=== PATIENT | female | born 1945 | race Caucasian/White ===

== ENCOUNTER 2020-12-22 04:17 | Inpatient (IN) | payer MEDICARE ==
[~2020-12-22] VITALS: Ht 157.5 cm; Wt 76.6 kg
[2020-12-22] MEDS ORDERED: TRAZ-252 PO (05:11)
[2020-12-22] MEDS ORDERED: SPIR50TA4 PO (05:15)
[2020-12-22] MEDS ORDERED: TOPR100T PO ×2 (05:15→10:22)
[2020-12-22] MEDS ORDERED: TORS20TA2 PO (05:15)
[2020-12-22] MEDS ORDERED: POTA1TAB23 PO (05:15)
[2020-12-22] MEDS ORDERED: ELIQ5TAB (05:15)
[2020-12-22] MEDS ORDERED: MYRB50TA PO (05:15)
[2020-12-22] MEDS ORDERED: FAMO1TAB11 PO (05:15)
[2020-12-22] MEDS ORDERED: TREL1AER (05:15)
[2020-12-22] MEDS ORDERED: NOXI1TAB PO (05:16)
[2020-12-22] MEDS ORDERED: CHRO200C2 PO (05:18)
[2020-12-22] MEDS ORDERED: CELE20TA PO (05:18)
[2020-12-22] MEDS ORDERED: TREL1AER PO (05:19)
[2020-12-22] MEDS ORDERED: fentaNYL 100 MCG/2 ML INJECTION (J3010) IV ONE (05:35)
[2020-12-22 06:09] LABS: BASO # 0.1 10^3/uL (0.0-0.2); BASO % 0.6 % (0.0-1.0); EOS % 0.4 % (0.0-3.0); HEMATOCRIT 39.8 % (36.0-47.0); HEMOGLOBIN 12.6 g/dl (12.0-15.5); LYMPH # 0.4 10^3/uL (1.5-5.0); LYMPH % 4.7 % (24.0-44.0); MEAN CORPUSCULAR HEMOGLOBIN 31.7 pg (27.0-33.0); MEAN CORPUSCULAR HGB CONC 31.7 g/dl (32.0-36.5); MEAN CORPUSCULAR VOLUME 100.3 fl (80.0-96.0); MONO % 10.2 % (2.0-8.0); NEUTROPHILS # 7.7 10^3/uL (1.5-8.5); NEUTROPHILS % 83.6 % (36.0-66.0); PLATELET COUNT, AUTOMATED 154 10^3/uL (150-450); RED BLOOD COUNT 3.97 10^6/uL (4.00-5.40); WHITE BLOOD COUNT 9.3 10^3/uL (4.0-10.0)
[2020-12-22 06:17] LABS: INR 1.28; PROTHROMBIN TIME 16.3 SECONDS (12.5-14.3)
[2020-12-22 06:18] LABS: PARTIAL THROMBOPLASTIN TIME 28.6 SECONDS (24.2-38.5)
[2020-12-22 06:30] LABS: CALCIUM LEVEL 8.7 MG/DL (8.8-10.2); CREATININE FOR GFR 1.53 MG/DL (0.55-1.30); POTASSIUM SERUM 3.8 MEQ/L (3.5-5.1)
[2020-12-22 06:34] LABS: RSV AMPLIFICATION NEGATIVE (NEGATIVE)
--- NOTE | 2020-12-22 07:04 | REPVR ---
PROCEDURE INFORMATION: Exam: XR Right Hip Exam date and time: 12/22/2020 6:28 AM Age: 75 years old Clinical indication: Hip pain; Right hip; Additional info: Fall, right hip deformity TECHNIQUE: Imaging protocol: XR Right hip. Views: 2 or 3 views hip with pelvis when performed. COMPARISON: No relevant prior studies available. FINDINGS: Bones/joints: There is a comminuted intertrochanteric fracture of the proximal right femur with a small amount of medial and superior displacement of the lesser trochanter fracture fragment, and mild posterior angulation of the femoral diaphysis relative to the femoral neck. The right hip joint space appears normal. Soft tissues: Grossly unremarkable. Vasculature: Arterial calcifications are noted. IMPRESSION: Acute, intertrochanteric fracture of the right femur. Electronically signed by: Bella Rios On 12/22/2020 07:04:23 AM
--- NOTE | 2020-12-22 07:07 | REPVR ---
PROCEDURE INFORMATION: Exam: XR Right Wrist Exam date and time: 12/22/2020 6:28 AM Age: 75 years old Clinical indication: Pain; Wrist; Right; Additional info: Trauma TECHNIQUE: Imaging protocol: XR Right wrist. Views: 3 or more views. COMPARISON: No relevant prior studies available. FINDINGS: Bones/joints: There is an acute, comminuted intra-articular fracture of the distal radius with impaction. There is mild dorsal angulation of the distal radius relative to the proximal radius and decreased radial inclination. There is a fracture of the ulnar styloid process. There is no evidence of dislocation. The bones appear qualitatively osteopenic. Soft tissues: There is diffuse soft tissue swelling. IMPRESSION: Comminuted, impacted, and mildly displaced, intra-articular fracture of the distal radius and an ulnar styloid process fracture. Electronically signed by: Bella Rios On 12/22/2020 07:07:27 AM
--- NOTE | 2020-12-22 07:09 | REPVR ---
PROCEDURE INFORMATION: Exam: XR Chest Exam date and time: 12/22/2020 6:28 AM Age: 75 years old Clinical indication: Pre-operative exam; Respiratory screening exam; Additional info: Fall, right forearm deformity TECHNIQUE: Imaging protocol: XR of the chest. Views: 1 view. COMPARISON: No relevant prior studies available. FINDINGS: Limitations: The patient is rotated. Tubes, catheters and devices: There is a left sided pacemaker. Lungs: The left lung is clear. The right lung is grossly clear but more limited in assessment. Pleural spaces: There is pleural fluid or pleural thickening on the right side. Heart/Mediastinum: The heart appears enlarged. Assessment of the mediastinum is limited by patient positioning. Bones/joints: The bones are osteopenic. Intraperitoneal space: Surgical clips are seen in the right upper quadrant. IMPRESSION: 1. Exam limited by rotation. 2. Cardiomegaly. 3. Mild right pleural thickening versus pleural fluid. Electronically signed by: Bella Rios On 12/22/2020 07:09:28 AM
--- NOTE | 2020-12-22 07:11 | REPVR ---
PROCEDURE INFORMATION: Exam: XR Right Forearm Exam date and time: 12/22/2020 6:28 AM Age: 75 years old Clinical indication: Wrist; Right; Patient HX: Distal forearm pain; Additional info: Fall, right forearm deformity TECHNIQUE: Imaging protocol: XR Right forearm. Views: 2 views. COMPARISON: No relevant prior studies available. FINDINGS: Tubes, catheters and devices: There are nathalie outside of the patient. Bones/joints: The bones are osteopenic. A comminuted, intra-articular fracture of the distal radius and ulnar styloid process fracture are noted. Please see the report for the x-ray of the wrist. The proximal radius and ulna appear intact. There is no dislocation. Soft tissues: Soft tissue swelling is noted in the distal forearm and wrist. Vasculature: Arterial calcifications are noted. IMPRESSION: 1. Fractures of the wrist, as reported on the x-ray of the wrist. 2. The proximal radius and ulna appear intact. Electronically signed by: Bella Rios On 12/22/2020 07:10:58 AM
[2020-12-22] MEDS ORDERED: ACETAMINOPHEN TAB 650MG DOSE (2X325MG) PO PRN ×2 (08:30→16:20)
[2020-12-22] MEDS ORDERED: MAALOX 30 ML SUSP *UDC PO PRN (08:30)
[2020-12-22] MEDS ORDERED: DEXTROSE 50% 50 ML SYRINGE IV PRN (08:30)
[2020-12-22] MEDS ORDERED: MOM 30ML SUSPENSION UDC PO PRN (08:30)
[2020-12-22] MEDS ORDERED: GLUCOSE 4GM CHEW TABLET PO PRN (08:30)
[2020-12-22] MEDS ORDERED: GLUCAGON INJ 1MG VIAL SC PRN (08:30)
[2020-12-22] MEDS ORDERED: MORPHINE 2 MG/ML 1ML VIAL (J2270) IV PRN ×2 (08:50→16:20)
[2020-12-22] MEDS: POTASSIUM CHLORIDE 10 MEQ SR TABLET PO SCH (09:00)
[2020-12-22] MEDS: MULTIVITAMINS/MINERALS THERAP 1 TAB PO SCH (09:00)
[2020-12-22] MEDS: VITAMIN D 1,000 INTERNATIONAL UNITS TABLET PO SCH (09:00)
[2020-12-22] MEDS: FAMOTIDINE 20 MG TAB PO SCH (09:00)
--- NOTE | 2020-12-22 09:05 | HPEPDOC ---
General Date of Admission 12/22/2020 Date of Service: Dec 22, 2020 Attending Physician: BRYAN TATE MD Chief Complaint The patient is a 75-year-old female admitted with a reason for visit of FALL. Presenting compliant: History of present illness: 75-year-old female patient past medical history of NIDDM, asthma, COPD, diverticulitis, hypertension, diastolic CHF with HFpEF, atrial fibrillation on Eliquis at home, history of heart block S/P pacemaker in 2004, anxiety/depression presented to [facility] ED after she sustained a fall at 3 AM when she got up to use the restroom, she accidentally slipped and fell to her right side and injured her right hip and right wrist .She denies having any shaking in her legs or hands, denies having any loss of control of bladder or bowel. No head injury, no loss of consciousness. Denies having any headache, chest pain, abdominal pain, nausea, vomiting, diarrhea. Patient was nothing by mouth since yesterday 7 PM as she is getting an pacemaker battery changed today at [place]. Past medical history: NIDDM Asthma COPD HTN Diastolic CHF HFpEF A. fib on Eliquis at home heart block s/p pacemaker Anxiety /depression Past surgical history: 3 bowel surgeries after obstruction, done in [place] Pacemaker 2005 Cholecystectomy 2016 Social history: Quit smoking in 1992, : Smoke 2 packs per day for 32 years Occasional wine drinking generally 1-2 glasses per week No illicit drug use Family History: Father had a history of heart disease, hypertension and diabetes- Mother has a history of heart disease- Grandmother has history of breast cancer- Sister has a history of breast cancer- Alive. REVIEW OF SYSTEMS: Constitutional: Denies having fever, chills, night sweats, weight loss, headaches. Eyes: Denies any blurry vision or double vision. ENT: Denies any dysphagia, odynophagia, ear discharge. Cardiovascular: Denies any chest pain or palpitations. Respiratory: Reports having shortness of breath on exertion [1/4 mile walk] Gastrointestinal (GI): Denies any nausea or vomiting. Genitourinary: Denies dysuria, hematuria. Musculoskeletal: Denies any muscle aches and pains. Skin: Denies any rashes or ulcers. Hematology/Oncology: Denies any easy bleeding or bruising. All other review of systems is negative. PHYSICAL EXAMINATION: Vital Signs: Temperature: 97.5 Pulse: 80/min RR: 16/min BP: 136/78 mmHg Oxygen saturation %: 98% on room air General: Patient is awake, alert, oriented times three, laying in bed , mild apparent distress due to pain from her recent fractures. Eyes: Conjunctiva clear, pupils equal round and reactive to light and accommodation. Fundus: not visualized. ENT: Hearing Bilateral normal. No nasal deviation, oropharynx clear with no lesions/erythema. Oral mucosa looks dry and she is nothing by mouth since yesterday 7pm. Cardiovascular: S1, S2, normal rhythm, no murmur appreciated. Respiratory: Patient was in pain and couldn't sit up due to her hip fracture. Could hear clear breath sounds on her left bases laterally but decreased breath sounds on the right lung bases laterally. Abdomen: Soft, bowel sounds positive, no bruits. Nontender on palpation. Extremities: She has a fracture in her right wrist and in Mando bandage. Given her right hip fracture her right leg is externally rotated. No clubbing or cyanosis. No edema, patient has superficial veins disease in bilateral legs and prominent veins in her right foot. Central nervous system (VIDEO MACHINES MECHANIC): Awake, alert and fully oriented. No focal deficits. Skin: Has a rash in bilateral legs and scratch lee. Imaging: Echocardiogram from 06/28/2020 reported as normal left ventricle systolic function, estimated ejection fraction of 60-65% estimated PA pressure is 62 mmHg plus moderate to severe pulmonary hypertension Chest x-ray done on 12/22/2020 reported as exam in limited by rotation, cardiomegaly, mild right pleural thickening versus pleural fluid. Hip AP and lateral including right pelvis done on 12/22/2020 reported as: Acute intertrochanteric fracture of the right femur. Radius/ulna x-ray done on 12/22/2020, reported as: Fracture of the wrist, as reported on the x-ray of the wrist. The proximal radius and ulna appear Intact. Wrist x-ray done on 12/22/2020, reported as: Comminuted, impacted, and mild displaced, intra-articular fracture of the distal radius and ulna styloid process fracture. Assessment: 75-year-old female with PMH of NIDDM, asthma, COPD, HTN, diastolic CHF with preserved EF, A. fib on anticoagulation at home, heart failure with pacemaker since 2004 presented to the ED after sustaining a fall early in the morning. In the ED imaging of her hip and pelvis and breast showed intertrochanteric fracture of femur and intra-or to kill her distal radius and ulna spinal process fracture. Dr. Amaya was contacted from the ED and was decided patient would be taken to or today to get her hip fixed, and her wrists she'll get the cast. As she was already off of for anticoagulation for her surgery today for pacemaker replacement she would be going to surgery today. Plan: Intertrochanteric hip fracture: -Patient will be taken to surgery today by Dr. Amaya -Patient to be kept nothing by mouth until the surgery. - Will start her on 60 MLS per hour of normal saline.[Be cautious in giving her fluids as she is has a history of congestive heart failure] - Post surgery as per the orthopedic surgeon recommendations will start Eliquis Wrist fracture: -Patient is will get a cast for her right wrist fracture. - Pain control as per orthopedic Atrial fibrillation with rate controlled: - Hold off on her Eliquis as she is going to surgery today. - Rate controlled with metoprolol 100 MG by mouth daily will continue that. - Her heart rate is 60 to 70s. Hypertension: -She takes metoprolol for her blood pressure control. - She generally takes 100 mg metoprolol by mouth daily if her blood pressure is elevated she takes an extra 50 mg. - Right now she is only getting 100 mg metoprolol, if patient has elevated blood pressure at nighttime it can give her an extra 50 mg of metoprolol. NIDDM 2: - Hypoglycemic protocol in place - Insulin sliding scale at before meals at bedtime. - Will hold her oral diabetic medications. COPD: - Will continue her home inhalers. Anxiety/depression: - Will continue her citalopram 20 mg GERD: - Will continue famotidine 10 mg[renally dosed by pharmacy she was getting 20 mg at home] DVT prophylaxis: - Teds and sequentials for now. - Her Eliquis will be resumed post surgery as per the recommendations of orthopedics. Disposition: Pending clinical improvement. Home Medications Scheduled Apixaban (Eliquis) 2.5 Mg Tablet, 2.5 MG PO BID, (Reported) Calcium Carb/Mag/Vitamin D3 (Coral Calcium 1,500 mg Cap) 1 Each Capsule, 1,500 MG PO DAILY, (Reported) Cholecalciferol (Vitamin D3) (Vitamin D3) 1,000 Unit Tablet, 5,000 UNITS PO DAILY, (Reported) Chromium Picolinate (Chromium Picolinate) 200 Mcg Tablet, 1,000 MCG PO DAILY, (Reported) Citalopram Hydrobromide (Celexa) 20 Mg Tablet, 20 MG PO DAILY, (Reported) Famotidine (Famotidine) 20 Mg Tablet, 20 MG PO DAILY, (Reported) Metoprolol Succinate (Toprol Xl) 100 Mg Tab.er.24h, 100 MG PO DAILY, (Reported) Mirabegron (Myrbetriq) 50 Mg Tab.er.24h, 50 MG PO DAILY, (Reported) Multivit,Calc,Mins/Iron/Folic (Thera-M Tablet) 1 Each Tablet, 1 TAB PO DAILY, (Reported) Potassium Chloride (Potassium Chloride) 10 Meq Tablet.er, 20 MEQ PO DAILY, (Reported) Spironolactone (Spironolactone) 50 Mg Tablet, 50 MG PO DAILY, (Reported) Torsemide (Torsemide) 20 Mg Tablet, 40 MG PO DAILY, (Reported) Trazodone HCl (Trazodone HCl) 50 Mg Tablet, 100 MG PO QHS, (Reported) Scheduled PRN Albuterol Sulf (Albuterol Sulfate) 2.5 Mg/3 Ml Vial.neb, 2.5 MG INH Q2H PRN for SHORTNESS OF BREATH, (Reported) Albuterol Sulfate (Ventolin Hfa) 18 Gm Hfa.aer.ad, 2 PUFFS INH QID PRN for SHORTNESS OF BREATH, (Reported) Diphenhydramine HCl (Banophen) 25 Mg Tablet, 25 MG PO DAILY PRN for ITCHING, (Reported) Fluticasone/Umeclidin/Vilanter (Trelegy Ellipta 100-62.5-25) 1 Each Blst.w.dev, 1 PUFF PO DAILY PRN for SHORTNESS OF BREATH, (Reported) Metoprolol Succinate (Toprol Xl) 100 Mg Tab.er.24h, 50 MG PO DAILY PRN for elevated heart rate, (Reported) Allergies Coded Allergies: lisinopril (Verified Adverse Reaction, Intermediate, AFFECTS RENAL FUNCTION, 12/22/20) metformin (Verified Adverse Reaction, Intermediate, AFFECTS RENAL FUNCTION, 12/22/20) simvastatin (Verified Adverse Reaction, Mild, ITCHING, 12/22/20) A-FIB/CHADSVASC A-FIB History Current/History of A-Fib/PAF?: Yes Current PO Anticoag Therapy: Yes Vital Signs Vital Signs Date Time Temp Pulse Resp B/P (MAP) Pulse Ox O2 Delivery O2 Flow Rate FiO2 12/22/20 06:21 80 16 136/78 (97) 98 Room Air 12/22/20 06:01 3.0 12/22/20 04:26 97.5 Laboratory Data Labs 24H Laboratory Tests 2 12/22/20 05:44: Immature Granulocyte % (Auto) 0.5, Neutrophils (%) (Auto) 83.6H, Lymphocytes (%) (Auto) 4.7L, Monocytes (%) (Auto) 10.2H, Eosinophils (%) (Auto) 0.4, Basophils (%) (Auto) 0.6, Neutrophils # (Auto) 7.7, Lymphocytes # (Auto) 0.4L, Monocytes # (Auto) 1.0H, Eosinophils # (Auto) 0.0, Basophils # (Auto) 0.1, Nucleated Red Blood Cells % (auto) 0.0, Prothrombin Time 16.3H, Prothromb Time International Ratio 1.28, Activated Partial Thromboplast Time 28.6, Anion Gap 9, Glomerular Filtration Rate 35.0L, Calcium Level 8.7L, Coronavirus (COVID-19)(PCR) NEGATIVE, Influenza Type A (RT-PCR) NEGATIVE, Influenza Type B (RT-PCR) NEGATIVE, Respiratory Syncytial Virus (PCR) NEGATIVE CBC/BMP Laboratory Tests 12/22/20 05:44 Plan / VTE VTE Prophylaxis Ordered?: Yes GME ATTESTATION GME ATTESTATION My faculty preceptor for this patient encounter was physically present during the encounter and was fully available. All aspects of the patient interview, examination, medical decision making process, and medical care plan development were reviewed and approved by the faculty preceptor. The faculty preceptor is aware and concurs with the plan as stated in the body of this note and will attest to such by his/her cosignature. ATTENDING NOTE I, Bryan Tate, have independently examined this patient and performed my own physical exam, as well as reviewed the documentation and edited where necessary. I have discussed in detail with the resident / student the findings and plan of treatment as documented by the resident / student and edited their note. I agree with their findings and treatment plan and have edited their documentation. I will continue to follow the patient during this hospital stay. Patient is a 75-year-old female with a past medical history of atrial fibrillation (s/p ablation and pacemaker, on Eliquis), Diastolic CHF, HTN, DLP, COPD, Depression, Insomnia who was recently scheduled to receive a pacemaker battery replacement today [facility]. However, she had fallen off of her toilet and landed on her right side, sustaining a right hip and right wrist fracture. Patient has reported that she has stopped the use of use of Eliquis on Sunday (last dose Sunday evening) in anticipation of the battery replacement today. Patient reports that her pain is currently not well controlled and is requesting further morphine. Patient is currently medically optimized at moderate risk for a low risk procedure. Will resume anticoagulation with Eliquis post operatively and have outpatient follow-up with her video machines mechanic for replacement of her pacemaker battery in the near future. Patient has verbalized understanding of risks and benefits of surgery. Ishaan Diaz MD Dec 22, 2020 09:05 BRYAN TATE MD Dec 22, 2020 18:08
[2020-12-22] MEDS: NS 1,000 ML IV SCH ×2 (09:12→22:15)
[2020-12-22] MEDS: DOCUSATE SODIUM 100MG CAPSULE PO SCH ×2 (09:12→22:05)
[2020-12-22] MEDS ORDERED: ALBU83IN INH (10:22)
[2020-12-22] MEDS ORDERED: VENTAER INH (10:30)
[2020-12-22] MEDS ORDERED: THERTAB21 PO (10:30)
[2020-12-22] MEDS ORDERED: CORACAP PO (10:30)
[2020-12-22] MEDS ORDERED: BANO25TA PO (10:30)
[2020-12-22] MEDS ORDERED: ELIQ2.5T PO (10:30)
[2020-12-22] MEDS ORDERED: D31000TA2 PO (10:30)
[2020-12-22] MEDS ORDERED: ALBUTEROL SULFATE 2.5 MG/0.5 ML INH NEB SOLN INH PRN (10:40)
[2020-12-22] MEDS ORDERED: ALBUTEROL 90 MCG/ACT 8GM HFA INHALER INH PRN (10:40)
[2020-12-22] MEDS ORDERED: METOPROLOL SUCC (TopROL XL) 100MG *XL* TAB PO PRN (10:40)
[2020-12-22] MEDS ORDERED: diphenhydrAMINE 25MG CAP PO PRN (10:40)
[2020-12-22] MEDS ORDERED: MORPHINE 4 MG/ML 1ML VIAL/SYRINGE (J2270) IV ONE (11:00)
[2020-12-22] MEDS: HumaLOG INSULIN (NovoLOG) PER UNIT SC SCH ×2 (12:00→17:30)
[2020-12-22] MEDS ORDERED: MORPHINE 4 MG/ML 1ML VIAL/SYRINGE (J2270) IV PRN (12:50)
[2020-12-22] MEDS ORDERED: ACETAMINOPHEN 1000MG 100ML IV BTL (OFIRMEV) (J0131 PER 10MG) As Ordered ONE (13:23)
[2020-12-22] MEDS ORDERED: dexameTHASONE 4 MG/ML 1ML VIAL (J1100 PER 1MG) As Ordered ONE (13:23)
[2020-12-22] MEDS ORDERED: propofoL 200 MG/20 ML VIAL As Ordered ONE (13:23)
[2020-12-22] MEDS ORDERED: LIDOCAINE 2% 100MG/5ML SDV (FOR ANES.) As Ordered ONE (13:23)
[2020-12-22] MEDS ORDERED: ONDANSETRON 4MG/2ML VIAL As Ordered ONE (13:23)
[2020-12-22] MEDS ORDERED: fentaNYL 100 MCG/2 ML INJECTION (J3010) As Ordered ONE (13:23)
[2020-12-22] MEDS ORDERED: MIDAZOLAM INJ 2MG/2ML VIAL (J2250 PER 1MG) As Ordered ONE (13:23)
--- NOTE | 2020-12-22 13:25 | CR ---
CONSULTATION DATE: 12/22/2020 CHIEF COMPLAINT: Right hip fracture and right distal radius fracture. HISTORY OF PRESENT ILLNESS: This 75-year-old female sustained a ground-level fall this morning. She is seen in the emergency department. She was found to have a distal radius fracture of the right side as well as a right hip fracture. She was brought in by the emergency medical services (EMS). She was unable to ambulate. She reports no head injury or loss of consciousness. She has been off her Eliquis due to needing battery change for her pacemaker. She is nothing by mouth. MEDICAL HISTORY: 1. Diabetes. 2. Renal dysfunction. 3. Chronic obstructive pulmonary disease (COPD). 4. Diverticulosis. 5. Asthma. 6. Pacemaker. She is unsure of medications she is on; however, in the chart, trazodone, insulin, albuterol, potassium chloride, multivitamin, metoprolol, famotidine, Celexa, and I believe she is on Eliquis as well. MEDICATION ALLERGIES: LISINOPRIL, METFORMIN, SIMVASTATIN. SURGICAL HISTORY: Many, however, she states she has had three times bowel surgeries. SOCIAL HISTORY: Lives with her significant other, Vargas. His phone number . Nonsmoker. Does not use any ambulatory aids. PHYSICAL EXAMINATION: Well-appearing 75-year-old female in no acute distress. She has a splint on her right upper extremity. Finger are warm and well perfused. She is wiggling her fingers. Capillary refill under 3 seconds. Normal sensation to median, radial, ulnar nerve distribution. No other obvious injuries. In terms of her right lower extremity, foot is warm and well perfused. Strong dorsalis pedis pulse. She is able to wiggle her toes, dorsiflex, plantarflex her foot. Normal sensation on the dorsum and plantar aspect of her foot. No obvious abrasions. Closed injury, right hip. Radiographs were reviewed. Right hip demonstrates a 4-part unstable intertrochanteric hip fracture on the right side. There is also right wrist and forearm radiographs that demonstrate a right distal radius fracture. There is flattening of the radial inclination, minimal shortening, and on the lateral radiograph the dorsal angulation appears neutral. ASSESSMENT AND PLAN: This 75-year-old female is optimized for the hospitalist service for right hip fracture fixation. In terms of her right wrist fracture, I recommend nonsurgical management given the relative good alignment in a splint. I recommend cast treatment for this for 6 weeks. I recommend closed reduction and cast treatment. I explained the pros and cons, risks, benefits of going ahead with a right hip open reduction, internal fixation in the form of long intramedullary nail as well as closed reduction and casting of right distal radius fracture. She wished to go ahead. I explained the pros and cons, risks, and benefits of both nonoperative management as well as operative forms of treatment. Specific surgical risks include, but are not limited to, infection, pain, stiffness, weakness, damage to surrounding structures, lymph, neurovascular injury, fracture, delayed mal or nonunion, neurovascular injury, anesthetic complications, blood clots, , need for revision, or other surgeries. This applies to both the right wrist as well as the right hip. I consented her for right hip open reduction, internal fixation and right distal radius closed reduction casting. She wished to go ahead. I marked the right lower extremity. I also consented her for possible need for blood products and explained the pros, cons, risks, and benefits of that to her as well. She will remain nothing by mouth for the procedure. Hold her blood thinner. She has been cleared by the hospitalist, whom I thank for their involvement. I have let the operating room (OR) know that she is an add-on case. The patient understands and had no further questions.
--- NOTE | 2020-12-22 14:05 | IPNPDOC ---
Text Note Date of Service The patient was seen on 12/22/20. NOTE Full H&P to follow: Patient is a 75-year-old female with a past medical history of atrial fibrillation (s/p ablation and pacemaker, on Eliquis), Diastolic CHF, HTN, DLP, COPD, Depression, Insomnia who was recently scheduled to receive a pacemaker battery replacement today [facility]. However, she had fallen off of her toilet and landed on her right side, sustaining a right hip and right wrist fracture. Patient has reported that she has stopped the use of use of Eliquis on Sunday (last dose Sunday evening) in anticipation of the battery replacement today. Patient reports that her pain is currently not well controlled and is requesting further morphine. Patient is currently medically optimized at moderate risk for a low risk proced ure. Will resume anticoagulation with Eliquis post operatively and have outpatient follow-up with her sales marketing manager for replacement of her pacemaker battery in the near future. Patient has verbalized understanding of risks and benefits of surgery. VS,Fishbone, I+O VS, Fishbone, I+O Laboratory Tests 12/22/20 05:44 Vital Signs Date Time Temp Pulse Resp B/P (MAP) Pulse Ox O2 Delivery O2 Flow Rate FiO2 12/22/20 12:32 64 96 12/22/20 12:30 18 118/61 (80) Nasal Cannula 2.0 12/22/20 08:30 98.0 CRISS ALVARADO MD Dec 22, 2020 14:05
[2020-12-22] MEDS ORDERED: ceFAZolin 2 GM/D5W 50 ML IV BAG (J0690 PER 500MG) As Ordered ONE (14:33)
--- NOTE | 2020-12-22 16:04 | REP ---
INDICATION: INTRA-OP COMPARISON: 12/22/2020 TECHNIQUE: Intraoperative fluoroscopic images using portable C-arm technique. FINDINGS: Patient is status post satisfactory closed reduction for comminuted distal radial fracture. Total fluoroscopic time 5.3 seconds. IMPRESSION: Status post closed reduction period. <Electronically signed by Tex Almendarez > 12/22/20 1600
--- NOTE | 2020-12-22 16:13 | ROOPDOC ---
[facility] Report Of Operation Report of Operation DATE OF PROCEDURE: 12/22/20 PREPROCEDURE DIAGNOSES: Right hip fracture and right distal radius fracture. POSTPROCEDURE DIAGNOSES: Same. PROCEDURE: Open reduction internal fixation right hip and closed reduction casting right distal radius fracture. SURGEON: Dr. Heriberto Jama MD RECORD KEEPER: Jeniffer, ANESTHESIA: Spinal anesthetic dr sykes. ESTIMATED BLOOD LOSS: Approximately 100 mL. COMPLICATIONS: None. REMARKS: None. PROCEDURE NOTE: This 75-year-old female had a ground-level fall. She does sustained a displaced unstable right intertrochanteric hip fracture and right a stress fracture. I discussed the pros and cons risks and benefits of nonsurgical treatment, versus open reduction internal fixation right hip and closed reduction casting right distal radius fracture vs other options. She understands and wished to proceed. No further questions. Right hip and right wrist was marked appropriately. DESCRIPTION OF PROCEDURE: Patient was brought to the operating theater. Spinal anesthetic was administered. 2 g of IV Ancef was administered. They were placed supine in the traction fracture table. Right lower extremity in traction and external rotation followed by internal rotation. Left leg attached to the middle post and scissoring position. AP and lateral radiographs taken of the right hip to confirm proper reduction. Limb was prepped and draped in the usual sterile fashion with chlorhexidine-based prep solution. Over 3 minutes drying time was used. Preoperative timeout was performed to confirm site patient and surgery. I began by addressing the 3.2 mm partially threaded guidewire at the tip of the greater trochanter on both AP and lateral radiographs aiming towards the lesser trochanter as well as down the center of the femoral canal. Made a small incision over the guidewire. A soft tissue protector. A canal reamer was used to open the proximal femur. I then passed the ball-tip guidewire down to the center of the knee center center on both AP and lateral x-rays. This measured 370 mm long and the neck shaft angle is slightly valgus so a 11 mm 360 mm long 130 neck shaft angle was used Synthes TFN- A nail. The nail was placed and the guidewire removed. Drop-down guide was used again small incision percutaneous technique was used to insert the partially-threaded guidewire to the center of the femoral head and neck erring slightly inferior and posterior. Guidewire was advanced to subchondral bone. This measured 106 mm so I reamed to 100 mm and inserted a 100 mm helical blade. This was locked proximally. Drop-down guide was removed. Guidewire was removed. I then put her my attention distally. Using perfect [place] technique and percutaneous incisions and inserted a fully threaded cortical locking screws one 44 mm long and one 40 mm long through the proximal hole as well as the oblong hole. Final radiographs were taken. I used the near far technique to ensure no subchondral bone penetration of the helical blade. I took final radiographs AP laterally proximally and distally confirmed proper reduction and nail implant positioning. Wounds thoroughly irrigated. Subcutaneous tissue closed with 2-0 Vicryl sutures and skin with nathalie. Surgicel was inserted into the proximal incision for hemostasis as she was slightly oozy throughout the case. Skin was cleaned with wet and dry dressing followed by application of nonstick dressings for gauze and clear plastic tape dressing. Patient's lower extremity was then taken out of the traction setup. Another preoperative timeout was performed to confirm the site patient and procedure right distal radius closed reduction casting. I placed a below elbow circumferential plaster of Maria Antonia cast on the patient's right upper extremity. I performed gentle 3 point molding with 2 points dorsally 1 volarly. I placed the wrist into ulnar deviation with longitudinal traction. The cast was allowed to fully set. Radiographs are taken to confirm proper reduction. These were saved to the system. Case terminated. Patient transferred off the operating room table taken to postanesthetic care unit in stable condition. All sponge needle and instrument counts correct. No complications. Estimated blood loss 100 mL. Post op Plan: Plan for the patient weightbearing as tolerated. Readmitted under the hospitalist service. I will leave the venous thrombolic embolism prophylaxis to the hospitalist although she will most likely return to her home dose of eliquis postoperative day 1 or 2. I am a bit concerned she may develop a post op hematoma with her being oozy during the surgery, however the risks of this must be balanced with risk of VTE. Weightbearing as tolerated right lower extremity and she may use the right upper extremity with the cast in place to help her ambulate. Using a walker with an ulnar gutter on the right side may be of benefit for her. Follow-up in the office in 2 weeks' time to check the wound and discontinue the nathalie. I communicated directly with the patient's significant other today after surgery. They had no further questions. Postoperative wound instructions were given. It was recommended to keep the wound clean and dry. Dressing changes as needed. It was reinforced with the patient that they should call us or be seen immediately for redness, drainage, or fever. HERIBERTO JAMA MD Dec 22, 2020 16:13
[2020-12-22] MEDS ORDERED: oxyCODONE 5MG TAB PO PRN (16:15)
[2020-12-22] MEDS ORDERED: ONDANSETRON 4MG/2ML VIAL IV PRN ×2 (16:15→16:20)
[2020-12-22] MEDS ORDERED: LR 1,000 ML IV SCH ×2 (16:15→16:20)
--- NOTE | 2020-12-22 16:22 | REP ---
INDICATION: RIGHT HIP FRACTURE. COMPARISON: Comparison radiographs December 22, 2020.. TECHNIQUE: Five views. 162.6 seconds of fluoroscopy time is reported. FINDINGS: A sequence of 6 last image hold fluoroscopically obtained spot radiographs of the femur document open reduction internal fixation proximal femur fracture. IMPRESSION: Procedural imaging. <Electronically signed by Carlitos Morales > 12/22/20 0540
[2020-12-22] MEDS: fentaNYL 100 MCG/2 ML INJECTION (J3010) IV PRN ×2 (16:52→17:08)
[2020-12-22 17:45] VITALS: BP 125/58
[2020-12-22 18:15] VITALS: BP 121/57
[2020-12-22 18:45] VITALS: BP 139/65
[2020-12-22 20:00] VITALS: BP 129/60
[2020-12-22] MEDS ORDERED: traZODone 100 MG TAB PO SCH (21:00)
[2020-12-22] MEDS ORDERED: HumaLOG INSULIN (NovoLOG) PER UNIT SC SCH (21:00)
[2020-12-22] MEDS: METOPROLOL SUCC (TopROL XL) 100MG *XL* TAB PO SCH (21:10)
[2020-12-22] MEDS: CitaloPRAM (CeleXA) 20 MG TAB PO SCH (22:05)
[2020-12-23] VITALS: BP 129/59
[2020-12-23 04:00] VITALS: BP 132/63
[2020-12-23] MEDS: PERCOCET 5MG/325MG TAB PO PRN ×2 (05:37→12:09)
[2020-12-23 07:05] LABS: BASO % 0.1 % (0.0-1.0); HEMATOCRIT 39.6 % (36.0-47.0); HEMOGLOBIN 11.7 g/dl (12.0-15.5); LYMPH # 0.4 10^3/uL (1.5-5.0); LYMPH % 4.7 % (24.0-44.0); MEAN CORPUSCULAR HEMOGLOBIN 31.5 pg (27.0-33.0); MEAN CORPUSCULAR HGB CONC 29.5 g/dl (32.0-36.5); MEAN CORPUSCULAR VOLUME 106.7 fl (80.0-96.0); MONO # 1.2 10^3/uL (0.0-0.8); MONO % 13.5 % (2.0-8.0); NEUTROPHILS # 7.3 10^3/uL (1.5-8.5); PLATELET COUNT, AUTOMATED 142 10^3/uL (150-450); RED BLOOD COUNT 3.71 10^6/uL (4.00-5.40)
[2020-12-23 07:24] LABS: CALCIUM LEVEL 8.9 MG/DL (8.8-10.2); CREATININE FOR GFR 1.62 MG/DL (0.55-1.30); GLOMERULAR FILTRATION RATE 32.8 (>39); POTASSIUM SERUM 4.2 MEQ/L (3.5-5.1)
[2020-12-23 07:59] VITALS: BP 120/57
[2020-12-23] MEDS: HumaLOG INSULIN (NovoLOG) PER UNIT SC SCH ×2 (08:30→13:03)
[2020-12-23] MEDS: MULTIVITAMINS/MINERALS THERAP 1 TAB PO SCH (08:55)
[2020-12-23] MEDS: CitaloPRAM (CeleXA) 20 MG TAB PO SCH (08:55)
[2020-12-23] MEDS: VITAMIN D 1,000 INTERNATIONAL UNITS TABLET PO SCH (08:55)
[2020-12-23] MEDS: DOCUSATE SODIUM 100MG CAPSULE PO SCH (08:55)
[2020-12-23] MEDS: POTASSIUM CHLORIDE 10 MEQ SR TABLET PO SCH (08:55)
[2020-12-23] MEDS: FAMOTIDINE 20 MG TAB PO SCH (08:56)
[2020-12-23 08:59] VITALS: BP 101/53
[2020-12-23] MEDS: METOPROLOL SUCC (TopROL XL) 100MG *XL* TAB PO SCH (08:59)
[2020-12-23] MEDS ORDERED: APIXABAN 2.5 MG TAB (ELIQUIS) PO SCH (09:00)
[2020-12-23] MEDS ORDERED: NS 1,000 ML IV SCH (09:10)
--- NOTE | 2020-12-23 11:08 | IPN ---
PROGRESS NOTE DATE: 12/23/2020 CHIEF COMPLAINT: Postop day #1 right hip open reduction internal fixation and right distal radius fracture closed reduction casting. HISTORY OF PRESENT ILLNESS: This 75-year-old female was seen today on the [facility] postoperative day #1 from right hip intramedullary nailing for intertrochanteric hip fracture as well as closed reduction casting right distal radius fracture. She is doing well. No concerns from her or the nursing staff. PHYSICAL EXAMINATION: A well appearing 75-year-old female. She communicates appropriately. She is alert and oriented x3. She is quite pleasant in her affect. In terms of the right upper extremity, the cast is in situ. No cast or skin breakdown. Normal sensation throughout the digits. Digits are warm and well perfused. Capillary refill under 3 seconds. Right lower extremity; the dressings are dry and in situ. No obvious drainage or strikethrough. Normal sensation to the foot. Foot is warm and well perfused. Strong dorsalis pedis pulse. She is able to wiggle her toes, dorsiflex and plantarflex her foot. ASSESSMENT AND PLAN: This 75-year-old female is weightbearing as tolerated right lower extremity. In terms of the right upper extremity, as I stated in my operative note, it may help to obtain an ulnar gutter with her walker to help for mobilization. In terms of anticoagulation, I will leave this up to the hospitalist, however, she will likely go back on her home dose of Eliquis today or tomorrow. She understands and had no further questions. I will follow her while she is in the hospital. Please do not hesitate to call with any concerns.
[2020-12-23 11:11] VITALS: BP 98/58
[2020-12-23] MEDS ORDERED: PERCOCET PO (11:21)
[2020-12-23] MEDS ORDERED: MM S100C PO (11:21)
--- NOTE | 2020-12-23 12:40 | ECGEPIP ---
[facility] - ED Test Date: 2020-12-22 Pat Name: ALEX MARIA Department: Room: - Gender: Female [employer] Researcher: liam : 1945 Requested By: VITO Man Order Number: [id number] Reading MD: Dilia Bowen Measurements Intervals Steward Rate: 65 P: VT: QRS: -86 QRSD: 160 T: 77 QT: 488 QTc: 507 Interpretive Statements Ventricular-paced rhythm no prior Electronically Signed on 12-23-2020 12:40:25 EDT by Dilia Bowen
--- NOTE | 2020-12-23 16:53 | DS.PDOC ---
Discharge Summary General Date of Admission Dec 22, 2020 at 08:49 Date of Discharge 12/23/2020 Attending Physician: BRYAN TATE MD Discharge Summary PROCEDURES PERFORMED DURING STAY: Open reduction internal fixation right hip and closed reduction casting right distal radius fracture. on 12/[address] Ena Amaya ADMITTING DIAGNOSES: Right intertrochanteric hip fracture and right wrist fracture NIDDM Asthma COPD HTN Diastolic CHF HFpEF A. fib on Eliquis at home heart block s/p pacemaker Anxiety /depression DISCHARGE DIAGNOSES: Status post right hip fracture fixation Cast treatment for right wrist fracture. NIDDM Asthma COPD HTN Diastolic CHF HFpEF A. fib on Eliquis at home heart block s/p pacemaker Anxiety /depression COMPLICATIONS/CHIEF COMPLAINT: Closed Right Hip Fx/Right Forearm Fx. HISTORY OF PRESENT ILLNESS: 75-year-old female with PMH of NIDDM, Asthma, COPD, HTN, diastolic CHF with preserved EF, A. fib on anticoagulation at home, heart failure with pacemaker since 2004 presented to the ED after sustaining a fall early in the morning. In the ED imaging of her hip and pelvis and breast showed intertrochanteric fracture of femur and intertrochanteric distal radius and ulna spinal process fracture. Dr. Amaya was contacted from the ED and was decided patient would be taken to or today to get her hip fixed, and her wrists she'll get the cast. As she was already off of for anticoagulation for her surgery today for pacemaker replacement she would be going to surgery. HOSPITAL COURSE: Patient had right hip fixation and a cast placement for the right wrist yesterday. No complications post surgery. Pain was controlled by medications. Eliquis was resumed today based on home dose post-operatively. Reports having itching all over her body most likely because of dryness and had reported this during prior hospitalizations as well. DISCHARGE MEDICATIONS: Please see below. ALLERGIES: Please see below. PHYSICAL EXAMINATION ON DISCHARGE: VITAL SIGNS: Please see below. General: Patient is awake, alert, oriented times three, sitting in chair, mild apparent distress and she is going from her recent hip fracture surgery. Eyes: Conjunctiva clear, pupils equal round and reactive to light and accommodation. Fundus: not visualized. ENT: Hearing Bilateral normal. No nasal deviation, oropharynx clear with no lesions/erythema. Cardiovascular: S1, S2, normal rhythm, no murmur appreciated. Respiratory: Bilaterally clear breath sounds appreciated, no wheezes or rhonchi. Abdomen: Soft, bowel sounds positive, no bruits. Nontender on palpation. Extremities: She has a fracture in her right wrist and in cast. She did have his surgery yesterday and noted bandage in her hip region with no surrounding erythema or discharge. No leg swellings noted Central nervous system ([facility]): Awake, alert and fully oriented. No focal deficits. Skin: Has a rash in bilateral legs and scratch lee. LABORATORY DATA: Please see below. IMAGING: Imaging: Echocardiogram from 06/28/2020 reported as normal left ventricle systolic function, estimated ejection fraction of 60-65% estimated PA pressure is 62 mmHg plus moderate to severe pulmonary hypertension Chest x-ray done on 12/22/2020 reported as exam in limited by rotation, cardiomegaly, mild right pleural thickening versus pleural fluid. Hip AP and lateral including right pelvis done on 12/22/2020 reported as: Acute intertrochanteric fracture of the right femur. Radius/ulna x-ray done on 12/22/2020, reported as: Fracture of the wrist, as reported on the x-ray of the wrist. The proximal radius and ulna appear Intact. Wrist x-ray done on 12/22/2020, reported as: Comminuted, impacted, and mild displaced, intra-articular fracture of the distal radius and ulna styloid process fracture. PROGNOSIS: Good ACTIVITY: [As tolerated]. DIET: Consistent carbohydrate diet DISCHARGE PLAN: Acute rehabilitation unit DISPOSITION: Acute Rehab DISCHARGE INSTRUCTIONS: 1. Follow with PCP in one week after the discharge from the hospital. 2. Follow-up with orthopedics after the discharge from hospital. ITEMS TO FOLLOWUP ON ON OUTPATIENT: 1. Follow-up with PCP in one week after the discharge from hospital DISCHARGE CONDITION: [Stable]. TIME SPENT ON DISCHARGE: 35 minutes. Vital Signs/I&Os Vital Signs Date Time Temp Pulse Resp B/P (MAP) Pulse Ox O2 Delivery O2 Flow Rate FiO2 12/23/20 12:39 16 12/23/20 11:30 93 Nasal Cannula 1.0 12/23/20 11:11 97.0 64 98/58 (71) I&O- Last 24 Hours up to 6 AM 12/23/20 06:00 Intake Total 860 ml Output Total 375 ml Balance 485 ml Laboratory Data Labs 24H Laboratory Tests 2 12/22/20 17:44: Bedside Glucose (Misc Panel) 153H 12/22/20 22:09: Bedside Glucose (Misc Panel) 156H 12/23/20 06:02: Immature Granulocyte % (Auto) 0.7, Neutrophils (%) (Auto) 81.0H, Lymphocytes (%) (Auto) 4.7L, Monocytes (%) (Auto) 13.5H, Eosinophils (%) (Auto) 0.0, Basophils (%) (Auto) 0.1, Neutrophils # (Auto) 7.3, Lymphocytes # (Auto) 0.4L, Monocytes # (Auto) 1.2H, Eosinophils # (Auto) 0.0, Basophils # (Auto) 0.0, Nucleated Red Blood Cells % (auto) 0.0, Anion Gap 6L, Glomerular Filtration Rate 32.8L, Calcium Level 8.9 12/23/20 06:45: Bedside Glucose (Misc Panel) 175H 12/23/20 11:26: Bedside Glucose (Misc Panel) 178H CBC/BMP Laboratory Tests 12/23/20 06:02 FSBS Laboratory Tests Test 12/22/20 17:44 12/22/20 22:09 12/23/20 06:45 12/23/20 11:26 Range/Units Bedside Glucose (Misc Panel) 153 156 175 178 83-110 MG/DL Discharge Medications Scheduled Apixaban (Eliquis) 2.5 Mg Tablet, 2.5 MG PO BID, (Reported) Calcium Carb/Mag/Vitamin D3 (Coral Calcium 1,500 mg Cap) 1 Each Capsule, 1,500 MG PO DAILY, (Reported) Cholecalciferol (Vitamin D3) (Vitamin D3) 1,000 Unit Tablet, 5,000 UNITS PO DAILY, (Reported) Chromium Picolinate (Chromium Picolinate) 200 Mcg Tablet, 1,000 MCG PO DAILY, (Reported) Citalopram Hydrobromide (Celexa) 20 Mg Tablet, 20 MG PO DAILY, (Reported) Docusate Sodium (Stool Softener) 100 Mg Capsule, 1 CAP PO BID Famotidine (Famotidine) 20 Mg Tablet, 20 MG PO DAILY, (Reported) Metoprolol Succinate (Toprol Xl) 100 Mg Tab.er.24h, 100 MG PO DAILY, (Reported) Mirabegron (Myrbetriq) 50 Mg Tab.er.24h, 50 MG PO DAILY, (Reported) Multivit,Calc,Mins/Iron/Folic (Thera-M Tablet) 1 Each Tablet, 1 TAB PO DAILY, (Reported) Trazodone HCl (Trazodone HCl) 50 Mg Tablet, 100 MG PO QHS, (Reported) Scheduled PRN Albuterol Sulf (Albuterol Sulfate) 2.5 Mg/3 Ml Vial.neb, 2.5 MG INH Q2H PRN for SHORTNESS OF BREATH, (Reported) Albuterol Sulfate (Ventolin Hfa) 18 Gm Hfa.aer.ad, 2 PUFFS INH QID PRN for SHORTNESS OF BREATH, (Reported) Diphenhydramine HCl (Banophen) 25 Mg Tablet, 25 MG PO DAILY PRN for ITCHING, (Reported) Fluticasone/Umeclidin/Vilanter (Trelegy Ellipta 100-62.5-25) 1 Each Blst.w.dev, 1 PUFF PO DAILY PRN for SHORTNESS OF BREATH, (Reported) Oxycodone/Acetaminophen (Oxycodone-Acetaminophen 5-325) 1 Each Tablet, 1 TAB PO Q6HP PRN for SEVERE PAIN (PS 8-10) Allergies Coded Allergies: lisinopril (Verified Adverse Reaction, Intermediate, AFFECTS RENAL FUNCTION, 12/22/20) metformin (Verified Adverse Reaction, Intermediate, AFFECTS RENAL FUNCTION, 12/22/20) simvastatin (Verified Adverse Reaction, Mild, ITCHING, 12/22/20) GME ATTESTATION GME ATTESTATION My faculty preceptor for this patient encounter was physically present during the encounter and was fully available. All aspects of the patient interview, examination, medical decision making process, and medical care plan development were reviewed and approved by the faculty preceptor. The faculty preceptor is aware and concurs with the plan as stated in the body of this note and will attest to such by his/her cosignature. ATTENDING NOTE I, Bryan Tate, have independently examined this patient and performed my own physical exam, as well as reviewed the documentation and edited where necessary. I have discussed in detail with the resident / student the findings and plan of treatment as documented by the resident / student and edited their note. I agree with their findings and treatment plan and have edited their documentation. I will continue to follow the patient during this hospital stay. Time spent on discharge 35 minutes Ishaan Diaz MD Dec 23, 2020 16:53 BRYAN TATE MD Dec 23, 2020 17:14
--- NOTE | 2020-12-24 19:12 | IPNPDOC ---
Text Note Date of Service The patient was seen on 12/24/20. VS,Fishbone, I+O VS, Fishbone, I+O Vital Signs Date Time Temp Pulse Resp B/P (MAP) Pulse Ox O2 Delivery O2 Flow Rate FiO2 12/23/20 12:39 16 12/23/20 11:30 93 Nasal Cannula 1.0 12/23/20 11:11 97.0 64 98/58 (71) I&O- Last 24 Hours up to 6 AM 12/24/20 06:00 Intake Total 1260 ml Output Total 200 ml Balance 1060 ml Ishaan Diaz MD Dec 24, 2020 19:12
== END 2020-12-23 14:58 | DRG 481 ==
LOC: M ED 04:17 → M ED INP 08:49 → ENRESERV 12:34 → M PCU 17:31
PROVIDERS: ADMIT Internal Medicine; ATTEND Internal Medicine
PROC: 0PSHXZZ Reposition Right Radius, External Approach (ICD-10-PCS; 2020-12-22)
PROC: 0QS604Z Reposition Right Upper Femur with Internal Fixation Device, Open Approach (ICD-10-PCS; principal; 2020-12-22 12:30)
DX: S72.141A Displaced intertrochanteric fracture of right femur, initial encounter for closed fracture (principal); S52.611A Displaced fracture of right ulna styloid process, initial encounter for closed fracture; I50.32 Chronic diastolic (congestive) heart failure; E11.9 Type 2 diabetes mellitus without complications; J45.909 Unspecified asthma, uncomplicated; J44.9 Chronic obstructive pulmonary disease, unspecified; I11.0 Hypertensive heart disease with heart failure; F41.9 Anxiety disorder, unspecified; F32.9 Major depressive disorder, single episode, unspecified; I48.91 Unspecified atrial fibrillation; K21.9 Gastro-esophageal reflux disease without esophagitis; Z95.0 Presence of cardiac pacemaker; W18.30XA Fall on same level, unspecified, initial encounter; Y92.008 Other place in unspecified non-institutional (private) residence as the place of occurrence of the external cause; Y93.89 Activity, other specified; Y99.8 Other external cause status; Z90.49 Acquired absence of other specified parts of digestive tract; Z87.891 Personal history of nicotine dependence; Z79.01 Long term (current) use of anticoagulants; Z79.899 Other long term (current) drug therapy; Z88.8 Allergy status to other drugs, medicaments and biological substances; R21 Rash and other nonspecific skin eruption

== ENCOUNTER 2020-12-23 12:41 | Inpatient (IN) | payer MEDICARE ==
[~2020-12-23] VITALS: Ht 157.5 cm; Wt 71.3 kg
[~2020-12-23 12:41] MED LIST: ALBU83IN INH; BANO25TA PO; CELE20TA PO; CHRO200C2 PO; CORACAP PO; D31000TA2 PO; ELIQ2.5T PO; ELIQ5TAB; FAMO1TAB11 PO; MM S100C PO; MYRB50TA PO; NOXI1TAB PO; PERCOCET PO; POTA1TAB23 PO; SPIR50TA4 PO; THERTAB21 PO; TOPR100T PO; TORS20TA2 PO; TRAZ-252 PO; TREL1AER; TREL1AER PO; VENTAER INH
[2020-12-23] MEDS ORDERED: DEXTROSE 50% 50 ML SYRINGE IV PRN (12:50)
[2020-12-23] MEDS ORDERED: GLUCOSE 4GM CHEW TABLET PO PRN (12:50)
[2020-12-23] MEDS ORDERED: GLUCAGON INJ 1MG VIAL SC PRN (12:50)
[2020-12-23] MEDS ORDERED: BISACODYL 10 MG SUPP PR PRN (12:50)
[2020-12-23] MEDS ORDERED: ONDANSETRON 4 MG ORAL DISINTEGRATING TAB PO PRN (12:50)
--- NOTE | 2020-12-23 13:09 | HPEPDOC ---
Prepress Proofer Note DATE OF ADMISSION: 12-23-20 DATE OF SERVICE: 12-23-20 TIME OF ADMISSION: Please refer to physician's admission order. SOURCE OF ADMISSION INFORMATION: [facility] record and patient CHIEF COMPLAINT: right hip and wrist fracture HISTORY OF PRESENT ILLNESS: 75F pmh DM, asthma, COPD, HTN, diverticulitis, CKD, chronic diastolic CHF, Afib on eliquis with s/p ablation heart block and pacemaker, had a mechanical fall at home and presented to [facility] ED on 12-22-20 complaining of right arm and leg pain. Right wrist XRay revealed, comminuted, intra-articular fracture of the distal radius and ulnar styloid process fracture are noted Additionally right hip XR showed, Acute, intertrochanteric fracture of the right femur. She was seen by orthopedics who performed an open reduction internal fixation of the right hip and closed reduction casting of the right distal radius fracture on 12-22-20. She was made WBAT to RLE and cleared to use the right arm for ambulation. She had post-op anemia, low blood pressures, and difficulty with pain management. In addition she had new mobility and ADL impairments and was deemed medically appropriate for discharge to ARU on 12-23-20 REVIEW OF SYSTEMS: The following is a completed review of systems and has been reviewed. Review of systems otherwise unremarkable. PAIN: Patient self reports right hip pain EYES: No recent vision changes EARS, NOSE, & THROAT: No throat pain, or dysphagia, or rhinorrhea CARDIOVASCULAR: Denies chest pain or palpitations PULMONARY: Denies shortness of breath GASTROINTESTINAL: Denies constipation/diarrhea GENITOURINARY: denies dysuria MUSCULOSKELETAL: right hip and wrist fracture NEUROLOGICAL:denies tremor or paresthesias HEMATOLOGICAL: denies easy bruising SKIN: right hip incision PSYCHIATRIC:Unremarkable All other review of systems found to be negative. PAST MEDICAL HISTORY: as per HPI PAST SURGICAL HISTORY: Pacemaker, cholecystectomy, SBO s/p 3 surgeries ALLERGIES: Please see below. MEDICATIONS: Please see below. SOCIAL HISTORY: Former smoker, occasional ETOH, no illicit drugs DIET: low sodium PHYSICAL EXAMINATION: VITAL SIGNS: Please see below. GENERAL: Pleasant and cooperative. No acute distress. HEENT: PERRL. Extraocular movements intact. Clear conjunctiva CARDIOVASCULAR: Regular rate and rhythm. No murmurs, rubs, or gallops LUNGS: Clear to auscultation bilaterally. No wheezes. No rhonchi ABDOMEN: Soft, nontender, nondistended. Positive bowel sounds. Normal active bowel sounds NEUROLOGICAL: Alert and oriented times three. Cranial nerves II through XII grossly intact. Sensation grossly intact] EXTREMITIES: 5\5 strength left upper extremity, 5/5 right elbow flexion.extension (limited due to cast). 5/5 strength right ankle DF/EHL and PF (limited due to hip surgery). /5 strength in left lower extremity. Skin- right hip incision c/d/i LABORATORY DATA: Please see below. IMAGING: Imaging documentation personally reviewed by record FUNCTIONAL STATUS: Premorbid: Independent with all activities of daily life as well as mobility On Admission: .Min assist ambulation, dressing, bed mobility, functional transfers, bed mobility GOALS: Mod-I ambulation, dressing, bed mobility, functional transfers, bed mobi lity, bathing ASSESSMENT:75-year-old F with past medical history of COPD who presents status post fall with right wrist and hip fracture PLAN: 1. Rehab- PT/OT advance mobility and ADLs, strengthen/stretch/maintain ROM, dynamic balance training, fall recovery 2. Ortho- s/p right hip fracture and ORID 12-22-20 WBAT, right wrist fracture s/p closed reduction and cast- f/u Dr. Amaya outpatient 3. Cardiac- hx of Afib with PM on eliquis and metoprolol (lowered dose due to soft BPs) -chronic diastolic CHF- fluid restrict, daily weights, will add back home torsemide, but lower dosing- will consult renal to help monitor kidneys while on diuretic -HTN- on betablocker and diuretic- adjust prn 4. Resp- hx of COPD c/u d[place]irk, 02, incentive spirometry- monitor for infection 5. GI ppx- pepcid 6. DVT ppx- on eliquis 7. Pain- tylenol and oxycodone 8. Psych- trazodone for insomnia, c/u Celexa for anxiety 9. Dispo- TBD POST ADMISSION PHYSICIAN EVALUATION: Medical and functional status: Description of medical status, medical assessment: As above. Rehabilitation diagnosis and current and prior cold morbid medical conditions as above. Risk of complications and plans to mitigate them as above. Description of functional status current status is as above. Prior status as above. Status compared to preadmission: There are no clinically significant differences between the patient's current status and the information described on the preadmission screening document. Treatment plan anticipated: Treatment plan is as described above. Required disciplines including physical therapy, occupational therapy, others as noted above Intensity of services: 3 hours a day, 6 days a week. Special considerations: There are no specific special or safety considerations that would likely preclude immediate implementation of an intensive rehabilitation program or subsequently influence the plan of care. ATTESTATION: Considering all the information above, it is my best judgment that this patient requires intensive rehabilitation therapy as described above and an inpatient hospital environment due to the complexity of nursing, medical, and rehabilitation needs required by the patient. Furthermore, this patient can reasonably be expected to participate in an benefit from an inpatient rehabilitation stay with an interdisciplinary team approach to the delivery of rehabilitation care under the direction and supervision of rehabilitation physician. PROGNOSIS: good ESTIMATED LENGTH OF STAY:14-16 days. PROJECTED DISCHARGE DESTINATION: Home with family support and any durable medical equipment required to increase functional safety and mobility. TIME SPENT COUNSELING AND COORDINATING INITIAL CARE: Greater than 70 minutes. Vital Signs Vital Signs Date Time Temp Pulse Resp B/P (MAP) Pulse Ox O2 Delivery O2 Flow Rate FiO2 12/23/20 18:19 18 93 Nasal Cannula 2.0 12/23/20 19:49 81 12/23/20 19:49 28 12/23/20 20:15 97.1 116/58 (77) Home Medications Scheduled Apixaban (Eliquis) 2.5 Mg Tablet, 2.5 MG PO BID, (Reported) Calcium Carb/Mag/Vitamin D3 (Coral Calcium 1,500 mg Cap) 1 Each Capsule, 1,500 MG PO DAILY, (Reported) Cholecalciferol (Vitamin D3) (Vitamin D3) 1,000 Unit Tablet, 5,000 UNITS PO DAILY, (Reported) Chromium Picolinate (Chromium Picolinate) 200 Mcg Tablet, 1,000 MCG PO DAILY, (Reported) Citalopram Hydrobromide (Celexa) 20 Mg Tablet, 20 MG PO DAILY, (Reported) Docusate Sodium (Stool Softener) 100 Mg Capsule, 1 CAP PO BID Famotidine (Famotidine) 20 Mg Tablet, 20 MG PO DAILY, (Reported) Metoprolol Succinate (Toprol Xl) 100 Mg Tab.er.24h, 100 MG PO DAILY, (Reported) Mirabegron (Myrbetriq) 50 Mg Tab.er.24h, 50 MG PO DAILY, (Reported) Multivit,Calc,Mins/Iron/Folic (Thera-M Tablet) 1 Each Tablet, 1 TAB PO DAILY, (Reported) Trazodone HCl (Trazodone HCl) 50 Mg Tablet, 100 MG PO QHS, (Reported) Scheduled PRN Albuterol Sulf (Albuterol Sulfate) 2.5 Mg/3 Ml Vial.neb, 2.5 MG INH Q2H PRN for SHORTNESS OF BREATH, (Reported) Albuterol Sulfate (Ventolin Hfa) 18 Gm Hfa.aer.ad, 2 PUFFS INH QID PRN for SHORTNESS OF BREATH, (Reported) Diphenhydramine HCl (Banophen) 25 Mg Tablet, 25 MG PO DAILY PRN for ITCHING, (Reported) Fluticasone/Umeclidin/Vilanter (Trelegy Ellipta 100-62.5-25) 1 Each Blst.w.dev, 1 PUFF PO DAILY PRN for SHORTNESS OF BREATH, (Reported) Oxycodone/Acetaminophen (Oxycodone-Acetaminophen 5-325) 1 Each Tablet, 1 TAB PO Q6HP PRN for SEVERE PAIN (PS 8-10) Allergies Coded Allergies: lisinopril (Verified Adverse Reaction, Intermediate, AFFECTS RENAL FUNCTION, 12/22/20) metformin (Verified Adverse Reaction, Intermediate, AFFECTS RENAL FUNCTION, 12/22/20) simvastatin (Verified Adverse Reaction, Mild, ITCHING, 12/22/20) A-FIB/CHADSVASC A-FIB History Current/History of A-Fib/PAF?: Yes Current PO Anticoag Therapy: Yes AL BRIDGES MD Dec 23, 2020 13:09
[2020-12-23] MEDS: REMEDY PHYTOPLEX Z-GUARD PASTE 113GM TUBE (FROM STOREROOM PRODUCT) TOP SCH ×2 (16:00→21:06)
[2020-12-23] MEDS: HumaLOG INSULIN (NovoLOG) PER UNIT SC SCH ×2 (17:30→21:00)
[2020-12-23] MEDS: oxyCODONE 5MG TAB PO PRN ×2 (18:19→22:35)
[2020-12-23] MEDS: ACETAMINOPHEN 500 MG TAB PO SCH ×2 (18:20→21:02)
[2020-12-23] MEDS: IPRATROPIUM 0.5MG/ALBUTEROL 2.5MG INH SOL UD 3ML (DUONEB) NEB SCH (19:48)
[2020-12-23 19:49] VITALS: O2SAT 95
[2020-12-23 20:15] VITALS: BP 116/58
[2020-12-23] MEDS: DOCUSATE SODIUM 100MG CAPSULE PO SCH (21:03)
[2020-12-23] MEDS: APIXABAN 2.5 MG TAB (ELIQUIS) PO SCH (21:03)
[2020-12-23] MEDS: SENNA 8.6 MG TAB (SENOKOT) PO SCH (21:03)
[2020-12-23] MEDS: traZODone 50 MG TAB PO SCH (21:03)
[2020-12-24] MEDS: oxyCODONE 5MG TAB PO PRN ×3 (05:26→17:30)
[2020-12-24 06:37] VITALS: BP 103/57
[2020-12-24] MEDS: IPRATROPIUM 0.5MG/ALBUTEROL 2.5MG INH SOL UD 3ML (DUONEB) NEB SCH ×3 (07:00→20:00)
[2020-12-24] MEDS: HumaLOG INSULIN (NovoLOG) PER UNIT SC SCH ×4 (07:30→21:00)
[2020-12-24 08:12] LABS: BASO # 0.1 10^3/uL (0.0-0.2); BASO % 0.7 % (0.0-1.0); EOS # 0.1 10^3/uL (0.0-0.5); HEMATOCRIT 33.5 % (36.0-47.0); LYMPH # 0.8 10^3/uL (1.5-5.0); LYMPH % 8.5 % (24.0-44.0); MEAN CORPUSCULAR HEMOGLOBIN 31.8 pg (27.0-33.0); MEAN CORPUSCULAR HGB CONC 29.9 g/dl (32.0-36.5); MEAN CORPUSCULAR VOLUME 106.7 fl (80.0-96.0); MONO # 1.4 10^3/uL (0.0-0.8); MONO % 14.8 % (2.0-8.0); NEUTROPHILS # 6.8 10^3/uL (1.5-8.5); NEUTROPHILS % 74.6 % (36.0-66.0); PLATELET COUNT, AUTOMATED 119 10^3/uL (150-450); RED BLOOD COUNT 3.14 10^6/uL (4.00-5.40); WHITE BLOOD COUNT 9.1 10^3/uL (4.0-10.0)
[2020-12-24 08:45] LABS: ALBUMIN 3.2 GM/DL (3.2-5.2); BILIRUBIN,TOTAL 0.9 MG/DL (0.2-1.0); CALCIUM LEVEL 8.7 MG/DL (8.8-10.2); CREATININE FOR GFR 2.41 MG/DL (0.55-1.30); GLOMERULAR FILTRATION RATE 20.7 (>39); MAGNESIUM LEVEL 2.4 MG/DL (1.8-2.4); TOTAL PROTEIN 6.6 GM/DL (6.4-8.2)
[2020-12-24] MEDS ORDERED: TORSEMIDE 10 MG TABLET PO SCH (09:00)
[2020-12-24] MEDS: METOPROLOL SUCC (TopROL XL) 50MG **XL** TAB PO SCH (09:00)
[2020-12-24] MEDS ORDERED: hydrOXYzine 25 MG TAB PO ONE (09:00)
[2020-12-24 09:42] VITALS: BP 103/60
[2020-12-24] MEDS: ACETAMINOPHEN 500 MG TAB PO SCH ×3 (09:42→21:18)
[2020-12-24] MEDS: APIXABAN 2.5 MG TAB (ELIQUIS) PO SCH ×2 (09:42→21:19)
[2020-12-24] MEDS: FAMOTIDINE 20 MG TAB PO SCH (09:42)
[2020-12-24] MEDS: CitaloPRAM (CeleXA) 20 MG TAB PO SCH (09:42)
[2020-12-24] MEDS: DOCUSATE SODIUM 100MG CAPSULE PO SCH ×2 (09:42→21:19)
[2020-12-24] MEDS: POTASSIUM CHLORIDE 10 MEQ SR TABLET PO SCH (09:42)
[2020-12-24] MEDS: VITAMIN D 1,000 INTERNATIONAL UNITS TABLET PO SCH (09:43)
[2020-12-24] MEDS: MULTIVITAMINS/MINERALS THERAP 1 TAB PO SCH (09:43)
[2020-12-24] MEDS: REMEDY PHYTOPLEX Z-GUARD PASTE 113GM TUBE (FROM STOREROOM PRODUCT) TOP SCH ×3 (10:06→21:19)
--- NOTE | 2020-12-24 12:43 | CR ---
CONSULTATION DATE: 12/24/2020 REFERRING PHYSICIAN: AL BRIDGES MD REASON FOR CONSULTATION: To assist in the management of congestive heart failure and acute kidney injury. HISTORY OF PRESENT ILLNESS: Mrs. Barraza is a 75-year-old female with multiple chronic medical problems including history of diastolic congestive heart failure, atrial fibrillation, hypertension, and chronic kidney disease. She was admitted to [facility] due to a mechanical fall at home on December 22 and was found to have a right wrist fracture and right hip fracture. She had an open reduction internal fixation of her right hip and closed reduction of her right wrist fracture. She is now admitted to the acute rehab unit due to need for rehab. Her kidney function is noticed to be worse than the baseline. She is also short of breath requiring oxygen while she does not usually use oxygen at home. A Nephrology consultation was requested and the patient is seen this morning. PAST MEDICAL AND SURGICAL HISTORY: 1. Longstanding hypertension. 2. Asthma and COPD. 3. Diabetes Type 2. 4. History of diastolic congestive heart failure. 5. History of atrial fibrillation, status post ablation and pacemaker placement. 6. History of chronic kidney disease. 7. History of diverticulosis. 8. History of anxiety and depression. PAST SURGICAL HISTORY: 1. Three bowel surgeries due to small bowel obstruction. 2. Pacemaker placement. 3. Cholecystectomy. PERSONAL AND SOCIAL HISTORY: The patient is a former smoker who smoked for a number of years but quit in 1992. She has occasional intake of wine and no illicit drug use. FAMILY HISTORY: Father with a history of diabetes, hypertension, and heart problems. Mother with heart problems. One sister has a history of breast cancer. REVIEW OF SYSTEMS: The patient denies any fever or chills. Ears, nose and throat are unremarkable. Cardiovascular system is significant for congestive heart failure and atrial fibrillation. She is still short of breath and requires oxygen. Her dyspnea is worsened on any exertion. She denies any cough or hemoptysis on review of respiratory system. GI system is negative for vomiting or diarrhea. She does have a prior history of diverticulitis. : Negative for dysuria or hematuria. She has no known history of kidney stones. Skin is negative for rash or ulcers. Neurologic: Negative for seizures or stroke. Hematologic: Significant for chronic anticoagulation due to atrial fibrillation. Musculoskeletal: Significant for right hip fracture and right wrist fracture, status post surgery and now in rehab. HOME MEDICATIONS: 1. Albuterol inhaler and nebulizer. 2. Eliquis 2.5 mg b.i.d. 3. Calcium with vitamin D one tablet daily. 4. Celexa 20 mg daily. 5. Famotidine 20 mg daily. 6. Trelegy Ellipta one inhalation daily. 7. Metoprolol XL 100 mg daily. 8. Multivitamin one tablet daily. 9. Trazodone 50 mg daily. 10.She also reports taking torsemide at home, however her home medication list did not include it. She reports taking 40 mg of torsemide and 50 mg of spironolactone at home. ALLERGIES: She has an allergy to Lisinopril, simvastatin and Metformin. PHYSICAL EXAMINATION: GENERAL: Patient is awake and alert at the time of my visit today. VITAL SIGNS: Temperature is 98 degrees Fahrenheit, heart rate is 65 per minute and respiratory rate is 16 per minute. Blood pressure 103/57 mmHg and oxygen saturation 97% on 2 liters of oxygen. HEAD AND NECK: Head is atraumatic. Neck is supple. JVD is about 6 to 7 cm above sternal angle. HEART: Heart sounds seem regular at this time. LUNGS: Bibasilar fine crackles. ABDOMEN: Soft and nontender. Bowel sounds are normal. EXTREMITIES: Without any cyanosis or clubbing. She has a cast on her right forearm and wrist. The surgical incision on right hip and right thigh are covered with dressing. NEUROLOGIC: She is grossly intact and without a focal deficit. LABORATORY DATA: Today's labs shows a WBC of 9.1, hemoglobin 10.0 and hematocrit 33.5, platelets are 119,000. Sodium is 134, potassium is 6.0, CO2 30, BUN is 38 and creatinine 2.41. Glucose is 93 and calcium is 8.7. Total protein is 6.6 and albumin is 3.2. PROBLEMS: 1. Acute kidney injury superimposed on chronic kidney disease. Patient seems to have worsening kidney function. Most likely related to recent surgery and possible volume status change although she still does not look dehydrated. Her diuretic dose has already been cut down significantly as at home she takes spironolactone 50 mg daily and torsemide 40 mg daily. Here in the hospital now she is getting only 20 mg of torsemide daily. Will get a renal ultrasound and urinalysis today for further evaluation of her kidney status. 2. Acute on chronic diastolic congestive heart failure. Volume status seems to be slightly decompensated with bilateral pulmonary rales. She does not have any peripheral edema. I agree with decreased dose of furosemide and will get a chest x-ray today for further evaluation. 3. Anemia. She just recently had hip surgery and anemia is probably related to chronic kidney disease and acute blood loss. At present, her anemia is stable and does not need any urgent intervention. 4. Hypertension, blood pressure is soft today and I agree with decreased dose of metoprolol and decreased dose of diuretics. Will need to monitor her closely. Thank you for involving me in the care of Mrs. Barraza. Our Nephrology Service will follow her along with you.
--- NOTE | 2020-12-24 12:43 | REP ---
INDICATION: ARF COMPARISON: None TECHNIQUE: Real time lilly scale ultrasound examination using curved array transducer. FINDINGS: The kidneys are normal in reniform shape and demonstrate increased central sinus fat consistent with age-related medical renal disease. No hydronephrosis, cystic or renal mass lesion identified. Right kidney measures 8.9 x 4.5 x 4.8 cm and includes possible 7 mm lower pole calculus. Left kidney measures 9.9 x 5.2 x 5.2 cm IMPRESSION: 1. Chronic medical renal disease suggested. No hydronephrosis. 2. Possible 7 mm nonobstructing left renal calculus. <Electronically signed by Tex Almendarez > 12/24/20 [id number]
--- NOTE | 2020-12-24 12:46 | REP ---
INDICATION: CHF COMPARISON: 12/22/2020 TECHNIQUE: PA and lateral. FINDINGS: Cardiomegaly is again appreciated and stable along with single lead pacemaker. Trace left basilar atelectasis cannot be excluded. Pleuroparenchymal changes involving the right mid to lower lung zone may represent acute on chronic changes including atelectasis. Lateral view demonstrates small pleural effusion. IMPRESSION: Cardiomegaly and chronic appearing changes Superimposed atelectasis (right greater than left) and small right pleural effusion. <Electronically signed by Tex Almendarez > 12/24/20 [id number]
[2020-12-24 14:00] VITALS: BP 117/59
--- NOTE | 2020-12-24 16:05 | IPNPDOC ---
Text Note Date of Service The patient was seen on 12/24/20. NOTE Subjective: Patient is 75 year old female with a PMHx of A. fib (on Eliquis), Heart block s/p PM (2004), Diastolic CHF, NIDDM2, COPD / Asthma, Anxiety / Depression, who presented to the emergency room after sustaining a fall while at home. Patient was scheduled to receive a pacemaker battery replacement on 12/22, subsequently had sustained a right wrist and right hip fracture after she had fallen. Patient had stopped the use of Eliquis on Sunday in anticipation of said procedure. Patient ultimately went to the OR on 12/22 and was transitioned to acute rehabilitation unit on 12/23 continued physical therapy and occupational therapy. Patient was seen and examined at the bedside. Patient reports that her breathing is doing relatively fine, although she is on 1 L nasal cannula oxygen. She denies any chest pain, palpitations, nausea, vomiting, abdominal pain, diarrhea, or urinary discomfort. Objective: Vitals (See below) General: Lying in bed, no acute distress, comfortable, AAOx3 HEENT: NC, AT CVS: +S1S2 Lungs: Fair air entry b/l, there appears to be faint crackles at bases. No wheezing or rhonchi Abdomen: Soft, ND, NT Extremities: LE do not reveal any significant evidence of edema, - Calf tenderness Assessment and plan: Right hip / Right wrist fracture - 2/2 mechanical fall - Patient presented to [facility] after she had fallen while about to sit on her toilet - She was taken to the OR on 12/22 for open reduction internal fixation right hip and closed reduction casting right distal radius fracture with Dr. Amaya - Will continue with pain control - Continue PT and OT as per ARU TERE on CKD - Creatinine has trended up from baseline - Will avoid nephrotoxic medications - Renal US 12/24: 1. Chronic medical renal disease suggested. No hydronephrosis. 2. Possible 7 mm nonobstructing left renal calculus. - Nephrology on consultation [facility] - Currently not on any rate control medications - c/w full anticoagulation with Eliquis Heart block s/p PM (2004) - Patient was scheduled for pacemaker battery replacement on 12/22 [facility] - This will have to be rescheduled at a later date Chronic Diastolic CHF - Possible evidence of slight decompensation - Physical does reveal faint crackles at bases - CXR 12/24: Cardiomegaly and chronic appearing changes. Superimposed atelectasis (right greater than left) and small right pleural effusion. - Torsemide dose was started reduced at a dosed dose while in ARU - Spironolactone on hold - Nephrology on consultation NIDDM2 - c/w ISS COPD / Asthma - No evidence of exacerbation - Continue with inhaled therapy as ordered Anxiety / Depression - c/w Citalopram, Hydroxyzine, Trazodone GERD - c/w Famotidine DVT prophylaxis - c/w full anticoagulation with Eliquis Disposition: - As per ARU VS,Lesly, I+O VS, Lesly, I+O Laboratory Tests 12/24/20 07:29 Vital Signs Date Time Temp Pulse Resp B/P (MAP) Pulse Ox O2 Delivery O2 Flow Rate FiO2 12/24/20 14:00 97.7 66 18 117/59 (78) 96 Room Air 12/24/20 10:46 1.0 12/23/20 19:49 28 I&O- Last 24 Hours up to 6 AM 12/24/20 06:00 Intake Total 340 ml Balance 340 ml CRISS ALVARADO MD Dec 24, 2020 16:05
--- NOTE | 2020-12-24 19:14 | IPNPDOC ---
Text Note Date of Service The patient was seen on 12/24/20. NOTE Subjective: Patient seen and examined at bedside today. she denies having any new complaints. she reports having about 5-8 pain in wrist and 2-3 pain in her leg. She denies having headaches, chest pain, abdominal pain, nausea, vomiting, she denies having a bowel movement since the hospitalization. Objective: Physical exam: Gen. examination: Patient is alert oriented 3, no acute distress. Cardiac: Regular rate and rhythm, S1-S2 normal, no murmurs appreciated. Respiration: She has decreased breath sounds on the right lower lobe due to chronic effusion, rest of the lungs are clear. Abdomen: Soft, positive bowel sounds, no tenderness on palpation. Neurological: No focal deficits. Extremities: No pedal edema Assessment: 75-year-old female with PMH of an NIDDM, asthma, COPD, HTN, diastolic CHF with preserved ejection fraction, A. fib on anticoagulation at home, failure with pacemaker since 2004, and to the ED after a fall in the morning and had surgery for intertrochanteric fracture of the femur and casting of her right wrist. Was off of her anticoagulation for getting a replacement of pacemaker, did not happen as she sustained this fall and had a surgery for the intertrochanteric fracture. She was stable overnight after the surgery and was discharged to acute rehabilitation unit. Plan: #Elevated creatinine: Patient has elevated creatinine 2.41, BUN 38, GFR 20.7 and today, and nephrology was consulted for the same as. Will hold furosemide as his creatinine is high. Follow nephrology recommendations for further changes in furosemide. -Will get chest x-ray and renal ultrasound as recommended by nephrology. #CHF: Patient takes furosemide at home it was felt when she was going for surgery, I think her elevated creatinine and might be due to dehydration. #Constipation: Continue senna and docusate.. #Right intertrochanteric fracture: Status post surgery. Follow with Dr. Szymanski outpatient. #Wrist fracture: Right wrist in cast, follow with Dr. Amaya outpatient. #Atrial fibrillation rate controlled with metoprolol and on anticoagulation with Eliquis #Hypertension: Continue metoprolol 100 mg by mouth #NIDDM 2: Consistent carbohydrate diet, insulin sliding scale at meals and bedtime #COPD: Continue home inhalers, continue incentive spirometry. #Anxiety/depression: Continue citalopram 20 mg and trazodone 50 mg #GERD: Continue famotidine 10 mg #DVT prophylaxis: On Eliquis #Rehabilitation: PT/OT as per ARU. VS,Fishbone, I+O VS, Fishbone, I+O Laboratory Tests 12/24/20 07:29 Vital Signs Date Time Temp Pulse Resp B/P (MAP) Pulse Ox O2 Delivery O2 Flow Rate FiO2 12/24/20 18:02 16 Room Air 12/24/20 14:00 97.7 66 117/59 (78) 96 12/24/20 10:46 1.0 12/23/20 19:49 28 I&O- Last 24 Hours up to 6 AM 12/24/20 06:00 Intake Total 340 ml Balance 340 ml GME ATTESTATION GME ATTESTATION My faculty preceptor for this patient encounter was physically present during the encounter and was fully available. All aspects of the patient interview, examination, medical decision making process, and medical care plan development were reviewed and approved by the faculty preceptor. The faculty preceptor is aware and concurs with the plan as stated in the body of this note and will attest to such by his/her cosignature. ATTENDING NOTE I, Bryan Tate, have independently examined this patient and performed my own physical exam, as well as reviewed the documentation and edited where necessary. I have discussed in detail with the resident / student the findings and plan of treatment as documented by the resident / student and edited their note. I agree with their findings and treatment plan and have edited their documentation. I will continue to follow the patient during this hospital stay. Ishaan Diaz MD Dec 24, 2020 19:14 BRYAN TATE MD Dec 25, 2020 13:57
[2020-12-24 20:37] VITALS: BP 116/58
[2020-12-24] MEDS: traZODone 50 MG TAB PO SCH (21:19)
[2020-12-24] MEDS: SENNA 8.6 MG TAB (SENOKOT) PO SCH (21:19)
--- NOTE | 2020-12-24 22:27 | IPNPDOC ---
PM&R Progress Note DATE OF SERVICE: Dec 24, 2020 [employer] Progress Note Subjective: PAtient reporting her back is itchy and feels hot, stating this happens at home on occasion and that she takes benadryl. REVIEW OF SYSTEMS: The following is a completed review of systems and has been reviewed. Review of systems otherwise unremarkable. PAIN: Patient self reports right hip pain EYES: No recent vision changes EARS, NOSE, & THROAT: No throat pain, or dysphagia, or rhinorrhea CARDIOVASCULAR: Denies chest pain or palpitations PULMONARY: Denies shortness of breath GASTROINTESTINAL: Denies constipation/diarrhea GENITOURINARY: denies dysuria MUSCULOSKELETAL: right hip and wrist fracture NEUROLOGICAL:denies tremor or paresthesias HEMATOLOGICAL: denies easy bruising SKIN: right hip incision PSYCHIATRIC:Unremarkable All other review of systems found to be negative. PHYSICAL EXAMINATION: VITAL SIGNS: Please see below. GENERAL: Pleasant and cooperative. No acute distress. HEENT: PERRL. Extraocular movements intact. Clear conjunctiva CARDIOVASCULAR: Regular rate and rhythm. No murmurs, rubs, or gallops LUNGS: Clear to auscultation bilaterally. No wheezes. No rhonchi ABDOMEN: Soft, nontender, nondistended. Positive bowel sounds. Normal active bowel sounds NEUROLOGICAL: Alert and oriented times three. Cranial nerves II through XII grossly intact. Sensation grossly intact] EXTREMITIES: 5\5 strength left upper extremity, 5/5 right elbow flexion.extension (limited due to cast). 5/5 strength right ankle DF/EHL and PF (limited due to hip surgery). /5 strength in left lower extremity. Skin- right hip incision c/d/i ASSESSMENT:75-year-old F with past medical history of COPD who presents status post fall with right wrist and hip fracture PLAN: 1. Rehab- PT/OT advance mobility and ADLs, strengthen/stretch/maintain ROM, dynamic balance training, fall recovery 2. Ortho- s/p right hip fracture and ORID 12-22-20 WBAT, right wrist fracture s/p closed reduction and cast- f/u Dr. Amaya outpatient 3. Cardiac- hx of Afib with PM on eliquis and metoprolol (lowered dose due to soft BPs) -chronic diastolic CHF- fluid restrict, daily weights, added back home torsemide, but lower dosing- will consult renal to help monitor kidneys while on diuretic -HTN- on betablocker and diuretic- adjust prn 4. Resp- hx of COPD c/u duonebs, 02, incentive spirometry- monitor for infection 5. GI ppx- pepcid 6. DVT ppx- on eliquis 7. Pain- tylenol and oxycodone 8. Psych- trazodone for insomnia, c/u Celexa for anxiety 9. Derm- patient reporting itchy back, no rash noted, she reports this is a chronic issue- atarax ordered 9. Dispo- TBD Allergies Coded Allergies: lisinopril (Verified Adverse Reaction, Intermediate, AFFECTS RENAL FUNCTION, 12/22/20) metformin (Verified Adverse Reaction, Intermediate, AFFECTS RENAL FUNCTION, 12/22/20) simvastatin (Verified Adverse Reaction, Mild, ITCHING, 12/22/20) Vital Signs Vital Signs Date Time Temp Pulse Resp B/P (MAP) Pulse Ox O2 Delivery O2 Flow Rate FiO2 12/24/20 20:37 96.6 65 20 116/58 (77) 95 Room Air 12/24/20 20:00 2.0 12/23/20 19:49 28 Laboratory Data CBC/BMP Laboratory Tests 12/24/20 07:29 Labs 24H Laboratory Tests 2 12/24/20 07:29: Immature Granulocyte % (Auto) 0.4, Neutrophils (%) (Auto) 74.6H, Lymphocytes (%) (Auto) 8.5L, Monocytes (%) (Auto) 14.8H, Eosinophils (%) (Auto) 1.0, Basophils (%) (Auto) 0.7, Neutrophils # (Auto) 6.8, Lymphocytes # (Auto) 0.8L, Monocytes # (Auto) 1.4H, Eosinophils # (Auto) 0.1, Basophils # (Auto) 0.1, Nucleated Red Blood Cells % (auto) 0.0, Anion Gap 5L, Glomerular Filtration Rate 20.7L, Calcium Level 8.7L, Magnesium Level 2.4, Total Bilirubin 0.9, Aspartate Amino Transf (AST/SGOT) 15, Alanine Aminotransferase (ALT/SGPT) 14, Alkaline Phosphatase 93, Total Protein 6.6, Albumin 3.2, Albumin/Globulin Ratio 0.9L 12/24/20 11:23: Bedside Glucose (Misc Panel) 163H 12/24/20 16:27: Bedside Glucose (Misc Panel) 127H 12/24/20 20:43: Bedside Glucose (Misc Panel) 99 Current Medications Current Medications Current Medications Medications (Trade) Dose Ordered Sig/Az Route PRN Reason Start Time Stop Time Status Last Admin Dose Admin Acetaminophen (Tylenol Tab) 1,000 mg TID PO 12/23/20 16:00 12/24/20 21:18 Albuterol/ Ipratropium (Duoneb (Ipr 0.5mg/Alb 2.5mg)) 3 ml RTID NEB 12/23/20 20:00 12/24/20 20:00 Apixaban (Eliquis) 2.5 mg BID PO 12/23/20 21:00 12/24/20 21:19 Bisacodyl (Dulcolax Suppository) 10 mg DAILYPRN PRN [place] CONSTIPATION 12/23/20 12:50 Citalopram Hydrobromide (CeleXA) 20 mg DAILY PO 12/24/20 09:00 12/24/20 09:42 Dextrose (Dextrose 50%) 25 ml ASDIRECTED PRN IV SEE LABEL COMMENTS 12/23/20 12:50 Docusate Sodium (Colace) 100 mg BID PO 12/23/20 21:00 12/24/20 21:19 Famotidine (Pepcid) 10 mg DAILY PO 12/24/20 09:00 12/24/20 09:42 Glucagon (Glucagon) 1 mg ASDIRECTED PRN SC SEE LABEL COMMENTS 12/23/20 12:50 Glucose (Glucose) 16 GM ASDIRECTED PRN PO SEE LABEL COMMENTS 12/23/20 12:50 Hydroxyzine HCl (Atarax) 25 mg QHSP PRN PO rash/itch 12/24/20 09:00 Insulin Human Lispro (HumaLOG INSULIN) SEE PROTOCOL TABLE AC SC 12/23/20 17:30 12/24/20 17:29 Insulin Human Lispro (HumaLOG INSULIN) SEE PROTOCOL TABLE QHS SC 12/23/20 21:00 Metoprolol Succinate (TopROL XL) 50 mg DAILY PO 12/24/20 09:00 Multivitamins (Theragram-M) 1 tab DAILY PO 12/24/20 09:00 12/24/20 09:43 Ondansetron HCl (Zofran Odt) 4 mg Q6HP PRN PO NAUSEA OR VOMITING 12/23/20 12:50 Oxycodone HCl (Roxicodone, Oxyir) 5 mg Q4HP PRN PO PAIN 12/23/20 13:10 12/24/20 17:30 Potassium Chloride (Micro-K Extencaps) 20 meq DAILY PO 12/24/20 09:00 12/24/20 09:42 Senna (Senokot) 1 tab QHS PO 12/23/20 21:00 12/24/20 21:19 Torsemide (Demadex) 20 mg DAILY PO 12/24/20 09:00 Trazodone HCl (Desyrel) 50 mg QPM PO 12/23/20 21:00 12/24/20 21:19 Vitamin D (Vitamin D) 5,000 units DAILY PO 12/24/20 09:00 12/24/20 09:43 AL BRIDGES MD Dec 24, 2020 22:27
[2020-12-25 05:54] VITALS: BP 149/65
[2020-12-25] MEDS: IPRATROPIUM 0.5MG/ALBUTEROL 2.5MG INH SOL UD 3ML (DUONEB) NEB SCH ×3 (07:35→20:14)
[2020-12-25 07:47] LABS: BASO # 0.1 10^3/uL (0.0-0.2); BASO % 0.7 % (0.0-1.0); EOS # 0.1 10^3/uL (0.0-0.5); EOS % 1.3 % (0.0-3.0); HEMATOCRIT 33.3 % (36.0-47.0); HEMOGLOBIN 10.2 g/dl (12.0-15.5); LYMPH # 0.8 10^3/uL (1.5-5.0); LYMPH % 9.4 % (24.0-44.0); MEAN CORPUSCULAR HGB CONC 30.6 g/dl (32.0-36.5); MEAN CORPUSCULAR VOLUME 104.4 fl (80.0-96.0); MONO # 1.2 10^3/uL (0.0-0.8); MONO % 13.4 % (2.0-8.0); NEUTROPHILS # 6.6 10^3/uL (1.5-8.5); NEUTROPHILS % 74.8 % (36.0-66.0); PLATELET COUNT, AUTOMATED 143 10^3/uL (150-450); RED BLOOD COUNT 3.19 10^6/uL (4.00-5.40); WHITE BLOOD COUNT 8.9 10^3/uL (4.0-10.0)
[2020-12-25 08:07] LABS: CALCIUM LEVEL 8.8 MG/DL (8.8-10.2); CREATININE FOR GFR 2.57 MG/DL (0.55-1.30); GLOMERULAR FILTRATION RATE 19.3 (>39); MAGNESIUM LEVEL 2.6 MG/DL (1.8-2.4)
[2020-12-25] MEDS: guaiFENesin 200 MG TAB PO SCH ×3 (10:14→20:56)
[2020-12-25] MEDS: HumaLOG INSULIN (NovoLOG) PER UNIT SC SCH ×4 (10:14→20:53)
[2020-12-25] MEDS: POTASSIUM CHLORIDE 10 MEQ SR TABLET PO SCH (10:15)
[2020-12-25] MEDS: FAMOTIDINE 20 MG TAB PO SCH (10:15)
[2020-12-25] MEDS: MULTIVITAMINS/MINERALS THERAP 1 TAB PO SCH (10:15)
[2020-12-25] MEDS: ACETAMINOPHEN 500 MG TAB PO SCH ×3 (10:17→20:57)
[2020-12-25] MEDS: CitaloPRAM (CeleXA) 20 MG TAB PO SCH (10:18)
[2020-12-25] MEDS: APIXABAN 2.5 MG TAB (ELIQUIS) PO SCH ×2 (10:18→20:57)
[2020-12-25] MEDS: DOCUSATE SODIUM 100MG CAPSULE PO SCH ×2 (10:18→20:57)
[2020-12-25] MEDS: VITAMIN D 1,000 INTERNATIONAL UNITS TABLET PO SCH (10:20)
[2020-12-25] MEDS: REMEDY PHYTOPLEX Z-GUARD PASTE 113GM TUBE (FROM STOREROOM PRODUCT) TOP SCH ×3 (10:21→20:57)
[2020-12-25] MEDS: METOPROLOL SUCC (TopROL XL) 50MG **XL** TAB PO SCH (10:24)
[2020-12-25] MEDS ORDERED: FUROSEMIDE 40MG/4ML VIAL (J1940) IV ONE (12:25)
[2020-12-25] MEDS: oxyCODONE 5MG TAB PO PRN (12:37)
[2020-12-25 14:00] VITALS: BP 116/58
[2020-12-25 20:00] VITALS: BP 132/60
[2020-12-25] MEDS: hydrOXYzine 25 MG TAB PO PRN (20:56)
[2020-12-25] MEDS: SENNA 8.6 MG TAB (SENOKOT) PO SCH (20:57)
[2020-12-25] MEDS: traZODone 50 MG TAB PO SCH (20:57)
--- NOTE | 2020-12-25 21:45 | IPN ---
PROGRESS NOTE DATE: 12/25/2020 SUBJECTIVE: The patient was seen and examined at the bedside today morning in the rehab unit; she was actually sitting on the sofa. She complains of a moderate amount of pain in the right hip, otherwise she denies any active complaint. She is on oral diuretics at this time. Renal function is slightly worse with a creatinine that has bumped up from 2.4 to 2.5. OBJECTIVE: Temperature is 97.8 degrees Fahrenheit, blood pressure is 149/65, pulse is 65, respiratory rate of 20, saturating 96% on room air at 2 liters. Intake and output: Urine output is not recorded. She has had 3 voids by the time I saw her in the morning. Weight in the bed scale is 70.7 kg, which is stable as of yesterday PHYSICAL EXAMINATION: General: The patient is awake, alert, oriented x3, sitting up in the bed in no apparent distress. Head and neck examination: Extraocular muscles are intact. Pupils equally round and reactive to light. Mucous membranes are moist. Neck is supple. There is no jugular venous distention (JVD). Cardiovascular: S1, S2. regular rate and 2+ edema of the bilateral lower extremities. Respiratory: Mildly decreased breath sounds at the bases. Mildly decreased focal resonance on the right base. Abdomen is soft. Positive bowel sounds. Nontender. No organomegaly. Musculoskeletal: She has a plaster of [place] in the right arm and she has right hip dressing. SECTION REPAIRER: No focal deficit. The patient is able to communicate and move extremities. LABORATORY REVIEW: Complete blood count (CBC) showed a WBC 8.9, hemoglobin 10.2, platelets of 143. Basic metabolic panel (BMP) showed sodium 133, potassium 5, chloride 98, bicarbonate 28, BUN 48, creatinine is 2.5, it was 2.4 yesterday. IMAGING: Chest x-ray was done yesterday, which showed cardiomegaly with superimposed atelectasis, right greater than left and small right pleural effusion. Renal ultrasound was also done yesterday, which showed chronic medical renal disease; there was no hydronephrosis and there was 7 mm non-obstructing left renal calculus. CURRENT INPATIENT MEDICATIONS: The patient's medications were all reviewed by myself. She is currently on torsemide 20 mg by mouth daily. I gave her an extra dose of Lasix 40 mg IV times one dose in the afternoon. No Other change in the medications. ASSESSMENT AND PLAN: 1. Acute kidney injury superimposed on chronic kidney disease. The patient's diuretics were decreased because of her worsening creatinine. Her spironolactone was stopped and torsemide was decreased to 20 mg daily. However, I see evidence of left edema on clinical examination and right-sided effusion on x-ray; and because of that, I gave her an extra dose of Lasix 40 mg IV times one dose. If renal function stays stable or get better, I will increase her diuretic dose tomorrow. 2. Acute on chronic diastolic congestive heart failure. As mentioned above, there is a sign of volume overload and edema. IV Lasix has been given today. Depending upon her response more diuretic will be adjusted in the morning. 3. Hypertension. Blood pressure is controlled with current regimen of diuretic and metoprolol XL 50 mg by mouth daily. No use of LEORA or ARB at this time because of elevated creatinine. 4. Anemia and chronic kidney disease and recent surgery. Hemoglobin level is stable. However, I will check the iron levels and give her IV iron if levels are low.
[2020-12-26 05:42] VITALS: BP 145/66
[2020-12-26] MEDS: IPRATROPIUM 0.5MG/ALBUTEROL 2.5MG INH SOL UD 3ML (DUONEB) NEB SCH ×3 (07:14→19:37)
[2020-12-26 08:22] LABS: ALBUMIN 3.2 GM/DL (3.2-5.2); CALCIUM LEVEL 8.7 MG/DL (8.8-10.2); CREATININE FOR GFR 2.2 MG/DL (0.55-1.30); PERCENT SATURATION 7.2 % (13.2-45.0); PHOSPHORUS LEVEL 3.6 MG/DL (2.5-4.9); POTASSIUM SERUM 5.5 MEQ/L (3.5-5.1)
[2020-12-26 09:30] VITALS: BP 126/60
[2020-12-26] MEDS: HumaLOG INSULIN (NovoLOG) PER UNIT SC SCH ×4 (09:40→20:59)
[2020-12-26] MEDS: FAMOTIDINE 20 MG TAB PO SCH (09:41)
[2020-12-26] MEDS: DOCUSATE SODIUM 100MG CAPSULE PO SCH ×2 (09:41→21:00)
[2020-12-26] MEDS: guaiFENesin 200 MG TAB PO SCH ×3 (09:41→21:00)
[2020-12-26] MEDS: MULTIVITAMINS/MINERALS THERAP 1 TAB PO SCH (09:41)
[2020-12-26] MEDS: VITAMIN D 1,000 INTERNATIONAL UNITS TABLET PO SCH (09:42)
[2020-12-26] MEDS: CitaloPRAM (CeleXA) 20 MG TAB PO SCH (09:42)
[2020-12-26] MEDS: APIXABAN 2.5 MG TAB (ELIQUIS) PO SCH ×2 (09:42→21:00)
[2020-12-26] MEDS: REMEDY PHYTOPLEX Z-GUARD PASTE 113GM TUBE (FROM STOREROOM PRODUCT) TOP SCH ×3 (09:42→21:01)
[2020-12-26] MEDS: METOPROLOL SUCC (TopROL XL) 50MG **XL** TAB PO SCH (09:45)
[2020-12-26] MEDS: ACETAMINOPHEN 500 MG TAB PO SCH ×3 (09:45→21:01)
[2020-12-26] MEDS: TORSEMIDE 20 MG TAB PO SCH (09:46)
[2020-12-26] MEDS ORDERED: FUROSEMIDE 40MG/4ML VIAL (J1940) IV ONE (11:40)
[2020-12-26] MEDS: hydrOXYzine 25 MG TAB PO PRN ×2 (12:07→21:00)
[2020-12-26] MEDS: IRON SUCROSE 200 MG in NS 100 ML IV SCH (12:07)
[2020-12-26] MEDS: oxyCODONE 5MG TAB PO PRN (12:08)
[2020-12-26 14:00] VITALS: BP 152/65
[2020-12-26 15:06] LABS: APPEARANCE, URINE CLEAR (CLEAR); BACTERIA, URINE AUTO NEGATIVE (NEGATIVE); BILIRUBIN, URINE AUTO NEGATIVE (NEGATIVE); BLOOD, URINE BLOOD 2+ (NEGATIVE); COLOR, URINE YELLOW (YELLOW); GLUCOSE, URINE (UA) AUTO NEGATIVE (NEGATIVE); KETONE, URINE AUTO NEGATIVE (NEGATIVE); LEUKOCYTE ESTERASE, URINE AUTO TRACE (NEGATIVE); MUCUS, URINE SMALL (NEGATIVE); NITRITE, URINE AUTO NEGATIVE (NEGATIVE); PROTEIN, URINE AUTO NEGATIVE (NEGATIVE); RBC, URINE AUTO 28 /HPF (0-3); SPECIFIC GRAVITY URINE AUTO 1.016 (1.002-1.035); SQUAMOUS EPITHELIAL CELL UR AU 0 /HPF (0-6); UROBILINOGEN, URINE AUTO 0.2 mg/dL (0.0-2.0); WBC, URINE AUTO 8 /HPF (0-3)
--- NOTE | 2020-12-26 16:39 | IPN ---
NEPHROLOGY PROGRESS NOTE DATE: 12/26/2020 SUBJECTIVE: Patient was seen and examined at the bedside today morning in the rehabilitation unit. She was actually sitting in the sofa. She was given a dose of intravenous (IV) Lasix yesterday and with that, her edema is getting better. Her creatinine actually came down with the extra diuretic dose. She still reports persistent right hip pain and itching at the plaster site. Otherwise, she denies any active complaints. OBJECTIVE: VITAL SIGNS: Temperature 96.7 degrees Fahrenheit, blood pressure 126/60, pulse 55, respiratory rate 18, saturating 100% on nasal cannula at 2 liters. INTAKE AND OUTPUT: Urine output is not recorded because she had five voids yesterday and one void so far by the time I saw her in the morning. Weight in the bed scale is 71.9 kg. PHYSICAL EXAMINATION: GENERAL: Patient is awake, alert, oriented times three, sitting up in the sofa in no apparent distress. HEAD AND NECK EXAM: Extraocular muscles intact. Pupils equally round and reactive to light. Mucous membranes are moist. Neck is supple. Mildly elevated jugular venous distention (JVD). CARDIOVASCULAR: S1, S2. Regular rate. There is 2+ edema of the bilateral lower extremities. RESPIRATORY: Chest is clear to auscultation bilaterally at the upper mid-lung zones. Mildly decreased breath sounds at the bases. ABDOMEN: Soft. Positive bowel sounds. Nontender. No organomegaly. MUSCULOSKELETAL: She has a cast on the right arm and dressing on the right hip. CENTRAL NERVOUS SYSTEM (COMPUTED TOMOGRAPHY TECHNOLOGIST): No focal deficits at this time. LABORATORY REVIEW: CBC showed a WBC 8.9, hemoglobin 10.2, platelets 143. BMP showed sodium 133, potassium 5.5, chloride 99, bicarbonate 29, BUN 53, creatinine 2.2, it was 2.5 yesterday. Iron 23, total iron binding capacity (TIBC) 319, transferrin saturation 7.2, ferritin 98. CURRENT INPATIENT MEDICATIONS: Patient's medications were all reviewed by myself. I gave her another dose of Lasix 60 mg IV in the afternoon. Oral potassium has been stopped and patient has also been started on IV Venofer. ASSESSMENT AND PLAN: 1. Acute renal failure superimposed on chronic kidney disease. Patient has signs of volume overload yesterday. She was given a higher dose of Lasix. Creatinine is improving. Okay to continue the diuretic at this time. 2. Acute on chronic diastolic congestive heart failure. She continues to be on oral torsemide. Spironolactone is on hold because of acute renal failure and hyperkalemia. An extra dose of Lasix 60 mg will be given in the afternoon. Oral diuretic will be adjusted tomorrow morning. 3. Hypertension. Blood pressure is controlled with diuretic and current dose of metoprolol. 4. Iron deficiency anemia. Patent has been started on IV Venofer. 5. Hyperkalemia. Oral potassium has been stopped. Potassium level should improve with IV loop diuretic.
[2020-12-26 20:00] VITALS: BP 106/61
[2020-12-26] MEDS: traZODone 50 MG TAB PO SCH (21:00)
[2020-12-26] MEDS: SENNA 8.6 MG TAB (SENOKOT) PO SCH (21:00)
[2020-12-27 06:19] VITALS: BP 108/59
[2020-12-27 06:41] LABS: BASO # 0.1 10^3/uL (0.0-0.2); BASO % 0.8 % (0.0-1.0); EOS # 0.2 10^3/uL (0.0-0.5); EOS % 2.7 % (0.0-3.0); HEMATOCRIT 29.6 % (36.0-47.0); HEMOGLOBIN 9.2 g/dl (12.0-15.5); LYMPH # 0.7 10^3/uL (1.5-5.0); LYMPH % 11.1 % (24.0-44.0); MEAN CORPUSCULAR HEMOGLOBIN 31.8 pg (27.0-33.0); MEAN CORPUSCULAR HGB CONC 31.1 g/dl (32.0-36.5); MEAN CORPUSCULAR VOLUME 102.4 fl (80.0-96.0); MONO # 1.1 10^3/uL (0.0-0.8); MONO % 17.6 % (2.0-8.0); NEUTROPHILS # 4.3 10^3/uL (1.5-8.5); NEUTROPHILS % 67.2 % (36.0-66.0); PLATELET COUNT, AUTOMATED 151 10^3/uL (150-450); RED BLOOD COUNT 2.89 10^6/uL (4.00-5.40); WHITE BLOOD COUNT 6.4 10^3/uL (4.0-10.0)
[2020-12-27 06:55] LABS: CALCIUM LEVEL 9.3 MG/DL (8.8-10.2); CREATININE FOR GFR 1.98 MG/DL (0.55-1.30); POTASSIUM SERUM 4.7 MEQ/L (3.5-5.1)
[2020-12-27] MEDS: IPRATROPIUM 0.5MG/ALBUTEROL 2.5MG INH SOL UD 3ML (DUONEB) NEB SCH ×3 (07:29→20:28)
[2020-12-27] MEDS: HumaLOG INSULIN (NovoLOG) PER UNIT SC SCH ×4 (08:54→19:58)
[2020-12-27] MEDS: VITAMIN D 1,000 INTERNATIONAL UNITS TABLET PO SCH (08:55)
[2020-12-27] MEDS: FAMOTIDINE 20 MG TAB PO SCH (08:55)
[2020-12-27] MEDS: APIXABAN 2.5 MG TAB (ELIQUIS) PO SCH ×2 (09:00→20:20)
[2020-12-27] MEDS: DOCUSATE SODIUM 100MG CAPSULE PO SCH ×2 (09:01→20:20)
[2020-12-27] MEDS: TORSEMIDE 20 MG TAB PO SCH (09:01)
[2020-12-27] MEDS: CitaloPRAM (CeleXA) 20 MG TAB PO SCH (09:02)
[2020-12-27] MEDS: guaiFENesin 200 MG TAB PO SCH ×3 (09:03→20:20)
[2020-12-27] MEDS: MULTIVITAMINS/MINERALS THERAP 1 TAB PO SCH (09:04)
[2020-12-27] MEDS: METOPROLOL SUCC (TopROL XL) 50MG **XL** TAB PO SCH (09:05)
[2020-12-27] MEDS: IRON SUCROSE 200 MG in NS 100 ML IV SCH (09:06)
[2020-12-27] MEDS: ACETAMINOPHEN 500 MG TAB PO SCH ×3 (09:06→20:20)
[2020-12-27] MEDS: REMEDY PHYTOPLEX Z-GUARD PASTE 113GM TUBE (FROM STOREROOM PRODUCT) TOP SCH ×3 (09:10→20:22)
[2020-12-27] MEDS: oxyCODONE 5MG TAB PO PRN (10:31)
--- NOTE | 2020-12-27 11:24 | IPNPDOC ---
Subjective General Date/Time Seen The patient was seen on 12/27/20 at 11:15. Subject Chief Complaint/History The patient is a 75-year-old female admitted with a reason for visit of Right Hip Fx. SUBJECTIVE: Ms. Barraza was seen and examined at the bedside this morning just after she returned from physical therapy. She states she is in pain from her R arm and her R hip at the site of the surgery. She made only about 600cc urine yesterday (measured) but she thinks it may have been more that was not collected. Otherw ise, she states her legs are still swollen and painful. She denies any SOB, n/v/d. OBJECTIVE: PHYSICAL EXAMINATION: VITAL SIGNS: see below GENERAL: alert and oriented, in no apparent distress, pleasant and conversant in full sentences. HEENT: PERRL, EOMI, Oral mucous membranes are moist without lesions. NECK: The patient has no noted JVD. No adenopathy is appreciated. No thyromegaly CHEST/LUNGS: Lungs are clear bilaterally without rhonchi, rales, or wheezes. There is no subcutaneous air appreciated. There is no tenderness to the chest wall. HEART:Regular rate and rhythm. No murmurs, rubs, or gallops are appreciated. Distal pulses are 2+. No carotid bruits appreciated. ABDOMEN: Soft, nontender, and nondistended. Bowel sounds are positive. No organomegaly is appreciated. No masses are appreciated. There are no peritoneal signs. There is no [place] sign. EXTREMITIES: Cast in place on RUE. 1+ pitting edema up to thigh on left leg, 2+ up to thigh on right leg. There is no focal long bone tenderness or deformity. SKIN: The patients skin is warm and dry, without rashes or lesions. PSYCHIATRIC: AAO x 3, normal mood/affect NEUROLOGIC: No obvious focal deficits IMAGING: No new imaging ASSESSMENT: This is a 75 YO F with history of COPD who presents to the ARU after fall and resulting R wrist and R hip fracture. Nephrology is consulted for ongoing fluid management in the setting of history of chronic dCHF + CKD3. PLAN: 1. Acute renal failure on chronic kidney disease, stage III: -Additional dose of 60mg IV Lasix given today -Cr today 1.98, baseline around 1.5. Improving. 2. Acute on chronic diastolic congestive heart failure: -Continue home Torsemide, hold Spironolactone due to acute renal failure/hyperkalemia -LE fluid accumulation most likely to improve with additional dose of Lasix 3. HTN: -BP WNL -Continue metoprolol 4. Iron deficiency anemia: -IV Venofer ordered 5. Hyperkalemia: -Appears to have resolved with lasix DISPO: Additional dose of Lasix today Current Medications Current Medications Current Medications Medications (Trade) Dose Ordered Sig/Az Route PRN Reason Start Time Stop Time Status Last Admin Dose Admin Acetaminophen (Tylenol Tab) 1,000 mg TID PO 12/23/20 16:00 12/27/20 09:06 Albuterol/ Ipratropium (Duoneb (Ipr 0.5mg/Alb 2.5mg)) 3 ml RTID NEB 12/23/20 20:00 12/27/20 07:29 Apixaban (Eliquis) 2.5 mg BID PO 12/23/20 21:00 12/27/20 09:00 Bisacodyl (Dulcolax Suppository) 10 mg DAILYPRN PRN [place] CONSTIPATION 12/23/20 12:50 Citalopram Hydrobromide (CeleXA) 20 mg DAILY PO 12/24/20 09:00 12/27/20 09:02 Dextrose (Dextrose 50%) 25 ml ASDIRECTED PRN IV SEE LABEL COMMENTS 12/23/20 12:50 Docusate Sodium (Colace) 100 mg BID PO 12/23/20 21:00 12/27/20 09:01 Famotidine (Pepcid) 10 mg DAILY PO 12/24/20 09:00 12/27/20 08:55 Glucagon (Glucagon) 1 mg ASDIRECTED PRN SC SEE LABEL COMMENTS 12/23/20 12:50 Glucose (Glucose) 16 GM ASDIRECTED PRN PO SEE LABEL COMMENTS 12/23/20 12:50 Guaifenesin (Robitussin Tab) 400 mg TID PO 12/25/20 09:00 12/27/20 09:03 Hydroxyzine HCl (Atarax) 25 mg QHSP PRN PO rash/itch 12/24/20 09:00 12/26/20 21:00 Insulin Human Lispro (HumaLOG INSULIN) SEE PROTOCOL TABLE AC SC 12/23/20 17:30 12/27/20 08:54 Insulin Human Lispro (HumaLOG INSULIN) SEE PROTOCOL TABLE QHS SC 12/23/20 21:00 Iron 200 mg/ Sodium Chloride 110 ml @ 110 mls/hr DAILY IV 12/26/20 12:00 12/28/20 09:59 12/27/20 09:06 Metoprolol Succinate (TopROL XL) 50 mg DAILY PO 12/24/20 09:00 12/27/20 09:05 Multivitamins (Theragram-M) 1 tab DAILY PO 12/24/20 09:00 12/27/20 09:04 Ondansetron HCl (Zofran Odt) 4 mg Q6HP PRN PO NAUSEA OR VOMITING 12/23/20 12:50 Oxycodone HCl (Roxicodone, Oxyir) 5 mg Q4HP PRN PO PAIN 12/23/20 13:10 12/27/20 10:31 Potassium Chloride (Micro-K Extencaps) 20 meq DAILY PO 12/24/20 09:00 12/26/20 09:28 DC 12/25/20 10:15 Senna (Senokot) 1 tab QHS PO 12/23/20 21:00 12/26/20 21:00 Torsemide (Demadex) 20 mg DAILY PO 12/24/20 09:00 12/25/20 09:55 DC Torsemide (Demadex) 20 mg DAILY PO 12/25/20 09:55 12/27/20 09:29 DC 12/27/20 09:01 Torsemide (Demadex) 40 mg DAILY PO 12/28/20 09:00 Trazodone HCl (Desyrel) 50 mg QPM PO 12/23/20 21:00 12/26/20 21:00 Vitamin D (Vitamin D) 5,000 units DAILY PO 12/24/20 09:00 12/27/20 08:55 Allergies Coded Allergies: lisinopril (Verified Adverse Reaction, Intermediate, AFFECTS RENAL FUNCTION, 12/22/20) metformin (Verified Adverse Reaction, Intermediate, AFFECTS RENAL FUNCTION, 12/22/20) simvastatin (Verified Adverse Reaction, Mild, ITCHING, 12/22/20) VS,Fishbone, I+O VS, Fishbone, I+O Laboratory Tests 12/27/20 06:09 Vital Signs Date Time Temp Pulse Resp B/P (MAP) Pulse Ox O2 Delivery O2 Flow Rate FiO2 12/27/20 11:05 18 Room Air 12/27/20 09:05 72 110/52 12/27/20 06:19 97.0 98 2.0 12/23/20 19:49 28 I&O- Last 24 Hours up to 6 AM 12/27/20 06:00 Intake Total 1370 ml Output Total 600 ml Balance 770 ml GME ATTESTATION GME ATTESTATION My faculty preceptor for this patient encounter was physically present during the encounter and was fully available. All aspects of the patient interview, examination, medical decision making process, and medical care plan development were reviewed and approved by the faculty preceptor. The faculty preceptor is aware and concurs with the plan as stated in the body of this note and will attest to such by his/her cosignature. GOLDY ROSADO MD Dec 27, 2020 11:24
[2020-12-27] MEDS ORDERED: FUROSEMIDE 40MG/4ML VIAL (J1940) IV ONE (11:30)
[2020-12-27 14:00] VITALS: BP 122/59
[2020-12-27 19:44] VITALS: BP 135/60
[2020-12-27] MEDS: SENNA 8.6 MG TAB (SENOKOT) PO SCH (20:20)
[2020-12-27] MEDS: traZODone 50 MG TAB PO SCH (20:20)
[2020-12-27 20:28] VITALS: O2SAT 96
[2020-12-28 06:00] VITALS: BP 133/62
[2020-12-28] MEDS: oxyCODONE 5MG TAB PO PRN (06:09)
[2020-12-28] MEDS: IPRATROPIUM 0.5MG/ALBUTEROL 2.5MG INH SOL UD 3ML (DUONEB) NEB SCH ×3 (07:37→19:20)
[2020-12-28] MEDS: guaiFENesin 200 MG TAB PO SCH ×3 (08:37→20:08)
[2020-12-28] MEDS: APIXABAN 2.5 MG TAB (ELIQUIS) PO SCH ×2 (08:37→20:08)
[2020-12-28] MEDS: HumaLOG INSULIN (NovoLOG) PER UNIT SC SCH ×4 (08:37→20:00)
[2020-12-28] MEDS: MULTIVITAMINS/MINERALS THERAP 1 TAB PO SCH (08:37)
[2020-12-28] MEDS: DOCUSATE SODIUM 100MG CAPSULE PO SCH ×2 (08:37→20:08)
[2020-12-28] MEDS: VITAMIN D 1,000 INTERNATIONAL UNITS TABLET PO SCH (08:38)
[2020-12-28] MEDS: ACETAMINOPHEN 500 MG TAB PO SCH ×3 (08:38→20:08)
[2020-12-28] MEDS: CitaloPRAM (CeleXA) 20 MG TAB PO SCH (08:38)
[2020-12-28] MEDS: FAMOTIDINE 20 MG TAB PO SCH (08:39)
[2020-12-28] MEDS: IRON SUCROSE 200 MG in NS 100 ML IV SCH (08:40)
[2020-12-28] MEDS: METOPROLOL SUCC (TopROL XL) 50MG **XL** TAB PO SCH (08:40)
[2020-12-28] MEDS ORDERED: TORSEMIDE 20 MG TAB PO SCH (09:00)
[2020-12-28] MEDS: REMEDY PHYTOPLEX Z-GUARD PASTE 113GM TUBE (FROM STOREROOM PRODUCT) TOP SCH ×3 (09:32→20:09)
[2020-12-28] MEDS: FUROSEMIDE 40MG/4ML VIAL (J1940) IV SCH ×2 (10:47→16:08)
[2020-12-28 14:00] VITALS: BP 124/59
[2020-12-28] MEDS ORDERED: PILL CUTTER 1 EACH XX PRN (14:10)
--- NOTE | 2020-12-28 15:35 | IPNPDOC ---
Subjective General Date/Time Seen The patient was seen on 12/28/20 at 14:03. Subject Chief Complaint/History The patient is a 75-year-old female admitted with a reason for visit of Right Hip Fx. SUBJECTIVE: Ms. Barraza was seen and examined at the bedside this morning. She states she feels well today. She feels she is making a good amount of urine from her diuretics. She does still notice swelling in both her legs, right worse than left, but acknowledges that the right-sided swelling is more from her surgery. She is also concerned about small "bite lee" she seems to have gotten at home prior to coming to the hospital. Nursing reports bed bugs and mites have been ruled out. She states they are quite itchy. OBJECTIVE: PHYSICAL EXAMINATION: VITAL SIGNS: see below GENERAL: alert and oriented, in no apparent distress, pleasant and conversant in full sentences. HEENT: PERRL, EOMI, Oral mucous membranes are moist without lesions. NECK: The patient has no noted JVD. No adenopathy is appreciated. No thyromegaly CHEST/LUNGS: Lungs are clear bilaterally without rhonchi, rales, or wheezes. There is no subcutaneous air appreciated. There is no tenderness to the chest wall. HEART:Regular rate and rhythm. No murmurs, rubs, or gallops are appreciated. Distal pulses are 2+. No carotid bruits appreciated. ABDOMEN: Soft, nontender, and nondistended. Bowel sounds are positive. No organomegaly is appreciated. No masses are appreciated. There are no peritoneal signs. There is no [place] sign. EXTREMITIES: Cast in place on RUE. 1+ pitting edema up to thigh on left leg, 2+ up to thigh on right leg. There is no focal long bone tenderness or deformity. SKIN: The patients skin is warm and dry. There are small excoriations on bilateral arms and legs PSYCHIATRIC: AAO x 3, normal mood/affect NEUROLOGIC: No obvious focal deficits IMAGING: No new imaging ASSESSMENT: This is a 75 YO F with history of COPD who presents to the ARU after fall and resulting R wrist and R hip fracture. Nephrology is consulted for ongoing fluid management in the setting of history of chronic dCHF + CKD3. PLAN: 1. Acute renal failure on chronic kidney disease, stage III: -Stopped oral Torsemide and given 60 IV Lasix BID today -Will continue to monitor UOP and renal function 2. Acute on chronic diastolic congestive heart failure: -LE fluid accumulation most likely to improve with additional dose of Lasix 3. HTN: -BP WNL -Continue metoprolol 4. Iron deficiency anemia: -IV Venofer ordered 5. Hyperkalemia: -Appears to have resolved with lasix 6. Skin ulcerations: -MRSA PCR ordered DISPO: Holding Torsemide, additional lasix today Current Medications Current Medications Current Medications Medications (Trade) Dose Ordered Sig/Az Route PRN Reason Start Time Stop Time Status Last Admin Dose Admin Acetaminophen (Tylenol Tab) 1,000 mg TID PO 12/23/20 16:00 12/28/20 08:38 Albuterol/ Ipratropium (Duoneb (Ipr 0.5mg/Alb 2.5mg)) 3 ml RTID NEB 12/23/20 20:00 12/28/20 07:37 Apixaban (Eliquis) 2.5 mg BID PO 12/23/20 21:00 12/28/20 08:37 Bisacodyl (Dulcolax Suppository) 10 mg DAILYPRN PRN [place] CONSTIPATION 12/23/20 12:50 Citalopram Hydrobromide (CeleXA) 20 mg DAILY PO 12/24/20 09:00 12/28/20 08:38 Dextrose (Dextrose 50%) 25 ml ASDIRECTED PRN IV SEE LABEL COMMENTS 12/23/20 12:50 Docusate Sodium (Colace) 100 mg BID PO 12/23/20 21:00 12/28/20 08:37 Famotidine (Pepcid) 10 mg DAILY PO 12/24/20 09:00 12/28/20 08:39 Furosemide (LASIX injection) 40 mg BID@09,17 IV 12/28/20 09:00 12/28/20 10:47 Glucagon (Glucagon) 1 mg ASDIRECTED PRN SC SEE LABEL COMMENTS 12/23/20 12:50 Glucose (Glucose) 16 GM ASDIRECTED PRN PO SEE LABEL COMMENTS 12/23/20 12:50 Guaifenesin (Robitussin Tab) 400 mg TID PO 12/25/20 09:00 12/28/20 08:37 Hydroxyzine HCl (Atarax) 25 mg Q6H PRN PO rash/itch 12/28/20 14:00 UNV Hydroxyzine HCl (Atarax) 25 mg QHSP PRN PO rash/itch 12/24/20 09:00 12/28/20 14:00 DC 12/26/20 21:00 Insulin Human Lispro (HumaLOG INSULIN) SEE PROTOCOL TABLE AC SC 12/23/20 17:30 12/28/20 12:11 Insulin Human Lispro (HumaLOG INSULIN) SEE PROTOCOL TABLE QHS SC 12/23/20 21:00 Iron 200 mg/ Sodium Chloride 110 ml @ 110 mls/hr DAILY IV 12/26/20 12:00 12/28/20 09:59 DC 12/28/20 08:40 Metoprolol Succinate (TopROL XL) 50 mg DAILY PO 12/24/20 09:00 12/28/20 08:40 Multivitamins (Theragram-M) 1 tab DAILY PO 12/24/20 09:00 12/28/20 08:37 Ondansetron HCl (Zofran Odt) 4 mg Q6HP PRN PO NAUSEA OR VOMITING 12/23/20 12:50 Oxycodone HCl (Roxicodone, Oxyir) 5 mg Q4HP PRN PO PAIN 12/23/20 13:10 12/28/20 06:09 Potassium Chloride (Micro-K Extencaps) 20 meq DAILY PO 12/24/20 09:00 12/26/20 09:28 DC 12/25/20 10:15 Senna (Senokot) 1 tab QHS PO 12/23/20 21:00 12/27/20 20:20 Tizanidine HCl (Zanaflex) 2 mg TID PO 12/28/20 16:00 UNV Torsemide (Demadex) 20 mg DAILY PO 12/24/20 09:00 12/25/20 09:55 DC Torsemide (Demadex) 20 mg DAILY PO 12/25/20 09:55 12/27/20 09:29 DC 12/27/20 09:01 Torsemide (Demadex) 40 mg DAILY PO 12/28/20 09:00 12/28/20 10:15 DC 12/28/20 08:39 Trazodone HCl (Desyrel) 50 mg QPM PO 12/23/20 21:00 12/27/20 20:20 Vitamin D (Vitamin D) 5,000 units DAILY PO 12/24/20 09:00 12/28/20 08:38 Allergies Coded Allergies: lisinopril (Verified Adverse Reaction, Intermediate, AFFECTS RENAL FUNCTION, 12/22/20) metformin (Verified Adverse Reaction, Intermediate, AFFECTS RENAL FUNCTION, 12/22/20) simvastatin (Verified Adverse Reaction, Mild, ITCHING, 12/22/20) VS,Fishbone, I+O VS, Fishbone, I+O Vital Signs Date Time Temp Pulse Resp B/P (MAP) Pulse Ox O2 Delivery O2 Flow Rate FiO2 12/28/20 09:00 2.0 12/28/20 08:40 84 138/66 12/28/20 06:40 18 Room Air 12/28/20 06:00 97.0 100 12/27/20 20:28 28 I&O- Last 24 Hours up to 6 AM 12/28/20 06:00 Intake Total 520 ml Balance 520 ml GME ATTESTATION GME ATTESTATION My faculty preceptor for this patient encounter was physically present during the encounter and was fully available. All aspects of the patient interview, examination, medical decision making process, and medical care plan development were reviewed and approved by the faculty preceptor. The faculty preceptor is aware and concurs with the plan as stated in the body of this note and will attest to such by his/her cosignature. GOLDY ROSADO MD Dec 28, 2020 14:08
[2020-12-28] MEDS ORDERED: tiZANidine 4 MG TAB PO SCH (16:00)
[2020-12-28 18:34] VITALS: BP 92/48
[2020-12-28 19:59] VITALS: BP 106/58
[2020-12-28] MEDS: traZODone 50 MG TAB PO SCH (20:08)
[2020-12-28] MEDS: SENNA 8.6 MG TAB (SENOKOT) PO SCH (20:08)
[2020-12-29 06:00] VITALS: BP 121/56
[2020-12-29] MEDS: hydrOXYzine 25 MG TAB PO PRN ×2 (06:09→13:20)
[2020-12-29 07:00] LABS: BASO # 0.1 10^3/uL (0.0-0.2); BASO % 1.1 % (0.0-1.0); EOS # 0.2 10^3/uL (0.0-0.5); EOS % 2.5 % (0.0-3.0); HEMATOCRIT 30.2 % (36.0-47.0); HEMOGLOBIN 9.5 g/dl (12.0-15.5); LYMPH # 0.8 10^3/uL (1.5-5.0); LYMPH % 12.3 % (24.0-44.0); MEAN CORPUSCULAR HEMOGLOBIN 31.9 pg (27.0-33.0); MEAN CORPUSCULAR HGB CONC 31.5 g/dl (32.0-36.5); MEAN CORPUSCULAR VOLUME 101.3 fl (80.0-96.0); MONO % 15.6 % (2.0-8.0); NEUTROPHILS # 4.3 10^3/uL (1.5-8.5); NEUTROPHILS % 67.4 % (36.0-66.0); PLATELET COUNT, AUTOMATED 210 10^3/uL (150-450); RED BLOOD COUNT 2.98 10^6/uL (4.00-5.40); WHITE BLOOD COUNT 6.4 10^3/uL (4.0-10.0)
[2020-12-29 07:32] LABS: CALCIUM LEVEL 9.2 MG/DL (8.8-10.2); CREATININE FOR GFR 1.73 MG/DL (0.55-1.30); GLOMERULAR FILTRATION RATE 30.4 (>39); POTASSIUM SERUM 3.7 MEQ/L (3.5-5.1)
[2020-12-29] MEDS: IPRATROPIUM 0.5MG/ALBUTEROL 2.5MG INH SOL UD 3ML (DUONEB) NEB SCH ×2 (07:52→20:00)
[2020-12-29 09:00] VITALS: BP 134/65
[2020-12-29] MEDS: REMEDY PHYTOPLEX Z-GUARD PASTE 113GM TUBE (FROM STOREROOM PRODUCT) TOP SCH ×3 (09:00→23:10)
--- NOTE | 2020-12-29 09:10 | REP ---
INDICATION: sob r/o chf. COMPARISON: 12/24/2020. FINDINGS: The superior mediastinal structures are midline. The heart is enlarged status quo. A single chamber bipolar pacemaker devices again noted and unchanged. There is irregularity of the diaphragmatic surface of the right lung seen in conjunction with asymmetric curvilinear densities in the right lower lobe all unchanged. No new abnormal opacities have developed. IMPRESSION: There has been no significant change from 12/24/2020. Findings as described above. Consider chest CT if clinically relevant. <Electronically signed by Walter Baumann > 12/29/20 [id number]
[2020-12-29] MEDS: MULTIVITAMINS/MINERALS THERAP 1 TAB PO SCH (09:11)
[2020-12-29] MEDS: HumaLOG INSULIN (NovoLOG) PER UNIT SC SCH ×4 (09:11→20:31)
[2020-12-29] MEDS: FAMOTIDINE 20 MG TAB PO SCH (09:12)
[2020-12-29] MEDS: DOCUSATE SODIUM 100MG CAPSULE PO SCH ×2 (09:12→20:24)
[2020-12-29] MEDS: CitaloPRAM (CeleXA) 20 MG TAB PO SCH (09:12)
[2020-12-29] MEDS: guaiFENesin 200 MG TAB PO SCH ×3 (09:12→20:24)
[2020-12-29] MEDS: VITAMIN D 1,000 INTERNATIONAL UNITS TABLET PO SCH (09:13)
[2020-12-29] MEDS: APIXABAN 2.5 MG TAB (ELIQUIS) PO SCH ×2 (09:13→20:24)
[2020-12-29] MEDS: BACLOFEN 5MG PER 1/2 TABLET PO SCH ×2 (09:13→20:24)
[2020-12-29] MEDS: oxyCODONE 5MG TAB PO PRN ×3 (09:16→20:24)
[2020-12-29] MEDS: METOPROLOL SUCC (TopROL XL) 50MG **XL** TAB PO SCH (09:17)
[2020-12-29] MEDS: ACETAMINOPHEN 500 MG TAB PO SCH ×3 (09:29→23:10)
[2020-12-29] MEDS: FUROSEMIDE 40MG/4ML VIAL (J1940) IV SCH ×2 (09:31→17:39)
[2020-12-29 11:30] VITALS: BP_SYST 120; BP_SYST 128; BP_SYST 133; BP_DIAS 66; BP_DIAS 68
[2020-12-29] MEDS: POTASSIUM CHLORIDE 10 MEQ SR TABLET PO SCH (12:32)
[2020-12-29 14:00] VITALS: BP 113/59
--- NOTE | 2020-12-29 16:36 | IPNPDOC ---
Subjective General Date/Time Seen The patient was seen on 12/29/20 at 16:35. Subject Chief Complaint/History The patient is a 75-year-old female admitted with a reason for visit of Right Hip Fx. SUBJECTIVE: Ms. Barraza was seen and examined at the bedside this morning. She states she feels well today. She still has some lower extremity swelling. Urine output is not currently being measured. Otherwise, no complaints today. OBJECTIVE: PHYSICAL EXAMINATION: VITAL SIGNS: see below GENERAL: alert and oriented, in no apparent distress, pleasant and conversant in full sentences. HEENT: PERRL, EOMI, Oral mucous membranes are moist without lesions. NECK: The patient has no noted JVD. No adenopathy is appreciated. No thyromegaly CHEST/LUNGS: Lungs are clear bilaterally without rhonchi, rales, or wheezes. There is no subcutaneous air appreciated. There is no tenderness to the chest wall. HEART:Regular rate and rhythm. No murmurs, rubs, or gallops are appreciated. Distal pulses are 2+. No carotid bruits appreciated. ABDOMEN: Soft, nontender, and nondistended. Bowel sounds are positive. No organomegaly is appreciated. No masses are appreciated. There are no peritoneal signs. There is no [place] sign. EXTREMITIES: Cast in place on RUE. 1+ pitting edema up to thigh on left leg, 2+ up to thigh on right leg. There is no focal long bone tenderness or deformity. SKIN: The patients skin is warm and dry. There are small excoriations on bilateral arms and legs PSYCHIATRIC: AAO x 3, normal mood/affect NEUROLOGIC: No obvious focal deficits IMAGING: No new imaging ASSESSMENT: This is a 75 YO F with history of COPD who presents to the ARU after fall and resulting R wrist and R hip fracture. Nephrology is consulted for ongoing fluid management in the setting of history of chronic dCHF + CKD3. PLAN: 1. Acute renal failure on chronic kidney disease, stage III: -Stopped oral Torsemide and given 60 IV Lasix BID today -Will continue to monitor UOP and renal function 2. Acute on chronic diastolic congestive heart failure: -LE fluid accumulation most likely to improve with additional dose of Lasix 3. HTN: -BP WNL -Continue metoprolol 4. Iron deficiency anemia: -IV Venofer ordered 5. Hyperkalemia: -Appears to have resolved with lasix 6. Skin ulcerations: -MRSA PCR ordered DISPO: Holding Torsemide, additional lasix today Current Medications Current Medications Current Medications Medications (Trade) Dose Ordered Sig/Az Route PRN Reason Start Time Stop Time Status Last Admin Dose Admin Acetaminophen (Tylenol Tab) 1,000 mg TID PO 12/23/20 16:00 12/29/20 09:29 Albuterol/ Ipratropium (Duoneb (Ipr 0.5mg/Alb 2.5mg)) 3 ml RTID NEB 12/23/20 20:00 12/29/20 07:52 Apixaban (Eliquis) 2.5 mg BID PO 12/23/20 21:00 12/29/20 09:13 Baclofen (Lioresal) 5 mg BID PO 12/29/20 09:00 12/29/20 09:13 Bisacodyl (Dulcolax Suppository) 10 mg DAILYPRN PRN [place] CONSTIPATION 12/23/20 12:50 Citalopram Hydrobromide (CeleXA) 20 mg DAILY PO 12/24/20 09:00 12/29/20 09:12 Dextrose (Dextrose 50%) 25 ml ASDIRECTED PRN IV SEE LABEL COMMENTS 12/23/20 12:50 Docusate Sodium (Colace) 100 mg BID PO 12/23/20 21:00 12/29/20 09:12 Famotidine (Pepcid) 10 mg DAILY PO 12/24/20 09:00 12/29/20 09:12 Furosemide (LASIX injection) 40 mg BID@ IV 12/28/20 09:00 12/29/20 11:52 DC 12/29/20 09:31 Furosemide (LASIX injection) 60 mg BID@09,17 IV 12/29/20 17:00 Glucagon (Glucagon) 1 mg ASDIRECTED PRN SC SEE LABEL COMMENTS 12/23/20 12:50 Glucose (Glucose) 16 GM ASDIRECTED PRN PO SEE LABEL COMMENTS 12/23/20 12:50 Guaifenesin (Robitussin Tab) 400 mg TID PO 12/25/20 09:00 12/29/20 09:12 Hydroxyzine HCl (Atarax) 25 mg Q6H PRN PO rash/itch 12/28/20 14:00 12/29/20 13:20 Hydroxyzine HCl (Atarax) 25 mg QHSP PRN PO rash/itch 12/24/20 09:00 12/28/20 14:00 DC 12/26/20 21:00 Insulin Human Lispro (HumaLOG INSULIN) SEE PROTOCOL TABLE AC SC 12/23/20 17:30 12/29/20 12:31 Insulin Human Lispro (HumaLOG INSULIN) SEE PROTOCOL TABLE QHS SC 12/23/20 21:00 Iron 200 mg/ Sodium Chloride 110 ml @ 110 mls/hr DAILY IV 12/26/20 12:00 12/28/20 09:59 DC 12/28/20 08:40 Metoprolol Succinate (TopROL XL) 50 mg DAILY PO 12/24/20 09:00 12/29/20 09:17 Multivitamins (Theragram-M) 1 tab DAILY PO 12/24/20 09:00 12/29/20 09:11 Ondansetron HCl (Zofran Odt) 4 mg Q6HP PRN PO NAUSEA OR VOMITING 12/23/20 12:50 Oxycodone HCl (Roxicodone, Oxyir) 5 mg Q4HP PRN PO PAIN 12/23/20 13:10 12/29/20 13:21 Potassium Chloride (Micro-K Extencaps) 20 meq DAILY PO 12/24/20 09:00 12/26/20 09:28 DC 12/25/20 10:15 Potassium Chloride (Micro-K Extencaps) 20 meq DAILY PO 12/29/20 09:00 12/29/20 12:32 Senna (Senokot) 1 tab QHS PO 12/23/20 21:00 12/28/20 20:08 Tizanidine HCl (Zanaflex) 2 mg TID PO 12/28/20 16:00 12/28/20 18:37 DC 12/28/20 16:04 Torsemide (Demadex) 20 mg DAILY PO 12/24/20 09:00 12/25/20 09:55 DC Torsemide (Demadex) 20 mg DAILY PO 12/25/20 09:55 12/27/20 09:29 DC 12/27/20 09:01 Torsemide (Demadex) 40 mg DAILY PO 12/28/20 09:00 12/28/20 10:15 DC 12/28/20 08:39 Trazodone HCl (Desyrel) 50 mg QPM PO 12/23/20 21:00 12/28/20 20:08 Vitamin D (Vitamin D) 5,000 units DAILY PO 12/24/20 09:00 12/29/20 09:13 Allergies Coded Allergies: lisinopril (Verified Adverse Reaction, Intermediate, AFFECTS RENAL F UNCTION, 12/22/20) metformin (Verified Adverse Reaction, Intermediate, AFFECTS RENAL FUNCTION, 12/22/20) simvastatin (Verified Adverse Reaction, Mild, ITCHING, 12/22/20) VS,Fishbone, I+O VS, Fishbone, I+O Laboratory Tests 12/29/20 06:26 Vital Signs Date Time Temp Pulse Resp B/P (MAP) Pulse Ox O2 Delivery O2 Flow Rate FiO2 12/29/20 14:00 98.6 65 20 113/59 (77) 98 Room Air 12/28/20 09:00 2.0 12/27/20 20:28 28 I&O- Last 24 Hours up to 6 AM 12/29/20 06:00 Intake Total 790 ml Balance 790 ml GME ATTESTATION GME ATTESTATION My faculty preceptor for this patient encounter was physically present during the encounter and was fully available. All aspects of the patient interview, examination, medical decision making process, and medical care plan development were reviewed and approved by the faculty preceptor. The faculty preceptor is aware and concurs with the plan as stated in the body of this note and will attest to such by his/her cosignature. GOLDY ROSADO MD Dec 29, 2020 16:36
[2020-12-29 20:00] VITALS: BP 109/59
[2020-12-29] MEDS: SENNA 8.6 MG TAB (SENOKOT) PO SCH (20:24)
--- NOTE | 2020-12-29 21:03 | IPNPDOC ---
PM&R Progress Note DATE OF SERVICE: Dec 29, 2020 English Tutor Progress Note Subjective: Patient reporting her pain is a little better now with the muscle relaxant. She thinks her legs are less swollen. REVIEW OF SYSTEMS: The following is a completed review of systems and has been reviewed. Review of systems otherwise unremarkable. PAIN: Patient self reports right hip pain EYES: No recent vision changes EARS, NOSE, & THROAT: No throat pain, or dysphagia, or rhinorrhea CARDIOVASCULAR: Denies chest pain or palpitations PULMONARY: Denies shortness of breath GASTROINTESTINAL: Denies constipation/diarrhea GENITOURINARY: denies dysuria MUSCULOSKELETAL: right hip and wrist fracture NEUROLOGICAL:denies tremor or paresthesias HEMATOLOGICAL: denies easy bruising SKIN: right hip incision PSYCHIATRIC:Unremarkable All other review of systems found to be negative. PHYSICAL EXAMINATION: VITAL SIGNS: Please see below. GENERAL: Pleasant and cooperative. No acute distress. HEENT: PERRL. Extraocular movements intact. Clear conjunctiva CARDIOVASCULAR: Regular rate and rhythm. No murmurs, rubs, or gallops LUNGS: Clear to auscultation bilaterally. No wheezes. No rhonchi ABDOMEN: Soft, nontender, nondistended. Positive bowel sounds. Normal active bowel sounds NEUROLOGICAL: Alert and oriented times three. Cranial nerves II through XII grossly intact. Sensation grossly intact] EXTREMITIES: 5\5 strength left upper extremity, 5/5 right elbow flexion.extension (limited due to cast). 5/5 strength right ankle DF/EHL and PF (limited due to hip surgery). /5 strength in left lower extremity. Skin- right hip incision c/d/i RLE edema>>LLE ASSESSMENT:75-year-old F with past medical history of COPD who presents status post fall with right wrist and hip fracture PLAN: 1. Rehab- PT/OT advance mobility and ADLs, strengthen/stretch/maintain ROM, dynamic balance training, fall recovery 2. Ortho- s/p right hip fracture and ORID 12-22-20 WBAT, right wrist fracture s/p closed reduction and cast- f/u Dr. Amaya outpatient 3. Cardiac- hx of Afib with PM on eliquis and metoprolol (lowered dose due to soft BPs) -chronic diastolic CHF- fluid restrict, daily weights, diuretics per renal, recs appreciated -HTN- on betablocker and diuretic-per renal 4. Resp- hx of COPD c/u duonebs, guaifenesin, 02, incentive spirometry- monitor for infection 5. GI ppx- pepcid 6. DVT ppx- on eliquis 7. Pain- tylenol and oxycodone, baclofen 8. Psych- trazodone for insomnia, c/u Celexa for anxiety 9. Derm- patient reporting her itchy back is a little better and that atarax is helping 9. Dispo- 01-10-21 to home, progressing towards goal Allergies Coded Allergies: lisinopril (Verified Adverse Reaction, Intermediate, AFFECTS RENAL FUNCTION, 12/22/20) metformin (Verified Adverse Reaction, Intermediate, AFFECTS RENAL FUNCTION, 12/22/20) simvastatin (Verified Adverse Reaction, Mild, ITCHING, 12/22/20) Vital Signs Vital Signs Date Time Temp Pulse Resp B/P (MAP) Pulse Ox O2 Delivery O2 Flow Rate FiO2 12/29/20 20:24 18 Room Air 12/29/20 14:00 98.6 65 113/59 (77) 98 12/28/20 09:00 2.0 12/27/20 20:28 28 Laboratory Data CBC/BMP Laboratory Tests 12/29/20 06:26 Labs 24H Laboratory Tests 2 12/29/20 06:26: Immature Granulocyte % (Auto) 1.1, Neutrophils (%) (Auto) 67.4H, Lymphocytes (%) (Auto) 12.3L, Monocytes (%) (Auto) 15.6H, Eosinophils (%) (Auto) 2.5, Basophils (%) (Auto) 1.1H, Neutrophils # (Auto) 4.3, Lymphocytes # (Auto) 0.8L, Monocytes # (Auto) 1.0H, Eosinophils # (Auto) 0.2, Basophils # (Auto) 0.1, Nucleated Red Blood Cells % (auto) 0.5H, Anion Gap 9, Glomerular Filtration Rate 30.4L, Calcium Level 9.2 12/29/20 11:47: Bedside Glucose (Misc Panel) 108 12/29/20 17:00: Bedside Glucose (Misc Panel) 138H 12/29/20 17:03: Methicillin-Resist S.aureus DNA PCR NOT DETECTED 12/29/20 20:03: Bedside Glucose (Misc Panel) 139H Current Medications Current Medications Current Medications Medications (Trade) Dose Ordered Sig/Az Route PRN Reason Start Time Stop Time Status Last Admin Dose Admin Acetaminophen (Tylenol Tab) 1,000 mg TID PO 12/23/20 16:00 12/29/20 17:43 Albuterol/ Ipratropium (Duoneb (Ipr 0.5mg/Alb 2.5mg)) 3 ml RTID NEB 12/23/20 20:00 12/29/20 07:52 Apixaban (Eliquis) 2.5 mg BID PO 12/23/20 21:00 12/29/20 20:24 Baclofen (Lioresal) 5 mg BID PO 12/29/20 09:00 12/29/20 20:24 Bisacodyl (Dulcolax Suppository) 10 mg DAILYPRN PRN OR CONSTIPATION 12/23/20 12:50 Citalopram Hydrobromide (CeleXA) 20 mg DAILY PO 12/24/20 09:00 12/29/20 09:12 Dextrose (Dextrose 50%) 25 ml ASDIRECTED PRN IV SEE LABEL COMMENTS 12/23/20 12:50 Docusate Sodium (Colace) 100 mg BID PO 12/23/20 21:00 12/29/20 20:24 Famotidine (Pepcid) 10 mg DAILY PO 12/24/20 09:00 12/29/20 09:12 Furosemide (LASIX injection) 40 mg BID@,17 IV 12/28/20 09:00 12/29/20 11:52 DC 12/29/20 09:31 Furosemide (LASIX injection) 60 mg BID@,17 IV 12/29/20 17:00 12/29/20 17:39 Glucagon (Glucagon) 1 mg ASDIRECTED PRN SC SEE LABEL COMMENTS 12/23/20 12:50 Glucose (Glucose) 16 GM ASDIRECTED PRN PO SEE LABEL COMMENTS 12/23/20 12:50 Guaifenesin (Robitussin Tab) 400 mg TID PO 12/25/20 09:00 12/29/20 20:24 Hydroxyzine HCl (Atarax) 25 mg Q6H PRN PO rash/itch 12/28/20 14:00 12/29/20 13:20 Hydroxyzine HCl (Atarax) 25 mg QHSP PRN PO rash/itch 12/24/20 09:00 12/28/20 14:00 DC 12/26/20 21:00 Insulin Human Lispro (HumaLOG INSULIN) SEE PROTOCOL TABLE AC SC 12/23/20 17:30 12/29/20 17:44 Insulin Human Lispro (HumaLOG INSULIN) SEE PROTOCOL TABLE QHS SC 12/23/20 21:00 Iron 200 mg/ Sodium Chloride 110 ml @ 110 mls/hr DAILY IV 12/26/20 12:00 12/28/20 09:59 DC 12/28/20 08:40 Metoprolol Succinate (TopROL XL) 50 mg DAILY PO 12/24/20 09:00 12/29/20 09:17 Multivitamins (Theragram-M) 1 tab DAILY PO 12/24/20 09:00 12/29/20 09:11 Ondansetron HCl (Zofran Odt) 4 mg Q6HP PRN PO NAUSEA OR VOMITING 12/23/20 12:50 Oxycodone HCl (Roxicodone, Oxyir) 5 mg Q4HP PRN PO PAIN 12/23/20 13:10 12/29/20 20:24 Potassium Chloride (Micro-K Extencaps) 20 meq DAILY PO 12/24/20 09:00 12/26/20 09:28 DC 12/25/20 10:15 Potassium Chloride (Micro-K Extencaps) 20 meq DAILY PO 12/29/20 09:00 12/29/20 12:32 Senna (Senokot) 1 tab QHS PO 12/23/20 21:00 12/29/20 20:24 Tizanidine HCl (Zanaflex) 2 mg TID PO 12/28/20 16:00 12/28/20 18:37 DC 12/28/20 16:04 Torsemide (Demadex) 20 mg DAILY PO 12/24/20 09:00 12/25/20 09:55 DC Torsemide (Demadex) 20 mg DAILY PO 12/25/20 09:55 12/27/20 09:29 DC 12/27/20 09:01 Torsemide (Demadex) 40 mg DAILY PO 12/28/20 09:00 12/28/20 10:15 DC 12/28/20 08:39 Trazodone HCl (Desyrel) 50 mg QPM PO 12/23/20 21:00 12/28/20 20:08 Vitamin D (Vitamin D) 5,000 units DAILY PO 12/24/20 09:00 12/29/20 09:13 AL BRIDGES MD Dec 29, 2020 21:03
[2020-12-29] MEDS: traZODone 50 MG TAB PO SCH (23:10)
[2020-12-30 05:33] VITALS: BP 135/70
[2020-12-30 06:51] LABS: BASO # 0.1 10^3/uL (0.0-0.2); BASO % 1.1 % (0.0-1.0); EOS # 0.2 10^3/uL (0.0-0.5); HEMATOCRIT 30.7 % (36.0-47.0); HEMOGLOBIN 9.7 g/dl (12.0-15.5); LYMPH % 17.6 % (24.0-44.0); MEAN CORPUSCULAR HEMOGLOBIN 32.4 pg (27.0-33.0); MEAN CORPUSCULAR HGB CONC 31.6 g/dl (32.0-36.5); MEAN CORPUSCULAR VOLUME 102.7 fl (80.0-96.0); MONO # 1.1 10^3/uL (0.0-0.8); MONO % 20.9 % (2.0-8.0); NEUTROPHILS % 54.9 % (36.0-66.0); PLATELET COUNT, AUTOMATED 218 10^3/uL (150-450); RED BLOOD COUNT 2.99 10^6/uL (4.00-5.40); WHITE BLOOD COUNT 5.5 10^3/uL (4.0-10.0)
[2020-12-30] MEDS: oxyCODONE 5MG TAB PO PRN ×3 (06:55→21:45)
[2020-12-30] MEDS: IPRATROPIUM 0.5MG/ALBUTEROL 2.5MG INH SOL UD 3ML (DUONEB) NEB SCH (07:08)
[2020-12-30 07:18] LABS: CALCIUM LEVEL 9.1 MG/DL (8.8-10.2); CREATININE FOR GFR 1.65 MG/DL (0.55-1.30); GLOMERULAR FILTRATION RATE 32.1 (>39); POTASSIUM SERUM 3.9 MEQ/L (3.5-5.1)
[2020-12-30] MEDS: HumaLOG INSULIN (NovoLOG) PER UNIT SC SCH ×4 (07:30→21:00)
[2020-12-30] MEDS: guaiFENesin 200 MG TAB PO SCH ×3 (09:45→21:45)
[2020-12-30] MEDS: FUROSEMIDE 40MG/4ML VIAL (J1940) IV SCH ×2 (09:45→17:04)
[2020-12-30] MEDS: VITAMIN D 1,000 INTERNATIONAL UNITS TABLET PO SCH (09:46)
[2020-12-30] MEDS: METOPROLOL SUCC (TopROL XL) 50MG **XL** TAB PO SCH (09:46)
[2020-12-30] MEDS: MULTIVITAMINS/MINERALS THERAP 1 TAB PO SCH (09:46)
[2020-12-30] MEDS: POTASSIUM CHLORIDE 10 MEQ SR TABLET PO SCH (09:46)
[2020-12-30] MEDS: DOCUSATE SODIUM 100MG CAPSULE PO SCH ×2 (09:47→21:44)
[2020-12-30] MEDS: APIXABAN 2.5 MG TAB (ELIQUIS) PO SCH ×2 (09:47→21:45)
[2020-12-30] MEDS: CitaloPRAM (CeleXA) 20 MG TAB PO SCH (09:47)
[2020-12-30] MEDS: FAMOTIDINE 20 MG TAB PO SCH (09:47)
[2020-12-30] MEDS: BACLOFEN 5MG PER 1/2 TABLET PO SCH ×2 (09:47→21:45)
[2020-12-30] MEDS: REMEDY PHYTOPLEX Z-GUARD PASTE 113GM TUBE (FROM STOREROOM PRODUCT) TOP SCH ×3 (09:48→21:47)
[2020-12-30] MEDS: ACETAMINOPHEN 500 MG TAB PO SCH ×3 (09:48→21:46)
--- NOTE | 2020-12-30 10:48 | IPNPDOC ---
PM&R Progress Note DATE OF SERVICE: Dec 30, 2020 [place] Progress Note Subjective: Patient stating she is not sure why she is having trouble getting through therapy and admits to being emotional, but that she is mostly fearful of standing more so than having pain or form being depressed. She was encouraged to work hard at being consistent and focusing on walking. REVIEW OF SYSTEMS: The following is a completed review of systems and has been reviewed. Review of systems otherwise unremarkable. PAIN: Patient self reports right hip pain EYES: No recent vision changes EARS, NOSE, & THROAT: No throat pain, or dysphagia, or rhinorrhea CARDIOVASCULAR: Denies chest pain or palpitations PULMONARY: Denies shortness of breath GASTROINTESTINAL: Denies constipation/diarrhea GENITOURINARY: denies dysuria MUSCULOSKELETAL: right hip and wrist fracture NEUROLOGICAL:denies tremor or paresthesias HEMATOLOGICAL: denies easy bruising SKIN: right hip incision PSYCHIATRIC:Unremarkable All other review of systems found to be negative. PHYSICAL EXAMINATION: VITAL SIGNS: Please see below. GENERAL: Pleasant and cooperative. No acute distress. HEENT: PERRL. Extraocular movements intact. Clear conjunctiva CARDIOVASCULAR: Regular rate and rhythm. No murmurs, rubs, or gallops LUNGS: Clear to auscultation bilaterally. No wheezes. No rhonchi ABDOMEN: Soft, nontender, nondistended. Positive bowel sounds. Normal active bowel sounds NEUROLOGICAL: Alert and oriented times three. Cranial nerves II through XII grossly intact. Sensation grossly intact] EXTREMITIES: 5\5 strength left upper extremity, 5/5 right elbow flexion.extension (limited due to cast). 5/5 strength right ankle DF/EHL and PF (limited due to hip surgery). /5 strength in left lower extremity. Skin- right hip incision c/d/i RLE edema>>LLE ASSESSMENT:75-year-old F with past medical history of COPD who presents status post fall with right wrist and hip fracture PLAN: 1. Rehab- PT/OT advance mobility and ADLs, strengthen/stretch/maintain ROM, dynamic balance training, fall recovery 2. Ortho- s/p right hip fracture and ORID 12-22-20 WBAT, right wrist fracture s/p closed reduction and cast- f/u Dr. Amaya outpatient 3. Cardiac- hx of Afib with PM on eliquis and metoprolol (lowered dose due to soft BPs) -chronic diastolic CHF- fluid restrict, daily weights, diuretics per renal, recs appreciated -HTN- on betablocker and diuretic-per renal 4. Resp- hx of COPD c/u duonezeny, guaifenesin, 02, incentive spirometry- monitor for infection 5. GI ppx- pepcid 6. DVT ppx- on eliquis 7. Pain- tylenol and oxycodone, baclofen 8. Psych- trazodone for insomnia, c/u Celexa for anxiety 9. Derm- patient reporting her itchy back is a little better and that atarax is helping 9. Dispo- 01-10-21 to home, progressing towards goal Allergies Coded Allergies: lisinopril (Verified Adverse Reaction, Intermediate, AFFECTS RENAL FUNCTION, 12/22/20) metformin (Verified Adverse Reaction, Intermediate, AFFECTS RENAL FUNCTION, 12/22/20) simvastatin (Verified Adverse Reaction, Mild, ITCHING, 12/22/20) Vital Signs Vital Signs Date Time Temp Pulse Resp B/P (MAP) Pulse Ox O2 Delivery O2 Flow Rate FiO2 12/30/20 09:46 68 135/70 12/30/20 07:50 20 98 Room Air 12/30/20 05:33 97.9 12/28/20 09:00 2.0 12/27/20 20:28 28 Laboratory Data CBC/BMP Laboratory Tests 12/30/20 06:33 Labs 24H Laboratory Tests 2 12/29/20 11:47: Bedside Glucose (Misc Panel) 108 12/29/20 17:00: Bedside Glucose (Misc Panel) 138H 12/29/20 17:03: Methicillin-Resist S.aureus DNA PCR NOT DETECTED 12/29/20 20:03: Bedside Glucose (Misc Panel) 139H 12/30/20 05:13: Bedside Glucose (Misc Panel) 103 12/30/20 06:33: Immature Granulocyte % (Auto) 1.5, Neutrophils (%) (Auto) 54.9, Lymphocytes (%) (Auto) 17.6L, Monocytes (%) (Auto) 20.9H, Eosinophils (%) (Auto) 4.0H, Basophils (%) (Auto) 1.1H, Neutrophils # (Auto) 3.0, Lymphocytes # (Auto) 1.0L, Monocytes # (Auto) 1.1H, Eosinophils # (Auto) 0.2, Basophils # (Auto) 0.1, Nucleated Red Blood Cells % (auto) 0.7H, Anion Gap 9, Glomerular Filtration Rate 32.1L, Calcium Level 9.1 Current Medications Current Medications Current Medications Medications (Trade) Dose Ordered Sig/Az Route PRN Reason Start Time Stop Time Status Last Admin Dose Admin Acetaminophen (Tylenol Tab) 1,000 mg TID PO 12/23/20 16:00 12/30/20 09:48 Albuterol/ Ipratropium (Combivent Respimat 100-20mcg) 1 puff RTID INH 12/30/20 14:00 Albuterol/ Ipratropium (Duoneb (Ipr 0.5mg/Alb 2.5mg)) 3 ml RTID NEB 12/23/20 20:00 12/30/20 08:08 DC 12/30/20 07:08 Apixaban (Eliquis) 2.5 mg BID PO 12/23/20 21:00 12/30/20 09:47 Baclofen (Lioresal) 5 mg BID PO 12/29/20 09:00 12/30/20 09:47 Bisacodyl (Dulcolax Suppository) 10 mg DAILYPRN PRN [place] CONSTIPATION 12/23/20 12:50 Citalopram Hydrobromide (CeleXA) 20 mg DAILY PO 12/24/20 09:00 12/30/20 09:47 Dextrose (Dextrose 50%) 25 ml ASDIRECTED PRN IV SEE LABEL COMMENTS 12/23/20 12:50 Docusate Sodium (Colace) 100 mg BID PO 12/23/20 21:00 12/30/20 09:47 Famotidine (Pepcid) 10 mg DAILY PO 12/24/20 09:00 12/30/20 09:47 Furosemide (LASIX injection) 40 mg BID@ IV 12/28/20 09:00 12/29/20 11:52 DC 12/29/20 09:31 Furosemide (LASIX injection) 60 mg BID@09,17 IV 12/29/20 17:00 12/30/20 09:45 Glucagon (Glucagon) 1 mg ASDIRECTED PRN SC SEE LABEL COMMENTS 12/23/20 12:50 Glucose (Glucose) 16 GM ASDIRECTED PRN PO SEE LABEL COMMENTS 12/23/20 12:50 Guaifenesin (Robitussin Tab) 400 mg TID PO 12/25/20 09:00 12/30/20 09:45 Hydroxyzine HCl (Atarax) 25 mg Q6H PRN PO rash/itch 12/28/20 14:00 12/29/20 13:20 Hydroxyzine HCl (Atarax) 25 mg QHSP PRN PO rash/itch 12/24/20 09:00 12/28/20 14:00 DC 12/26/20 21:00 Insulin Human Lispro (HumaLOG INSULIN) SEE PROTOCOL TABLE AC SC 12/23/20 17:30 12/29/20 17:44 Insulin Human Lispro (HumaLOG INSULIN) SEE PROTOCOL TABLE QHS SC 12/23/20 21:00 Iron 200 mg/ Sodium Chloride 110 ml @ 110 mls/hr DAILY IV 12/26/20 12:00 12/28/20 09:59 DC 12/28/20 08:40 Metoprolol Succinate (TopROL XL) 50 mg DAILY PO 12/24/20 09:00 12/30/20 09:46 Multivitamins (Theragram-M) 1 tab DAILY PO 12/24/20 09:00 12/30/20 09:46 Ondansetron HCl (Zofran Odt) 4 mg Q6HP PRN PO NAUSEA OR VOMITING 12/23/20 12:50 Oxycodone HCl (Roxicodone, Oxyir) 5 mg Q4HP PRN PO PAIN 12/23/20 13:10 12/30/20 06:55 Potassium Chloride (Micro-K Extencaps) 20 meq DAILY PO 12/24/20 09:00 12/26/20 09:28 DC 12/25/20 10:15 Potassium Chloride (Micro-K Extencaps) 20 meq DAILY PO 12/29/20 09:00 12/30/20 09:46 Senna (Senokot) 1 tab QHS PO 12/23/20 21:00 12/29/20 20:24 Tizanidine HCl (Zanaflex) 2 mg TID PO 12/28/20 16:00 12/28/20 18:37 DC 12/28/20 16:04 Torsemide (Demadex) 20 mg DAILY PO 12/24/20 09:00 12/25/20 09:55 DC Torsemide (Demadex) 20 mg DAILY PO 12/25/20 09:55 12/27/20 09:29 DC 12/27/20 09:01 Torsemide (Demadex) 40 mg DAILY PO 12/28/20 09:00 12/28/20 10:15 DC 12/28/20 08:39 Trazodone HCl (Desyrel) 50 mg QPM PO 12/23/20 21:00 12/29/20 23:10 Vitamin D (Vitamin D) 5,000 units DAILY PO 12/24/20 09:00 12/30/20 09:46 AL BRIDGES MD Dec 30, 2020 10:48
--- NOTE | 2020-12-30 13:57 | IPN ---
PROGRESS NOTE DATE: 12/30/2020 SUBJECTIVE: The patient was seen and examined at the bedside today morning in the rehab unit. She was sitting on the recliner sofa. She continues to be on IV diuretics. Her renal function is stable. She is diuresing well and reports her leg edema is slowly getting better. OBJECTIVE: VITAL SIGNS: Temperature is 97.9 degrees Fahrenheit, blood pressure is 135/70, pulse is 68, respiratory rate is 20, saturating 98% on room air. INTAKE AND OUTPUT: Urine output is not being recorded well. Weight on the bed scale is 71.8 kg which is still the same as yesterday. GENERAL: Patient is awake, alert, oriented x3, laying on the recliner sofa. HEAD AND NECK: Extraocular muscles intact. Pupils equally round and reactive to light. Mucous membranes are moist. Neck is supple. Moderately elevated JVD was noted. CARDIOVASCULAR: S1 and S2, regular rate, 3+ edema of the right lower extremity, 1+ edema of the left lower extremity. RESPIRATORY: Mildly decreased breath sounds at the bases. Mildly decreased focal resonance on the right base. ABDOMEN: Soft, positive bowel sounds, nontender. No organomegaly. MUSCULOSKELETAL: Patient has a right arm cast and surgical incision site on the right thigh. INSIDE PHONE SALES: No focal deficit. Power is 5/5 in all extremities. LABORATORY DATA: CBC showed a WBC of 5.5, hemoglobin 9.7, platelets are 218,000. BMP showed a sodium of 138, potassium 3.9, chloride 103, bicarbonate 26, BUN 47, creatinine 1.6, it was 1.7 yesterday. CURRENT INPATIENT MEDICATIONS: Patient's medications were all reviewed by myself. She continues to be on Lasix 60 mg IV twice a day. She was started on potassium chloride 20 mEq p.o. daily. No other significant change in the medications today as compared with yesterday. ASSESSMENT AND PLAN: 1. Acute renal failure superimposed on chronic kidney disease Stage III, it was cardiorenal in nature. Patient is getting diuretics and her renal function is improving. Creatinine is down to 1.6 which is very close to her baseline. 2. Acute on chronic diastolic congestive heart failure. Patient is getting Lasix 60 mg IV twice a day. Oral diuretics have been stopped. If her edema does not improve, then Lasix dose will be increased. 3. Hypertension with hypertensive heart disease. Continue metoprolol and diuretics. 4. Iron deficiency anemia. Patient was given IV Venofer. Hemoglobin level is gradually improving.
[2020-12-30 14:00] VITALS: BP 123/59
[2020-12-30] MEDS: hydrOXYzine 25 MG TAB PO PRN ×2 (14:29→21:46)
[2020-12-30] MEDS: COMBIVENT RESPIMAT 100-20MCG INHALER 4GM INH SCH ×2 (14:55→20:24)
[2020-12-30] MEDS: TORSEMIDE 20 MG TAB PO SCH (18:06)
[2020-12-30 20:00] VITALS: BP 119/56
[2020-12-30] MEDS: SENNA 8.6 MG TAB (SENOKOT) PO SCH (21:45)
[2020-12-30] MEDS: traZODone 50 MG TAB PO SCH (21:45)
[2020-12-31 05:42] VITALS: BP 119/60
[2020-12-31] MEDS: oxyCODONE 5MG TAB PO PRN ×2 (05:49→10:41)
[2020-12-31] MEDS: COMBIVENT RESPIMAT 100-20MCG INHALER 4GM INH SCH ×3 (07:24→19:40)
[2020-12-31] MEDS: HumaLOG INSULIN (NovoLOG) PER UNIT SC SCH ×4 (07:59→20:12)
[2020-12-31] MEDS: METOPROLOL SUCC (TopROL XL) 50MG **XL** TAB PO SCH (07:59)
[2020-12-31] MEDS: BACLOFEN 5MG PER 1/2 TABLET PO SCH ×2 (08:00→21:21)
[2020-12-31] MEDS: APIXABAN 2.5 MG TAB (ELIQUIS) PO SCH ×2 (08:00→21:21)
[2020-12-31] MEDS: CitaloPRAM (CeleXA) 20 MG TAB PO SCH (08:00)
[2020-12-31] MEDS: FAMOTIDINE 20 MG TAB PO SCH (08:00)
[2020-12-31] MEDS: DOCUSATE SODIUM 100MG CAPSULE PO SCH ×2 (08:00→21:21)
[2020-12-31] MEDS: VITAMIN D 1,000 INTERNATIONAL UNITS TABLET PO SCH (08:00)
[2020-12-31] MEDS: MULTIVITAMINS/MINERALS THERAP 1 TAB PO SCH (08:00)
[2020-12-31] MEDS: POTASSIUM CHLORIDE 10 MEQ SR TABLET PO SCH (08:01)
[2020-12-31] MEDS: guaiFENesin 200 MG TAB PO SCH ×3 (08:01→21:22)
[2020-12-31] MEDS: TORSEMIDE 20 MG TAB PO SCH (08:01)
[2020-12-31] MEDS: ACETAMINOPHEN 500 MG TAB PO SCH ×3 (08:02→21:22)
[2020-12-31] MEDS: REMEDY PHYTOPLEX Z-GUARD PASTE 113GM TUBE (FROM STOREROOM PRODUCT) TOP SCH ×3 (08:02→21:23)
[2020-12-31 09:27] LABS: BASO # 0.1 10^3/uL (0.0-0.2); EOS # 0.2 10^3/uL (0.0-0.5); EOS % 3.2 % (0.0-3.0); HEMATOCRIT 33.7 % (36.0-47.0); HEMOGLOBIN 10.2 g/dl (12.0-15.5); LYMPH # 0.9 10^3/uL (1.5-5.0); LYMPH % 14.9 % (24.0-44.0); MEAN CORPUSCULAR HGB CONC 30.3 g/dl (32.0-36.5); MEAN CORPUSCULAR VOLUME 105.6 fl (80.0-96.0); MONO # 0.9 10^3/uL (0.0-0.8); MONO % 14.7 % (2.0-8.0); NEUTROPHILS % 64.7 % (36.0-66.0); PLATELET COUNT, AUTOMATED 262 10^3/uL (150-450); RED BLOOD COUNT 3.19 10^6/uL (4.00-5.40); WHITE BLOOD COUNT 6.2 10^3/uL (4.0-10.0)
[2020-12-31 10:11] LABS: CALCIUM LEVEL 9.8 MG/DL (8.8-10.2); CREATININE FOR GFR 1.8 MG/DL (0.55-1.30); POTASSIUM SERUM 3.7 MEQ/L (3.5-5.1)
--- NOTE | 2020-12-31 13:23 | IPN ---
PROGRESS NOTE DATE: 12/31/2020 SUBJECTIVE: The patient was seen and examined at the bedside today morning in the rehab unit. She was started on oral torsemide 40 mg p.o. twice a day because she lost her IV line. She still reports persistent lower extremity edema. Otherwise denies any active complaint. OBJECTIVE: VITAL SIGNS: Temperature 96.8 degrees Fahrenheit, blood pressure 119/60, pulse 65, respiratory rate 90, saturating 94% on room air. INTAKE AND OUTPUT: Urine output is not recorded. She has had incontinent voids. Weight on the bed scale is 71.2 kg, which is almost the same as yesterday. GENERAL: The patient is awake, alert, and oriented x3. Sitting up in the recliner sofa. HEAD/NECK: Extraocular muscles are intact. Pupils are equally round and reactive to light. Neck is supple. She has elevated JVD. CARDIOVASCULAR: S1, S2. Regular rate. 3+ edema of the right lower extremity and 2+ edema of the left lower extremity. RESPIRATORY: Chest is clear to auscultation bilaterally. Bilaterally currently no rales or rhonchi. ABDOMEN: Soft with positive bowel sounds, nontender, and no organomegaly. MUSCULOSKELETAL: She has compression dressings on bilateral lower extremities. She has a surgical scar on the right hip and a cast on the right arm. LABORATORY DATA: CBC showed a WBC of 6.2, hemoglobin 10.2, platelets 262,000. BMP showed sodium 137, potassium 3.7, chloride 99, bicarb 27, BUN 47, creatinine 1.8 and it was 1.6 yesterday. CURRENT INPATIENT MEDICATIONS: The patient's medications were all reviewed by myself. She was on torsemide 40 mg p.o. twice a day. I have increased the dose to 50 mg p.o. twice a day. No other significant change in her medications today. ASSESSMENT AND PLAN: 1. Acute on chronic diastolic congestive heart failure. The patient still has significant volume overload. She lost her IV line and currently she is on oral diuretic. As mentioned above, the torsemide has been changed to 50 mg p.o. twice a day. 2. Chronic kidney disease stage III. The patient's creatinine has slightly bumped up from yesterday; however, she is still volume overloaded and needs the diuretics as mentioned above. 3. Hypertension with hypertensive heart disease. Continue diuretics and metoprolol. Blood pressures are optimal. 4. Iron deficiency anemia. The patient is status post IV Venofer. Hemoglobin level is stable and gradually improving.
[2020-12-31 14:00] VITALS: BP 115/54
[2020-12-31] MEDS: TORSEMIDE (DEMADEX) 50 MG PER 1/2 TAB PO SCH (17:01)
[2020-12-31 20:15] VITALS: BP 135/60
[2020-12-31] MEDS: SENNA 8.6 MG TAB (SENOKOT) PO SCH (21:21)
--- NOTE | 2020-12-31 22:14 | IPNPDOC ---
PM&R Progress Note DATE OF SERVICE: Dec 31, 2020 [place] Progress Note Subjective: Patient reporting she had a better day in therapy and thinks she will be able to get stronger in order to go home. REVIEW OF SYSTEMS: The following is a completed review of systems and has been reviewed. Review of systems otherwise unremarkable. PAIN: Patient self reports right hip pain EYES: No recent vision changes EARS, NOSE, & THROAT: No throat pain, or dysphagia, or rhinorrhea CARDIOVASCULAR: Denies chest pain or palpitations PULMONARY: Denies shortness of breath GASTROINTESTINAL: Denies constipation/diarrhea GENITOURINARY: denies dysuria MUSCULOSKELETAL: right hip and wrist fracture NEUROLOGICAL:denies tremor or paresthesias HEMATOLOGICAL: denies easy bruising SKIN: right hip incision PSYCHIATRIC:Unremarkable All other review of systems found to be negative. PHYSICAL EXAMINATION: VITAL SIGNS: Please see below. GENERAL: Pleasant and cooperative. No acute distress. HEENT: PERRL. Extraocular movements intact. Clear conjunctiva CARDIOVASCULAR: Regular rate and rhythm. No murmurs, rubs, or gallops LUNGS: Clear to auscultation bilaterally. No wheezes. No rhonchi ABDOMEN: Soft, nontender, nondistended. Positive bowel sounds. Normal active bowel sounds NEUROLOGICAL: Alert and oriented times three. Cranial nerves II through XII grossly intact. Sensation grossly intact] EXTREMITIES: 5\5 strength left upper extremity, 5/5 right elbow flexion.extension (limited due to cast). 5/5 strength right ankle DF/EHL and PF (limited due to hip surgery). /5 strength in left lower extremity. Skin- right hip incision c/d/i RLE edema>>LLE ASSESSMENT:75-year-old F with past medical history of COPD who presents status post fall with right wrist and hip fracture PLAN: 1. Rehab- PT/OT advance mobility and ADLs, strengthen/stretch/maintain ROM, dynamic balance training, fall recovery 2. Ortho- s/p right hip fracture and ORIF 12-22-20 WBAT, right wrist fracture s/p closed reduction and cast- f/u Dr. Amaya outpatient 3. Cardiac- hx of Afib with PM on eliquis and metoprolol (lowered dose due to soft BPs) -chronic diastolic CHF- fluid restrict, daily weights, diuretics per renal, recs appreciated -HTN- on betablocker and diuretic-per renal 4. Resp- hx of COPD c/u duonebs, guaifenesin, 02, incentive spirometry- monitor for infection 5. GI ppx- pepcid 6. DVT ppx- on eliquis 7. Pain- tylenol and oxycodone, baclofen 8. Psych- trazodone for insomnia, c/u Celexa for anxiety 9. Derm- patient reporting her itchy back is a little better and that atarax is helping 9. Dispo- 01-10-21 to home, progressing towards goal Allergies Coded Allergies: lisinopril (Verified Adverse Reaction, Intermediate, AFFECTS RENAL FUNCTION, 12/22/20) metformin (Verified Adverse Reaction, Intermediate, AFFECTS RENAL FUNCTION, 12/22/20) simvastatin (Verified Adverse Reaction, Mild, ITCHING, 12/22/20) Vital Signs Vital Signs Date Time Temp Pulse Resp B/P (MAP) Pulse Ox O2 Delivery O2 Flow Rate FiO2 12/31/20 20:15 97.7 75 18 135/60 (85) 96 Room Air 12/28/20 09:00 2.0 12/27/20 20:28 28 Laboratory Data CBC/BMP Laboratory Tests 12/31/20 08:36 Labs 24H Laboratory Tests 2 12/31/20 05:27: Bedside Glucose (Misc Panel) 116H 12/31/20 08:36: Immature Granulocyte % (Auto) 1.5, Neutrophils (%) (Auto) 64.7, Lymphocytes (%) (Auto) 14.9L, Monocytes (%) (Auto) 14.7H, Eosinophils (%) (Auto) 3.2H, Basophils (%) (Auto) 1.0, Neutrophils # (Auto) 4.0, Lymphocytes # (Auto) 0.9L, Monocytes # (Auto) 0.9H, Eosinophils # (Auto) 0.2, Basophils # (Auto) 0.1, Nucleated Red Blood Cells % (auto) 0.0, Anion Gap 11, Glomerular Filtration Rate 29.0L, Calcium Level 9.8 12/31/20 11:48: Bedside Glucose (Misc Panel) 168H 12/31/20 17:09: Bedside Glucose (Misc Panel) 139H 12/31/20 19:51: Bedside Glucose (Misc Panel) 143H Current Medications Current Medications Current Medications Medications (Trade) Dose Ordered Sig/Az Route PRN Reason Start Time Stop Time Status Last Admin Dose Admin Acetaminophen (Tylenol Tab) 1,000 mg TID PO 12/23/20 16:00 12/31/20 21:22 Albuterol/ Ipratropium (Combivent Respimat 100-20mcg) 1 puff RTID INH 12/30/20 14:00 12/31/20 19:40 Albuterol/ Ipratropium (Duoneb (Ipr 0.5mg/Alb 2.5mg)) 3 ml RTID NEB 12/23/20 20:00 12/30/20 08:08 DC 12/30/20 07:08 Apixaban (Eliquis) 2.5 mg BID PO 12/23/20 21:00 12/31/20 21:21 Baclofen (Lioresal) 5 mg BID PO 12/29/20 09:00 12/31/20 21:21 Bisacodyl (Dulcolax Suppository) 10 mg DAILYPRN PRN [place] CONSTIPATION 12/23/20 12:50 Citalopram Hydrobromide (CeleXA) 20 mg DAILY PO 12/24/20 09:00 12/31/20 08:00 Dextrose (Dextrose 50%) 25 ml ASDIRECTED PRN IV SEE LABEL COMMENTS 12/23/20 12:50 Docusate Sodium (Colace) 100 mg BID PO 12/23/20 21:00 12/31/20 21:21 Famotidine (Pepcid) 10 mg DAILY PO 12/24/20 09:00 12/31/20 08:00 Furosemide (LASIX injection) 40 mg BID@ IV 12/28/20 09:00 12/29/20 11:52 DC 12/29/20 09:31 Furosemide (LASIX injection) 60 mg BID@09,17 IV 12/29/20 17:00 12/30/20 17:40 DC 12/30/20 09:45 Glucagon (Glucagon) 1 mg ASDIRECTED PRN SC SEE LABEL COMMENTS 12/23/20 12:50 Glucose (Glucose) 16 GM ASDIRECTED PRN PO SEE LABEL COMMENTS 12/23/20 12:50 Guaifenesin (Robitussin Tab) 400 mg TID PO 12/25/20 09:00 12/31/20 21:22 Hydroxyzine HCl (Atarax) 25 mg Q6H PRN PO rash/itch 12/28/20 14:00 12/30/20 21:46 Hydroxyzine HCl (Atarax) 25 mg QHSP PRN PO rash/itch 12/24/20 09:00 12/28/20 14:00 DC 12/26/20 21:00 Insulin Human Lispro (HumaLOG INSULIN) SEE PROTOCOL TABLE AC SC 12/23/20 17:30 12/31/20 18:01 Insulin Human Lispro (HumaLOG INSULIN) SEE PROTOCOL TABLE QHS SC 12/23/20 21:00 Iron 200 mg/ Sodium Chloride 110 ml @ 110 mls/hr DAILY IV 12/26/20 12:00 12/28/20 09:59 DC 12/28/20 08:40 Metoprolol Succinate (TopROL XL) 50 mg DAILY PO 12/24/20 09:00 12/31/20 07:59 Multivitamins (Theragram-M) 1 tab DAILY PO 12/24/20 09:00 12/31/20 08:00 Ondansetron HCl (Zofran Odt) 4 mg Q6HP PRN PO NAUSEA OR VOMITING 12/23/20 12:50 12/30/20 14:28 Oxycodone HCl (Roxicodone, Oxyir) 5 mg Q4HP PRN PO PAIN 12/23/20 13:10 12/31/20 10:41 Potassium Chloride (Micro-K Extencaps) 20 meq DAILY PO 12/24/20 09:00 12/26/20 09:28 DC 12/25/20 10:15 Potassium Chloride (Micro-K Extencaps) 20 meq DAILY PO 12/29/20 09:00 12/31/20 08:01 Senna (Senokot) 1 tab QHS PO 12/23/20 21:00 12/31/20 21:21 Tizanidine HCl (Zanaflex) 2 mg TID PO 12/28/20 16:00 12/28/20 18:37 DC 12/28/20 16:04 Torsemide (Demadex) 20 mg DAILY PO 12/24/20 09:00 12/25/20 09:55 DC Torsemide (Demadex) 20 mg DAILY PO 12/25/20 09:55 12/27/20 09:29 DC 12/27/20 09:01 Torsemide (Demadex) 40 mg BID@,17 PO 12/30/20 18:00 12/31/20 11:40 DC 12/31/20 08:01 Torsemide (Demadex) 40 mg DAILY PO 12/28/20 09:00 12/28/20 10:15 DC 12/28/20 08:39 Torsemide (Demadex) 50 mg BID@ PO 12/31/20 17:00 12/31/20 17:01 Trazodone HCl (Desyrel) 50 mg QPM PO 12/23/20 21:00 12/30/20 21:45 Vitamin D (Vitamin D) 5,000 units DAILY PO 12/24/20 09:00 12/31/20 08:00 AL BRIDGES MD Dec 31, 2020 22:14
[2021-01-01] MEDS: traZODone 50 MG TAB PO SCH ×2 (00:17→21:29)
[2021-01-01 05:58] VITALS: BP 117/60
[2021-01-01 07:22] LABS: BASO # 0.1 10^3/uL (0.0-0.2); BASO % 0.8 % (0.0-1.0); EOS # 0.2 10^3/uL (0.0-0.5); EOS % 3.2 % (0.0-3.0); HEMATOCRIT 31.8 % (36.0-47.0); HEMOGLOBIN 9.8 g/dl (12.0-15.5); LYMPH # 0.8 10^3/uL (1.5-5.0); LYMPH % 12.2 % (24.0-44.0); MEAN CORPUSCULAR HEMOGLOBIN 32.6 pg (27.0-33.0); MEAN CORPUSCULAR HGB CONC 30.8 g/dl (32.0-36.5); MEAN CORPUSCULAR VOLUME 105.6 fl (80.0-96.0); MONO # 0.9 10^3/uL (0.0-0.8); MONO % 14.1 % (2.0-8.0); NEUTROPHILS # 4.2 10^3/uL (1.5-8.5); NEUTROPHILS % 68.1 % (36.0-66.0); PLATELET COUNT, AUTOMATED 232 10^3/uL (150-450); RED BLOOD COUNT 3.01 10^6/uL (4.00-5.40); WHITE BLOOD COUNT 6.2 10^3/uL (4.0-10.0)
[2021-01-01 07:28] LABS: CALCIUM LEVEL 8.8 MG/DL (8.8-10.2); CREATININE FOR GFR 1.7 MG/DL (0.55-1.30); POTASSIUM SERUM 3.2 MEQ/L (3.5-5.1)
[2021-01-01] MEDS: COMBIVENT RESPIMAT 100-20MCG INHALER 4GM INH SCH ×3 (08:04→19:50)
[2021-01-01] MEDS: DOCUSATE SODIUM 100MG CAPSULE PO SCH ×2 (09:00→21:28)
[2021-01-01] MEDS: HumaLOG INSULIN (NovoLOG) PER UNIT SC SCH ×4 (09:06→21:00)
[2021-01-01] MEDS: APIXABAN 2.5 MG TAB (ELIQUIS) PO SCH ×2 (09:07→21:29)
[2021-01-01] MEDS: MULTIVITAMINS/MINERALS THERAP 1 TAB PO SCH (09:07)
[2021-01-01] MEDS: VITAMIN D 1,000 INTERNATIONAL UNITS TABLET PO SCH (09:07)
[2021-01-01] MEDS: TORSEMIDE (DEMADEX) 50 MG PER 1/2 TAB PO SCH ×2 (09:07→16:37)
[2021-01-01] MEDS: FAMOTIDINE 20 MG TAB PO SCH (09:08)
[2021-01-01] MEDS: BACLOFEN 5MG PER 1/2 TABLET PO SCH ×2 (09:09→21:29)
[2021-01-01] MEDS: ACETAMINOPHEN 500 MG TAB PO SCH ×3 (09:09→21:29)
[2021-01-01] MEDS: POTASSIUM CHLORIDE 10 MEQ SR TABLET PO SCH ×2 (09:10→21:30)
[2021-01-01] MEDS: CitaloPRAM (CeleXA) 20 MG TAB PO SCH (09:10)
[2021-01-01] MEDS: METOPROLOL SUCC (TopROL XL) 50MG **XL** TAB PO SCH (09:10)
[2021-01-01] MEDS: guaiFENesin 200 MG TAB PO SCH ×3 (09:10→21:29)
[2021-01-01] MEDS: REMEDY PHYTOPLEX Z-GUARD PASTE 113GM TUBE (FROM STOREROOM PRODUCT) TOP SCH ×3 (09:11→21:00)
[2021-01-01] MEDS ORDERED: POTASSIUM CHLORIDE 10 MEQ SR TABLET PO ONE (12:00)
--- NOTE | 2021-01-01 13:54 | IPN ---
PROGRESS NOTE DATE: 01/01/2021 SUBJECTIVE: Patient was seen and examined today morning in the rehabilitation unit. She was getting her physical therapy when I saw her. She is currently on oral diuretics. Reports her lower extremity edema is slowly getting better. OBJECTIVE: Vital signs: Temperature is 96.9 degrees Fahrenheit, blood pressure 117/60, pulse is 65, respiratory rate 18, saturating 98% on room air. Intake and output: Urine output is not recorded. She has incontinent voids. Weight in the bed scale is 72.7 kg. PHYSICAL EXAMINATION: GENERAL: Patient is awake, alert, oriented times three, sitting up in the wheelchair. HEAD AND NECK: Extraocular muscles are intact. Pupils equally round and reactive to light. Mucous membranes are moist. Neck is supple. Moderately elevated jugular venous distention (JVD) is noted. CARDIOVASCULAR: S1, S2, regular rate. Edema 3+ of the right lower extremity, 2+ edema of the left lower extremity. RESPIRATORY: Mildly decreased breath sounds at the bases and decreased vocal resonance in the right base was noted. ABDOMEN: Soft. Positive bowel sounds. Nontender. No organomegaly. MUSCULOSKELETAL: Edema of the bilateral lower extremities, as mentioned above, and she has a healing surgical scar in the right hip and a cast on the right arm. CENTRAL NERVOUS SYSTEM: No focal deficit. Power is 5/5 in all extremities. LABORATORY REVIEW: CBC showed a WBC of 6.2, hemoglobin 9.8, platelets are 232. BMP showed sodium 141, potassium 3.2, chloride 105, bicarbonate 29, BUN 44, creatinine is 1.7; it was 1.8 yesterday. CURRENT INPATIENT MEDICATIONS: Patient's medications were all reviewed by myself. She is currently on torsemide 50 mg by mouth twice a day. She is on potassium 20 mEq by mouth daily. I have increased it to twice a day, and she was also given an extra dose of potassium 40 mEq by mouth times one dose in the afternoon. ASSESSMENT AND PLAN: 1. Acute on chronic diastolic congestive heart failure. Patient has edema in the lower extremities. Diuretic dose was changed yesterday. Continue to monitor intake and output and fluid restriction 1500 mL daily. 2. Chronic kidney disease, stage III. Creatinine is stable despite aggressive diuresis. Continue to monitor intake and output. 3. Hypokalemia. It is secondary to loop diuretic. Potassium dose has been increased as mentioned above. 4. Hypertension with hypertensive heart disease. Continue metoprolol and diuretic. 5. Iron deficiency anemia. Patient was given IV Venofer. Hemoglobin level is stable at this time.
[2021-01-01 14:00] VITALS: BP 125/65
[2021-01-01 20:15] VITALS: BP 116/57
[2021-01-01] MEDS: SENNA 8.6 MG TAB (SENOKOT) PO SCH (21:29)
[2021-01-01] MEDS: oxyCODONE 5MG TAB PO PRN (21:32)
[2021-01-02 06:00] VITALS: BP 112/55
[2021-01-02 07:31] LABS: BASO # 0.1 10^3/uL (0.0-0.2); EOS # 0.2 10^3/uL (0.0-0.5); EOS % 3.3 % (0.0-3.0); HEMATOCRIT 32.3 % (36.0-47.0); HEMOGLOBIN 9.9 g/dl (12.0-15.5); LYMPH # 0.8 10^3/uL (1.5-5.0); LYMPH % 13.2 % (24.0-44.0); MEAN CORPUSCULAR HEMOGLOBIN 32.2 pg (27.0-33.0); MEAN CORPUSCULAR HGB CONC 30.7 g/dl (32.0-36.5); MEAN CORPUSCULAR VOLUME 105.2 fl (80.0-96.0); MONO # 0.8 10^3/uL (0.0-0.8); NEUTROPHILS # 4.2 10^3/uL (1.5-8.5); NEUTROPHILS % 68.3 % (36.0-66.0); PLATELET COUNT, AUTOMATED 241 10^3/uL (150-450); RED BLOOD COUNT 3.07 10^6/uL (4.00-5.40); WHITE BLOOD COUNT 6.1 10^3/uL (4.0-10.0)
[2021-01-02 08:00] LABS: CALCIUM LEVEL 9.8 MG/DL (8.8-10.2); CREATININE FOR GFR 1.61 MG/DL (0.55-1.30); POTASSIUM SERUM 3.3 MEQ/L (3.5-5.1)
[2021-01-02] MEDS: COMBIVENT RESPIMAT 100-20MCG INHALER 4GM INH SCH ×3 (08:00→20:11)
[2021-01-02] MEDS: DOCUSATE SODIUM 100MG CAPSULE PO SCH ×3 (09:00→21:06)
[2021-01-02] MEDS: HumaLOG INSULIN (NovoLOG) PER UNIT SC SCH ×4 (09:19→21:00)
[2021-01-02] MEDS: CitaloPRAM (CeleXA) 20 MG TAB PO SCH (09:20)
[2021-01-02] MEDS: POTASSIUM CHLORIDE 10 MEQ SR TABLET PO SCH ×2 (09:21→21:07)
[2021-01-02] MEDS: VITAMIN D 1,000 INTERNATIONAL UNITS TABLET PO SCH (09:21)
[2021-01-02] MEDS: MULTIVITAMINS/MINERALS THERAP 1 TAB PO SCH (09:22)
[2021-01-02] MEDS: APIXABAN 2.5 MG TAB (ELIQUIS) PO SCH ×2 (09:22→21:06)
[2021-01-02] MEDS: guaiFENesin 200 MG TAB PO SCH ×3 (09:22→21:07)
[2021-01-02] MEDS: METOPROLOL SUCC (TopROL XL) 50MG **XL** TAB PO SCH (09:22)
[2021-01-02] MEDS: FAMOTIDINE 20 MG TAB PO SCH (09:22)
[2021-01-02] MEDS: BACLOFEN 5MG PER 1/2 TABLET PO SCH (09:22)
[2021-01-02] MEDS: ACETAMINOPHEN 500 MG TAB PO SCH ×3 (09:22→21:07)
[2021-01-02] MEDS: TORSEMIDE (DEMADEX) 50 MG PER 1/2 TAB PO SCH ×2 (09:25→17:09)
[2021-01-02] MEDS: REMEDY PHYTOPLEX Z-GUARD PASTE 113GM TUBE (FROM STOREROOM PRODUCT) TOP SCH ×3 (09:29→21:08)
[2021-01-02] MEDS: SPIRONOLACTONE 25 MG TAB PO SCH ×2 (11:15→17:09)
[2021-01-02] MEDS ORDERED: POTASSIUM CHLORIDE 10 MEQ SR TABLET PO ONE (12:00)
[2021-01-02 14:00] VITALS: BP 114/53
--- NOTE | 2021-01-02 14:35 | IPN ---
NEPHROLOGY PROGRESS NOTE DATE: 01/02/2021 SUBJECTIVE: Patient was seen and examined at the bedside today morning. She is afebrile, hemodynamically stable. She continues to be on a high dose of torsemide. Because of that, she is persistently hypokalemic. She reports that she used to take spironolactone as outpatient, which is one of her newer medications and she has not been receiving spironolactone in the hospital. Lower extremity edema is gradually improving. OBJECTIVE: VITAL SIGNS: Temperature 96.3 degrees Fahrenheit, blood pressure 112.55, pulse 65, respiratory rate 18, saturating 100% on room air. INTAKE AND OUTPUT: Urine output is not recorded. She has incontinent voids. Weight in the bed scale is 72.7kg, which is almost the same as yesterday. PHYSICAL EXAMINATION: GENERAL: Patient is awake, alert, oriented times three, sitting up in bed, no apparent distress. HEAD AND NECK EXAM: Extraocular muscles intact. Pupils equally round and reactive to light. Mucous membranes are moist. Neck is supple. Mildly elevated jugular venous distention (JVD). CARDIOVASCULAR: S1, S2. Regular rate. Edema 3+ of the right lower extremity, 2+ edema of the left lower extremity. RESPIRATORY: Mildly decreased breath sounds at the bases. Mildly decreased vocal resonance at the right base. ABDOMEN: Soft. Positive bowel sounds. MUSCULOSKELETAL: Right thigh bruise and healed surgical scar. Edema of the bilateral lower extremities as mentioned above. CENTRAL NERVOUS SYSTEM (MOISTURE METER READER): No focal deficits. Power is 5/5 in all extremities. LABORATORY REVIEW: CBC showed WBC 6.1, hemoglobin 9.9, platelets 241. BMP showed sodium 142, potassium 3.3, chloride 104, bicarbonate 31, BUN 38, creatinine 1.6, it was 1.7 yesterday. CURRENT INPATIENT MEDICATIONS: Patient's medications were all reviewed by myself. She has been started on spironolactone 25 mg by mouth twice a day. She continues to be on potassium chloride 20 mEq by mouth twice a day and an additional dose of 40 mEq was given in the afternoon. She is also on torsemide 50 mg by mouth twice a day. ASSESSMENT AND PLAN: 1. Acute on chronic diastolic congestive heart failure. Patient still has significant edema of the lower extremities. She continues to be on torsemide 50 mg by mouth twice a day and, as mentioned above, spironolactone 25 mg by mouth twice a day has been added. 2. Hypokalemia. It is secondary to aggressive loop diuretic. Additional potassium chloride 40 mEq was given and, as mentioned above, spironolactone has been added. 3. Chronic kidney disease stage III. Renal function is stable despite aggressive diuresis. 4. Hypertension. Blood pressure is controlled with metoprolol and diuretic. 5. Iron deficiency anemia. Patient is status post IV Venofer. Hemoglobin level is stable.
--- NOTE | 2021-01-02 16:27 | IPNPDOC ---
Date Seen The patient was seen on 01/02/21. Progress Note addendum to progress note: right arm/hip pain: pt requests pain meds as follows flexeril with hydrocodone "works best for me." plan: dc baclofen dc oxycodone flexeril 5 mg tid hold for sedation or ams norco prn 1tab VS, I&O, 24H, Fishbone Vital Signs/I&O Vital Signs Date Time Temp Pulse Resp B/P (MAP) Pulse Ox O2 Delivery O2 Flow Rate FiO2 01/02/21 14:00 97.3 64 18 114/53 (73) 98 Room Air 12/28/20 09:00 2.0 12/27/20 20:28 28 I&O- Last 24 Hours up to 6 AM 01/02/21 06:00 Intake Total 1080 ml Output Total 250 ml Balance 830 ml Laboratory Data 24H LABS Laboratory Tests 2 01/01/21 16:37: Bedside Glucose (Misc Panel) 127H 01/01/21 20:31: Bedside Glucose (Misc Panel) 129H 01/02/21 05:28: Bedside Glucose (Misc Panel) 110 01/02/21 06:55: Immature Granulocyte % (Auto) 1.2, Neutrophils (%) (Auto) 68.3H, Lymphocytes (%) (Auto) 13.2L, Monocytes (%) (Auto) 13.0H, Eosinophils (%) (Auto) 3.3H, Basophils (%) (Auto) 1.0, Neutrophils # (Auto) 4.2, Lymphocytes # (Auto) 0.8L, Monocytes # (Auto) 0.8, Eosinophils # (Auto) 0.2, Basophils # (Auto) 0.1, Nucleated Red Blood Cells % (auto) 0.0, Anion Gap 7L, Glomerular Filtration Rate 33.0L, Calcium Level 9.8 01/02/21 11:45: Bedside Glucose (Misc Panel) 142H CBC/BMP Laboratory Tests 01/02/21 06:55 BRUCE HELLER MD January 02, 2021 16:27
[2021-01-02] MEDS ORDERED: NORCO, ANEXSIA 5/325MG TABLET (HYDROcodone/ACETAMINOPHEN) PO ONE (16:45)
[2021-01-02] MEDS ORDERED: CYCLOBENZAPRINE 5MG TABLET PO ONE (17:30)
--- NOTE | 2021-01-02 17:52 | IPN ---
PROGRESS NOTE DATE: 01/02/2021 Patient is seen and examined at the bedside. Chart has been reviewed. Patient denies any chest pain, pressure, tightness, lightheadedness, dizziness. Shortness of breath has improved, still requiring 1 liter nasal cannula oxygen. Denies any nausea, vomiting, diarrhea, abdominal pain, dysuria, urgency, frequency, fever, chills. OBJECTIVE: PHYSICAL EXAMINATION: Temperature 97.3, pulse 64, respiratory rate 18, blood pressure 114/53, 98% on room air. Generally: Patient is awake, alert, oriented times three, no use of respiratory accessory muscles, no pallor. HEENT: Moist mucous membranes. Mild jugular venous distension (JVD). No carotid bruit, no stridor. Heart: S1, S2, sinus rhythm. No murmurs, rubs, or gallops. Lungs: Diminished breath sounds, bibasilar crackles. Abdomen: Soft, nontender, nondistended. Positive bowel sounds. Extremities: 3+ lower extremity edema with some ecchymosis noted at the right thigh. Postoperative right hip changes. LABORATORY DATA: White count 6.1, hemoglobin 9.9, hematocrit 32.3, platelet count 241, sodium 142, potassium 3.3, chloride 104, bicarbonate 31, BUN 38, creatinine 1.6, glucose 111. Input/output and daily weight have been reviewed. ASSESSMENT AND PLAN: This is a 75-year-old admitted to the acute rehabilitation unit status post right hip fracture for rehabilitation services with prior history of hypertension, asthma, chronic obstructive pulmonary disease (COPD), type 2 diabetes, diastolic heart failure, chronic atrial fibrillation status post ablation and pacemaker placement, chronic kidney disease stage III, diverticulosis, anxiety and depression, currently with the following acute issues: 1. Acute diastolic failure with preserved systolic function congestive heart failure managed by nephrology. Currently on torsemide 50 mg twice a day, spironolactone twice a day without orthostatic changes and complaints of dizziness, lightheadedness. Patient appears to be close to baseline. Input/output have been reviewed. Weight on admission was 76.6 kg and current weight is 72.7 kg and clinically improving. 2. Chronic kidney disease stage III. At baseline creatinine. Managed by nephrology for diuresis and fluid management. 3. Hypokalemia. Low potassium supplemented with potassium tablet and spironolactone. 4. Recent right hip fracture and right wrist fracture secondary to mechanical fall status post open reduction internal fixation of the right hip with closed reduction casting of the right distal radius by Dr. Amaya on 12/22/2020. Currently in acute rehabilitation for rehabilitation services. Pain is controlled on current regimen. 5. Chronic atrial fibrillation. Fully anticoagulated with Eliquis. Not on rate control medications. 6. History of heart block status post pacemaker with battery replacement 12/22/2020 [facility]. Will need to be rescheduled at a later date due to recent admission for hip fracture and right distal radial fracture. 7. Type 2 diabetes. On insulin sliding scale, consistent carbohydrate diet. 8. History of chronic obstructive pulmonary disease (COPD) and asthma. Continued on bronchodilators. No evidence of exacerbation. 9. Anxiety/depression, on hydroxyzine, trazodone, and citalopram. 10. Reflux, on chronic famotidine. MTDD
[2021-01-02 20:00] VITALS: BP 124/58
[2021-01-02] MEDS: CYCLOBENZAPRINE 5MG TABLET PO SCH (21:06)
[2021-01-02] MEDS: traZODone 50 MG TAB PO SCH (21:06)
[2021-01-02] MEDS: SENNA 8.6 MG TAB (SENOKOT) PO SCH (21:07)
[2021-01-03 06:00] VITALS: BP 129/79
[2021-01-03] MEDS: COMBIVENT RESPIMAT 100-20MCG INHALER 4GM INH SCH ×3 (07:35→20:40)
[2021-01-03] MEDS: APIXABAN 2.5 MG TAB (ELIQUIS) PO SCH ×2 (08:28→20:49)
[2021-01-03] MEDS: POTASSIUM CHLORIDE 10 MEQ SR TABLET PO SCH ×2 (08:29→20:48)
[2021-01-03] MEDS: guaiFENesin 200 MG TAB PO SCH ×3 (08:29→20:48)
[2021-01-03] MEDS: CYCLOBENZAPRINE 5MG TABLET PO SCH ×3 (08:29→20:49)
[2021-01-03] MEDS: SPIRONOLACTONE 25 MG TAB PO SCH ×2 (08:30→17:47)
[2021-01-03] MEDS: MULTIVITAMINS/MINERALS THERAP 1 TAB PO SCH (08:30)
[2021-01-03] MEDS: CitaloPRAM (CeleXA) 20 MG TAB PO SCH (08:30)
[2021-01-03] MEDS: DOCUSATE SODIUM 100MG CAPSULE PO SCH ×2 (08:30→20:49)
[2021-01-03] MEDS: VITAMIN D 1,000 INTERNATIONAL UNITS TABLET PO SCH (08:30)
[2021-01-03] MEDS: FAMOTIDINE 20 MG TAB PO SCH (08:31)
[2021-01-03] MEDS: ACETAMINOPHEN 500 MG TAB PO SCH ×3 (08:32→20:49)
[2021-01-03] MEDS: HumaLOG INSULIN (NovoLOG) PER UNIT SC SCH ×4 (08:33→20:49)
[2021-01-03] MEDS: REMEDY PHYTOPLEX Z-GUARD PASTE 113GM TUBE (FROM STOREROOM PRODUCT) TOP SCH ×3 (08:36→20:50)
[2021-01-03] MEDS: METOPROLOL SUCC (TopROL XL) 50MG **XL** TAB PO SCH (08:39)
[2021-01-03] MEDS: NORCO, ANEXSIA 5/325MG TABLET (HYDROcodone/ACETAMINOPHEN) PO PRN ×2 (08:41→12:44)
[2021-01-03] MEDS ORDERED: POTASSIUM CHLORIDE 10 MEQ SR TABLET PO ONE (11:30)
[2021-01-03 12:32] LABS: MAGNESIUM LEVEL 1.9 MG/DL (1.8-2.4)
[2021-01-03] MEDS: TORSEMIDE (DEMADEX) 50 MG PER 1/2 TAB PO SCH ×2 (12:41→17:46)
[2021-01-03] MEDS: hydrOXYzine 25 MG TAB PO PRN (12:53)
[2021-01-03 13:24] LABS: CREATININE FOR GFR 1.59 MG/DL (0.55-1.30); GLOMERULAR FILTRATION RATE 33.5 (>39); POTASSIUM SERUM 3.8 MEQ/L (3.5-5.1)
[2021-01-03 14:00] VITALS: BP 151/76
--- NOTE | 2021-01-03 17:56 | IPN ---
NEPHROLOGY PROGRESS NOTE DATE: 01/03/2021 SUBJECTIVE: Miss Srinivasan is seen and examined this morning in the Acute Rehabilitation Unit with the therapist present at the bedside. She denies any complaints, specifically no shortness of breath with her therapy. No trouble voiding. No diarrhea, no nausea, no vomiting and no new lightheadedness or dizziness. She is on room air and comfortable. OBJECTIVE: PHYSICAL EXAMINATION: VITAL SIGNS: Temperature 98.2, pulse 65, respiratory rate 18, blood pressure 151/76, saturating 96% on room air. INTAKE AND OUTPUT: There were seven incontinent voids recorded yesterday. Weight in the bed scale is down to 71 kg which is lower than it was the past day. GENERAL APPEARANCE: The patient is seen sitting up in bed, elderly female, awake, alert, oriented x3, comfortable and in no distress. HEENT: The extraocular muscles are intact. Tongue is moist. NECK: Supple. Jugular veins were only mildly elevated. HEART: Regular, S1, S2. There is 3+ edema of the left lower extremity but only 1+ edema of the left lower extremity. The right arm is also in a cast. RESPIRATORY: Symmetric air entry bilaterally. No crackles, rales or rhonchus. ABDOMEN: Soft, obese and nontender. EXTREMITIES: Edema as mentioned above and the right arm is in a casting and there are scattered bruising on the right lower extremity. NEUROLOGICAL: Oriented x3, interactive, at baseline mentation. No focal deficits. LABORATORY STUDIES: Today hemoglobin of 9.9, sodium 142, potassium 3.8, creatinine 1.5, GFR 33, magnesium 1.9. CURRENT INPATIENT MEDICATIONS: The patient's medications were reviewed by myself. She continues on Torsemide 50 mg twice daily. She was started yesterday on Spironolactone 25 mg twice daily. She got a dose of potassium chloride 40 mEq p.o. times one. She is also receiving potassium chloride 20 mEq p.o. twice daily. Her remainder medications are unchanged as compared to yesterday. PROBLEMS: 1. [id number] diastolic congestive heart failure - The patient is diuresing satisfactorily. Her daily weights are downward trending. Her urine output is not being quantified but urine voids are being counted. I would continue her on the current regimen of Torsemide 50 mg twice daily along with Spironolactone 25 mg twice daily, and she is on an 1,800 mL fluid restriction. She is saturating well on room air and I am satisfied with her fluid status. 2. Hypokalemia, secondary to aggressive loop diuretic - potassium has come up to 3.8 today and she is also now on Spironolactone 25 mg twice daily. I am going decrease the amount of potassium supplementation she has been receiving, now that she is on Spironolactone. 3. Chronic kidney disease stage 3 - renal function remains stable at her usual baseline and she is tolerating combination diuretics very well. 4. Hypertension systolic is mostly 110's to 120's. Continue current regimen of Metoprolol plus Torsemide and Spironolactone. 5. Iron deficiency anemia The patient received IV iron earlier on this admission. Her hemoglobin is stable at 9.9 on the most recent labs, and I am going to put her on a maintenance oral iron supplement.
[2021-01-03 20:00] VITALS: BP 126/58
[2021-01-03] MEDS: SENNA 8.6 MG TAB (SENOKOT) PO SCH (20:49)
[2021-01-03] MEDS: traZODone 50 MG TAB PO SCH (20:49)
[2021-01-04 05:48] VITALS: BP 116/57
[2021-01-04] MEDS: NORCO, ANEXSIA 5/325MG TABLET (HYDROcodone/ACETAMINOPHEN) PO PRN ×3 (06:13→21:30)
[2021-01-04 07:04] LABS: CALCIUM LEVEL 9.4 MG/DL (8.8-10.2); CREATININE FOR GFR 1.57 MG/DL (0.55-1.30); POTASSIUM SERUM 3.8 MEQ/L (3.5-5.1)
[2021-01-04] MEDS: COMBIVENT RESPIMAT 100-20MCG INHALER 4GM INH SCH ×3 (08:19→19:21)
[2021-01-04] MEDS: HumaLOG INSULIN (NovoLOG) PER UNIT SC SCH ×4 (08:39→20:03)
[2021-01-04] MEDS: POTASSIUM CHLORIDE 10 MEQ SR TABLET PO SCH ×2 (08:39→21:29)
[2021-01-04] MEDS: MULTIVITAMINS/MINERALS THERAP 1 TAB PO SCH (08:39)
[2021-01-04] MEDS: APIXABAN 2.5 MG TAB (ELIQUIS) PO SCH ×2 (08:39→21:30)
[2021-01-04] MEDS: DOCUSATE SODIUM 100MG CAPSULE PO SCH ×2 (08:39→21:28)
[2021-01-04] MEDS: ACETAMINOPHEN 500 MG TAB PO SCH ×3 (08:40→21:30)
[2021-01-04] MEDS: FERROUS SULFATE 325MG TAB PO SCH (08:40)
[2021-01-04] MEDS: METOPROLOL SUCC (TopROL XL) 50MG **XL** TAB PO SCH (08:41)
[2021-01-04] MEDS: CitaloPRAM (CeleXA) 20 MG TAB PO SCH (08:41)
[2021-01-04] MEDS: VITAMIN D 1,000 INTERNATIONAL UNITS TABLET PO SCH (08:41)
[2021-01-04] MEDS: CYCLOBENZAPRINE 5MG TABLET PO SCH ×3 (08:41→21:30)
[2021-01-04] MEDS: guaiFENesin 200 MG TAB PO SCH ×3 (08:42→21:28)
[2021-01-04] MEDS: TORSEMIDE (DEMADEX) 50 MG PER 1/2 TAB PO SCH ×2 (08:42→17:58)
[2021-01-04] MEDS: FAMOTIDINE 20 MG TAB PO SCH (08:42)
[2021-01-04] MEDS: SPIRONOLACTONE 25 MG TAB PO SCH ×2 (08:43→17:58)
[2021-01-04] MEDS: REMEDY PHYTOPLEX Z-GUARD PASTE 113GM TUBE (FROM STOREROOM PRODUCT) TOP SCH ×3 (08:43→21:31)
[2021-01-04 14:00] VITALS: BP 127/60
[2021-01-04 20:00] VITALS: BP 147/64
--- NOTE | 2021-01-04 21:14 | IPN ---
PROGRESS NOTE DATE: 01/04/2021 SUBJECTIVE: Ms. Srinivasan is seen and examined this morning at the bedside in the rehabilitation unit sitting out of bed to the recliner with the legs elevated. She reports her therapy is going well. She denies any complaints, specifically no shortness of breath with her therapy. No diarrhea, no nausea, no vomiting, no new lightheadedness or dizziness. She reports that her leg edema persists. PHYSICAL EXAMINATION: VITAL SIGNS: Temperature 97.3, pulse 65, respiratory rate 20, blood pressure 127/60, saturating 95% on room air. INTAKE/OUTPUT: Intake yesterday was not fully recorded. Urine output was recorded as 10 voids. Weight in the bed scale today is 72.2 kg. GENERAL: Patient is seen sitting out of bed to chair with her legs elevated in a recliner. An elderly female, awake, alert, oriented x3, comfortable and in no distress. HEENT: Extraocular muscles are intact. Tongue is moist. Neck is supple. Jugular veins are not elevated while she is sitting upright. HEART: Sounds are regular S1, S2. There is 2+ edema of the right lower extremity, but only 1+ edema of the left lower extremity. The right arm is in a cast. LUNGS: Clear to auscultation bilaterally. No crackle, rale or rhonchus. ABDOMEN: Soft and nontender. EXTREMITIES: Edema is as mentioned above and right arm is in a cast. There is prominent scattered bruising on the right lower extremity. NEUROLOGIC: She is oriented x3, interactive, at baseline mentation. LABORATORY STUDIES: Today show sodium 135, potassium 3.8, bicarbonate 25, BUN 34, creatinine 1.5. Magnesium 1.9. INPATIENT MEDICATIONS: Patient continues on Torsemide 50 mg p.o. twice daily and Spironolactone 25 mg twice daily. She was started on ferrous sulfate 325 mg p.o. daily. The remainder of her medications are unchanged as compared to prior day. PROBLEMS: 1. Acute on chronic diastolic congestive heart failure: The patient is diuresing satisfactorily. Her urine output is not being quantified but urine voids are being counted and her daily weights are being checked. I would continue her on current regimen of Torsemide 50 mg twice daily along with Spironolactone 25 mg twice daily and 1,800 cc fluid restriction. She is saturating well on room air. 2. Hypokalemia secondary to aggressive loop diuretic: Potassium is up to 3.8 on latest labs and she is also on Spironolactone 25 mg twice daily. She is also receiving potassium chloride 20 mEq twice daily and we will continue to keep an eye on her potassium level to make sure that she does not become hyperkalemic. 3. CKD stage 3: Renal function remains stable at her usual baseline and she is tolerating current diuretics well with improving volume status. 4. Hypertension: Systolic is mostly 110's to 130's. Continue current regimen of Metoprolol plus Torsemide and Spironolactone. 5. Iron deficiency anemia: The patient received I.V. iron earlier on this admission, her hemoglobin is 9.9 on the most recent set of labs and she is on an oral iron supplement now as well.
[2021-01-04] MEDS: SENNA 8.6 MG TAB (SENOKOT) PO SCH (21:28)
[2021-01-04] MEDS: traZODone 50 MG TAB PO SCH (21:29)
[2021-01-05 05:45] VITALS: BP 112/55
[2021-01-05 07:14] LABS: BASO # 0.1 10^3/uL (0.0-0.2); BASO % 1.1 % (0.0-1.0); EOS # 0.2 10^3/uL (0.0-0.5); EOS % 3.3 % (0.0-3.0); HEMATOCRIT 34.5 % (36.0-47.0); HEMOGLOBIN 10.6 g/dl (12.0-15.5); LYMPH # 0.9 10^3/uL (1.5-5.0); LYMPH % 14.6 % (24.0-44.0); MEAN CORPUSCULAR HEMOGLOBIN 32.3 pg (27.0-33.0); MEAN CORPUSCULAR HGB CONC 30.7 g/dl (32.0-36.5); MEAN CORPUSCULAR VOLUME 105.2 fl (80.0-96.0); MONO # 0.8 10^3/uL (0.0-0.8); MONO % 12.3 % (2.0-8.0); NEUTROPHILS # 4.3 10^3/uL (1.5-8.5); NEUTROPHILS % 67.9 % (36.0-66.0); PLATELET COUNT, AUTOMATED 248 10^3/uL (150-450); RED BLOOD COUNT 3.28 10^6/uL (4.00-5.40); WHITE BLOOD COUNT 6.4 10^3/uL (4.0-10.0)
[2021-01-05] MEDS: COMBIVENT RESPIMAT 100-20MCG INHALER 4GM INH SCH ×3 (07:28→21:00)
[2021-01-05] MEDS: HumaLOG INSULIN (NovoLOG) PER UNIT SC SCH ×4 (07:30→20:29)
[2021-01-05 07:39] LABS: CALCIUM LEVEL 9.6 MG/DL (8.8-10.2); CREATININE FOR GFR 1.81 MG/DL (0.55-1.30); GLOMERULAR FILTRATION RATE 28.9 (>39); POTASSIUM SERUM 3.6 MEQ/L (3.5-5.1)
[2021-01-05] MEDS: guaiFENesin 200 MG TAB PO SCH ×3 (08:40→20:28)
[2021-01-05] MEDS: SPIRONOLACTONE 25 MG TAB PO SCH ×2 (08:40→16:38)
[2021-01-05] MEDS: ACETAMINOPHEN 500 MG TAB PO SCH ×3 (08:40→20:27)
[2021-01-05] MEDS: CitaloPRAM (CeleXA) 20 MG TAB PO SCH (08:40)
[2021-01-05] MEDS: POTASSIUM CHLORIDE 10 MEQ SR TABLET PO SCH ×2 (08:40→20:28)
[2021-01-05] MEDS: MULTIVITAMINS/MINERALS THERAP 1 TAB PO SCH (08:40)
[2021-01-05] MEDS: FERROUS SULFATE 325MG TAB PO SCH (08:40)
[2021-01-05] MEDS: APIXABAN 2.5 MG TAB (ELIQUIS) PO SCH ×2 (08:41→20:27)
[2021-01-05] MEDS: DOCUSATE SODIUM 100MG CAPSULE PO SCH ×2 (08:41→20:27)
[2021-01-05] MEDS: METOPROLOL SUCC (TopROL XL) 50MG **XL** TAB PO SCH (08:41)
[2021-01-05] MEDS: FAMOTIDINE 20 MG TAB PO SCH (08:41)
[2021-01-05] MEDS: VITAMIN D 1,000 INTERNATIONAL UNITS TABLET PO SCH (08:41)
[2021-01-05] MEDS: CYCLOBENZAPRINE 5MG TABLET PO SCH ×3 (08:41→20:27)
[2021-01-05] MEDS: REMEDY PHYTOPLEX Z-GUARD PASTE 113GM TUBE (FROM STOREROOM PRODUCT) TOP SCH ×3 (08:42→20:29)
[2021-01-05] MEDS: TORSEMIDE (DEMADEX) 50 MG PER 1/2 TAB PO SCH (09:00)
[2021-01-05] MEDS: NORCO, ANEXSIA 5/325MG TABLET (HYDROcodone/ACETAMINOPHEN) PO PRN ×2 (13:23→20:27)
[2021-01-05 14:00] VITALS: BP 122/58
[2021-01-05] MEDS: TORSEMIDE 10 MG TABLET PO SCH (16:38)
[2021-01-05 20:15] VITALS: BP 127/60
[2021-01-05] MEDS: traZODone 50 MG TAB PO SCH (20:27)
[2021-01-05] MEDS: SENNA 8.6 MG TAB (SENOKOT) PO SCH (20:27)
--- NOTE | 2021-01-05 21:15 | IPN ---
PROGRESS NOTE DATE: 01/05/2021 SUBJECTIVE: Ms. Srinivasan is seen and examined this morning in the gymnasium in the acute rehabilitation unit working on climbing stairs. She reports her leg edema is significantly improved. She denies any shortness of breath at rest, and reports her stable usual dyspnea with exertion. I note her renal function has worsened over the past 24 hours. Her diuretic was held this morning. PHYSICAL EXAMINATION: VITAL SIGNS: Temperature 97.7, pulse 65, respiratory rate 16, blood pressure 122/58, saturating 100% on room air. INTAKE/OUTPUT: Weight in the bed scale today is 72.4 kg. GENERAL: Patient was seen sitting in the wheelchair in the gymnasium in the acute rehabilitation unit working on climbing stairs. An elderly female, bright, articulate and in no distress. HEENT: Extraocular muscles are intact. Tongue is moist. Neck is supple. Jugular veins are not elevated while she is sitting upright. HEART: Sounds are regular S1, S2. LUNGS: Clear to auscultation bilaterally. No crackle, rale or rhonchus. ABDOMEN: Soft and nontender. EXTREMITIES: Showed marked improvement in leg edema. There is 1+ edema of the right lower extremity and no edema of the left lower extremity. The right arm is in a cast. There is prominent scattering noted on the right leg. NEUROLOGIC: She is awake, alert, oriented and at baseline mentation. LABORATORY STUDIES: Today labs show white count 6.4, hemoglobin 10.6, platelets 248,000. Sodium 139, potassium 3.6, bicarbonate 32, BUN 36, creatinine 1.8. INPATIENT MEDICATIONS: I discontinued Torsemide 50 mg b.i.d. I switched her to Torsemide 30 mg p.o. b.i.d. and we held the dose this morning. The remainder of her medications are unchanged as compared to yesterday. PROBLEMS: 1. Chronic diastolic congestive heart failure: The patient's volume status has improved on this admission. Her leg edema is minimal now. She is saturating well on room air and she reports no shortness of breath with activities and therapy beyond her usual baseline. Her renal function slightly worsened over the past 24 hours and I have decreased the dose of Torsemide and we held the morning dose of Torsemide this morning. Continue 1,800 cc fluid restriction. 2. CKD stage 3 with mild acute kidney injury: Creatinine came up to 1.8 today, it is because of aggressive diuresis. I decreased the Torsemide to 30 mg twice daily and we held one dose. She continues on Spironolactone 25 mg twice daily. 3. Hypertension: Blood pressures have been a little bit on the soft side and it is because of aggressive diuresis. Torsemide dose was reduced. Continue Metoprolol and Spironolactone. 4. Hypokalemia: Continue Spironolactone along with potassium supplementation and we will keep an eye on her potassium level to make sure that she does not become hyperkalemic. 5. Iron deficiency anemia: She received I.V. iron recently and she is now on an oral iron supplement and her hemoglobin has come up nicely to 10.6 on the labs today.
--- NOTE | 2021-01-05 21:25 | IPNPDOC ---
PM&R Progress Note DATE OF SERVICE: January 03, 2021 Human Resource Analyst Progress Note Subjective: Patient reporting her espino is much better controlled with flexeril and norco. REVIEW OF SYSTEMS: The following is a completed review of systems and has been reviewed. Review of systems otherwise unremarkable. PAIN: Patient self reports right hip pain (improving) EYES: No recent vision changes EARS, NOSE, & THROAT: No throat pain, or dysphagia, or rhinorrhea CARDIOVASCULAR: Denies chest pain or palpitations PULMONARY: Denies shortness of breath GASTROINTESTINAL: Denies constipation/diarrhea GENITOURINARY: denies dysuria MUSCULOSKELETAL: right hip and wrist fracture NEUROLOGICAL:denies tremor or paresthesias HEMATOLOGICAL: denies easy bruising SKIN: right hip incision PSYCHIATRIC:Unremarkable All other review of systems found to be negative. PHYSICAL EXAMINATION: VITAL SIGNS: Please see below. GENERAL: Pleasant and cooperative. No acute distress. HEENT: PERRL. Extraocular movements intact. Clear conjunctiva CARDIOVASCULAR: Regular rate and rhythm. No murmurs, rubs, or gallops LUNGS: Clear to auscultation bilaterally. No wheezes. No rhonchi ABDOMEN: Soft, nontender, nondistended. Positive bowel sounds. Normal active bowel sounds NEUROLOGICAL: Alert and oriented times three. Cranial nerves II through XII grossly intact. Sensation grossly intact] EXTREMITIES: 5\5 strength left upper extremity, 5/5 right elbow flexion.extension (limited due to cast). 5/5 strength right ankle DF/EHL and PF (limited due to hip surgery). /5 strength in left lower extremity. Skin- right hip incision c/d/i RLE edema (improving) ASSESSMENT:75-year-old F with past medical history of COPD who presents status post fall with right wrist and hip fracture PLAN: 1. Rehab- PT/OT advance mobility and ADLs, strengthen/stretch/maintain ROM, dynamic balance training, fall recovery 2. Ortho- s/p right hip fracture and ORIF 12-22-20 WBAT, right wrist fracture s/p closed reduction and cast- f/u Dr. Amaya outpatient 3. Cardiac- hx of Afib with PM on eliquis and metoprolol (lowered dose due to soft BPs) -chronic diastolic CHF- fluid restrict, daily weights, diuretics per renal, recs appreciated -HTN- on betablocker and diuretic-per renal 4. Resp- hx of COPD c/u duonezeny, nbaaifenheather, 02, incentive spirometry- monitor for infection 5. GI ppx- pepcid 6. DVT ppx- on eliquis 7. Pain- tylenol, flexeril, and norco 8. Psych- trazodone for insomnia, c/u Celexa for anxiety 9. Derm- patient reporting her urticaria has improved 9. Dispo- 01-10-21 to home, progressing towards goal Allergies Coded Allergies: lisinopril (Verified Adverse Reaction, Intermediate, AFFECTS RENAL FUNCTION, 12/22/20) metformin (Verified Adverse Reaction, Intermediate, AFFECTS RENAL FUNCTION, 12/22/20) simvastatin (Verified Adverse Reaction, Mild, ITCHING, 12/22/20) Vital Signs Vital Signs Date Time Temp Pulse Resp B/P (MAP) Pulse Ox O2 Delivery O2 Flow Rate FiO2 01/05/21 20:27 18 01/05/21 20:15 96.9 66 127/60 (82) 100 Room Air Laboratory Data CBC/BMP Laboratory Tests 01/05/21 07:02 Labs 24H Laboratory Tests 2 01/05/21 05:28: Bedside Glucose (Misc Panel) 99 01/05/21 07:02: Immature Granulocyte % (Auto) 0.8, Neutrophils (%) (Auto) 67.9H, Lymphocytes (%) (Auto) 14.6L, Monocytes (%) (Auto) 12.3H, Eosinophils (%) (Auto) 3.3H, Basophils (%) (Auto) 1.1H, Neutrophils # (Auto) 4.3, Lymphocytes # (Auto) 0.9L, Monocytes # (Auto) 0.8, Eosinophils # (Auto) 0.2, Basophils # (Auto) 0.1, Nucleated Red Blood Cells % (auto) 0.0, Anion Gap 5L, Glomerular Filtration Rate 28.9L, Calcium Level 9.6 01/05/21 11:46: Bedside Glucose (Misc Panel) 130H 01/05/21 16:20: Bedside Glucose (Misc Panel) 115H 01/05/21 20:20: Bedside Glucose (Misc Panel) 170H Current Medications Current Medications Current Medications Medications (Trade) Dose Ordered Sig/Az Route PRN Reason Start Time Stop Time Status Last Admin Dose Admin Acetaminophen (Tylenol Tab) 1,000 mg TID PO 12/23/20 16:00 01/05/21 20:27 Acetaminophen/ Hydrocodone Bitart ([place], Anexsia 5/325) 1 tab Q4HP PRN PO MILD/MODERATE PAIN (PS 1-7) 01/02/21 16:25 01/05/21 20:27 Albuterol/ Ipratropium (Combivent Respimat 100-20mcg) 1 puff RTID INH 12/30/20 14:00 01/05/21 13:33 Albuterol/ Ipratropium (Duoneb (Ipr 0.5mg/Alb 2.5mg)) 3 ml RTID NEB 12/23/20 20:00 12/30/20 08:08 DC 12/30/20 07:08 Apixaban (Eliquis) 2.5 mg BID PO 12/23/20 21:00 01/05/21 20:27 Baclofen (Lioresal) 5 mg BID PO 12/29/20 09:00 01/02/21 16:24 DC 01/02/21 09:22 Bisacodyl (Dulcolax Suppository) 10 mg DAILYPRN PRN ID CONSTIPATION 12/23/20 12:50 Citalopram Hydrobromide (CeleXA) 20 mg DAILY PO 12/24/20 09:00 01/05/21 08:40 Cyclobenzaprine HCl (Flexeril) 5 mg TID PO 01/02/21 21:00 01/05/21 20:27 Dextrose (Dextrose 50%) 25 ml ASDIRECTED PRN IV SEE LABEL COMMENTS 12/23/20 12:50 Docusate Sodium (Colace) 100 mg BID PO 12/23/20 21:00 01/05/21 20:27 Famotidine (Pepcid) 10 mg DAILY PO 12/24/20 09:00 01/05/21 08:41 Ferrous Sulfate (Ferrous Sulfate) 325 mg DAILY PO 01/04/21 09:00 01/05/21 08:40 Furosemide (LASIX injection) 40 mg BID@,17 IV 12/28/20 09:00 12/29/20 11:52 DC 12/29/20 09:31 Furosemide (LASIX injection) 60 mg BID@,17 IV 12/29/20 17:00 12/30/20 17:40 DC 12/30/20 09:45 Glucagon (Glucagon) 1 mg ASDIRECTED PRN SC SEE LABEL COMMENTS 12/23/20 12:50 Glucose (Glucose) 16 GM ASDIRECTED PRN PO SEE LABEL COMMENTS 12/23/20 12:50 Guaifenesin (Robitussin Tab) 400 mg TID PO 12/25/20 09:00 01/05/21 20:28 Hydroxyzine HCl (Atarax) 25 mg Q6H PRN PO rash/itch 12/28/20 14:00 01/03/21 12:53 Hydroxyzine HCl (Atarax) 25 mg QHSP PRN PO rash/itch 12/24/20 09:00 12/28/20 14:00 DC 12/26/20 21:00 Insulin Human Lispro (HumaLOG INSULIN) SEE PROTOCOL TABLE AC SC 12/23/20 17:30 01/05/21 16:37 Insulin Human Lispro (HumaLOG INSULIN) SEE PROTOCOL TABLE QHS SC 12/23/20 21:00 Iron 200 mg/ Sodium Chloride 110 ml @ 110 mls/hr DAILY IV 12/26/20 12:00 12/28/20 09:59 DC 12/28/20 08:40 Metoprolol Succinate (TopROL XL) 50 mg DAILY PO 12/24/20 09:00 01/05/21 08:41 Multivitamins (Theragram-M) 1 tab DAILY PO 12/24/20 09:00 01/05/21 08:40 Ondansetron HCl (Zofran Odt) 4 mg Q6HP PRN PO NAUSEA OR VOMITING 12/23/20 12:50 12/30/20 14:28 Oxycodone HCl (Roxicodone, Oxyir) 5 mg Q4HP PRN PO PAIN 12/23/20 13:10 01/02/21 16:24 DC 01/01/21 21:32 Potassium Chloride (Micro-K Extencaps) 20 meq BID PO 01/01/21 21:00 01/05/21 20:28 Potassium Chloride (Micro-K Extencaps) 20 meq DAILY PO 12/24/20 09:00 12/26/20 09:28 DC 12/25/20 10:15 Potassium Chloride (Micro-K Extencaps) 20 meq DAILY PO 12/29/20 09:00 01/01/21 10:37 DC 01/01/21 09:10 Senna (Senokot) 1 tab QHS PO 12/23/20 21:00 01/05/21 20:27 Spironolactone (Aldactone) 25 mg BID@, PO 01/02/21 09:00 01/05/21 16:38 Tizanidine HCl (Zanaflex) 2 mg TID PO 12/28/20 16:00 12/28/20 18:37 DC 12/28/20 16:04 Torsemide (Demadex) 20 mg DAILY PO 12/24/20 09:00 12/25/20 09:55 DC Torsemide (Demadex) 20 mg DAILY PO 12/25/20 09:55 12/27/20 09:29 DC 12/27/20 09:01 Torsemide (Demadex) 30 mg BID@ PO 01/05/21 17:00 01/05/21 16:38 Torsemide (Demadex) 40 mg BID@ PO 12/30/20 18:00 12/31/20 11:40 DC 12/31/20 08:01 Torsemide (Demadex) 40 mg DAILY PO 12/28/20 09:00 12/28/20 10:15 DC 12/28/20 08:39 Torsemide (Demadex) 50 mg BID@ PO 12/31/20 17:00 01/05/21 10:04 DC 01/04/21 17:58 Trazodone HCl (Desyrel) 50 mg QPM PO 12/23/20 21:00 01/05/21 20:27 Vitamin D (Vitamin D) 5,000 units DAILY PO 12/24/20 09:00 01/05/21 08:41 AL BRIDGES MD January 05, 2021 21:25
--- NOTE | 2021-01-05 21:27 | IPNPDOC ---
PM&R Progress Note DATE OF SERVICE: January 05, 2021 Shirt Turner Progress Note Subjective: Patient reporting she continues to feel stronger and that her pain continues to have a good response to pain medications. REVIEW OF SYSTEMS: The following is a completed review of systems and has been reviewed. Review of systems otherwise unremarkable. PAIN: Patient self reports right hip pain (improving) EYES: No recent vision changes EARS, NOSE, & THROAT: No throat pain, or dysphagia, or rhinorrhea CARDIOVASCULAR: Denies chest pain or palpitations PULMONARY: Denies shortness of breath GASTROINTESTINAL: Denies constipation/diarrhea GENITOURINARY: denies dysuria MUSCULOSKELETAL: right hip and wrist fracture NEUROLOGICAL:denies tremor or paresthesias HEMATOLOGICAL: denies easy bruising SKIN: right hip incision PSYCHIATRIC:Unremarkable All other review of systems found to be negative. PHYSICAL EXAMINATION: VITAL SIGNS: Please see below. GENERAL: Pleasant and cooperative. No acute distress. HEENT: PERRL. Extraocular movements intact. Clear conjunctiva CARDIOVASCULAR: Regular rate and rhythm. No murmurs, rubs, or gallops LUNGS: Clear to auscultation bilaterally. No wheezes. No rhonchi ABDOMEN: Soft, nontender, nondistended. Positive bowel sounds. Normal active bowel sounds NEUROLOGICAL: Alert and oriented times three. Cranial nerves II through XII grossly intact. Sensation grossly intact] EXTREMITIES: 5\5 strength left upper extremity, 5/5 right elbow flexion.extension (limited due to cast). 5/5 strength right ankle DF/EHL and PF (limited due to hip surgery). /5 strength in left lower extremity. Skin- right hip incision c/d/i RLE edema (improving) ASSESSMENT:75-year-old F with past medical history of COPD who presents status post fall with right wrist and hip fracture PLAN: 1. Rehab- PT/OT advance mobility and ADLs, strengthen/stretch/maintain ROM, dynamic balance training, fall recovery- ambulating with RW 2. Ortho- s/p right hip fracture and ORIF 12-22-20 WBAT, right wrist fracture s/p closed reduction and cast- f/u Dr. Amaya outpatient 3. Cardiac- hx of Afib with PM on eliquis and metoprolol (lowered dose due to soft BPs) -chronic diastolic CHF- fluid restrict, daily weights, diuretics per renal, recs appreciated -HTN- on betablocker and diuretic-per renal 4. Resp- hx of COPD c/u duonezeny, guaifenesin, 02, incentive spirometry- monitor for infection 5. GI ppx- pepcid 6. DVT ppx- on eliquis 7. Pain- tylenol, flexeril, and norco 8. Psych- trazodone for insomnia, c/u Celexa for anxiety 9. Derm- patient reporting her urticaria has improved 9. Dispo- 01-10-21 to home, progressing towards goal Allergies Coded Allergies: lisinopril (Verified Adverse Reaction, Intermediate, AFFECTS RENAL FUNCTION, 12/22/20) metformin (Verified Adverse Reaction, Intermediate, AFFECTS RENAL FUNCTION, 12/22/20) simvastatin (Verified Adverse Reaction, Mild, ITCHING, 12/22/20) Vital Signs Vital Signs Date Time Temp Pulse Resp B/P (MAP) Pulse Ox O2 Delivery O2 Flow Rate FiO2 01/05/21 20:27 18 01/05/21 20:15 96.9 66 127/60 (82) 100 Room Air Laboratory Data CBC/BMP Laboratory Tests 01/05/21 07:02 Labs 24H Laboratory Tests 2 01/05/21 05:28: Bedside Glucose (Misc Panel) 99 01/05/21 07:02: Immature Granulocyte % (Auto) 0.8, Neutrophils (%) (Auto) 67.9H, Lymphocytes (%) (Auto) 14.6L, Monocytes (%) (Auto) 12.3H, Eosinophils (%) (Auto) 3.3H, Basophils (%) (Auto) 1.1H, Neutrophils # (Auto) 4.3, Lymphocytes # (Auto) 0.9L, Monocytes # (Auto) 0.8, Eosinophils # (Auto) 0.2, Basophils # (Auto) 0.1, Nucleated Red Blood Cells % (auto) 0.0, Anion Gap 5L, Glomerular Filtration Rate 28.9L, Calcium Level 9.6 01/05/21 11:46: Bedside Glucose (Misc Panel) 130H 01/05/21 16:20: Bedside Glucose (Misc Panel) 115H 01/05/21 20:20: Bedside Glucose (Misc Panel) 170H Current Medications Current Medications Current Medications Medications (Trade) Dose Ordered Sig/Az Route PRN Reason Start Time Stop Time Status Last Admin Dose Admin Acetaminophen (Tylenol Tab) 1,000 mg TID PO 12/23/20 16:00 01/05/21 20:27 Acetaminophen/ Hydrocodone Bitart ([place], Anexsia 5/325) 1 tab Q4HP PRN PO MILD/MODERATE PAIN (PS 1-7) 01/02/21 16:25 01/05/21 20:27 Albuterol/ Ipratropium (Combivent Respimat 100-20mcg) 1 puff RTID INH 12/30/20 14:00 01/05/21 13:33 Albuterol/ Ipratropium (Duoneb (Ipr 0.5mg/Alb 2.5mg)) 3 ml RTID NEB 12/23/20 20:00 12/30/20 08:08 DC 12/30/20 07:08 Apixaban (Eliquis) 2.5 mg BID PO 12/23/20 21:00 01/05/21 20:27 Baclofen (Lioresal) 5 mg BID PO 12/29/20 09:00 01/02/21 16:24 DC 01/02/21 09:22 Bisacodyl (Dulcolax Suppository) 10 mg DAILYPRN PRN AR CONSTIPATION 12/23/20 12:50 Citalopram Hydrobromide (CeleXA) 20 mg DAILY PO 12/24/20 09:00 01/05/21 08:40 Cyclobenzaprine HCl (Flexeril) 5 mg TID PO 01/02/21 21:00 01/05/21 20:27 Dextrose (Dextrose 50%) 25 ml ASDIRECTED PRN IV SEE LABEL COMMENTS 12/23/20 12:50 Docusate Sodium (Colace) 100 mg BID PO 12/23/20 21:00 01/05/21 20:27 Famotidine (Pepcid) 10 mg DAILY PO 12/24/20 09:00 01/05/21 08:41 Ferrous Sulfate (Ferrous Sulfate) 325 mg DAILY PO 01/04/21 09:00 01/05/21 08:40 Furosemide (LASIX injection) 40 mg BID@, IV 12/28/20 09:00 12/29/20 11:52 DC 12/29/20 09:31 Furosemide (LASIX injection) 60 mg BID@ IV 12/29/20 17:00 12/30/20 17:40 DC 12/30/20 09:45 Glucagon (Glucagon) 1 mg ASDIRECTED PRN SC SEE LABEL COMMENTS 12/23/20 12:50 Glucose (Glucose) 16 GM ASDIRECTED PRN PO SEE LABEL COMMENTS 12/23/20 12:50 Guaifenesin (Robitussin Tab) 400 mg TID PO 12/25/20 09:00 01/05/21 20:28 Hydroxyzine HCl (Atarax) 25 mg Q6H PRN PO rash/itch 12/28/20 14:00 01/03/21 12:53 Hydroxyzine HCl (Atarax) 25 mg QHSP PRN PO rash/itch 12/24/20 09:00 12/28/20 14:00 DC 12/26/20 21:00 Insulin Human Lispro (HumaLOG INSULIN) SEE PROTOCOL TABLE AC SC 12/23/20 17:30 01/05/21 16:37 Insulin Human Lispro (HumaLOG INSULIN) SEE PROTOCOL TABLE QHS SC 12/23/20 21:00 Iron 200 mg/ Sodium Chloride 110 ml @ 110 mls/hr DAILY IV 12/26/20 12:00 12/28/20 09:59 DC 12/28/20 08:40 Metoprolol Succinate (TopROL XL) 50 mg DAILY PO 12/24/20 09:00 01/05/21 08:41 Multivitamins (Theragram-M) 1 tab DAILY PO 12/24/20 09:00 01/05/21 08:40 Ondansetron HCl (Zofran Odt) 4 mg Q6HP PRN PO NAUSEA OR VOMITING 12/23/20 12:50 12/30/20 14:28 Oxycodone HCl (Roxicodone, Oxyir) 5 mg Q4HP PRN PO PAIN 12/23/20 13:10 01/02/21 16:24 DC 01/01/21 21:32 Potassium Chloride (Micro-K Extencaps) 20 meq BID PO 01/01/21 21:00 01/05/21 20:28 Potassium Chloride (Micro-K Extencaps) 20 meq DAILY PO 12/24/20 09:00 12/26/20 09:28 DC 12/25/20 10:15 Potassium Chloride (Micro-K Extencaps) 20 meq DAILY PO 12/29/20 09:00 01/01/21 10:37 DC 01/01/21 09:10 Senna (Senokot) 1 tab QHS PO 12/23/20 21:00 01/05/21 20:27 Spironolactone (Aldactone) 25 mg BID@,17 PO 01/02/21 09:00 01/05/21 16:38 Tizanidine HCl (Zanaflex) 2 mg TID PO 12/28/20 16:00 12/28/20 18:37 DC 12/28/20 16:04 Torsemide (Demadex) 20 mg DAILY PO 12/24/20 09:00 12/25/20 09:55 DC Torsemide (Demadex) 20 mg DAILY PO 12/25/20 09:55 12/27/20 09:29 DC 12/27/20 09:01 Torsemide (Demadex) 30 mg BID@, PO 01/05/21 17:00 01/05/21 16:38 Torsemide (Demadex) 40 mg BID@ PO 12/30/20 18:00 12/31/20 11:40 DC 12/31/20 08:01 Torsemide (Demadex) 40 mg DAILY PO 12/28/20 09:00 12/28/20 10:15 DC 12/28/20 08:39 Torsemide (Demadex) 50 mg BID@, PO 12/31/20 17:00 01/05/21 10:04 DC 01/04/21 17:58 Trazodone HCl (Desyrel) 50 mg QPM PO 12/23/20 21:00 01/05/21 20:27 Vitamin D (Vitamin D) 5,000 units DAILY PO 12/24/20 09:00 01/05/21 08:41 AL BRIDGES MD January 05, 2021 21:27
[2021-01-06 05:59] VITALS: BP 112/55
[2021-01-06] MEDS: COMBIVENT RESPIMAT 100-20MCG INHALER 4GM INH SCH ×3 (07:18→20:05)
[2021-01-06] MEDS: VITAMIN D 1,000 INTERNATIONAL UNITS TABLET PO SCH (07:50)
[2021-01-06] MEDS: MULTIVITAMINS/MINERALS THERAP 1 TAB PO SCH (07:50)
[2021-01-06] MEDS: NORCO, ANEXSIA 5/325MG TABLET (HYDROcodone/ACETAMINOPHEN) PO PRN ×2 (07:50→21:17)
[2021-01-06] MEDS: TORSEMIDE 10 MG TABLET PO SCH (07:51)
[2021-01-06] MEDS: APIXABAN 2.5 MG TAB (ELIQUIS) PO SCH ×2 (07:51→21:10)
[2021-01-06] MEDS: CYCLOBENZAPRINE 5MG TABLET PO SCH ×3 (07:51→21:09)
[2021-01-06] MEDS: FAMOTIDINE 20 MG TAB PO SCH (07:51)
[2021-01-06] MEDS: CitaloPRAM (CeleXA) 20 MG TAB PO SCH (07:52)
[2021-01-06] MEDS: ACETAMINOPHEN 500 MG TAB PO SCH ×3 (07:52→21:12)
[2021-01-06] MEDS: POTASSIUM CHLORIDE 10 MEQ SR TABLET PO SCH ×2 (07:52→21:10)
[2021-01-06] MEDS: SPIRONOLACTONE 25 MG TAB PO SCH ×2 (07:52→17:00)
[2021-01-06] MEDS: FERROUS SULFATE 325MG TAB PO SCH (07:52)
[2021-01-06] MEDS: HumaLOG INSULIN (NovoLOG) PER UNIT SC SCH ×4 (07:53→21:00)
[2021-01-06] MEDS: guaiFENesin 200 MG TAB PO SCH ×3 (07:53→21:10)
[2021-01-06] MEDS: METOPROLOL SUCC (TopROL XL) 50MG **XL** TAB PO SCH (07:53)
[2021-01-06] MEDS: REMEDY PHYTOPLEX Z-GUARD PASTE 113GM TUBE (FROM STOREROOM PRODUCT) TOP SCH ×3 (07:54→21:13)
[2021-01-06] MEDS: DOCUSATE SODIUM 100MG CAPSULE PO SCH ×2 (07:54→21:10)
[2021-01-06] MEDS: hydrOXYzine 25 MG TAB PO PRN ×2 (09:16→21:16)
[2021-01-06 09:26] LABS: CALCIUM LEVEL 9.6 MG/DL (8.8-10.2); CREATININE FOR GFR 1.85 MG/DL (0.55-1.30); GLOMERULAR FILTRATION RATE 28.1 (>39); POTASSIUM SERUM 3.7 MEQ/L (3.5-5.1)
[2021-01-06 14:00] VITALS: BP 107/50
--- NOTE | 2021-01-06 18:02 | IPNPDOC ---
PM&R Progress Note Pulp Mixer Progress Note DATE OF ADMISSION: Dec 23, 2020 at 15:05 INPATIENT REHABILITATION ADMISSION DAY: # SUBJECTIVE: Patient is a -year-old with . ALLERGIES: See Below MEDICATIONS: Reviewed, see below. OBJECTIVE: VITAL SIGNS: Please see below. PHYSICAL EXAMINATION: GENERAL: [Cachectic, well developed, sitting up in bed, no acute distress]. HEENT: [Normocephalic, atraumatic]. [No facial droop]. [Poor dentition, missing teeth. PERRL, EOMI]. CARDIOVASCULAR: [S1, S2, irregular rate]. [No lower limb edema or calf tenderness]. LUNGS: [Decreased breath sounds, coarse throughout]. ABDOMEN: [Soft, nontender, nondistended. Normoactive bowel sounds throughout]. MUSCULOSKELETAL: MMT: /5 strength proximally bilateral shoulder abduction, forward flexion and bilateral hip flexion. /5 strength bilateral elbow flexion, knee flexion, /5 bilateral elbow extension and knee extension. /5 basketball player, dorsiflexion, plantar flexion. NEUROLOGICAL: [Alert and oriented times three]. [Answers all question appropriately]. SKIN: . LABORATORY DATA: Reviewed. Please see below. MICROBIOLOGY: Please see below. IMAGING: ASSESSMENT AND PLAN: 1. . 2. . 3. . TIME SPENT: Chart Review, examination and documentation minutes. Allergies Coded Allergies: lisinopril (Verified Adverse Reaction, Intermediate, AFFECTS RENAL FUNCTION, 12/22/20) metformin (Verified Adverse Reaction, Intermediate, AFFECTS RENAL F UNCTION, 12/22/20) simvastatin (Verified Adverse Reaction, Mild, ITCHING, 12/22/20) Vital Signs Vital Signs Date Time Temp Pulse Resp B/P (MAP) Pulse Ox O2 Delivery O2 Flow Rate FiO2 01/06/21 14:00 97.9 66 18 107/50 (69) 98 Room Air Laboratory Data CBC/BMP Laboratory Tests 01/06/21 08:30 Labs 24H Laboratory Tests 2 01/05/21 20:20: Bedside Glucose (Misc Panel) 170H 01/06/21 05:40: Bedside Glucose (Misc Panel) 113H 01/06/21 08:30: Anion Gap 8, Glomerular Filtration Rate 28.1L, Calcium Level 9.6 01/06/21 11:15: Bedside Glucose (Misc Panel) 125H 01/06/21 16:37: Bedside Glucose (Misc Panel) 114H Current Medications Current Medications Current Medications Medications (Trade) Dose Ordered Sig/Az Route PRN Reason Start Time Stop Time Status Last Admin Dose Admin Acetaminophen (Tylenol Tab) 500 mg TID PO 01/06/21 09:00 01/06/21 17:01 Acetaminophen (Tylenol Tab) 1,000 mg TID PO 12/23/20 16:00 01/05/21 21:24 DC 01/05/21 20:27 Acetaminophen/ Hydrocodone Bitart ([place], Anexsia 5/325) 1 tab Q4HP PRN PO MILD/MODERATE PAIN (PS 1-7) 01/02/21 16:25 01/06/21 07:50 Albuterol/ Ipratropium (Combivent Respimat 100-20mcg) 1 puff RTID INH 12/30/20 14:00 01/06/21 13:00 Albuterol/ Ipratropium (Duoneb (Ipr 0.5mg/Alb 2.5mg)) 3 ml RTID NEB 12/23/20 20:00 12/30/20 08:08 DC 12/30/20 07:08 Apixaban (Eliquis) 2.5 mg BID PO 12/23/20 21:00 01/06/21 07:51 Baclofen (Lioresal) 5 mg BID PO 12/29/20 09:00 01/02/21 16:24 DC 01/02/21 09:22 Bisacodyl (Dulcolax Suppository) 10 mg DAILYPRN PRN AL CONSTIPATION 12/23/20 12:50 Citalopram Hydrobromide (CeleXA) 20 mg DAILY PO 12/24/20 09:00 01/06/21 07:52 Cyclobenzaprine HCl (Flexeril) 5 mg TID PO 01/02/21 21:00 01/06/21 17:00 Dextrose (Dextrose 50%) 25 ml ASDIRECTED PRN IV SEE LABEL COMMENTS 12/23/20 12:50 Docusate Sodium (Colace) 100 mg BID PO 12/23/20 21:00 01/05/21 20:27 Famotidine (Pepcid) 10 mg DAILY PO 12/24/20 09:00 01/06/21 07:51 Ferrous Sulfate (Ferrous Sulfate) 325 mg DAILY PO 01/04/21 09:00 01/06/21 07:52 Furosemide (LASIX injection) 40 mg BID@,17 IV 12/28/20 09:00 12/29/20 11:52 DC 12/29/20 09:31 Furosemide (LASIX injection) 60 mg BID@09,17 IV 12/29/20 17:00 12/30/20 17:40 DC 12/30/20 09:45 Glucagon (Glucagon) 1 mg ASDIRECTED PRN SC SEE LABEL COMMENTS 12/23/20 12:50 Glucose (Glucose) 16 GM ASDIRECTED PRN PO SEE LABEL COMMENTS 12/23/20 12:50 Guaifenesin (Robitussin Tab) 400 mg TID PO 12/25/20 09:00 01/06/21 17:01 Hydroxyzine HCl (Atarax) 25 mg Q6H PRN PO rash/itch 12/28/20 14:00 01/06/21 09:16 Hydroxyzine HCl (Atarax) 25 mg QHSP PRN PO rash/itch 12/24/20 09:00 12/28/20 14:00 DC 12/26/20 21:00 Insulin Human Lispro (HumaLOG INSULIN) SEE PROTOCOL TABLE AC SC 12/23/20 17:30 01/06/21 17:02 Insulin Human Lispro (HumaLOG INSULIN) SEE PROTOCOL TABLE QHS SC 12/23/20 21:00 Iron 200 mg/ Sodium Chloride 110 ml @ 110 mls/hr DAILY IV 12/26/20 12:00 12/28/20 09:59 DC 12/28/20 08:40 Metoprolol Succinate (TopROL XL) 50 mg DAILY PO 12/24/20 09:00 01/06/21 07:53 Multivitamins (Theragram-M) 1 tab DAILY PO 12/24/20 09:00 01/06/21 07:50 Ondansetron HCl (Zofran Odt) 4 mg Q6HP PRN PO NAUSEA OR VOMITING 12/23/20 12:50 12/30/20 14:28 Oxycodone HCl (Roxicodone, Oxyir) 5 mg Q4HP PRN PO PAIN 12/23/20 13:10 01/02/21 16:24 DC 01/01/21 21:32 Potassium Chloride (Micro-K Extencaps) 20 meq BID PO 5/1/21 21:00 01/06/21 07:52 Potassium Chloride (Micro-K Extencaps) 20 meq DAILY PO 12/24/20 09:00 12/26/20 09:28 DC 12/25/20 10:15 Potassium Chloride (Micro-K Extencaps) 20 meq DAILY PO 12/29/20 09:00 01/01/21 10:37 DC 01/01/21 09:10 Senna (Senokot) 1 tab QHS PO 12/23/20 21:00 01/05/21 20:27 Spironolactone (Aldactone) 25 mg BID@ PO 01/02/21 09:00 01/06/21 17:00 Tizanidine HCl (Zanaflex) 2 mg TID PO 12/28/20 16:00 12/28/20 18:37 DC 12/28/20 16:04 Torsemide (Demadex) 20 mg DAILY PO 12/24/20 09:00 12/25/20 09:55 DC Torsemide (Demadex) 20 mg DAILY PO 12/25/20 09:55 12/27/20 09:29 DC 12/27/20 09:01 Torsemide (Demadex) 30 mg BID@ PO 01/05/21 17:00 01/06/21 10:39 DC 01/06/21 07:51 Torsemide (Demadex) 30 mg DAILY PO 01/07/21 09:00 Torsemide (Demadex) 40 mg BID@ PO 12/30/20 18:00 12/31/20 11:40 DC 12/31/20 08:01 Torsemide (Demadex) 40 mg DAILY PO 12/28/20 09:00 12/28/20 10:15 DC 12/28/20 08:39 Torsemide (Demadex) 50 mg BID@ PO 12/31/20 17:00 01/05/21 10:04 DC 01/04/21 17:58 Trazodone HCl (Desyrel) 50 mg QPM PO 12/23/20 21:00 01/05/21 20:27 Vitamin D (Vitamin D) 5,000 units DAILY PO 12/24/20 09:00 01/06/21 07:50 AL BRDIGES MD January 06, 2021 18:02
[2021-01-06 20:22] VITALS: BP 118/58
[2021-01-06] MEDS: SENNA 8.6 MG TAB (SENOKOT) PO SCH (21:09)
[2021-01-06] MEDS: traZODone 50 MG TAB PO SCH (21:10)
[2021-01-07 06:09] VITALS: BP 106/51
--- NOTE | 2021-01-07 07:16 | IPN ---
PROGRESS NOTE DATE: 01/06/2021 SUBJECTIVE: Patient is seen and examined this morning at the bedside in the rehabilitation unit. She feels well. She denies any complaints. She reports her leg swelling continues to improve. She denies any issues with her Physical Therapy, specifically, no dyspnea nor shortness of breath. OBJECTIVE: VITAL SIGNS: Temperature 97.9, pulse 66, respiratory rate 18, blood pressure 107/50, saturating 98% on room air. Weight on the bed scale today is 70.4 kg which is decreased from prior. GENERAL: The patient is seen awake, alert, oriented, sitting out of bed to the chair eating her lunch. Elderly, articulate and bright female. HEENT: Extraocular muscles are intact. Tongue is moist. NECK: Supple. Jugular veins are not elevated. HEART: Heart sounds are regular. There is no edema whatsoever in the left lower extremity. There is only 1+ edema in the right lower extremity. LUNGS: Clear to auscultation. No crackle, rale or rhonchus. ABDOMEN: Soft and nontender. EXTREMITIES: Edema is minimal as mentioned above. There is some bruising on the right lower extremity and the arm is in a cast. NEUROLOGIC: She is awake, alert and at baseline mentation. LABORATORY DATA: Today's labs shows a white count of 6.4, hemoglobin 10.6, platelets 248,000. Sodium 139, potassium 3.7, bicarbonate 29, BUN 37, creatinine 1.8. INPATIENT MEDICATIONS: I decreased her torsemide to 30 mg p.o. once daily. Her remainder of medications are unchanged as compared with yesterday. PROBLEMS: 1. Chronic diastolic congestive heart failure. The patient has diuresed very nicely. Her daily weights have downtrended. Her volume status is well-compensated on exam now. Her only edema is in the right leg which is the extremity that she had the open reduction internal fixation of the right hip fracture. Her renal function has slightly worsened and I cut her torsemide down now to 30 mg once daily. She continues on spironolactone and 1800 ml fluid restriction. 2. CKD Stage III with mild acute kidney injury secondary to aggressive diuresis. Torsemide is to 30 mg once daily. She continues on spironolactone 25 mg b.i.d. Her volume status is very well compensated and I do not want to make her too dry at this point. 3. Hypertension. Blood pressures have been on the soft side and it is due to aggressive diuresis and torsemide dose is decreased as mentioned previously. She continues on metoprolol and spironolactone. 4. Hypokalemia, continue spironolactone along with potassium supplementation and we will keep an eye on her potassium level so that she does not become hyperkalemic. 5. Iron deficiency. She continues on oral iron supplements. She is status post IV iron and her hemoglobin has come up nicely.
[2021-01-07] MEDS: COMBIVENT RESPIMAT 100-20MCG INHALER 4GM INH SCH ×3 (07:17→20:04)
[2021-01-07] MEDS: HumaLOG INSULIN (NovoLOG) PER UNIT SC SCH ×4 (07:30→20:53)
[2021-01-07] MEDS: POTASSIUM CHLORIDE 10 MEQ SR TABLET PO SCH ×2 (09:10→20:52)
[2021-01-07] MEDS: CitaloPRAM (CeleXA) 20 MG TAB PO SCH (09:10)
[2021-01-07] MEDS: CYCLOBENZAPRINE 5MG TABLET PO SCH ×3 (09:10→20:52)
[2021-01-07] MEDS: guaiFENesin 200 MG TAB PO SCH ×3 (09:11→20:52)
[2021-01-07] MEDS: FAMOTIDINE 20 MG TAB PO SCH (09:11)
[2021-01-07] MEDS: TORSEMIDE 10 MG TABLET PO SCH (09:12)
[2021-01-07] MEDS: VITAMIN D 1,000 INTERNATIONAL UNITS TABLET PO SCH (09:13)
[2021-01-07] MEDS: NORCO, ANEXSIA 5/325MG TABLET (HYDROcodone/ACETAMINOPHEN) PO PRN ×2 (09:14→18:01)
[2021-01-07] MEDS: METOPROLOL SUCC (TopROL XL) 50MG **XL** TAB PO SCH (09:14)
[2021-01-07] MEDS: hydrOXYzine 25 MG TAB PO PRN ×2 (09:15→18:01)
[2021-01-07] MEDS: ACETAMINOPHEN 500 MG TAB PO SCH ×3 (09:15→20:52)
[2021-01-07] MEDS: SPIRONOLACTONE 25 MG TAB PO SCH ×2 (09:16→18:00)
[2021-01-07] MEDS: DOCUSATE SODIUM 100MG CAPSULE PO SCH ×2 (09:16→20:52)
[2021-01-07] MEDS: APIXABAN 2.5 MG TAB (ELIQUIS) PO SCH ×2 (09:16→20:52)
[2021-01-07] MEDS: FERROUS SULFATE 325MG TAB PO SCH (09:16)
[2021-01-07] MEDS: MULTIVITAMINS/MINERALS THERAP 1 TAB PO SCH (09:16)
[2021-01-07] MEDS: REMEDY PHYTOPLEX Z-GUARD PASTE 113GM TUBE (FROM STOREROOM PRODUCT) TOP SCH ×3 (09:17→20:53)
[2021-01-07 09:39] LABS: BASO # 0.1 10^3/uL (0.0-0.2); BASO % 1.1 % (0.0-1.0); EOS # 0.2 10^3/uL (0.0-0.5); EOS % 2.8 % (0.0-3.0); HEMATOCRIT 35.1 % (36.0-47.0); HEMOGLOBIN 10.5 g/dl (12.0-15.5); LYMPH # 0.7 10^3/uL (1.5-5.0); LYMPH % 10.7 % (24.0-44.0); MEAN CORPUSCULAR HGB CONC 29.9 g/dl (32.0-36.5); MONO # 0.7 10^3/uL (0.0-0.8); MONO % 10.7 % (2.0-8.0); NEUTROPHILS # 4.8 10^3/uL (1.5-8.5); NEUTROPHILS % 73.8 % (36.0-66.0); PLATELET COUNT, AUTOMATED 260 10^3/uL (150-450); RED BLOOD COUNT 3.28 10^6/uL (4.00-5.40); WHITE BLOOD COUNT 6.5 10^3/uL (4.0-10.0)
[2021-01-07 09:52] LABS: CALCIUM LEVEL 9.3 MG/DL (8.8-10.2); CREATININE FOR GFR 1.88 MG/DL (0.55-1.30); GLOMERULAR FILTRATION RATE 27.6 (>39); POTASSIUM SERUM 3.7 MEQ/L (3.5-5.1)
[2021-01-07 14:00] VITALS: BP 116/59
[2021-01-07 20:00] VITALS: BP 107/74
[2021-01-07] MEDS: traZODone 50 MG TAB PO SCH (20:51)
[2021-01-07] MEDS: SENNA 8.6 MG TAB (SENOKOT) PO SCH (20:52)
[2021-01-08 05:48] VITALS: BP 117/55
[2021-01-08] MEDS: hydrOXYzine 25 MG TAB PO PRN (06:33)
[2021-01-08] MEDS: COMBIVENT RESPIMAT 100-20MCG INHALER 4GM INH SCH ×3 (07:52→20:46)
[2021-01-08] MEDS: TORSEMIDE 10 MG TABLET PO SCH (08:36)
[2021-01-08] MEDS: POTASSIUM CHLORIDE 10 MEQ SR TABLET PO SCH ×2 (08:36→21:17)
[2021-01-08] MEDS: VITAMIN D 1,000 INTERNATIONAL UNITS TABLET PO SCH (08:36)
[2021-01-08] MEDS: FAMOTIDINE 20 MG TAB PO SCH (08:36)
[2021-01-08] MEDS: CYCLOBENZAPRINE 5MG TABLET PO SCH ×3 (08:37→21:15)
[2021-01-08] MEDS: FERROUS SULFATE 325MG TAB PO SCH (08:37)
[2021-01-08] MEDS: guaiFENesin 200 MG TAB PO SCH ×3 (08:37→21:00)
[2021-01-08] MEDS: METOPROLOL SUCC (TopROL XL) 50MG **XL** TAB PO SCH (08:37)
[2021-01-08] MEDS: MULTIVITAMINS/MINERALS THERAP 1 TAB PO SCH (08:37)
[2021-01-08] MEDS: CitaloPRAM (CeleXA) 20 MG TAB PO SCH (08:37)
[2021-01-08] MEDS: ACETAMINOPHEN 500 MG TAB PO SCH ×3 (08:37→21:16)
[2021-01-08] MEDS: SPIRONOLACTONE 25 MG TAB PO SCH ×2 (08:38→17:17)
[2021-01-08] MEDS: HumaLOG INSULIN (NovoLOG) PER UNIT SC SCH ×4 (08:38→21:00)
[2021-01-08] MEDS: APIXABAN 2.5 MG TAB (ELIQUIS) PO SCH ×2 (08:38→21:15)
[2021-01-08] MEDS: DOCUSATE SODIUM 100MG CAPSULE PO SCH ×2 (08:38→21:15)
[2021-01-08] MEDS: REMEDY PHYTOPLEX Z-GUARD PASTE 113GM TUBE (FROM STOREROOM PRODUCT) TOP SCH ×3 (08:38→21:18)
[2021-01-08] MEDS: NORCO, ANEXSIA 5/325MG TABLET (HYDROcodone/ACETAMINOPHEN) PO PRN ×2 (12:08→21:16)
[2021-01-08 14:00] VITALS: BP 122/61
[2021-01-08 20:00] VITALS: BP 119/57
[2021-01-08] MEDS: SENNA 8.6 MG TAB (SENOKOT) PO SCH (21:15)
[2021-01-08] MEDS: traZODone 50 MG TAB PO SCH (21:15)
[2021-01-09 05:30] VITALS: BP 119/58
[2021-01-09] MEDS: HumaLOG INSULIN (NovoLOG) PER UNIT SC SCH ×4 (07:09→21:00)
[2021-01-09] MEDS: guaiFENesin 200 MG TAB PO SCH ×3 (07:10→20:32)
[2021-01-09] MEDS: MULTIVITAMINS/MINERALS THERAP 1 TAB PO SCH (07:39)
[2021-01-09] MEDS: hydrOXYzine 25 MG TAB PO PRN ×3 (07:39→20:31)
[2021-01-09] MEDS: CitaloPRAM (CeleXA) 20 MG TAB PO SCH (07:40)
[2021-01-09] MEDS: CYCLOBENZAPRINE 5MG TABLET PO SCH ×3 (07:40→20:31)
[2021-01-09] MEDS: FAMOTIDINE 20 MG TAB PO SCH (07:40)
[2021-01-09] MEDS: FERROUS SULFATE 325MG TAB PO SCH (07:40)
[2021-01-09] MEDS: METOPROLOL SUCC (TopROL XL) 50MG **XL** TAB PO SCH (07:40)
[2021-01-09] MEDS: SPIRONOLACTONE 25 MG TAB PO SCH ×2 (07:40→16:56)
[2021-01-09] MEDS: VITAMIN D 1,000 INTERNATIONAL UNITS TABLET PO SCH (07:40)
[2021-01-09] MEDS: APIXABAN 2.5 MG TAB (ELIQUIS) PO SCH ×2 (07:41→20:31)
[2021-01-09] MEDS: POTASSIUM CHLORIDE 10 MEQ SR TABLET PO SCH ×2 (07:41→20:32)
[2021-01-09] MEDS: DOCUSATE SODIUM 100MG CAPSULE PO SCH ×2 (07:41→20:32)
[2021-01-09] MEDS: ACETAMINOPHEN 500 MG TAB PO SCH ×3 (07:41→20:32)
[2021-01-09] MEDS: TORSEMIDE 10 MG TABLET PO SCH (07:41)
[2021-01-09] MEDS: REMEDY PHYTOPLEX Z-GUARD PASTE 113GM TUBE (FROM STOREROOM PRODUCT) TOP SCH ×3 (07:42→20:33)
[2021-01-09] MEDS: COMBIVENT RESPIMAT 100-20MCG INHALER 4GM INH SCH ×3 (07:56→18:09)
[2021-01-09 14:00] VITALS: BP 138/60
--- NOTE | 2021-01-09 19:05 | IPN ---
PROGRESS NOTE DATE: 01/08/2021 Ms. Barraza is seen this morning on her bedside. She is sitting in the recliner chair with her legs elevated. She is still weak and has difficulty ambulating but making some progress with her rehabilitation. She denies any nausea, vomiting, dyspnea, or chest pain. Lower extremity edema has improved significantly with diuresis since admission. On physical exam, temperature 97.2 degrees Fahrenheit, heart rate 71 per minute, and respiratory rate 16 per minute. Blood pressure 117/55 mmHg and oxygen saturation 94% on room air. Head is atraumatic. Neck supple and jugular venous distention (JVD) is mildly elevated about 6 cm above sternal angle. There is no thyroid enlargement. Heart sounds are regular and lungs with bibasilar rales. Abdomen is soft and nontender and bowel sounds are present. Extremities without any cyanosis or clubbing. She has significant bruising on her right lower extremity and minor bruising on the left. There is also mild edema on the right leg but no edema on the left leg. Neurologically she is awake, alert, and oriented times three. She did not have any new labs done today. Yesterday, her BUN was 35 and creatinine 1.88, which is about her baseline for the last few days. Hemoglobin was 10.5 and hematocrit 35. PROBLEMS: 1. Congestive heart failure. Volume status is reasonably well compensated and she will continue with torsemide 30 mg once a day. 2. Chronic kidney disease. Kidney function seems to be leveled off with creatinine between 1.8 and 1.9. We will recheck her labs next week. 3. Hypokalemia. Her electrolytes are stable with improved potassium levels. She remains on potassium sparing diuretics along with torsemide. Electrolytes will be checked again next week. 4. Hypertension. Blood pressure seems well controlled currently and no changes are being made today.
--- NOTE | 2021-01-09 19:06 | IPN ---
NEPHROLOGY PROGRESS NOTE DATE: 01/09/2021 SUBJECTIVE: Ms. Barraza is seen this morning during her rehabilitation. She is sitting in the chair at the time of my visit. She is feeling better but still not ready to go home. She still needs assistance with her ambulation. She has been using the walker. She denies any dyspnea or chest pain. PHYSICAL EXAMINATION: Temperature 97.7 degrees Fahrenheit, heart rate 62 per minute, respiratory rate 18 per minute, blood pressure 119/58 mmHg, oxygen saturation 93% on room air. HEAD: Atraumatic. NECK: Supple and without jugular venous distention (JVD) or thyroid enlargement. LUNGS: Clear to auscultation. ABDOMEN: Soft and nontender. Bowel sounds are normal. EXTREMITIES: Without any cyanosis or clubbing. Her right arm is in a cast. Her right leg bruise is unchanged. She has surgical incisions from her right hip surgery, which are clean. NEUROLOGIC: She is grossly intact. LABORATORY STUDIES: Last labs were done on January 072020, when BUN was 35 and creatinine 1.88. She did not have any labs yesterday or today. PROBLEMS: 1. Congestive heart failure. Volume status has improved and peripheral edema is completely resolved from her left leg. Right leg edema is related to her right hip fracture and recent surgery. We will continue with current maintenance diuretics. 2. Acute kidney injury superimposed on chronic kidney disease. Her kidney function seems to have leveled off. Renal profile will be checked again tomorrow. 3. Anemia. Her anemia has been stable and does not need any urgent intervention. 4. Deconditioning and weakness. Patient is quite shaky and she does not feel comfortable to go home yet. I reassured her that rehabilitation service is working on it and they will be very careful in evaluating her before she gets discharged.
[2021-01-09 20:30] VITALS: BP 127/74
[2021-01-09] MEDS: SENNA 8.6 MG TAB (SENOKOT) PO SCH (20:31)
[2021-01-09] MEDS: traZODone 50 MG TAB PO SCH (20:32)
[2021-01-09] MEDS: NORCO, ANEXSIA 5/325MG TABLET (HYDROcodone/ACETAMINOPHEN) PO PRN (20:32)
[2021-01-10 06:43] VITALS: BP 116/63
[2021-01-10] MEDS: COMBIVENT RESPIMAT 100-20MCG INHALER 4GM INH SCH (07:26)
[2021-01-10] MEDS: HumaLOG INSULIN (NovoLOG) PER UNIT SC SCH ×2 (07:30→11:39)
[2021-01-10 07:52] LABS: HEMATOCRIT 33.8 % (36.0-47.0); HEMOGLOBIN 10.3 g/dl (12.0-15.5); MEAN CORPUSCULAR HGB CONC 30.5 g/dl (32.0-36.5); PLATELET COUNT, AUTOMATED 239 10^3/uL (150-450); RED BLOOD COUNT 3.22 10^6/uL (4.00-5.40); WHITE BLOOD COUNT 4.5 10^3/uL (4.0-10.0)
[2021-01-10 08:10] LABS: ALBUMIN 3.3 GM/DL (3.2-5.2); CALCIUM LEVEL 9.9 MG/DL (8.8-10.2); CREATININE FOR GFR 1.67 MG/DL (0.55-1.30); GLOMERULAR FILTRATION RATE 31.7 (>39); PHOSPHORUS LEVEL 4.3 MG/DL (2.5-4.9)
[2021-01-10] MEDS: TORSEMIDE 10 MG TABLET PO SCH (09:00)
[2021-01-10] MEDS: REMEDY PHYTOPLEX Z-GUARD PASTE 113GM TUBE (FROM STOREROOM PRODUCT) TOP SCH (09:00)
[2021-01-10] MEDS ORDERED: VENTAER INH (10:34)
[2021-01-10] MEDS ORDERED: CYCL5TAB PO (10:34)
[2021-01-10] MEDS ORDERED: ALDA25TA2 PO (10:34)
[2021-01-10] MEDS ORDERED: HYDR-3715 PO (10:34)
[2021-01-10] MEDS ORDERED: KLOR10TA76 PO (10:34)
[2021-01-10] MEDS ORDERED: D31000TA2 PO (10:34)
[2021-01-10] MEDS ORDERED: TREL1AER PO (10:34)
[2021-01-10] MEDS ORDERED: FAMO20TA PO (10:34)
[2021-01-10] MEDS ORDERED: ELIQ2.5T PO (10:34)
[2021-01-10] MEDS ORDERED: CELE20TA PO (10:34)
[2021-01-10] MEDS ORDERED: METO1TAB7 PO (10:34)
[2021-01-10] MEDS ORDERED: TORS20TA2 PO (10:34)
[2021-01-10] MEDS ORDERED: MYRB50TA PO (10:34)
[2021-01-10] MEDS ORDERED: TRAZ-252 PO (10:34)
[2021-01-10] MEDS: FERROUS SULFATE 325MG TAB PO SCH (11:07)
[2021-01-10] MEDS: guaiFENesin 200 MG TAB PO SCH (11:08)
[2021-01-10] MEDS: DOCUSATE SODIUM 100MG CAPSULE PO SCH (11:08)
[2021-01-10] MEDS: ACETAMINOPHEN 500 MG TAB PO SCH (11:08)
[2021-01-10] MEDS: APIXABAN 2.5 MG TAB (ELIQUIS) PO SCH (11:09)
[2021-01-10] MEDS: POTASSIUM CHLORIDE 10 MEQ SR TABLET PO SCH (11:09)
[2021-01-10] MEDS: CYCLOBENZAPRINE 5MG TABLET PO SCH (11:09)
[2021-01-10] MEDS: FAMOTIDINE 20 MG TAB PO SCH (11:09)
[2021-01-10] MEDS: CitaloPRAM (CeleXA) 20 MG TAB PO SCH (11:09)
[2021-01-10] MEDS: NORCO, ANEXSIA 5/325MG TABLET (HYDROcodone/ACETAMINOPHEN) PO PRN (11:10)
[2021-01-10] MEDS: hydrOXYzine 25 MG TAB PO PRN (11:10)
[2021-01-10] MEDS: SPIRONOLACTONE 25 MG TAB PO SCH (11:11)
[2021-01-10 11:15] VITALS: BP 122/66
[2021-01-10] MEDS: METOPROLOL SUCC (TopROL XL) 50MG **XL** TAB PO SCH (11:15)
[2021-01-10] MEDS: MULTIVITAMINS/MINERALS THERAP 1 TAB PO SCH (11:15)
[2021-01-10] MEDS: VITAMIN D 1,000 INTERNATIONAL UNITS TABLET PO SCH (11:16)
--- NOTE | 2021-01-10 13:04 | IPN ---
PROGRESS NOTE DATE: 01/10/2021 SUBJECTIVE: Ms. Barraza is seen this morning at her beside. She is sitting in her recliner chair and reports that she is going home today. She denies any fever or chills. She does get some dyspnea on exertion and also has increased edema of her right leg. PHYSICAL EXAMINATION: VITAL SIGNS: Temperature 96.7 degrees Fahrenheit, heart rate 70 per minute, respiratory rate 20 per minute, blood pressure 122/66 mmHg, oxygen saturation 93% on room air. HEAD: Atraumatic. NECK: Supple and JVD about 9 cm above sternal angle. LUNGS: Bibasilar rales. HEART: Sounds irregular without pericardial fraction rub. ABDOMEN: Soft and nontender. Bowel sounds are normal. EXTREMITIES: Without any cyanosis or clubbing. Her right lower extremity edema is 2+. Surgical incisions on her hip and just above the knee are clean. NEUROLOGIC: She is at her baseline mentation without focal deficits. LABORATORY STUDIES: Today's labs showed WBC count 4.5, hemoglobin 10.3, hematocrit 33.8. Platelets 239. Sodium 138, potassium 4.0, CO2 27, BUN 39, creatinine 1.67. PROBLEMS: 1. Acute kidney injury superimposed on chronic kidney disease. Her kidney function has been stable for the last five days. She has no uremic symptoms and will be followed up as an outpatient. 2. Congestive heart failure. Volume status is slightly decompensated. I have discussed with Dr. Granados and recommended to increase her Torsemide dose to 20 mg twice daily. The patient is going to be discharged to home today and she will need follow up in one week. 3. Anemia. Her anemia has been stable and this will also be followed up as an outpatient.
== END 2021-01-10 12:15 | disposition home health service (06) | DRG 559 ==
LOC: M PM&R 15:05
PROVIDERS: ADMIT Physical Medicine & Rehabilitation; ATTEND Physical Medicine & Rehabilitation
DX: S72.141D Displaced intertrochanteric fracture of right femur, subsequent encounter for closed fracture with routine healing (principal); I50.33 Acute on chronic diastolic (congestive) heart failure; I13.0 Hypertensive heart and chronic kidney disease with heart failure and stage 1 through stage 4 chronic kidney disease, or unspecified chronic kidney disease; N17.9 Acute kidney failure, unspecified; S52.611D Displaced fracture of right ulna styloid process, subsequent encounter for closed fracture with routine healing; W19.XXXD Unspecified fall, subsequent encounter; Y92.009 Unspecified place in unspecified non-institutional (private) residence as the place of occurrence of the external cause; E11.9 Type 2 diabetes mellitus without complications; J45.909 Unspecified asthma, uncomplicated; J44.9 Chronic obstructive pulmonary disease, unspecified; N18.30 Chronic kidney disease, stage 3 unspecified; I48.20 Chronic atrial fibrillation, unspecified; Z95.0 Presence of cardiac pacemaker; Z74.09 Other reduced mobility; Z74.1 Need for assistance with personal care; Z79.01 Long term (current) use of anticoagulants; Z79.899 Other long term (current) drug therapy; Z88.8 Allergy status to other drugs, medicaments and biological substances; D63.1 Anemia in chronic kidney disease; E87.5 Hyperkalemia; E87.6 Hypokalemia

== ENCOUNTER → 2021-01-27 | Outpatient (CLI) | payer MEDICARE ==
[~2021-01-27] MED LIST changes: +ALDA25TA2 PO; +CYCL5TAB PO; +FAMO20TA PO; +HYDR-3715 PO; +KLOR10TA76 PO; +METO1TAB7 PO
--- NOTE | 2021-01-27 16:34 | REP ---
INDICATION: PAIN. Fracture follow-up. COMPARISON: Comparison wrist radiographs December 22, 2020.. TECHNIQUE: Four views of the right wrist are obtained through overlying cast material. FINDINGS: The previously noted impacted fracture of the distal radius is again seen essentially unchanged in position. There is diffuse osteopenia. Ulnar styloid chip fracture is not well displayed. Fine bone detail is obscured by cast material. IMPRESSION: Impacted fracture of the distal radius essentially unchanged in position. <Electronically signed by Carlitos Morales > 01/27/21 [id number]
--- NOTE | 2021-01-27 17:03 | REP ---
INDICATION: PAIN Status post arthroplasty. COMPARISON: 12/22/2020 TECHNIQUE: AP and frog-lateral views of the right hip. FINDINGS: Patient is status post open reduction and satisfactory fixation for intertrochanteric femur fracture. Satisfactory positioning to the orthopedic hardware. Overlying soft tissue swelling. IMPRESSION: Satisfactory open reduction and fixation for intertrochanteric femur fracture. <Electronically signed by Tex Almendarez > 01/27/21 [id number]
--- NOTE | 2021-01-27 17:04 | REP ---
INDICATION: PAIN. COMPARISON: None. TECHNIQUE: AP and frog-lateral views of the right femur (in conjunction with right hip series) FINDINGS: Intramedullary sav in satisfactory position. Visualized portions of the femur are intact and without fracture or dislocation. IMPRESSION: Normal appearance to the visualized femur. Intramedullary sav in satisfactory position. <Electronically signed by Tex Almendarez > 01/27/21 [id number]
== END ==
LOC: M SOG 15:56
PROVIDERS: ATTEND Orthopaedic Surgery Sports Medicine
DX: Z47.89 Encounter for other orthopedic aftercare (principal); S52.591D Other fractures of lower end of right radius, subsequent encounter for closed fracture with routine healing; S72.141D Displaced intertrochanteric fracture of right femur, subsequent encounter for closed fracture with routine healing; T84.84XD Pain due to internal orthopedic prosthetic devices, implants and grafts, subsequent encounter

== ENCOUNTER → 2021-02-10 | Outpatient (CLI) | payer MEDICARE ==
--- NOTE | 2021-02-10 11:41 | REP ---
INDICATION: OTHER FX OF LOWER END R RADIUS , SUBS FOR CLOSED FX WITH ROU. COMPARISON: 01/27/2021. 12/22/2020. TECHNIQUE: Four views right wrist. FINDINGS: Comminuted, impacted, mildly displaced intra-articular fracture distal radius is again noted with no change in alignment. There is mild healing callus formation. Ulnar styloid fractures unchanged. IMPRESSION: Distal radius fracture and ulnar styloid fracture, no change in alignment. Mild healing callus formation seen at the distal radial fracture site. <Electronically signed by Arnulfo Bernardo > 02/10/21 [id number]
--- NOTE | 2021-02-10 11:44 | REP ---
INDICATION: OTHER FX OF LOWER END R RADIUS , SUBS FOR CLOSED FX WITH ROU. COMPARISON: 01/27/2021. TECHNIQUE: AP and lateral right hip including distal femoral shaft. FINDINGS: Intramedullary sav is unchanged in position. Proximal femur fracture is not displaced and unchanged. IMPRESSION: Stable exam. <Electronically signed by Arnulfo Bernardo > 02/10/21 [id number]
== END ==
LOC: M SOG 10:47
PROVIDERS: ATTEND Orthopaedic Surgery Sports Medicine
DX: S52.591D Other fractures of lower end of right radius, subsequent encounter for closed fracture with routine healing (principal); X58.XXXD Exposure to other specified factors, subsequent encounter; Y92.9 Unspecified place or not applicable; S52.571D Other intraarticular fracture of lower end of right radius, subsequent encounter for closed fracture with routine healing

== ENCOUNTER → 2022-01-12 | Outpatient (CLI) | payer MEDICARE, OTHER ==
[~2022-01-12] MED LIST changes: -D31000TA2 PO; -KLOR10TA76 PO; +POTA-136 PO; +VITA100093 PO
== END ==
LOC: M RAD 15:05
PROVIDERS: ATTEND Internal Medicine Nephrology
DX: N17.9 Acute kidney failure, unspecified (principal); N18.4 Chronic kidney disease, stage 4 (severe)

== ENCOUNTER 2022-04-30 03:06 | Inpatient (IN) | payer OTHER, MEDICARE ==
[~2022-04-30] VITALS: Ht 157.5 cm; Wt 78.1 kg
[~2022-04-30 03:06] MED LIST changes: +ALBU2.5V10 INH; -ALBU83IN INH
[2022-04-30 06:06] LABS: BASO % 0.6 % (0.0-1.0); EOS # 0.1 10^3/uL (0.0-0.5); EOS % 1.9 % (0.0-3.0); HEMATOCRIT 32.2 % (36.0-47.0); HEMOGLOBIN 10.2 g/dl (12.0-15.5); LYMPH # 0.5 10^3/uL (1.5-5.0); LYMPH % 7.8 % (24.0-44.0); MEAN CORPUSCULAR HEMOGLOBIN 30.7 pg (27.0-33.0); MEAN CORPUSCULAR HGB CONC 31.7 g/dl (32.0-36.5); MONO # 1.1 10^3/uL (0.0-0.8); MONO % 15.7 % (2.0-8.0); NEUTROPHILS % 73.6 % (36.0-66.0); PLATELET COUNT, AUTOMATED 214 10^3/uL (150-450); RED BLOOD COUNT 3.32 10^6/uL (4.00-5.40); WHITE BLOOD COUNT 6.8 10^3/uL (4.0-10.0)
[2022-04-30 06:20] LABS: MB/CK RELATIVE INDEX 4.76 (< OR =4)
[2022-04-30 06:39] LABS: ALBUMIN 3.4 GM/DL (3.2-5.2); BILIRUBIN,DIRECT 0.5 MG/DL (0.0-0.2); BILIRUBIN,TOTAL 0.7 MG/DL (0.2-1.0); CALCIUM LEVEL 8.9 MG/DL (8.8-10.2); CREATININE FOR GFR 3.62 MG/DL (0.55-1.30); FREE T4 1.06 NG/DL (0.76-1.46); GLOMERULAR FILTRATION RATE 12.9 (>39); POTASSIUM SERUM 4.9 MEQ/L (3.5-5.1); THYROID STIMULATING HORMONE 3.99 uIU/ML (0.358-3.740); TOTAL PROTEIN 7.1 GM/DL (6.4-8.2)
[2022-04-30 07:33] LABS: RSV AMPLIFICATION NEGATIVE (NEGATIVE)
[2022-04-30] MEDS ORDERED: D-3-50003 PO (09:07)
[2022-04-30] MEDS ORDERED: GABA-1171 PO (09:07)
[2022-04-30] MEDS ORDERED: TRAZ-252 PO (09:07)
[2022-04-30] MEDS ORDERED: ELIQ2.5T PO (09:07)
[2022-04-30] MEDS ORDERED: VENTAER INH (09:07)
[2022-04-30] MEDS ORDERED: TORS20TA2 PO ×2 (09:07)
[2022-04-30] MEDS ORDERED: CELE20TA PO (09:07)
[2022-04-30] MEDS ORDERED: CETI-24 PO (09:07)
[2022-04-30] MEDS ORDERED: METO1TAB7 PO (09:07)
[2022-04-30] MEDS ORDERED: TREL1AER INH (09:07)
[2022-04-30] MEDS ORDERED: MYRB50TA PO (09:07)
[2022-04-30] MEDS ORDERED: HOME MED LIST COMPLETE! XX SCH (09:10)
[2022-04-30] MEDS: FUROSEMIDE 100MG/10ML VIAL (J1940) IV SCH ×3 (09:45→23:13)
[2022-04-30] MEDS: HEPARIN SOD (PORCINE) 5000UNITS/ML 1ML VIAL/SYRINGE SC SCH ×2 (10:31→14:00)
[2022-04-30 15:20] VITALS: BP 138/63
[2022-04-30 16:00] VITALS: BP 130/60
[2022-04-30] MEDS: MULTIVITAMINS/MINERALS THERAP 1 TAB PO SCH (17:06)
[2022-04-30] MEDS: CETIRIZINE (ZyrTEC) 10 MG TAB PO SCH (17:06)
[2022-04-30] MEDS: GABAPENTIN 100 MG CAP PO SCH ×2 (17:06→20:32)
[2022-04-30] MEDS: METOPROLOL SUCC (TopROL XL) 50MG **XL** TAB PO SCH (17:07)
[2022-04-30] MEDS: CitaloPRAM (CeleXA) 20 MG TAB PO SCH (17:10)
[2022-04-30 20:00] VITALS: BP 119/54
[2022-04-30] MEDS: APIXABAN 2.5 MG TAB (ELIQUIS) PO SCH (20:32)
[2022-04-30] MEDS: traZODone 50 MG TAB PO SCH (20:32)
[2022-05-01] VITALS (9 sets, daily range): BP systolic 78–124; BP diastolic 48–64
[2022-05-01 06:40] LABS: HEMATOCRIT 30.9 % (36.0-47.0); MEAN CORPUSCULAR HEMOGLOBIN 31.2 pg (27.0-33.0); MEAN CORPUSCULAR HGB CONC 32.4 g/dl (32.0-36.5); MEAN CORPUSCULAR VOLUME 96.3 fl (80.0-96.0); PLATELET COUNT, AUTOMATED 184 10^3/uL (150-450); RED BLOOD COUNT 3.21 10^6/uL (4.00-5.40); WHITE BLOOD COUNT 15.5 10^3/uL (4.0-10.0)
[2022-05-01 06:51] LABS: INR 1.61; PROTHROMBIN TIME 19.6 SECONDS (12.7-14.5)
[2022-05-01 07:45] LABS: CALCIUM LEVEL 8.8 MG/DL (8.8-10.2); CREATININE FOR GFR 4.01 MG/DL (0.55-1.30); GLOMERULAR FILTRATION RATE 11.5 (>39); MAGNESIUM LEVEL 2.5 MG/DL (1.8-2.4); PHOSPHORUS LEVEL 4.3 MG/DL (2.5-4.9); POTASSIUM SERUM 4.6 MEQ/L (3.5-5.1)
[2022-05-01] MEDS: FUROSEMIDE 100MG/10ML VIAL (J1940) IV SCH ×2 (08:00→16:00)
[2022-05-01] MEDS: MULTIVITAMINS/MINERALS THERAP 1 TAB PO SCH (09:05)
[2022-05-01] MEDS: GABAPENTIN 100 MG CAP PO SCH ×3 (09:05→20:29)
[2022-05-01] MEDS: CitaloPRAM (CeleXA) 20 MG TAB PO SCH (09:06)
[2022-05-01] MEDS: CETIRIZINE (ZyrTEC) 10 MG TAB PO SCH (09:06)
[2022-05-01] MEDS: APIXABAN 2.5 MG TAB (ELIQUIS) PO SCH (09:06)
[2022-05-01] MEDS: METOPROLOL SUCC (TopROL XL) 50MG **XL** TAB PO SCH (09:06)
[2022-05-01] MEDS ORDERED: ACETAMINOPHEN TAB 650MG DOSE (2X325MG) PO ONE (10:45)
[2022-05-01 11:08] LABS: BACTERIA, URINE LARGE AMOUNT; HYALINE CAST, URINE NONE SEEN /lpf (0-1); SQUAMOUS EPITHELIAL CELL URINE MOD AMOUNT /hpf (SMALL AMT)
[2022-05-01 12:25] LABS: HEPATITIS B CORE ANTIBODY IGM NEGATIVE (NEGATIVE); HEPATITIS B SURFACE ANTIBODY NEGATIVE (POSITIVE); HEPATITIS B SURFACE ANTIGEN NEGATIVE (NEGATIVE)
[2022-05-01] MEDS: cefTRIAXone SOD 1 GM in D5W MINI-BAG PLUS 50 ML IV SCH (15:01)
[2022-05-01] MEDS: traZODone 50 MG TAB PO SCH (20:29)
[2022-05-01] MEDS: ACETAMINOPHEN TAB 650MG DOSE (2X325MG) PO PRN (23:27)
[2022-05-02 04:12] VITALS: BP 130/60
[2022-05-02] MEDS: ACETAMINOPHEN TAB 650MG DOSE (2X325MG) PO PRN ×2 (04:15→09:04)
[2022-05-02] MEDS ORDERED: VANCOMYCIN HCL 1,000 MG, VIAL MATE ADAPTER 1 EACH in NS 250 ML IV SCH (04:25)
[2022-05-02] MEDS ORDERED: VANCOMYCIN HCL 750 MG, VIAL MATE ADAPTER 1 EACH in D5W 250 ML IV ONE ×2 (05:00→06:00)
[2022-05-02] MEDS ORDERED: LIDOCAINE 5% (LIDODERM) PATCH TD ONE (06:05)
[2022-05-02 06:15] LABS: HEMATOCRIT 29.1 % (36.0-47.0); HEMOGLOBIN 9.7 g/dl (12.0-15.5); MEAN CORPUSCULAR HEMOGLOBIN 31.9 pg (27.0-33.0); MEAN CORPUSCULAR HGB CONC 33.3 g/dl (32.0-36.5); MEAN CORPUSCULAR VOLUME 95.7 fl (80.0-96.0); PLATELET COUNT, AUTOMATED 150 10^3/uL (150-450); RED BLOOD COUNT 3.04 10^6/uL (4.00-5.40); WHITE BLOOD COUNT 7.1 10^3/uL (4.0-10.0)
[2022-05-02 06:26] LABS: INR 1.52; PROTHROMBIN TIME 18.7 SECONDS (12.7-14.5)
[2022-05-02 06:27] LABS: PARTIAL THROMBOPLASTIN TIME 41.8 SECONDS (25.9-37.0)
[2022-05-02 07:17] LABS: ALBUMIN 2.7 GM/DL (3.2-5.2); BILIRUBIN,TOTAL 0.7 MG/DL (0.2-1.0); CALCIUM LEVEL 8.8 MG/DL (8.8-10.2); CREATININE FOR GFR 3.88 MG/DL (0.55-1.30); GLOMERULAR FILTRATION RATE 11.9 (>39); MAGNESIUM LEVEL 2.5 MG/DL (1.8-2.4); PHOSPHORUS LEVEL 4.5 MG/DL (2.5-4.9); POTASSIUM SERUM 3.9 MEQ/L (3.5-5.1); TOTAL PROTEIN 5.6 GM/DL (6.4-8.2)
[2022-05-02] MEDS ORDERED: MIDAZOLAM INJ 2MG/2ML VIAL (J2250 PER 1MG) As Ordered ONE (07:25)
[2022-05-02] MEDS ORDERED: fentaNYL 100 MCG/2 ML INJECTION As Ordered ONE (07:25)
[2022-05-02] MEDS ORDERED: LIDOCAINE 1% MDV 20ML VIAL As Ordered ONE (07:25)
[2022-05-02 07:57] VITALS: BP 118/72
[2022-05-02] MEDS: CitaloPRAM (CeleXA) 20 MG TAB PO SCH (09:05)
[2022-05-02] MEDS: MULTIVITAMINS/MINERALS THERAP 1 TAB PO SCH (09:05)
[2022-05-02] MEDS: FUROSEMIDE 40MG/4ML VIAL (J1940) IV SCH ×2 (09:05→21:44)
[2022-05-02] MEDS: GABAPENTIN 100 MG CAP PO SCH ×3 (09:05→21:44)
[2022-05-02] MEDS: CETIRIZINE (ZyrTEC) 10 MG TAB PO SCH (09:05)
[2022-05-02] MEDS: METOPROLOL SUCC *XL* 25MG TAB (TopROL *XL*) PO SCH (09:05)
[2022-05-02 12:01] VITALS: BP 100/70
[2022-05-02] MEDS ORDERED: VANCOMYCIN INTERMITTENT/PULSE DOSING BY CLINICAL PHARMACIST PER DOSING PROTOCOL XX SCH (14:20)
[2022-05-02] MEDS: cefTRIAXone SOD 1 GM in D5W MINI-BAG PLUS 50 ML IV SCH (14:49)
[2022-05-02 15:55] VITALS: BP 112/70
[2022-05-02] MEDS ORDERED: VANCOMYCIN HCL 500 MG in D5W MINI-BAG PLUS 100 ML IV SCH (16:50)
[2022-05-02] MEDS ORDERED: LORATADINE 10 MG TAB PO SCH (16:50)
[2022-05-02] MEDS ORDERED: **NOTE PATIENT COMMENT** MISC XX ONE (18:30)
[2022-05-02 19:57] VITALS: BP 108/53
[2022-05-02] MEDS: traZODone 50 MG TAB PO SCH (21:44)
[2022-05-03 00:09] VITALS: BP 103/53
[2022-05-03 03:39] VITALS: BP 106/59
[2022-05-03] MEDS: MULTIVITAMINS/MINERALS THERAP 1 TAB PO SCH (06:48)
[2022-05-03] MEDS: METOPROLOL SUCC *XL* 25MG TAB (TopROL *XL*) PO SCH (06:48)
[2022-05-03] MEDS: GABAPENTIN 100 MG CAP PO SCH ×3 (06:48→21:32)
[2022-05-03] MEDS: CitaloPRAM (CeleXA) 20 MG TAB PO SCH (06:49)
[2022-05-03] MEDS: FUROSEMIDE 40MG/4ML VIAL (J1940) IV SCH (06:49)
[2022-05-03] MEDS ORDERED: SODIUM CHLORIDE 0.9% 1000ML IV PRN (07:20)
[2022-05-03 07:40] LABS: HEMATOCRIT 29.6 % (36.0-47.0); HEMOGLOBIN 9.5 g/dl (12.0-15.5); MEAN CORPUSCULAR HEMOGLOBIN 31.5 pg (27.0-33.0); MEAN CORPUSCULAR HGB CONC 32.1 g/dl (32.0-36.5); PLATELET COUNT, AUTOMATED 164 10^3/uL (150-450); RED BLOOD COUNT 3.02 10^6/uL (4.00-5.40); WHITE BLOOD COUNT 5.6 10^3/uL (4.0-10.0)
[2022-05-03 07:45] LABS: CALCIUM LEVEL 8.5 MG/DL (8.8-10.2); CREATININE FOR GFR 3.57 MG/DL (0.55-1.30); GLOMERULAR FILTRATION RATE 13.1 (>39); POTASSIUM SERUM 3.5 MEQ/L (3.5-5.1)
[2022-05-03] MEDS ORDERED: LIDOCAINE 1% MDV 20ML VIAL As Ordered ONE ×2 (08:04→09:54)
[2022-05-03] MEDS ORDERED: fentaNYL 100 MCG/2 ML INJECTION As Ordered ONE (08:04)
[2022-05-03] MEDS ORDERED: MIDAZOLAM INJ 2MG/2ML VIAL (J2250 PER 1MG) As Ordered ONE (08:04)
[2022-05-03 08:21] VITALS: BP 119/53
[2022-05-03] MEDS ORDERED: ceFAZolin 2 GM/D5W 50 ML IV BAG (J0690 PER 500MG) As Ordered ONE (08:29)
[2022-05-03] MEDS ORDERED: ceFAZolin SOD 2 GM in IV 1 EA IV ONE (08:30)
[2022-05-03] MEDS ORDERED: CETIRIZINE (ZyrTEC) 10 MG TAB PO SCH (09:00)
[2022-05-03] MEDS: CETIRIZINE (ZyrTEC) 10 MG TAB PO SCH (11:37)
[2022-05-03 16:00] VITALS: BP 101/57
[2022-05-03] MEDS ORDERED: VANCOMYCIN HCL 1,000 MG, VIAL MATE ADAPTER 1 EACH in D5W 250 ML IV SCH (16:00)
[2022-05-03] MEDS: diphenhydrAMINE CREAM 30GM TOP PRN (16:26)
[2022-05-03 20:00] VITALS: BP 109/79
[2022-05-03] MEDS: traZODone 50 MG TAB PO SCH (21:33)
[2022-05-04] VITALS: BP 106/53
[2022-05-04 04:00] VITALS: BP 115/55
[2022-05-04] MEDS ORDERED: VANCOMYCIN HCL 750 MG, VIAL MATE ADAPTER 1 EACH in NS 250 ML IV SCH (05:00)
[2022-05-04] MEDS ORDERED: DARBEPOETIN 100 MCG/0.5 ML *DIALYSIS* SYRINGE (J0882) IV SCH (07:15)
[2022-05-04] MEDS ORDERED: SODIUM CHLORIDE 0.9% 1000ML IV PRN (07:15)
[2022-05-04 07:55] VITALS: BP 100/52
[2022-05-04 11:51] VITALS: BP 122/80
[2022-05-04] MEDS: MULTIVITAMINS/MINERALS THERAP 1 TAB PO SCH (12:14)
[2022-05-04] MEDS: GABAPENTIN 100 MG CAP PO SCH ×3 (12:14→20:16)
[2022-05-04] MEDS: CitaloPRAM (CeleXA) 20 MG TAB PO SCH (12:15)
[2022-05-04] MEDS: CETIRIZINE (ZyrTEC) 10 MG TAB PO SCH (12:15)
[2022-05-04] MEDS: METOPROLOL SUCC *XL* 25MG TAB (TopROL *XL*) PO SCH (12:15)
[2022-05-04] MEDS ORDERED: ceFAZolin SOD 1 GM in D5W MINI-BAG PLUS 50 ML IV SCH (16:00)
[2022-05-04] MEDS: diphenhydrAMINE CREAM 30GM TOP PRN (16:38)
[2022-05-04] MEDS: ACETAMINOPHEN TAB 650MG DOSE (2X325MG) PO PRN (16:38)
[2022-05-04] MEDS ORDERED: LORazepam 1 MG TAB PO ONE (16:50)
[2022-05-04] MEDS ORDERED: ceFAZolin SOD 2 GM in IV 1 EA IV SCH (17:00)
[2022-05-04 20:00] VITALS: BP 129/63
[2022-05-04] MEDS: traZODone 50 MG TAB PO SCH (20:16)
[2022-05-05 04:00] VITALS: BP 109/80
[2022-05-05 04:12] LABS: BASO # 0.1 10^3/uL (0.0-0.2); BASO % 1.2 % (0.0-1.0); EOS # 0.2 10^3/uL (0.0-0.5); EOS % 4.3 % (0.0-3.0); HEMATOCRIT 33.3 % (36.0-47.0); HEMOGLOBIN 10.4 g/dl (12.0-15.5); LYMPH # 0.7 10^3/uL (1.5-5.0); LYMPH % 13.4 % (24.0-44.0); MEAN CORPUSCULAR HEMOGLOBIN 31.4 pg (27.0-33.0); MEAN CORPUSCULAR HGB CONC 31.2 g/dl (32.0-36.5); MEAN CORPUSCULAR VOLUME 100.6 fl (80.0-96.0); NEUTROPHILS # 2.8 10^3/uL (1.5-8.5); PLATELET COUNT, AUTOMATED 139 10^3/uL (150-450); RED BLOOD COUNT 3.31 10^6/uL (4.00-5.40); WHITE BLOOD COUNT 4.9 10^3/uL (4.0-10.0)
[2022-05-05 04:32] LABS: ERYTHROCYTE SEDIMENTATION RATE 33 mm/hr (0-30)
[2022-05-05 04:49] LABS: C REACTIVE PROTEIN QUANTITATIV 1.76 MG/DL (0.00-0.30); CALCIUM LEVEL 8.9 MG/DL (8.8-10.2); CREATININE FOR GFR 1.78 MG/DL (0.55-1.30); GLOMERULAR FILTRATION RATE 29.3 (>39)
[2022-05-05 07:29] VITALS: BP 130/57
[2022-05-05] MEDS: GABAPENTIN 100 MG CAP PO SCH ×3 (08:45→20:25)
[2022-05-05] MEDS: CitaloPRAM (CeleXA) 20 MG TAB PO SCH ×2 (08:45→08:48)
[2022-05-05] MEDS: MULTIVITAMINS/MINERALS THERAP 1 TAB PO SCH (08:46)
[2022-05-05] MEDS: METOPROLOL SUCC *XL* 25MG TAB (TopROL *XL*) PO SCH (08:46)
[2022-05-05] MEDS: ceFAZolin SOD 1 GM in D5W MINI-BAG PLUS 50 ML IV SCH (16:18)
[2022-05-05 20:00] VITALS: BP 129/58
[2022-05-05] MEDS: traZODone 50 MG TAB PO SCH (20:25)
[2022-05-05] MEDS: ALBUTEROL 90 MCG/ACT 8GM HFA INHALER INH PRN (21:09)
[2022-05-06 04:00] VITALS: BP 104/50
[2022-05-06] MEDS: CitaloPRAM (CeleXA) 20 MG TAB PO SCH (06:33)
[2022-05-06] MEDS: MULTIVITAMINS/MINERALS THERAP 1 TAB PO SCH (06:33)
[2022-05-06] MEDS: GABAPENTIN 100 MG CAP PO SCH ×3 (06:33→20:44)
[2022-05-06 07:10] LABS: BASO # 0.1 10^3/uL (0.0-0.2); BASO % 1.5 % (0.0-1.0); EOS # 0.2 10^3/uL (0.0-0.5); EOS % 3.6 % (0.0-3.0); HEMATOCRIT 31.9 % (36.0-47.0); HEMOGLOBIN 10.1 g/dl (12.0-15.5); LYMPH % 16.7 % (24.0-44.0); MEAN CORPUSCULAR HEMOGLOBIN 31.4 pg (27.0-33.0); MEAN CORPUSCULAR HGB CONC 31.7 g/dl (32.0-36.5); MEAN CORPUSCULAR VOLUME 99.1 fl (80.0-96.0); MONO # 1.1 10^3/uL (0.0-0.8); MONO % 17.7 % (2.0-8.0); NEUTROPHILS # 3.6 10^3/uL (1.5-8.5); NEUTROPHILS % 58.6 % (36.0-66.0); PLATELET COUNT, AUTOMATED 141 10^3/uL (150-450); RED BLOOD COUNT 3.22 10^6/uL (4.00-5.40); WHITE BLOOD COUNT 6.2 10^3/uL (4.0-10.0)
[2022-05-06 07:40] LABS: CALCIUM LEVEL 9.1 MG/DL (8.8-10.2); CREATININE FOR GFR 2.14 MG/DL (0.55-1.30); GLOMERULAR FILTRATION RATE 23.7 (>39); POTASSIUM SERUM 3.7 MEQ/L (3.5-5.1)
[2022-05-06 07:50] VITALS: BP 84/50
[2022-05-06 07:52] VITALS: BP 104/62
[2022-05-06] MEDS ORDERED: SODIUM CHLORIDE 0.9% 1000ML IV PRN (09:45)
[2022-05-06 12:00] VITALS: BP 106/54
[2022-05-06] MEDS: APIXABAN 2.5 MG TAB (ELIQUIS) PO SCH ×2 (12:00→20:44)
[2022-05-06] MEDS: METOPROLOL SUCC *XL* 25MG TAB (TopROL *XL*) PO SCH (12:00)
[2022-05-06] MEDS: ceFAZolin SOD 1 GM in D5W MINI-BAG PLUS 50 ML IV SCH (15:34)
[2022-05-06 16:26] VITALS: BP 122/58
[2022-05-06] MEDS ORDERED: LORazepam 0.5 MG TAB PO ONE (16:45)
[2022-05-06 20:00] VITALS: BP 100/54
[2022-05-06] MEDS: traZODone 50 MG TAB PO SCH (20:44)
[2022-05-06] MEDS: ALBUTEROL 90 MCG/ACT 8GM HFA INHALER INH PRN (21:24)
[2022-05-07 04:00] VITALS: BP 113/59
[2022-05-07 07:29] LABS: BASO # 0.1 10^3/uL (0.0-0.2); BASO % 1.3 % (0.0-1.0); EOS # 0.2 10^3/uL (0.0-0.5); EOS % 3.3 % (0.0-3.0); HEMATOCRIT 28.8 % (36.0-47.0); HEMOGLOBIN 9.2 g/dl (12.0-15.5); LYMPH # 0.9 10^3/uL (1.5-5.0); LYMPH % 14.7 % (24.0-44.0); MEAN CORPUSCULAR HEMOGLOBIN 31.6 pg (27.0-33.0); MEAN CORPUSCULAR HGB CONC 31.9 g/dl (32.0-36.5); MONO # 1.1 10^3/uL (0.0-0.8); NEUTROPHILS # 3.6 10^3/uL (1.5-8.5); NEUTROPHILS % 59.4 % (36.0-66.0); PLATELET COUNT, AUTOMATED 144 10^3/uL (150-450); RED BLOOD COUNT 2.91 10^6/uL (4.00-5.40); WHITE BLOOD COUNT 6.1 10^3/uL (4.0-10.0)
[2022-05-07 08:01] VITALS: BP 100/54
[2022-05-07] MEDS: METOPROLOL SUCC *XL* 25MG TAB (TopROL *XL*) PO SCH (08:01)
[2022-05-07] MEDS: APIXABAN 2.5 MG TAB (ELIQUIS) PO SCH ×2 (08:01→20:49)
[2022-05-07] MEDS: CitaloPRAM (CeleXA) 20 MG TAB PO SCH ×2 (08:01→08:03)
[2022-05-07] MEDS: MULTIVITAMINS/MINERALS THERAP 1 TAB PO SCH (08:01)
[2022-05-07] MEDS: GABAPENTIN 100 MG CAP PO SCH ×3 (08:01→20:48)
[2022-05-07 08:03] LABS: CALCIUM LEVEL 9.1 MG/DL (8.8-10.2); CREATININE FOR GFR 1.92 MG/DL (0.55-1.30); GLOMERULAR FILTRATION RATE 26.9 (>39); POTASSIUM SERUM 3.9 MEQ/L (3.5-5.1)
[2022-05-07] MEDS: VANICREAM MOISTURIZING SKIN CREAM 113GM TUBE TOP SCH (10:49)
[2022-05-07] MEDS: diphenhydrAMINE CREAM 30GM TOP SCH (10:49)
[2022-05-07 10:52] VITALS: BP 121/61
[2022-05-07 11:00] VITALS: BP 121/64
[2022-05-07] MEDS: ceFAZolin SOD 1 GM in D5W MINI-BAG PLUS 50 ML IV SCH (16:19)
[2022-05-07] MEDS: traZODone 50 MG TAB PO SCH (20:49)
[2022-05-07 22:00] VITALS: BP 120/62
[2022-05-08 05:39] LABS: BASO # 0.1 10^3/uL (0.0-0.2); BASO % 1.6 % (0.0-1.0); EOS # 0.3 10^3/uL (0.0-0.5); HEMATOCRIT 30.2 % (36.0-47.0); HEMOGLOBIN 9.3 g/dl (12.0-15.5); LYMPH # 0.7 10^3/uL (1.5-5.0); LYMPH % 10.9 % (24.0-44.0); MEAN CORPUSCULAR HGB CONC 30.8 g/dl (32.0-36.5); MEAN CORPUSCULAR VOLUME 100.7 fl (80.0-96.0); MONO # 1.2 10^3/uL (0.0-0.8); MONO % 17.7 % (2.0-8.0); NEUTROPHILS # 4.1 10^3/uL (1.5-8.5); NEUTROPHILS % 61.8 % (36.0-66.0); PLATELET COUNT, AUTOMATED 181 10^3/uL (150-450); WHITE BLOOD COUNT 6.7 10^3/uL (4.0-10.0)
[2022-05-08 06:00] VITALS: BP 119/63
[2022-05-08 06:26] LABS: CALCIUM LEVEL 8.9 MG/DL (8.8-10.2); CREATININE FOR GFR 2.37 MG/DL (0.55-1.30); GLOMERULAR FILTRATION RATE 21.1 (>39); POTASSIUM SERUM 3.9 MEQ/L (3.5-5.1)
[2022-05-08] MEDS: diphenhydrAMINE CREAM 30GM TOP SCH (09:00)
[2022-05-08] MEDS: CitaloPRAM (CeleXA) 20 MG TAB PO SCH (09:00)
[2022-05-08 09:23] VITALS: BP 118/61
[2022-05-08] MEDS: MULTIVITAMINS/MINERALS THERAP 1 TAB PO SCH (09:23)
[2022-05-08] MEDS: APIXABAN 2.5 MG TAB (ELIQUIS) PO SCH ×2 (09:23→20:08)
[2022-05-08] MEDS: METOPROLOL SUCC *XL* 25MG TAB (TopROL *XL*) PO SCH (09:23)
[2022-05-08] MEDS: GABAPENTIN 100 MG CAP PO SCH ×3 (09:23→20:08)
[2022-05-08] MEDS: VANICREAM MOISTURIZING SKIN CREAM 113GM TUBE TOP SCH (09:24)
[2022-05-08] MEDS: MIDODRINE 5 MG TAB PO SCH (11:05)
[2022-05-08 14:00] VITALS: BP 114/60
[2022-05-08] MEDS: ceFAZolin SOD 1 GM in D5W MINI-BAG PLUS 50 ML IV SCH (16:06)
[2022-05-08 20:00] VITALS: BP 113/58
[2022-05-08] MEDS: traZODone 50 MG TAB PO SCH (20:08)
[2022-05-09 05:33] LABS: BASO # 0.1 10^3/uL (0.0-0.2); BASO % 1.3 % (0.0-1.0); EOS # 0.2 10^3/uL (0.0-0.5); EOS % 3.2 % (0.0-3.0); HEMATOCRIT 31.5 % (36.0-47.0); HEMOGLOBIN 9.7 g/dl (12.0-15.5); LYMPH # 0.8 10^3/uL (1.5-5.0); LYMPH % 11.3 % (24.0-44.0); MEAN CORPUSCULAR HEMOGLOBIN 31.2 pg (27.0-33.0); MEAN CORPUSCULAR HGB CONC 30.8 g/dl (32.0-36.5); MEAN CORPUSCULAR VOLUME 101.3 fl (80.0-96.0); MONO # 0.9 10^3/uL (0.0-0.8); MONO % 12.8 % (2.0-8.0); NEUTROPHILS # 4.7 10^3/uL (1.5-8.5); NEUTROPHILS % 67.9 % (36.0-66.0); PLATELET COUNT, AUTOMATED 223 10^3/uL (150-450); RED BLOOD COUNT 3.11 10^6/uL (4.00-5.40); WHITE BLOOD COUNT 6.9 10^3/uL (4.0-10.0)
[2022-05-09 05:59] LABS: CREATININE FOR GFR 2.51 MG/DL (0.55-1.30); GLOMERULAR FILTRATION RATE 19.7 (>39); POTASSIUM SERUM 4.1 MEQ/L (3.5-5.1)
[2022-05-09] MEDS ORDERED: SODIUM CHLORIDE 0.9% 1000ML IV PRN (06:00)
[2022-05-09 06:02] VITALS: BP 103/71
[2022-05-09] MEDS: MULTIVITAMINS/MINERALS THERAP 1 TAB PO SCH (06:05)
[2022-05-09] MEDS: APIXABAN 2.5 MG TAB (ELIQUIS) PO SCH ×2 (06:05→20:26)
[2022-05-09] MEDS: GABAPENTIN 100 MG CAP PO SCH ×3 (06:06→20:25)
[2022-05-09] MEDS: METOPROLOL SUCC *XL* 25MG TAB (TopROL *XL*) PO SCH (07:56)
[2022-05-09] MEDS: CitaloPRAM (CeleXA) 20 MG TAB PO SCH (09:00)
[2022-05-09] MEDS: VANICREAM MOISTURIZING SKIN CREAM 113GM TUBE TOP SCH (09:25)
[2022-05-09] MEDS: MIDODRINE 5 MG TAB PO SCH (13:20)
[2022-05-09 14:00] VITALS: BP 100/46
[2022-05-09] MEDS ORDERED: LIDOCAINE 1% MDV 20ML VIAL As Ordered ONE (14:57)
[2022-05-09] MEDS: ceFAZolin SOD 1 GM in D5W MINI-BAG PLUS 50 ML IV SCH (16:20)
[2022-05-09] MEDS ORDERED: SODIUM CHLORIDE 0.9% INJ 10 ML SYR IV PRN (16:30)
[2022-05-09] MEDS ORDERED: ELIQ2.5T PO (17:00)
[2022-05-09] MEDS ORDERED: MIDO5TA PO (17:00)
[2022-05-09] MEDS ORDERED: CEFA1INJ4 IV (17:00)
[2022-05-09] MEDS: SODIUM CHLORIDE 0.9% INJ 10 ML SYR IV SCH (17:34)
[2022-05-09 20:26] VITALS: BP 105/46
[2022-05-09] MEDS: traZODone 50 MG TAB PO SCH (20:26)
[2022-05-10] MEDS: METOPROLOL SUCC *XL* 25MG TAB (TopROL *XL*) PO SCH ×2 (05:17→05:26)
[2022-05-10] MEDS: GABAPENTIN 100 MG CAP PO SCH (05:19)
[2022-05-10] MEDS: CitaloPRAM (CeleXA) 20 MG TAB PO SCH ×2 (05:19→05:25)
[2022-05-10] MEDS: MULTIVITAMINS/MINERALS THERAP 1 TAB PO SCH (05:19)
[2022-05-10] MEDS: APIXABAN 2.5 MG TAB (ELIQUIS) PO SCH (05:19)
[2022-05-10] MEDS: VANICREAM MOISTURIZING SKIN CREAM 113GM TUBE TOP SCH ×2 (05:20→05:27)
[2022-05-10] MEDS: SODIUM CHLORIDE 0.9% INJ 10 ML SYR IV SCH (05:21)
[2022-05-10 06:00] VITALS: BP 105/46
[2022-05-10] MEDS ORDERED: SODIUM CHLORIDE 0.9% 1000ML IV PRN (06:00)
[2022-05-10] MEDS ORDERED: MIDODRINE 5 MG TAB PO SCH (06:00)
[2022-05-10 06:15] LABS: BASO # 0.1 10^3/uL (0.0-0.2); BASO % 1.1 % (0.0-1.0); EOS # 0.2 10^3/uL (0.0-0.5); EOS % 3.2 % (0.0-3.0); HEMATOCRIT 30.5 % (36.0-47.0); HEMOGLOBIN 9.4 g/dl (12.0-15.5); LYMPH # 0.7 10^3/uL (1.5-5.0); LYMPH % 11.4 % (24.0-44.0); MEAN CORPUSCULAR HGB CONC 30.8 g/dl (32.0-36.5); MEAN CORPUSCULAR VOLUME 100.7 fl (80.0-96.0); MONO # 0.9 10^3/uL (0.0-0.8); MONO % 14.1 % (2.0-8.0); NEUTROPHILS # 4.3 10^3/uL (1.5-8.5); NEUTROPHILS % 68.6 % (36.0-66.0); PLATELET COUNT, AUTOMATED 172 10^3/uL (150-450); RED BLOOD COUNT 3.03 10^6/uL (4.00-5.40); WHITE BLOOD COUNT 6.3 10^3/uL (4.0-10.0)
[2022-05-10 06:53] LABS: CALCIUM LEVEL 8.7 MG/DL (8.8-10.2); CREATININE FOR GFR 2.16 MG/DL (0.55-1.30); GLOMERULAR FILTRATION RATE 23.5 (>39); MAGNESIUM LEVEL 2.1 MG/DL (1.8-2.4); PHOSPHORUS LEVEL 2.7 MG/DL (2.5-4.9); POTASSIUM SERUM 4.7 MEQ/L (3.5-5.1)
[2022-05-10] MEDS ORDERED: [UNRECOGNIZED DRUG - REMARK] XX SCH (07:30)
== END 2022-05-10 09:25 | disposition short-term general hospital (02) | DRG 291 ==
LOC: EDBD 03:06 → M ED 03:06 → M ED INP 07:59 → ENRESERV 14:02 → M PCU 15:15 → M MSPAV 05-07 10:51
PROVIDERS: ADMIT Internal Medicine; ATTEND Internal Medicine
PROC: B246ZZZ Ultrasonography of Right and Left Heart (ICD-10-PCS; 2022-04-30)
PROC: 0JH63XZ Insertion of Tunneled Vascular Access Device into Chest Subcutaneous Tissue and Fascia, Percutaneous Approach (ICD-10-PCS; 2022-05-03)
PROC: 5A1D70Z Performance of Urinary Filtration, Intermittent, Less than 6 Hours Per Day (ICD-10-PCS; 2022-05-06)
PROC: 02HV33Z Insertion of Infusion Device into Superior Vena Cava, Percutaneous Approach (ICD-10-PCS; principal; 2022-05-09 15:00)
DX: I13.2 Hypertensive heart and chronic kidney disease with heart failure and with stage 5 chronic kidney disease, or end stage renal disease (principal); I50.33 Acute on chronic diastolic (congestive) heart failure; N18.6 End stage renal disease; N17.9 Acute kidney failure, unspecified; E87.1 Hypo-osmolality and hyponatremia; N39.0 Urinary tract infection, site not specified; R78.81 Bacteremia; B96.1 Klebsiella pneumoniae [K. pneumoniae] as the cause of diseases classified elsewhere; B95.61 Methicillin susceptible Staphylococcus aureus infection as the cause of diseases classified elsewhere; E11.22 Type 2 diabetes mellitus with diabetic chronic kidney disease; J44.9 Chronic obstructive pulmonary disease, unspecified; I48.91 Unspecified atrial fibrillation; Z95.0 Presence of cardiac pacemaker; F32.A Depression, unspecified; F41.9 Anxiety disorder, unspecified; Z90.49 Acquired absence of other specified parts of digestive tract; Z87.891 Personal history of nicotine dependence; Z20.822 Contact with and (suspected) exposure to COVID-19; Z79.01 Long term (current) use of anticoagulants; Z79.899 Other long term (current) drug therapy; Z88.8 Allergy status to other drugs, medicaments and biological substances; D63.1 Anemia in chronic kidney disease; E11.42 Type 2 diabetes mellitus with diabetic polyneuropathy

== ENCOUNTER 2022-05-11 16:06 | Inpatient (IN) | payer OTHER, MEDICARE ==
[~2022-05-11] VITALS: Ht 157.5 cm; Wt 75.5 kg
[~2022-05-11 16:06] MED LIST changes: +CEFA1INJ4 IV; +CETI-24 PO; +D-3-50003 PO; +GABA-1171 PO; +MIDO5TA PO; +TREL1AER INH
[2022-05-11] MEDS ORDERED: INSULIN LISPRO (NovoLOG) PER UNIT SC SCH (21:00)
[2022-05-11 22:14] VITALS: BP 113/63
[2022-05-11] MEDS ORDERED: GLUCOSE 4GM CHEW TABLET PO PRN (22:25)
[2022-05-11] MEDS ORDERED: DEXTROSE 50% 50 ML SYRINGE IV PRN (22:25)
[2022-05-11] MEDS ORDERED: GLUCAGON INJ 1MG VIAL SC PRN (22:25)
[2022-05-11 23:49] VITALS: O2SAT 96
[2022-05-12] VITALS (8 sets, daily range): BP systolic 98–130; BP diastolic 47–72
[2022-05-12] MEDS ORDERED: MIDO5TA PO (00:51)
[2022-05-12] MEDS ORDERED: TRAZ-186 PO (00:51)
[2022-05-12] MEDS ORDERED: ELIQ2.5T PO (00:56)
[2022-05-12] MEDS ORDERED: HOME MED LIST COMPLETE! XX SCH (01:00)
[2022-05-12] MEDS ORDERED: ALBUTEROL 90 MCG/ACT 8GM HFA INHALER INH PRN ×2 (01:30→12:35)
[2022-05-12] MEDS ORDERED: MIDODRINE 5 MG TAB PO SCH (01:30)
[2022-05-12] MEDS: traZODone 50 MG TAB PO SCH ×2 (02:01→20:16)
[2022-05-12] MEDS ORDERED: VANICREAM MOISTURIZING SKIN CREAM 113GM TUBE TOP PRN (02:20)
[2022-05-12 06:37] LABS: HEMATOCRIT 30.7 % (36.0-47.0); HEMOGLOBIN 9.4 g/dl (12.0-15.5); MEAN CORPUSCULAR HEMOGLOBIN 31.2 pg (27.0-33.0); MEAN CORPUSCULAR HGB CONC 30.6 g/dl (32.0-36.5); PLATELET COUNT, AUTOMATED 148 10^3/uL (150-450); RED BLOOD COUNT 3.01 10^6/uL (4.00-5.40); WHITE BLOOD COUNT 6.3 10^3/uL (4.0-10.0)
[2022-05-12 07:12] LABS: ALBUMIN 2.9 GM/DL (3.2-5.2); ALT/SGPT < 6 U/L (12-78); BILIRUBIN,TOTAL 0.8 MG/DL (0.2-1.0); BLOOD UREA NITROGEN 14 MG/DL (7-18); CALCIUM LEVEL 8.7 MG/DL (8.8-10.2); CARBON DIOXIDE LEVEL 28 MEQ/L (21-32); CHLORIDE LEVEL 105 MEQ/L (98-107); CREATININE FOR GFR 2.24 MG/DL (0.55-1.30); GLOMERULAR FILTRATION RATE 22.5 (>39); GLUCOSE, FASTING 104 MG/DL (70-100); MAGNESIUM LEVEL 2.2 MG/DL (1.8-2.4); POTASSIUM SERUM 3.5 MEQ/L (3.5-5.1); SODIUM LEVEL 138 MEQ/L (136-145); TOTAL PROTEIN 6.1 GM/DL (6.4-8.2)
[2022-05-12] MEDS ORDERED: INSULIN LISPRO (NovoLOG) PER UNIT SC SCH (07:30)
[2022-05-12] MEDS: ceFAZolin SOD 1 GM in D5W MINI-BAG PLUS 50 ML IV SCH (08:36)
[2022-05-12] MEDS: CETIRIZINE (ZyrTEC) 10 MG TAB PO SCH (08:36)
[2022-05-12] MEDS: CitaloPRAM (CeleXA) 20 MG TAB PO SCH ×2 (08:37→08:50)
[2022-05-12] MEDS: MULTIVITAMINS/MINERALS THERAP 1 TAB PO SCH (08:37)
[2022-05-12] MEDS: GABAPENTIN 100 MG CAP PO SCH ×3 (08:37→20:15)
[2022-05-12] MEDS: METOPROLOL SUCC *XL* 25MG TAB (TopROL *XL*) PO SCH (08:37)
[2022-05-12] MEDS: APIXABAN 5 MG TAB (ELIQUIS) PO SCH ×2 (08:37→20:15)
[2022-05-12] MEDS ORDERED: SODIUM CHLORIDE 0.9% 1000ML IV PRN (11:55)
[2022-05-12] MEDS ORDERED: LIDOCAINE 1% SDV 5ML VIAL SC PRN (11:55)
[2022-05-12] MEDS: MIDODRINE 5 MG TAB PO SCH (12:47)
[2022-05-12] MEDS: [UNRECOGNIZED DRUG - REMARK] XX SCH (12:47)
[2022-05-12] MEDS: ACETAMINOPHEN TAB 650MG DOSE (2X325MG) PO PRN (17:26)
[2022-05-12] MEDS ORDERED: traZODone 50 MG TAB PO SCH (21:00)
[2022-05-13 02:29] VITALS: BP 125/63
[2022-05-13] MEDS: ACETAMINOPHEN TAB 650MG DOSE (2X325MG) PO PRN (02:33)
[2022-05-13 04:00] VITALS: BP 112/58
[2022-05-13 06:25] LABS: HEMATOCRIT 28.9 % (36.0-47.0); HEMOGLOBIN 9.1 g/dl (12.0-15.5); MEAN CORPUSCULAR HEMOGLOBIN 31.3 pg (27.0-33.0); MEAN CORPUSCULAR HGB CONC 31.5 g/dl (32.0-36.5); MEAN CORPUSCULAR VOLUME 99.3 fl (80.0-96.0); PLATELET COUNT, AUTOMATED 150 10^3/uL (150-450); RED BLOOD COUNT 2.91 10^6/uL (4.00-5.40); WHITE BLOOD COUNT 5.1 10^3/uL (4.0-10.0)
[2022-05-13 07:04] LABS: CALCIUM LEVEL 8.4 MG/DL (8.8-10.2); CREATININE FOR GFR 1.83 MG/DL (0.55-1.30); GLOMERULAR FILTRATION RATE 28.4 (>39); PHOSPHORUS LEVEL 2.7 MG/DL (2.5-4.9); POTASSIUM SERUM 3.7 MEQ/L (3.5-5.1)
[2022-05-13] MEDS: [UNRECOGNIZED DRUG - REMARK] XX SCH (07:30)
[2022-05-13] MEDS: MIDODRINE 5 MG TAB PO SCH (07:34)
[2022-05-13] MEDS: CETIRIZINE (ZyrTEC) 10 MG TAB PO SCH (09:00)
[2022-05-13] MEDS: CitaloPRAM (CeleXA) 20 MG TAB PO SCH (09:00)
[2022-05-13] MEDS: APIXABAN 5 MG TAB (ELIQUIS) PO SCH (09:00)
[2022-05-13] MEDS: ceFAZolin SOD 1 GM in D5W MINI-BAG PLUS 50 ML IV SCH (09:00)
[2022-05-13] MEDS: METOPROLOL SUCC *XL* 25MG TAB (TopROL *XL*) PO SCH (09:00)
[2022-05-13] MEDS: MULTIVITAMINS/MINERALS THERAP 1 TAB PO SCH (09:00)
[2022-05-13] MEDS: GABAPENTIN 100 MG CAP PO SCH (09:00)
[2022-05-14] MEDS ORDERED: ceFAZolin SOD 1 GM in D5W MINI-BAG PLUS 50 ML IV SCH (16:00)
== END 2022-05-13 11:50 | disposition home or self-care (01) | DRG 871 ==
LOC: M MSPAV 22:08 → INTOOBSV 22:08 → OBSVTOIN 22:08 → UNDOADMOB 22:08
PROVIDERS: ADMIT Internal Medicine Nephrology; ATTEND Internal Medicine
PROC: 5A1D70Z Performance of Urinary Filtration, Intermittent, Less than 6 Hours Per Day (ICD-10-PCS; principal; 2022-05-12)
DX: R78.81 Bacteremia (principal); N18.6 End stage renal disease; I13.2 Hypertensive heart and chronic kidney disease with heart failure and with stage 5 chronic kidney disease, or end stage renal disease; I50.32 Chronic diastolic (congestive) heart failure; I48.91 Unspecified atrial fibrillation; Z95.0 Presence of cardiac pacemaker; E11.22 Type 2 diabetes mellitus with diabetic chronic kidney disease; J44.9 Chronic obstructive pulmonary disease, unspecified; F41.9 Anxiety disorder, unspecified; Z79.01 Long term (current) use of anticoagulants; Z90.79 Acquired absence of other genital organ(s); Z90.49 Acquired absence of other specified parts of digestive tract; Z87.891 Personal history of nicotine dependence; B95.61 Methicillin susceptible Staphylococcus aureus infection as the cause of diseases classified elsewhere; L29.9 Pruritus, unspecified; Z99.2 Dependence on renal dialysis; D63.1 Anemia in chronic kidney disease; I27.20 Pulmonary hypertension, unspecified; Z79.899 Other long term (current) drug therapy; Z88.8 Allergy status to other drugs, medicaments and biological substances

== ENCOUNTER 2022-05-26 21:23 | Observation (INO) | payer OTHER, MEDICARE ==
[~2022-05-26] VITALS: Ht 157.5 cm; Wt 73.0 kg
[~2022-05-26 21:23] MED LIST changes: +TRAZ-186 PO
[2022-05-26] MEDS ORDERED: FUROSEMIDE 100MG/10ML VIAL (J1940) IV ONE (21:55)
[2022-05-26] MEDS ORDERED: NITROGLYCERIN 2% OINT 1 GM *U/D* PKT TOP ONE (21:55)
[2022-05-26 22:03] LABS: BASO % 0.6 % (0.0-1.0); EOS # 0.1 10^3/uL (0.0-0.5); EOS % 1.5 % (0.0-3.0); HEMOGLOBIN 9.5 g/dl (12.0-15.5); LYMPH # 0.5 10^3/uL (1.5-5.0); LYMPH % 7.3 % (24.0-44.0); MEAN CORPUSCULAR HEMOGLOBIN 30.5 pg (27.0-33.0); MEAN CORPUSCULAR HGB CONC 30.6 g/dl (32.0-36.5); MEAN CORPUSCULAR VOLUME 99.7 fl (80.0-96.0); MONO # 0.8 10^3/uL (0.0-0.8); MONO % 12.8 % (2.0-8.0); NEUTROPHILS % 77.2 % (36.0-66.0); PLATELET COUNT, AUTOMATED 152 10^3/uL (150-450); RED BLOOD COUNT 3.11 10^6/uL (4.00-5.40); WHITE BLOOD COUNT 6.5 10^3/uL (4.0-10.0)
[2022-05-26 22:04] LABS: VENOUS BASE EXCESS 2.4 (-2.0-2.0); VENOUS HCO3 28.4 MEQ/L (23.0-27.0); VENOUS O2 SATURATION 59.9 % (60.0-80.0); VENOUS PARTIAL PRESSURE CO2 50.2 mmHg (38.0-50.0); VENOUS PARTIAL PRESSURE O2 32.1 mmHg (30.0-50.0); VENOUS STANDARD HCO3 25.9 MEQ/L; VENOUS TOTAL CO2 29.9 MEQ/L (24.0-28.0)
[2022-05-26 22:17] LABS: INR 1.13; PROTHROMBIN TIME 14.9 SECONDS (12.7-14.5)
[2022-05-26 22:18] LABS: PARTIAL THROMBOPLASTIN TIME 36.5 SECONDS (25.9-37.0)
[2022-05-26 22:35] VITALS: BP 171/72
[2022-05-26 22:39] LABS: CK-MB VALUE MASS < 1.0 NG/ML (<3.6); CPK CREATINE PHOSPHOKINASE 24 U/L (26-192); MB/CK RELATIVE INDEX 4.17 (< OR =4)
[2022-05-26 22:59] LABS: ALBUMIN 3.1 GM/DL (3.2-5.2); ALT/SGPT < 6 U/L (12-78); BILIRUBIN,DIRECT 0.2 MG/DL (0.0-0.2); BILIRUBIN,TOTAL 0.5 MG/DL (0.2-1.0); BLOOD UREA NITROGEN 10 MG/DL (7-18); CALCIUM LEVEL 8.9 MG/DL (8.8-10.2); CARBON DIOXIDE LEVEL 30 MEQ/L (21-32); CHLORIDE LEVEL 99 MEQ/L (98-107); CREATININE FOR GFR 2.02 MG/DL (0.55-1.30); GLOMERULAR FILTRATION RATE 25.4 (>39); GLUCOSE, FASTING 153 MG/DL (70-100); NT-PRO BNP 3334 PG/ML (<450); POTASSIUM SERUM 2.9 MEQ/L (3.5-5.1); SODIUM LEVEL 136 MEQ/L (136-145); THYROXINE (T4) 9.6 UG/DL (4.5-12.0); TOTAL PROTEIN 6.9 GM/DL (6.4-8.2)
[2022-05-26] MEDS ORDERED: KCL 10MEQ/100ML SWI (KRUN) 10 MEQ in IV 1 EA IV ONE (23:05)
[2022-05-26 23:42] LABS: CK-MB VALUE MASS < 1.0 NG/ML (<3.6); CPK CREATINE PHOSPHOKINASE 25 U/L (26-192)
[2022-05-27] MEDS ORDERED: POTASSIUM CHLORIDE 10MEQ SR TABLET PO ONE
[2022-05-27] MEDS ORDERED: HOME MED LIST COMPLETE! XX SCH (00:25)
[2022-05-27] MEDS ORDERED: ALBUTEROL 90 MCG/ACT 8GM HFA INHALER INH PRN (02:00)
[2022-05-27] MEDS: IPRATROPIUM 0.5MG/ALBUTEROL 2.5MG INH SOL UD 3ML (DUONEB) NEB SCH ×4 (03:04→19:06)
[2022-05-27 08:06] LABS: HEMATOCRIT 29.6 % (36.0-47.0); HEMOGLOBIN 9.2 g/dl (12.0-15.5); MEAN CORPUSCULAR HGB CONC 31.1 g/dl (32.0-36.5); MEAN CORPUSCULAR VOLUME 99.7 fl (80.0-96.0); PLATELET COUNT, AUTOMATED 163 10^3/uL (150-450); RED BLOOD COUNT 2.97 10^6/uL (4.00-5.40); WHITE BLOOD COUNT 6.2 10^3/uL (4.0-10.0)
[2022-05-27 08:59] LABS: CALCIUM LEVEL 9.1 MG/DL (8.8-10.2); CREATININE FOR GFR 2.39 MG/DL (0.55-1.30); GLOMERULAR FILTRATION RATE 20.9 (>39); POTASSIUM SERUM 3.2 MEQ/L (3.5-5.1)
[2022-05-27] MEDS: GABAPENTIN 100 MG CAP PO SCH ×3 (09:00→21:11)
[2022-05-27] MEDS: APIXABAN 2.5 MG TAB (ELIQUIS) PO SCH ×2 (09:00→21:11)
[2022-05-27] MEDS ORDERED: SODIUM CHLORIDE 0.9% 1000ML IV PRN (11:10)
[2022-05-27 11:55] LABS: CK-MB VALUE MASS < 1.0 NG/ML (<3.6); CPK CREATINE PHOSPHOKINASE 33 U/L (26-192); MB/CK RELATIVE INDEX 3.03 (< OR =4)
[2022-05-27] MEDS: MIDODRINE 5 MG TAB PO SCH ×2 (12:23→18:19)
[2022-05-27] MEDS ORDERED: guaiFENesin SYRUP 200MG 10ML UDC PO PRN (14:50)
[2022-05-27 20:10] VITALS: BP 98/52
[2022-05-27] MEDS: traZODone 50 MG TAB PO PRN (21:11)
[2022-05-27] MEDS: IPRATROPIUM 0.5MG/ALBUTEROL 2.5MG INH SOL UD 3ML (DUONEB) NEB PRN (21:14)
[2022-05-28] VITALS (7 sets, daily range): BP systolic 88–152; BP diastolic 57–73
[2022-05-28] MEDS: IPRATROPIUM 0.5MG/ALBUTEROL 2.5MG INH SOL UD 3ML (DUONEB) NEB SCH ×4 (01:35→19:28)
[2022-05-28 05:49] LABS: HEMATOCRIT 29.2 % (36.0-47.0); HEMOGLOBIN 9.1 g/dl (12.0-15.5); MEAN CORPUSCULAR HGB CONC 31.2 g/dl (32.0-36.5); MEAN CORPUSCULAR VOLUME 99.3 fl (80.0-96.0); PLATELET COUNT, AUTOMATED 136 10^3/uL (150-450); RED BLOOD COUNT 2.94 10^6/uL (4.00-5.40); WHITE BLOOD COUNT 5.8 10^3/uL (4.0-10.0)
[2022-05-28] MEDS: ACETAMINOPHEN TAB 650MG DOSE (2X325MG) PO PRN (06:06)
[2022-05-28] MEDS: NYSTATIN 100,000 UNITS/GM TOPICAL PWD 15 GM TOP SCH ×2 (07:00→20:38)
[2022-05-28 07:03] LABS: CREATININE FOR GFR 3.4 MG/DL (0.55-1.30); GLOMERULAR FILTRATION RATE 13.9 (>39); POTASSIUM SERUM 3.3 MEQ/L (3.5-5.1)
[2022-05-28] MEDS ORDERED: POTASSIUM CHLORIDE 10MEQ SR TABLET PO ONE (08:00)
[2022-05-28] MEDS: APIXABAN 2.5 MG TAB (ELIQUIS) PO SCH ×2 (08:21→20:38)
[2022-05-28] MEDS: MIDODRINE 5 MG TAB PO SCH ×3 (08:21→16:31)
[2022-05-28] MEDS: GABAPENTIN 100 MG CAP PO SCH ×3 (08:21→20:38)
[2022-05-28 09:37] LABS: MAGNESIUM LEVEL 1.9 MG/DL (1.8-2.4)
[2022-05-28] MEDS: traZODone 50 MG TAB PO PRN (22:44)
[2022-05-28] MEDS: IPRATROPIUM 0.5MG/ALBUTEROL 2.5MG INH SOL UD 3ML (DUONEB) NEB PRN (23:17)
[2022-05-29] VITALS: BP 107/58
[2022-05-29] MEDS: IPRATROPIUM 0.5MG/ALBUTEROL 2.5MG INH SOL UD 3ML (DUONEB) NEB SCH ×4 (01:26→19:45)
[2022-05-29 04:00] VITALS: BP 134/64
[2022-05-29 07:44] LABS: HEMATOCRIT 29.4 % (36.0-47.0); HEMOGLOBIN 9.1 g/dl (12.0-15.5); MEAN CORPUSCULAR HEMOGLOBIN 30.5 pg (27.0-33.0); MEAN CORPUSCULAR VOLUME 98.7 fl (80.0-96.0); PLATELET COUNT, AUTOMATED 180 10^3/uL (150-450); RED BLOOD COUNT 2.98 10^6/uL (4.00-5.40); WHITE BLOOD COUNT 8.1 10^3/uL (4.0-10.0)
[2022-05-29 08:00] VITALS: BP 134/63
[2022-05-29] MEDS ORDERED: SODIUM CHLORIDE 0.9% 1000ML IV PRN (08:10)
[2022-05-29 08:19] LABS: CALCIUM LEVEL 9.3 MG/DL (8.8-10.2); CREATININE FOR GFR 4.45 MG/DL (0.55-1.30); GLOMERULAR FILTRATION RATE 10.2 (>39); POTASSIUM SERUM 4.5 MEQ/L (3.5-5.1)
[2022-05-29] MEDS: MIDODRINE 5 MG TAB PO SCH ×3 (08:58→15:37)
[2022-05-29] MEDS: GABAPENTIN 100 MG CAP PO SCH ×3 (08:58→21:16)
[2022-05-29] MEDS: NYSTATIN 100,000 UNITS/GM TOPICAL PWD 15 GM TOP SCH ×2 (08:59→21:42)
[2022-05-29] MEDS: APIXABAN 2.5 MG TAB (ELIQUIS) PO SCH ×2 (08:59→21:16)
[2022-05-29] MEDS ORDERED: DARBEPOETIN 100 MCG/0.5 ML *DIALYSIS* SYRINGE (J0882) IV SCH (11:15)
[2022-05-29 12:15] VITALS: BP 106/55
[2022-05-29] MEDS: ACETAMINOPHEN TAB 650MG DOSE (2X325MG) PO PRN ×2 (13:50→21:18)
[2022-05-29 20:00] VITALS: BP 142/82
[2022-05-29] MEDS: traZODone 50 MG TAB PO PRN (22:37)
[2022-05-30] MEDS: IPRATROPIUM 0.5MG/ALBUTEROL 2.5MG INH SOL UD 3ML (DUONEB) NEB SCH ×4 (00:02→20:08)
[2022-05-30 05:38] VITALS: BP 138/68
[2022-05-30] MEDS: GABAPENTIN 100 MG CAP PO SCH ×3 (05:45→20:50)
[2022-05-30] MEDS: APIXABAN 2.5 MG TAB (ELIQUIS) PO SCH ×2 (05:46→20:50)
[2022-05-30 06:31] LABS: HEMATOCRIT 31.1 % (36.0-47.0); HEMOGLOBIN 9.6 g/dl (12.0-15.5); MEAN CORPUSCULAR HEMOGLOBIN 30.5 pg (27.0-33.0); MEAN CORPUSCULAR HGB CONC 30.9 g/dl (32.0-36.5); MEAN CORPUSCULAR VOLUME 98.7 fl (80.0-96.0); PLATELET COUNT, AUTOMATED 143 10^3/uL (150-450); RED BLOOD COUNT 3.15 10^6/uL (4.00-5.40); WHITE BLOOD COUNT 7.4 10^3/uL (4.0-10.0)
[2022-05-30 07:07] LABS: CALCIUM LEVEL 9.4 MG/DL (8.8-10.2); CREATININE FOR GFR 3.16 MG/DL (0.55-1.30); GLOMERULAR FILTRATION RATE 15.1 (>39); POTASSIUM SERUM 4.2 MEQ/L (3.5-5.1)
[2022-05-30] MEDS: MIDODRINE 5 MG TAB PO SCH ×3 (09:11→16:05)
[2022-05-30] MEDS: NYSTATIN 100,000 UNITS/GM TOPICAL PWD 15 GM TOP SCH ×2 (12:27→20:51)
[2022-05-30] MEDS: ACETAMINOPHEN TAB 650MG DOSE (2X325MG) PO PRN ×2 (13:21→17:54)
[2022-05-30] MEDS: guaiFENesin ER 600 MG TAB PO SCH ×2 (13:47→20:50)
[2022-05-30] MEDS: predniSONE 20 MG TAB PO SCH (13:47)
[2022-05-30 14:00] VITALS: BP 119/60
[2022-05-30 20:32] VITALS: BP 129/64
[2022-05-30] MEDS: traZODone 50 MG TAB PO PRN (22:09)
[2022-05-31] MEDS: IPRATROPIUM 0.5MG/ALBUTEROL 2.5MG INH SOL UD 3ML (DUONEB) NEB SCH ×4 (01:32→19:42)
[2022-05-31 05:33] VITALS: BP 111/55
[2022-05-31 05:47] LABS: HEMATOCRIT 32.4 % (36.0-47.0); HEMOGLOBIN 10.2 g/dl (12.0-15.5); MEAN CORPUSCULAR HEMOGLOBIN 31.1 pg (27.0-33.0); MEAN CORPUSCULAR HGB CONC 31.5 g/dl (32.0-36.5); MEAN CORPUSCULAR VOLUME 98.8 fl (80.0-96.0); PLATELET COUNT, AUTOMATED 219 10^3/uL (150-450); RED BLOOD COUNT 3.28 10^6/uL (4.00-5.40); WHITE BLOOD COUNT 7.6 10^3/uL (4.0-10.0)
[2022-05-31] MEDS ORDERED: SODIUM CHLORIDE 0.9% 1000ML IV PRN (06:15)
[2022-05-31] MEDS: APIXABAN 2.5 MG TAB (ELIQUIS) PO SCH ×2 (06:24→21:48)
[2022-05-31] MEDS: predniSONE 20 MG TAB PO SCH (06:24)
[2022-05-31] MEDS: GABAPENTIN 100 MG CAP PO SCH ×3 (06:24→21:48)
[2022-05-31] MEDS: MIDODRINE 5 MG TAB PO SCH ×3 (06:24→16:23)
[2022-05-31] MEDS: guaiFENesin ER 600 MG TAB PO SCH ×2 (06:25→21:48)
[2022-05-31 06:39] LABS: CALCIUM LEVEL 9.7 MG/DL (8.8-10.2); CREATININE FOR GFR 4.12 MG/DL (0.55-1.30); GLOMERULAR FILTRATION RATE 11.1 (>39); POTASSIUM SERUM 5.4 MEQ/L (3.5-5.1)
[2022-05-31] MEDS: NYSTATIN 100,000 UNITS/GM TOPICAL PWD 15 GM TOP SCH ×2 (12:11→21:49)
[2022-05-31] MEDS: ACETAMINOPHEN TAB 650MG DOSE (2X325MG) PO PRN ×2 (12:11→21:49)
[2022-05-31] MEDS: diphenhydrAMINE 25MG CAP PO PRN ×2 (12:48→19:37)
[2022-05-31 14:00] VITALS: BP 110/47
[2022-05-31 16:00] VITALS: BP 139/69
[2022-05-31 19:37] VITALS: BP 110/56
[2022-05-31] MEDS: traZODone 50 MG TAB PO PRN (21:48)
[2022-06-01] MEDS: IPRATROPIUM 0.5MG/ALBUTEROL 2.5MG INH SOL UD 3ML (DUONEB) NEB SCH ×6 (01:43→23:32)
[2022-06-01] MEDS: ACETAMINOPHEN TAB 650MG DOSE (2X325MG) PO PRN ×2 (05:06→20:55)
[2022-06-01 05:07] VITALS: BP 106/64
[2022-06-01 06:07] LABS: BASO # 0.1 10^3/uL (0.0-0.2); BASO % 0.5 % (0.0-1.0); EOS # 0.1 10^3/uL (0.0-0.5); HEMATOCRIT 31.6 % (36.0-47.0); HEMOGLOBIN 9.8 g/dl (12.0-15.5); LYMPH # 1.1 10^3/uL (1.5-5.0); LYMPH % 10.6 % (24.0-44.0); MONO # 1.5 10^3/uL (0.0-0.8); MONO % 14.5 % (2.0-8.0); NEUTROPHILS # 7.3 10^3/uL (1.5-8.5); NEUTROPHILS % 72.4 % (36.0-66.0); PLATELET COUNT, AUTOMATED 190 10^3/uL (150-450); RED BLOOD COUNT 3.16 10^6/uL (4.00-5.40); WHITE BLOOD COUNT 10.1 10^3/uL (4.0-10.0)
[2022-06-01 06:47] LABS: CALCIUM LEVEL 9.5 MG/DL (8.8-10.2); CREATININE FOR GFR 3.58 MG/DL (0.55-1.30); GLOMERULAR FILTRATION RATE 13.1 (>39)
[2022-06-01] MEDS: BUDESONIDE 0.25 MG/2 ML INHALATION SUSPENSION INH SCH ×2 (08:00→20:35)
[2022-06-01] MEDS: guaiFENesin ER 600 MG TAB PO SCH ×2 (08:28→20:55)
[2022-06-01] MEDS: MIDODRINE 5 MG TAB PO SCH ×3 (08:28→15:50)
[2022-06-01] MEDS: predniSONE 20 MG TAB PO SCH (08:28)
[2022-06-01] MEDS: APIXABAN 2.5 MG TAB (ELIQUIS) PO SCH ×2 (08:28→20:55)
[2022-06-01] MEDS: diphenhydrAMINE 25MG CAP PO PRN ×2 (08:29→20:54)
[2022-06-01] MEDS: GABAPENTIN 100 MG CAP PO SCH ×3 (08:29→20:55)
[2022-06-01] MEDS: NYSTATIN 100,000 UNITS/GM TOPICAL PWD 15 GM TOP SCH ×2 (08:30→20:56)
[2022-06-01] MEDS: DOXYCYCLINE HYCLATE 100MG TABLET PO SCH ×2 (12:30→20:55)
[2022-06-01 14:00] VITALS: BP 100/64
[2022-06-01 15:45] VITALS: BP 124/68
[2022-06-01] MEDS: traZODone 50 MG TAB PO PRN (20:55)
[2022-06-01 20:57] VITALS: BP 100/52
[2022-06-02] MEDS: IPRATROPIUM 0.5MG/ALBUTEROL 2.5MG INH SOL UD 3ML (DUONEB) NEB SCH ×4 (04:12→15:06)
[2022-06-02 06:11] VITALS: BP 120/60
[2022-06-02] MEDS: DOXYCYCLINE HYCLATE 100MG TABLET PO SCH (06:12)
[2022-06-02] MEDS: MIDODRINE 5 MG TAB PO SCH ×3 (06:12→17:32)
[2022-06-02] MEDS: APIXABAN 2.5 MG TAB (ELIQUIS) PO SCH (06:12)
[2022-06-02] MEDS: predniSONE 20 MG TAB PO SCH (06:12)
[2022-06-02] MEDS: guaiFENesin ER 600 MG TAB PO SCH (06:12)
[2022-06-02] MEDS: ACETAMINOPHEN TAB 650MG DOSE (2X325MG) PO PRN ×2 (06:13→17:33)
[2022-06-02] MEDS: diphenhydrAMINE 25MG CAP PO PRN ×2 (06:13→17:32)
[2022-06-02] MEDS: NYSTATIN 100,000 UNITS/GM TOPICAL PWD 15 GM TOP SCH (06:14)
[2022-06-02] MEDS: GABAPENTIN 100 MG CAP PO SCH ×2 (06:17→17:32)
[2022-06-02] MEDS ORDERED: SODIUM CHLORIDE 0.9% 1000ML IV PRN (06:45)
[2022-06-02] MEDS: BUDESONIDE 0.25 MG/2 ML INHALATION SUSPENSION INH SCH (07:06)
[2022-06-02 07:31] LABS: CREATININE FOR GFR 4.2 MG/DL (0.55-1.30); GLOMERULAR FILTRATION RATE 10.9 (>39); POTASSIUM SERUM 4.2 MEQ/L (3.5-5.1)
[2022-06-02] MEDS ORDERED: MIDO5TA PO (12:18)
[2022-06-02] MEDS ORDERED: PRED20TA PO ×2 (12:18→12:21)
[2022-06-02] MEDS ORDERED: VENTAER INH (12:18)
[2022-06-02] MEDS ORDERED: DOXY100T PO (12:18)
[2022-06-02] MEDS ORDERED: AMOX875T2 PO (12:21)
[2022-06-02] MEDS ORDERED: IPRA0.00 INH (12:21)
== END 2022-06-02 18:10 | disposition home or self-care (01) ==
LOC: M ED 21:23 → M ED INP 21:24 → ENRESERV 05-27 18:25 → M PCU 05-27 20:09 → M MSPAV 05-29 15:50
PROVIDERS: ADMIT Internal Medicine; ATTEND Internal Medicine
DX: E87.70 Fluid overload, unspecified (principal); I50.9 Heart failure, unspecified; I27.20 Pulmonary hypertension, unspecified; I12.0 Hypertensive chronic kidney disease with stage 5 chronic kidney disease or end stage renal disease; N18.6 End stage renal disease; J44.1 Chronic obstructive pulmonary disease with (acute) exacerbation; I48.91 Unspecified atrial fibrillation; B34.8 Other viral infections of unspecified site; E11.9 Type 2 diabetes mellitus without complications; F32.A Depression, unspecified; F41.9 Anxiety disorder, unspecified; G90.09 Other idiopathic peripheral autonomic neuropathy; Z95.0 Presence of cardiac pacemaker; Z79.899 Other long term (current) drug therapy; Z79.52 Long term (current) use of systemic steroids; Z79.01 Long term (current) use of anticoagulants; Z88.8 Allergy status to other drugs, medicaments and biological substances
CPT/HCPCS: 36415; 71045; 80048; 80076; 82550; 82553; 82803; 83605; 83735; 83880; 84436; 84443; 84484; 85025; 85027; 85610; 85730; 87040; 87486; 87581; 87633; 87798; 93005; 93041; 94640; 94760; 96374; 96375; 97110; 97116; 97161; 97165; 99285; J0882; J1940; J7512

== ENCOUNTER 2022-06-11 16:23 | Inpatient (IN) | payer OTHER, MEDICARE ==
[~2022-06-11] VITALS: Ht 157.5 cm; Wt 66.3 kg
[~2022-06-11 16:23] MED LIST changes: +AMOX875T2 PO; +DOXY100T PO; +IPRA0.00 INH; +PRED20TA PO
[2022-06-11] MEDS ORDERED: MORPHINE 2 MG/ML 1ML VIAL IV PRN (17:05)
[2022-06-11] MEDS ORDERED: LIDOCAINE 5% (LIDODERM) PATCH TD ONE ×2 (17:20→22:00)
[2022-06-11 17:26] LABS: VENOUS BASE EXCESS 1.3 (-2.0-2.0); VENOUS HCO3 27.2 MEQ/L (23.0-27.0); VENOUS O2 SATURATION 45.6 % (60.0-80.0); VENOUS PARTIAL PRESSURE CO2 48.8 mmHg (38.0-50.0); VENOUS PARTIAL PRESSURE O2 25.8 mmHg (30.0-50.0); VENOUS PH 7.364 UNITS (7.330-7.430); VENOUS STANDARD HCO3 24.6 MEQ/L; VENOUS TOTAL CO2 28.7 MEQ/L (24.0-28.0)
[2022-06-11 17:32] LABS: BASO % 0.5 % (0.0-1.0); EOS # 0.1 10^3/uL (0.0-0.5); EOS % 1.5 % (0.0-3.0); HEMATOCRIT 34.4 % (36.0-47.0); HEMOGLOBIN 10.6 g/dl (12.0-15.5); LYMPH # 0.6 10^3/uL (1.5-5.0); LYMPH % 10.7 % (24.0-44.0); MEAN CORPUSCULAR HEMOGLOBIN 30.5 pg (27.0-33.0); MEAN CORPUSCULAR HGB CONC 30.8 g/dl (32.0-36.5); MEAN CORPUSCULAR VOLUME 98.9 fl (80.0-96.0); MONO # 0.8 10^3/uL (0.0-0.8); MONO % 12.8 % (2.0-8.0); NEUTROPHILS # 4.5 10^3/uL (1.5-8.5); NEUTROPHILS % 74.2 % (36.0-66.0); PLATELET COUNT, AUTOMATED 160 10^3/uL (150-450); RED BLOOD COUNT 3.48 10^6/uL (4.00-5.40)
[2022-06-11 18:10] LABS: CALCIUM LEVEL 9.2 MG/DL (8.8-10.2); CREATININE FOR GFR 2.02 MG/DL (0.55-1.30); GLOMERULAR FILTRATION RATE 25.4 (>39)
[2022-06-11 18:30] LABS: CK-MB VALUE MASS < 1.0 NG/ML (<3.6); CPK CREATINE PHOSPHOKINASE 64 U/L (26-192); MB/CK RELATIVE INDEX 1.56 (< OR =4)
[2022-06-11] MEDS ORDERED: FUROSEMIDE 40MG/4ML VIAL (J1940) IV ONE (19:25)
[2022-06-11] MEDS ORDERED: NITROGLYCERIN 2% OINT 1 GM *U/D* PKT TOP ONE (19:25)
[2022-06-11 19:51] VITALS: BP 118/57
[2022-06-11] MEDS ORDERED: MOM 30ML SUSPENSION UDC PO PRN (21:25)
[2022-06-11] MEDS ORDERED: ACETAMINOPHEN TAB 650MG DOSE (2X325MG) PO PRN (21:25)
[2022-06-11] MEDS ORDERED: ALBUTEROL 90 MCG/ACT 8GM HFA INHALER INH PRN (21:45)
[2022-06-11 22:08] LABS: RSV AMPLIFICATION NEGATIVE (NEGATIVE)
[2022-06-11] MEDS ORDERED: CYCL-707 PO (22:16)
[2022-06-11] MEDS ORDERED: ACET-683 PO (22:16)
[2022-06-11] MEDS ORDERED: TRAM50TA2 PO (22:16)
[2022-06-11] MEDS ORDERED: HOME MED LIST COMPLETE! XX SCH (22:20)
[2022-06-11] MEDS: APIXABAN 2.5 MG TAB (ELIQUIS) PO SCH (22:50)
[2022-06-11] MEDS: traZODone 50 MG TAB PO SCH (22:50)
[2022-06-11] MEDS: GABAPENTIN 100 MG CAP PO SCH (22:50)
[2022-06-11 23:30] VITALS: BP 126/70
[2022-06-12] MEDS: traMADol 50 MG TAB PO PRN ×4 (00:26→20:04)
[2022-06-12 06:00] VITALS: BP 109/59
[2022-06-12] MEDS ORDERED: **NOTE PATIENT COMMENT** MISC XX ONE (06:00)
[2022-06-12] MEDS ORDERED: HEPARIN SOD (PORCINE) 5000UNITS/ML 1ML VIAL/SYRINGE SC SCH (06:00)
[2022-06-12 06:47] LABS: HEMATOCRIT 33.3 % (36.0-47.0); HEMOGLOBIN 10.1 g/dl (12.0-15.5); MEAN CORPUSCULAR HEMOGLOBIN 30.4 pg (27.0-33.0); MEAN CORPUSCULAR HGB CONC 30.3 g/dl (32.0-36.5); MEAN CORPUSCULAR VOLUME 100.3 fl (80.0-96.0); PLATELET COUNT, AUTOMATED 183 10^3/uL (150-450); RED BLOOD COUNT 3.32 10^6/uL (4.00-5.40); WHITE BLOOD COUNT 5.5 10^3/uL (4.0-10.0)
[2022-06-12] MEDS: MIDODRINE 5 MG TAB PO SCH ×3 (06:51→16:32)
[2022-06-12] MEDS: APIXABAN 2.5 MG TAB (ELIQUIS) PO SCH ×2 (06:52→20:04)
[2022-06-12] MEDS: GABAPENTIN 100 MG CAP PO SCH ×3 (06:52→20:04)
[2022-06-12 07:30] LABS: ALBUMIN 3.2 GM/DL (3.2-5.2); BILIRUBIN,TOTAL 1.2 MG/DL (0.2-1.0); CALCIUM LEVEL 9.1 MG/DL (8.8-10.2); CREATININE FOR GFR 2.38 MG/DL (0.55-1.30); POTASSIUM SERUM 4.1 MEQ/L (3.5-5.1); TOTAL PROTEIN 6.8 GM/DL (6.4-8.2)
[2022-06-12] MEDS: CYCLOBENZAPRINE 10MG TABLET PO PRN ×2 (07:44→16:32)
[2022-06-12] MEDS ORDERED: METOPROLOL SUCC *XL* 12.5MG PER 1/2 TAB (TopROL *XL*) PO SCH (09:00)
[2022-06-12] MEDS: DOCUSATE SODIUM 100MG CAPSULE PO SCH ×2 (09:00→20:02)
[2022-06-12 09:05] LABS: CPK CREATINE PHOSPHOKINASE 18 U/L (26-192)
[2022-06-12 14:00] VITALS: BP 103/55
[2022-06-12] MEDS: traZODone 50 MG TAB PO SCH (20:02)
[2022-06-12] MEDS ORDERED: **NOTE PATIENT COMMENT** MISC XX SCH (21:00)
[2022-06-12 22:00] VITALS: BP 102/55
[2022-06-13 06:00] VITALS: BP 105/56
[2022-06-13 06:08] LABS: HEMATOCRIT 31.2 % (36.0-47.0); HEMOGLOBIN 9.7 g/dl (12.0-15.5); MEAN CORPUSCULAR HEMOGLOBIN 30.5 pg (27.0-33.0); MEAN CORPUSCULAR HGB CONC 31.1 g/dl (32.0-36.5); MEAN CORPUSCULAR VOLUME 98.1 fl (80.0-96.0); PLATELET COUNT, AUTOMATED 145 10^3/uL (150-450); RED BLOOD COUNT 3.18 10^6/uL (4.00-5.40)
[2022-06-13 06:50] LABS: ALBUMIN 2.9 GM/DL (3.2-5.2); BILIRUBIN,TOTAL 0.7 MG/DL (0.2-1.0); CALCIUM LEVEL 8.6 MG/DL (8.8-10.2); CREATININE FOR GFR 2.77 MG/DL (0.55-1.30); GLOMERULAR FILTRATION RATE 17.6 (>39); TOTAL PROTEIN 6.2 GM/DL (6.4-8.2)
[2022-06-13] MEDS ORDERED: SODIUM CHLORIDE 0.9% 1000ML IV PRN (07:05)
[2022-06-13] MEDS: GABAPENTIN 100 MG CAP PO SCH ×3 (07:47→20:07)
[2022-06-13] MEDS: MIDODRINE 5 MG TAB PO SCH ×3 (07:47→15:09)
[2022-06-13] MEDS: APIXABAN 2.5 MG TAB (ELIQUIS) PO SCH ×2 (07:47→20:07)
[2022-06-13] MEDS: DOCUSATE SODIUM 100MG CAPSULE PO SCH ×2 (07:47→20:07)
[2022-06-13] MEDS: traMADol 50 MG TAB PO PRN ×2 (09:37→20:09)
[2022-06-13] MEDS: LIDOCAINE 5% (LIDODERM) PATCH TD SCH (15:09)
[2022-06-13 15:14] VITALS: BP 88/52
[2022-06-13 18:00] VITALS: BP 105/60
[2022-06-13] MEDS: traZODone 50 MG TAB PO SCH (20:07)
[2022-06-13] MEDS ORDERED: **NOTE PATIENT COMMENT** MISC XX SCH (21:00)
[2022-06-13 22:00] VITALS: BP 111/63
[2022-06-14 06:00] VITALS: BP 106/55
[2022-06-14 06:34] LABS: BASO # 0.1 10^3/uL (0.0-0.2); BASO % 1.5 % (0.0-1.0); EOS # 0.2 10^3/uL (0.0-0.5); EOS % 4.2 % (0.0-3.0); HEMOGLOBIN 9.8 g/dl (12.0-15.5); LYMPH # 0.9 10^3/uL (1.5-5.0); LYMPH % 18.4 % (24.0-44.0); MEAN CORPUSCULAR HEMOGLOBIN 31.1 pg (27.0-33.0); MEAN CORPUSCULAR HGB CONC 31.6 g/dl (32.0-36.5); MEAN CORPUSCULAR VOLUME 98.4 fl (80.0-96.0); MONO # 0.9 10^3/uL (0.0-0.8); MONO % 19.3 % (2.0-8.0); NEUTROPHILS # 2.7 10^3/uL (1.5-8.5); NEUTROPHILS % 56.2 % (36.0-66.0); PLATELET COUNT, AUTOMATED 130 10^3/uL (150-450); RED BLOOD COUNT 3.15 10^6/uL (4.00-5.40); WHITE BLOOD COUNT 4.8 10^3/uL (4.0-10.0)
[2022-06-14 07:02] LABS: ALBUMIN 2.9 GM/DL (3.2-5.2); ALT/SGPT 8 U/L (12-78); BILIRUBIN,TOTAL 0.8 MG/DL (0.2-1.0); BLOOD UREA NITROGEN 10 MG/DL (7-18); CALCIUM LEVEL 8.9 MG/DL (8.8-10.2); CARBON DIOXIDE LEVEL 25 MEQ/L (21-32); CHLORIDE LEVEL 104 MEQ/L (98-107); CREATININE FOR GFR 2.08 MG/DL (0.55-1.30); GLOMERULAR FILTRATION RATE 24.5 (>39); GLUCOSE, FASTING 86 MG/DL (70-100); MAGNESIUM LEVEL 1.7 MG/DL (1.8-2.4); POTASSIUM SERUM 4.2 MEQ/L (3.5-5.1); SODIUM LEVEL 134 MEQ/L (136-145); TOTAL PROTEIN 6.2 GM/DL (6.4-8.2)
[2022-06-14] MEDS ORDERED: MAGNESIUM OXIDE 400MG TAB (MAG-OX) PO ONE (08:15)
[2022-06-14] MEDS: LIDOCAINE 5% (LIDODERM) PATCH TD SCH (09:25)
[2022-06-14] MEDS: MIDODRINE 5 MG TAB PO SCH ×2 (09:26→12:14)
[2022-06-14] MEDS: APIXABAN 2.5 MG TAB (ELIQUIS) PO SCH (09:26)
[2022-06-14] MEDS: DOCUSATE SODIUM 100MG CAPSULE PO SCH (09:26)
[2022-06-14] MEDS: GABAPENTIN 100 MG CAP PO SCH (09:26)
[2022-06-14 10:25] LABS: HEPATITIS B SURFACE ANTIGEN NEGATIVE (NEGATIVE)
[2022-06-14 13:36] LABS: HEMATOCRIT 33.5 % (36.0-47.0); HEMOGLOBIN 10.1 g/dl (12.0-15.5); MEAN CORPUSCULAR HEMOGLOBIN 30.6 pg (27.0-33.0); MEAN CORPUSCULAR HGB CONC 30.1 g/dl (32.0-36.5); MEAN CORPUSCULAR VOLUME 101.5 fl (80.0-96.0); PLATELET COUNT, AUTOMATED 145 10^3/uL (150-450); WHITE BLOOD COUNT 5.7 10^3/uL (4.0-10.0)
[2022-06-14 14:05] VITALS: BP 108/72
== END 2022-06-14 15:33 | disposition home or self-care (01) | DRG 551 ==
LOC: M ED 16:23 → M ED INP 21:25 → ENRESERV 21:51 → M MSPAV 23:30
PROVIDERS: ADMIT Family Medicine; ATTEND Family Medicine
PROC: 5A1D70Z Performance of Urinary Filtration, Intermittent, Less than 6 Hours Per Day (ICD-10-PCS; principal; 2022-06-13)
DX: S22.030A Wedge compression fracture of third thoracic vertebra, initial encounter for closed fracture (principal); N18.6 End stage renal disease; I50.33 Acute on chronic diastolic (congestive) heart failure; I13.2 Hypertensive heart and chronic kidney disease with heart failure and with stage 5 chronic kidney disease, or end stage renal disease; S22.040A Wedge compression fracture of fourth thoracic vertebra, initial encounter for closed fracture; Z95.0 Presence of cardiac pacemaker; Z99.2 Dependence on renal dialysis; J44.9 Chronic obstructive pulmonary disease, unspecified; I48.91 Unspecified atrial fibrillation; F41.9 Anxiety disorder, unspecified; F32.A Depression, unspecified; Z90.79 Acquired absence of other genital organ(s); Z90.49 Acquired absence of other specified parts of digestive tract; Z87.891 Personal history of nicotine dependence; L29.9 Pruritus, unspecified; Z79.2 Long term (current) use of antibiotics; Z79.52 Long term (current) use of systemic steroids; Z79.01 Long term (current) use of anticoagulants; Z79.899 Other long term (current) drug therapy; Z88.8 Allergy status to other drugs, medicaments and biological substances; I95.89 Other hypotension; Z20.822 Contact with and (suspected) exposure to COVID-19; X58.XXXA Exposure to other specified factors, initial encounter; Y92.9 Unspecified place or not applicable; D64.9 Anemia, unspecified; E87.70 Fluid overload, unspecified; M19.90 Unspecified osteoarthritis, unspecified site; E11.22 Type 2 diabetes mellitus with diabetic chronic kidney disease

== ENCOUNTER 2022-06-28 10:38 | Emergency (ER) | payer MEDICARE, OTHER ==
[~2022-06-28] VITALS: Ht 157.5 cm; Wt 59.5 kg
[~2022-06-28 10:38] MED LIST changes: +ACET-683 PO; +CYCL-707 PO; +TRAM50TA2 PO
[2022-06-28] MEDS ORDERED: SPIR-10 (10:59)
[2022-06-28] MEDS ORDERED: TORS20TA2 (10:59)
[2022-06-28] MEDS ORDERED: METO1TAB32 PO (10:59)
[2022-06-28] MEDS ORDERED: traMADol 50 MG TAB PO ONE (14:25)
[2022-06-28] MEDS ORDERED: LIDOCAINE 5% (LIDODERM) PATCH TD ONE (14:30)
[2022-06-28 14:35] LABS: HEMATOCRIT 47.8 % (36.0-47.0); HEMOGLOBIN 14.3 g/dl (12.0-15.5); MEAN CORPUSCULAR HEMOGLOBIN 29.7 pg (27.0-33.0); MEAN CORPUSCULAR HGB CONC 29.9 g/dl (32.0-36.5); MEAN CORPUSCULAR VOLUME 99.4 fl (80.0-96.0); PLATELET COUNT, AUTOMATED 235 10^3/uL (150-450); RED BLOOD COUNT 4.81 10^6/uL (4.00-5.40); WHITE BLOOD COUNT 8.8 10^3/uL (4.0-10.0)
[2022-06-28 15:33] VITALS: BP 118/58
[2022-06-28] MEDS ORDERED: LIDO1ADH10 TP (15:52)
[2022-06-28 15:56] LABS: CALCIUM LEVEL 10.2 MG/DL (8.8-10.2); CREATININE FOR GFR 2.5 MG/DL (0.55-1.30); GLOMERULAR FILTRATION RATE 19.8 (>39); POTASSIUM SERUM 3.6 MEQ/L (3.5-5.1)
== END 2022-06-28 16:10 | disposition home or self-care (01) ==
LOC: M ED 10:38
DX: S22.32XA Fracture of one rib, left side, initial encounter for closed fracture (principal); S22.41XA Multiple fractures of ribs, right side, initial encounter for closed fracture; M51.34 Other intervertebral disc degeneration, thoracic region; R91.8 Other nonspecific abnormal finding of lung field; N28.1 Cyst of kidney, acquired; Z95.0 Presence of cardiac pacemaker; Z95.828 Presence of other vascular implants and grafts; W19.XXXA Unspecified fall, initial encounter; Y92.099 Unspecified place in other non-institutional residence as the place of occurrence of the external cause; I50.9 Heart failure, unspecified; J44.9 Chronic obstructive pulmonary disease, unspecified; I48.91 Unspecified atrial fibrillation; J45.909 Unspecified asthma, uncomplicated; N18.6 End stage renal disease; Z79.01 Long term (current) use of anticoagulants; Z79.899 Other long term (current) drug therapy; Z88.8 Allergy status to other drugs, medicaments and biological substances

== ENCOUNTER 2022-08-09 11:40 | Inpatient (IN) | payer MEDICARE, OTHER ==
[~2022-08-09] VITALS: Ht 157.5 cm; Wt 58.1 kg
[~2022-08-09 11:40] MED LIST changes: +LIDO1ADH10 TP; +METO1TAB32 PO; +SPIR-10; +TORS20TA2
[2022-08-09] MEDS ORDERED: traZODone 100 MG TAB PO PRN (14:40)
[2022-08-09] MEDS ORDERED: ALBUTEROL 90 MCG/ACT 8GM HFA INHALER INH PRN (14:40)
[2022-08-09] MEDS ORDERED: ONDANSETRON 4MG ORAL DISINTEGRATING TAB PO PRN (14:50)
[2022-08-09 16:00] VITALS: BP 106/54
[2022-08-09] MEDS ORDERED: ASPI81TA26 PO (16:48)
[2022-08-09] MEDS ORDERED: MIDO10TA PO ×2 (16:50→17:59)
[2022-08-09] MEDS ORDERED: ACET1TAB55 PO (16:51)
[2022-08-09] MEDS ORDERED: TIOT18INH INH (17:04)
[2022-08-09] MEDS ORDERED: METO25TA4 PO (17:04)
[2022-08-09] MEDS ORDERED: METO37.5 PO (17:04)
[2022-08-09] MEDS ORDERED: SENN-85 PO (17:05)
[2022-08-09] MEDS ORDERED: MIRA3350 PO (17:13)
[2022-08-09] MEDS ORDERED: MYRB50TA PO (17:13)
[2022-08-09] MEDS ORDERED: CHRO1000 PO (17:13)
[2022-08-09] MEDS ORDERED: CALC500T52 PO (17:13)
[2022-08-09] MEDS ORDERED: CELE20TA PO (17:13)
[2022-08-09] MEDS ORDERED: SYMB80INH INH (17:13)
[2022-08-09] MEDS ORDERED: OXYC-517 PO (17:13)
[2022-08-09] MEDS ORDERED: BISA10SU4 PR (17:13)
[2022-08-09] MEDS ORDERED: MELA3TAB30 PO (17:13)
[2022-08-09] MEDS ORDERED: POTA1TAB24 PO (17:16)
[2022-08-09] MEDS ORDERED: ONDA-83 PO (17:16)
[2022-08-09] MEDS ORDERED: HOME MED LIST COMPLETE! XX SCH (17:20)
[2022-08-09] MEDS: ACETAMINOPHEN 500 MG TAB PO SCH ×2 (17:23→20:44)
[2022-08-09] MEDS: REMEDY PHYTOPLEX Z-GUARD PASTE 113GM TUBE (FROM STOREROOM PRODUCT) TOP SCH ×2 (17:24→20:45)
[2022-08-09] MEDS ORDERED: MIDO5TA PO (17:41)
[2022-08-09] MEDS ORDERED: HEPARIN SC (17:59)
[2022-08-09] MEDS ORDERED: PANT-23 PO (17:59)
[2022-08-09] MEDS ORDERED: LORA-674 PO (18:01)
[2022-08-09] MEDS ORDERED: TRAZ-257 PO (18:05)
[2022-08-09] MEDS ORDERED: [UNRECOGNIZED DRUG - CODE] SC (18:05)
[2022-08-09 19:19] VITALS: BP 119/60
[2022-08-09] MEDS: DOCUSATE SODIUM 100MG CAPSULE PO SCH (20:39)
[2022-08-09] MEDS: SENNA 8.6 MG TAB (SENOKOT) PO SCH (20:40)
[2022-08-09] MEDS: ASPIRIN 81MG ENTERIC TABLET PO SCH (20:45)
[2022-08-09] MEDS: MONTELUKAST 10 MG TAB PO SCH (20:45)
[2022-08-09] MEDS: METOPROLOL TART 12.5 MG PER 1/2 TAB PO SCH (20:45)
[2022-08-09] MEDS: COMBIVENT RESPIMAT 100-20MCG INHALER 4GM INH SCH (20:52)
[2022-08-09] MEDS: FLUTICASONE HFA 110MCG 12GM INHALER (FLOVENT) INH SCH (20:52)
[2022-08-10] MEDS: oxyCODONE 5MG TAB PO PRN ×2 (00:48→09:50)
[2022-08-10 04:54] VITALS: BP 112/61
[2022-08-10] MEDS ORDERED: MIDODRINE 5 MG TAB PO SCH (08:00)
[2022-08-10 08:05] LABS: BASO # 0.1 10^3/uL (0.0-0.2); BASO % 0.8 % (0.0-1.0); EOS # 0.2 10^3/uL (0.0-0.5); HEMATOCRIT 29.4 % (36.0-47.0); HEMOGLOBIN 9.1 g/dl (12.0-15.5); LYMPH # 0.8 10^3/uL (1.5-5.0); MEAN CORPUSCULAR HEMOGLOBIN 31.3 pg (27.0-33.0); MONO % 11.9 % (2.0-8.0); NEUTROPHILS # 6.4 10^3/uL (1.5-8.5); NEUTROPHILS % 74.8 % (36.0-66.0); PLATELET COUNT, AUTOMATED 262 10^3/uL (150-450); RED BLOOD COUNT 2.91 10^6/uL (4.00-5.40); WHITE BLOOD COUNT 8.6 10^3/uL (4.0-10.0)
[2022-08-10 08:58] LABS: ALBUMIN 2.3 G/DL (3.2-5.2); ALKALINE PHOSPHATASE 184 U/L (46-116); ALT/SGPT < 9 U/L (7.0-40); AST/SGOT 13 U/L (<34); BLOOD UREA NITROGEN 13 MG/DL (9-23); CALCIUM LEVEL 8.8 MG/DL (8.3-10.6); CARBON DIOXIDE LEVEL 23 MMOL/L (20-31); CHLORIDE LEVEL 99 MMOL/L (98-107); CREATININE FOR GFR 2.37 MG/DL (0.55-1.30); GLOMERULAR FILTRATION RATE 21.1 (>39); GLUCOSE, FASTING 100 MG/DL (74-106); POTASSIUM SERUM 3.8 MMOL/L (3.5-5.1); SODIUM LEVEL 132 MMOL/L (136-145); TOTAL PROTEIN 5.3 G/DL (5.7-8.2)
[2022-08-10] MEDS ORDERED: TORSEMIDE 20 MG TAB PO SCH ×2 (09:00)
[2022-08-10] MEDS ORDERED: METOPROLOL SUCC (TopROL XL) 100MG *XL* TAB PO SCH (09:00)
[2022-08-10] MEDS: DOCUSATE SODIUM 100MG CAPSULE PO SCH ×2 (09:00→21:00)
[2022-08-10] MEDS ORDERED: SPIRONOLACTONE 50 MG TAB PO SCH ×2 (09:00)
[2022-08-10] MEDS: PANTOPRAZOLE 40MG TAB (PROTONIX) PO SCH (09:38)
[2022-08-10] MEDS: CitaloPRAM (CeleXA) 20 MG TAB PO SCH (09:39)
[2022-08-10] MEDS: ACETAMINOPHEN 500 MG TAB PO SCH (09:39)
[2022-08-10] MEDS: MULTIVITAMINS/MINERALS THERAP 1 TAB PO SCH (09:40)
[2022-08-10] MEDS: ASPIRIN 81MG ENTERIC TABLET PO SCH (09:45)
[2022-08-10] MEDS: MIDODRINE 5 MG TAB PO SCH ×2 (09:45→13:35)
[2022-08-10] MEDS: METOPROLOL TART 12.5 MG PER 1/2 TAB PO SCH ×2 (09:45→21:08)
[2022-08-10] MEDS: POTASSIUM CHLORIDE 10MEQ SR TABLET PO SCH (09:46)
[2022-08-10] MEDS: VITAMIN D 1,000 INTERNATIONAL UNITS TABLET PO SCH (09:47)
[2022-08-10] MEDS: COMBIVENT RESPIMAT 100-20MCG INHALER 4GM INH SCH ×3 (09:50→20:57)
[2022-08-10] MEDS: REMEDY PHYTOPLEX Z-GUARD PASTE 113GM TUBE (FROM STOREROOM PRODUCT) TOP SCH ×3 (09:51→21:09)
[2022-08-10] MEDS ORDERED: CALCIUM CARBONATE 500 MG CHEW U/D PO ONE (10:50)
[2022-08-10] MEDS ORDERED: HEPARIN 1,000UNITS/ML 10ML VIAL (FOR RADIOLOGY & DIALYSIS ONLY) XX SCH (10:50)
[2022-08-10] MEDS ORDERED: SODIUM CHLORIDE 0.9% 1000ML IV PRN (10:50)
[2022-08-10] MEDS ORDERED: HEPARIN 1,000UNITS/ML 10ML VIAL (FOR RADIOLOGY & DIALYSIS ONLY) IV PRN (10:50)
[2022-08-10 11:15] LABS: TOTAL IRON BINDING CAPACITY 217 UG/DL (250-425)
[2022-08-10 11:17] LABS: IRON (FE) 95 UG/DL (50-170); PERCENT SATURATION 43.8 % (13.2-45.0)
[2022-08-10] MEDS: FLUTICASONE HFA 110MCG 12GM INHALER (FLOVENT) INH SCH ×2 (13:08→20:57)
[2022-08-10] MEDS: TIOTROPIUM INHALER/CAPSULE (SPIRIVA) INH SCH (13:08)
[2022-08-10 13:32] VITALS: BP 98/55
[2022-08-10 16:00] VITALS: BP 96/50
[2022-08-10 20:00] VITALS: BP 112/55
[2022-08-10] MEDS: SENNA 8.6 MG TAB (SENOKOT) PO SCH (21:00)
[2022-08-10] MEDS: traZODone 100 MG TAB PO SCH (21:08)
[2022-08-10] MEDS: MONTELUKAST 10 MG TAB PO SCH (21:08)
[2022-08-10] MEDS: APIXABAN 2.5 MG TAB (ELIQUIS) PO SCH (21:08)
[2022-08-10] MEDS: NORCO, ANEXSIA 5/325MG TABLET (HYDROcodone/ACETAMINOPHEN) PO PRN (21:09)
[2022-08-10] MEDS: VANICREAM MOISTURIZING SKIN CREAM 113GM TUBE TOP SCH (21:09)
[2022-08-11 06:00] VITALS: BP 111/63
[2022-08-11 06:35] LABS: HEMOGLOBIN 9.1 g/dl (12.0-15.5); MEAN CORPUSCULAR HEMOGLOBIN 31.3 pg (27.0-33.0); MEAN CORPUSCULAR HGB CONC 30.3 g/dl (32.0-36.5); MEAN CORPUSCULAR VOLUME 103.1 fl (80.0-96.0); PLATELET COUNT, AUTOMATED 195 10^3/uL (150-450); RED BLOOD COUNT 2.91 10^6/uL (4.00-5.40); WHITE BLOOD COUNT 9.3 10^3/uL (4.0-10.0)
[2022-08-11 07:04] LABS: ALBUMIN 2.2 G/DL (3.2-5.2); ALKALINE PHOSPHATASE 198 U/L (46-116); ALT/SGPT < 9 U/L (7.0-40); AST/SGOT 15 U/L (<34); BILIRUBIN,TOTAL 1.1 MG/DL (0.3-1.2); BLOOD UREA NITROGEN 8 MG/DL (9-23); CALCIUM LEVEL 8.6 MG/DL (8.3-10.6); CARBON DIOXIDE LEVEL 21 MMOL/L (20-31); CHLORIDE LEVEL 104 MMOL/L (98-107); CREATININE FOR GFR 1.74 MG/DL (0.55-1.30); GLOMERULAR FILTRATION RATE 30.1 (>39); GLUCOSE, FASTING 104 MG/DL (74-106); POTASSIUM SERUM 4.3 MMOL/L (3.5-5.1); PTH INTACT 18.6 PG/ML (18.5-88.0); SODIUM LEVEL 134 MMOL/L (136-145); TOTAL 25(OH) VITAMIN D 82.7 NG/ML (20.0-100.0); TOTAL PROTEIN 5.2 G/DL (5.7-8.2)
[2022-08-11] MEDS: TIOTROPIUM INHALER/CAPSULE (SPIRIVA) INH SCH (07:12)
[2022-08-11] MEDS: FLUTICASONE HFA 110MCG 12GM INHALER (FLOVENT) INH SCH ×2 (07:12→19:40)
[2022-08-11] MEDS: COMBIVENT RESPIMAT 100-20MCG INHALER 4GM INH SCH ×3 (07:12→19:40)
[2022-08-11] MEDS: PANTOPRAZOLE 40MG TAB (PROTONIX) PO SCH (07:38)
[2022-08-11] MEDS: ASPIRIN 81MG ENTERIC TABLET PO SCH (07:38)
[2022-08-11] MEDS: MULTIVITAMINS/MINERALS THERAP 1 TAB PO SCH (07:39)
[2022-08-11] MEDS: NORCO, ANEXSIA 5/325MG TABLET (HYDROcodone/ACETAMINOPHEN) PO SCH (07:39)
[2022-08-11] MEDS: VITAMIN D 1,000 INTERNATIONAL UNITS TABLET PO SCH (07:40)
[2022-08-11] MEDS: POTASSIUM CHLORIDE 10MEQ SR TABLET PO SCH (07:40)
[2022-08-11] MEDS: APIXABAN 2.5 MG TAB (ELIQUIS) PO SCH ×2 (07:41→22:03)
[2022-08-11] MEDS: MIDODRINE 5 MG TAB PO SCH ×2 (07:41→12:34)
[2022-08-11] MEDS: CitaloPRAM (CeleXA) 20 MG TAB PO SCH (07:41)
[2022-08-11] MEDS: METOPROLOL TART 12.5 MG PER 1/2 TAB PO SCH ×2 (07:41→22:03)
[2022-08-11] MEDS: DOCUSATE SODIUM 100MG CAPSULE PO SCH ×2 (07:41→22:03)
[2022-08-11] MEDS: REMEDY PHYTOPLEX Z-GUARD PASTE 113GM TUBE (FROM STOREROOM PRODUCT) TOP SCH ×3 (07:42→22:05)
[2022-08-11] MEDS: VANICREAM MOISTURIZING SKIN CREAM 113GM TUBE TOP SCH ×2 (07:43→22:05)
[2022-08-11] MEDS: NORCO, ANEXSIA 5/325MG TABLET (HYDROcodone/ACETAMINOPHEN) PO PRN ×2 (12:34→22:04)
[2022-08-11 14:00] VITALS: BP 97/56
[2022-08-11 20:00] VITALS: BP 103/58
[2022-08-11] MEDS: MONTELUKAST 10 MG TAB PO SCH (22:04)
[2022-08-11] MEDS: SENNA 8.6 MG TAB (SENOKOT) PO SCH (22:04)
[2022-08-11] MEDS: traZODone 100 MG TAB PO SCH (22:05)
[2022-08-12 06:00] VITALS: BP 140/63
[2022-08-12] MEDS ORDERED: HEPARIN 1,000UNITS/ML 10ML VIAL (FOR RADIOLOGY & DIALYSIS ONLY) IV PRN (06:00)
[2022-08-12] MEDS ORDERED: HEPARIN 1,000UNITS/ML 10ML VIAL (FOR RADIOLOGY & DIALYSIS ONLY) XX SCH (06:00)
[2022-08-12] MEDS ORDERED: SODIUM CHLORIDE 0.9% 1000ML IV PRN (06:00)
[2022-08-12] MEDS ORDERED: LIDOCAINE 1% SDV 5ML VIAL SC PRN (06:00)
[2022-08-12] MEDS: NORCO, ANEXSIA 5/325MG TABLET (HYDROcodone/ACETAMINOPHEN) PO SCH (06:53)
[2022-08-12] MEDS: TIOTROPIUM INHALER/CAPSULE (SPIRIVA) INH SCH (07:20)
[2022-08-12] MEDS: FLUTICASONE HFA 110MCG 12GM INHALER (FLOVENT) INH SCH ×2 (07:20→19:46)
[2022-08-12] MEDS: COMBIVENT RESPIMAT 100-20MCG INHALER 4GM INH SCH ×3 (07:20→19:46)
[2022-08-12 08:04] LABS: HEMATOCRIT 32.9 % (36.0-47.0); HEMOGLOBIN 9.7 g/dl (12.0-15.5); MEAN CORPUSCULAR HGB CONC 29.5 g/dl (32.0-36.5); MEAN CORPUSCULAR VOLUME 105.1 fl (80.0-96.0); PLATELET COUNT, AUTOMATED 277 10^3/uL (150-450); RED BLOOD COUNT 3.13 10^6/uL (4.00-5.40); WHITE BLOOD COUNT 10.6 10^3/uL (4.0-10.0)
[2022-08-12 08:09] LABS: ALBUMIN 2.5 G/DL (3.2-5.2); ALKALINE PHOSPHATASE 229 U/L (46-116); ALT/SGPT < 9 U/L (7.0-40); AST/SGOT 22 U/L (<34); BILIRUBIN,TOTAL 0.9 MG/DL (0.3-1.2); BLOOD UREA NITROGEN 14 MG/DL (9-23); CALCIUM LEVEL 8.9 MG/DL (8.3-10.6); CARBON DIOXIDE LEVEL 20 MMOL/L (20-31); CHLORIDE LEVEL 103 MMOL/L (98-107); CREATININE FOR GFR 2.21 MG/DL (0.55-1.30); GLOMERULAR FILTRATION RATE 22.9 (>39); GLUCOSE, FASTING 129 MG/DL (74-106); POTASSIUM SERUM 4.8 MMOL/L (3.5-5.1); SODIUM LEVEL 135 MMOL/L (136-145); TOTAL PROTEIN 5.6 G/DL (5.7-8.2)
[2022-08-12] MEDS: PANTOPRAZOLE 40MG TAB (PROTONIX) PO SCH (08:16)
[2022-08-12] MEDS: MULTIVITAMINS/MINERALS THERAP 1 TAB PO SCH (08:16)
[2022-08-12] MEDS: VITAMIN D 1,000 INTERNATIONAL UNITS TABLET PO SCH (08:16)
[2022-08-12] MEDS: APIXABAN 2.5 MG TAB (ELIQUIS) PO SCH ×2 (08:16→22:16)
[2022-08-12] MEDS: ASPIRIN 81MG ENTERIC TABLET PO SCH (08:16)
[2022-08-12] MEDS: DOCUSATE SODIUM 100MG CAPSULE PO SCH ×2 (08:16→22:17)
[2022-08-12] MEDS: MIDODRINE 5 MG TAB PO SCH ×2 (08:16→14:23)
[2022-08-12] MEDS: CitaloPRAM (CeleXA) 20 MG TAB PO SCH (08:16)
[2022-08-12] MEDS: POTASSIUM CHLORIDE 10MEQ SR TABLET PO SCH (08:17)
[2022-08-12] MEDS: REMEDY PHYTOPLEX Z-GUARD PASTE 113GM TUBE (FROM STOREROOM PRODUCT) TOP SCH ×3 (08:17→22:17)
[2022-08-12] MEDS: VANICREAM MOISTURIZING SKIN CREAM 113GM TUBE TOP SCH ×2 (08:17→22:18)
[2022-08-12] MEDS: METOPROLOL TART 12.5 MG PER 1/2 TAB PO SCH ×2 (08:19→22:15)
[2022-08-12 14:00] VITALS: BP 116/59
[2022-08-12] MEDS: CALCITRIOL 0.25 MCG CAP (S0169) PO SCH (14:23)
[2022-08-12 20:00] VITALS: BP 126/58
[2022-08-12] MEDS: traZODone 100 MG TAB PO SCH (22:15)
[2022-08-12] MEDS: NORCO, ANEXSIA 5/325MG TABLET (HYDROcodone/ACETAMINOPHEN) PO PRN (22:16)
[2022-08-12] MEDS: MONTELUKAST 10 MG TAB PO SCH (22:16)
[2022-08-12] MEDS: SENNA 8.6 MG TAB (SENOKOT) PO SCH (22:17)
[2022-08-13 06:00] VITALS: BP 111/57
[2022-08-13] MEDS: NORCO, ANEXSIA 5/325MG TABLET (HYDROcodone/ACETAMINOPHEN) PO SCH (06:43)
[2022-08-13] MEDS: TIOTROPIUM INHALER/CAPSULE (SPIRIVA) INH SCH (07:32)
[2022-08-13] MEDS: COMBIVENT RESPIMAT 100-20MCG INHALER 4GM INH SCH ×3 (07:33→19:29)
[2022-08-13] MEDS: FLUTICASONE HFA 110MCG 12GM INHALER (FLOVENT) INH SCH ×2 (07:33→19:29)
[2022-08-13 07:56] LABS: HEMATOCRIT 29.6 % (36.0-47.0); MEAN CORPUSCULAR HEMOGLOBIN 31.7 pg (27.0-33.0); MEAN CORPUSCULAR HGB CONC 30.4 g/dl (32.0-36.5); MEAN CORPUSCULAR VOLUME 104.2 fl (80.0-96.0); PLATELET COUNT, AUTOMATED 223 10^3/uL (150-450); RED BLOOD COUNT 2.84 10^6/uL (4.00-5.40); WHITE BLOOD COUNT 11.6 10^3/uL (4.0-10.0)
[2022-08-13 08:30] LABS: ALBUMIN 2.4 G/DL (3.2-5.2); ALKALINE PHOSPHATASE 232 U/L (46-116); ALT/SGPT < 9 U/L (7.0-40); AST/SGOT 16 U/L (<34); BLOOD UREA NITROGEN 12 MG/DL (9-23); CALCIUM LEVEL 8.7 MG/DL (8.3-10.6); CARBON DIOXIDE LEVEL 29 MMOL/L (20-31); CHLORIDE LEVEL 96 MMOL/L (98-107); CREATININE FOR GFR 1.93 MG/DL (0.55-1.30); GLOMERULAR FILTRATION RATE 26.7 (>39); GLUCOSE, FASTING 106 MG/DL (74-106); POTASSIUM SERUM 4.4 MMOL/L (3.5-5.1); SODIUM LEVEL 132 MMOL/L (136-145); TOTAL PROTEIN 5.5 G/DL (5.7-8.2)
[2022-08-13] MEDS: DOCUSATE SODIUM 100MG CAPSULE PO SCH ×2 (09:00→21:00)
[2022-08-13] MEDS: MIDODRINE 5 MG TAB PO SCH ×2 (09:15→12:19)
[2022-08-13] MEDS: ASPIRIN 81MG ENTERIC TABLET PO SCH (09:16)
[2022-08-13] MEDS: CitaloPRAM (CeleXA) 20 MG TAB PO SCH (09:16)
[2022-08-13] MEDS: APIXABAN 2.5 MG TAB (ELIQUIS) PO SCH ×2 (09:16→21:51)
[2022-08-13] MEDS: METOPROLOL TART 12.5 MG PER 1/2 TAB PO SCH ×2 (09:17→21:50)
[2022-08-13] MEDS: POTASSIUM CHLORIDE 10MEQ SR TABLET PO SCH (09:17)
[2022-08-13] MEDS: PANTOPRAZOLE 40MG TAB (PROTONIX) PO SCH (09:17)
[2022-08-13] MEDS: MULTIVITAMINS/MINERALS THERAP 1 TAB PO SCH (09:18)
[2022-08-13] MEDS: VANICREAM MOISTURIZING SKIN CREAM 113GM TUBE TOP SCH ×2 (09:19→21:00)
[2022-08-13] MEDS: REMEDY PHYTOPLEX Z-GUARD PASTE 113GM TUBE (FROM STOREROOM PRODUCT) TOP SCH ×3 (09:20→21:52)
[2022-08-13 14:00] VITALS: BP 124/81
[2022-08-13] MEDS: NORCO, ANEXSIA 5/325MG TABLET (HYDROcodone/ACETAMINOPHEN) PO PRN (16:40)
[2022-08-13 20:00] VITALS: BP 140/65
[2022-08-13] MEDS: SENNA 8.6 MG TAB (SENOKOT) PO SCH (21:00)
[2022-08-13] MEDS: MONTELUKAST 10 MG TAB PO SCH (21:50)
[2022-08-13] MEDS: traZODone 100 MG TAB PO SCH (21:51)
[2022-08-14 06:07] LABS: HEMATOCRIT 27.6 % (36.0-47.0); HEMOGLOBIN 8.4 g/dl (12.0-15.5); MEAN CORPUSCULAR HEMOGLOBIN 31.5 pg (27.0-33.0); MEAN CORPUSCULAR HGB CONC 30.4 g/dl (32.0-36.5); MEAN CORPUSCULAR VOLUME 103.4 fl (80.0-96.0); PLATELET COUNT, AUTOMATED 212 10^3/uL (150-450); RED BLOOD COUNT 2.67 10^6/uL (4.00-5.40); WHITE BLOOD COUNT 10.9 10^3/uL (4.0-10.0)
[2022-08-14] MEDS: NORCO, ANEXSIA 5/325MG TABLET (HYDROcodone/ACETAMINOPHEN) PO SCH (06:42)
[2022-08-14 06:45] LABS: ALBUMIN 2.2 G/DL (3.2-5.2); ALKALINE PHOSPHATASE 219 U/L (46-116); ALT/SGPT < 9 U/L (7.0-40); AST/SGOT 18 U/L (<34); BILIRUBIN,TOTAL 0.9 MG/DL (0.3-1.2); BLOOD UREA NITROGEN 19 MG/DL (9-23); CALCIUM LEVEL 8.6 MG/DL (8.3-10.6); CARBON DIOXIDE LEVEL 28 MMOL/L (20-31); CHLORIDE LEVEL 98 MMOL/L (98-107); CREATININE FOR GFR 2.33 MG/DL (0.55-1.30); GLOMERULAR FILTRATION RATE 21.5 (>39); GLUCOSE, FASTING 96 MG/DL (74-106); POTASSIUM SERUM 4.8 MMOL/L (3.5-5.1); SODIUM LEVEL 132 MMOL/L (136-145); TOTAL PROTEIN 5.1 G/DL (5.7-8.2)
[2022-08-14 06:46] VITALS: BP 122/58
[2022-08-14] MEDS: DOCUSATE SODIUM 100MG CAPSULE PO SCH ×2 (07:37→20:09)
[2022-08-14] MEDS: METOPROLOL TART 12.5 MG PER 1/2 TAB PO SCH ×2 (07:40→20:09)
[2022-08-14] MEDS: MIDODRINE 5 MG TAB PO SCH ×2 (07:41→12:34)
[2022-08-14] MEDS: MULTIVITAMINS/MINERALS THERAP 1 TAB PO SCH (07:41)
[2022-08-14] MEDS: ASPIRIN 81MG ENTERIC TABLET PO SCH (07:41)
[2022-08-14] MEDS: PANTOPRAZOLE 40MG TAB (PROTONIX) PO SCH (07:41)
[2022-08-14] MEDS: CitaloPRAM (CeleXA) 20 MG TAB PO SCH (07:41)
[2022-08-14] MEDS: POTASSIUM CHLORIDE 10MEQ SR TABLET PO SCH (07:41)
[2022-08-14] MEDS: APIXABAN 2.5 MG TAB (ELIQUIS) PO SCH ×2 (07:41→20:09)
[2022-08-14] MEDS: REMEDY PHYTOPLEX Z-GUARD PASTE 113GM TUBE (FROM STOREROOM PRODUCT) TOP SCH ×3 (07:43→20:11)
[2022-08-14] MEDS: VANICREAM MOISTURIZING SKIN CREAM 113GM TUBE TOP SCH ×2 (07:44→20:11)
[2022-08-14] MEDS: COMBIVENT RESPIMAT 100-20MCG INHALER 4GM INH SCH ×3 (08:00→19:56)
[2022-08-14 11:45] VITALS: BP 104/53
[2022-08-14] MEDS: TIOTROPIUM INHALER/CAPSULE (SPIRIVA) INH SCH (13:19)
[2022-08-14] MEDS: FLUTICASONE HFA 110MCG 12GM INHALER (FLOVENT) INH SCH ×2 (13:19→19:54)
[2022-08-14 14:00] VITALS: BP 141/65
[2022-08-14 20:00] VITALS: BP 125/58
[2022-08-14] MEDS: traZODone 100 MG TAB PO SCH (20:09)
[2022-08-14] MEDS: SENNA 8.6 MG TAB (SENOKOT) PO SCH (20:09)
[2022-08-14] MEDS: NORCO, ANEXSIA 5/325MG TABLET (HYDROcodone/ACETAMINOPHEN) PO PRN (20:10)
[2022-08-14] MEDS: MONTELUKAST 10 MG TAB PO SCH (20:10)
[2022-08-15 06:00] VITALS: BP 121/63
[2022-08-15] MEDS ORDERED: HEPARIN 1,000UNITS/ML 10ML VIAL (FOR RADIOLOGY & DIALYSIS ONLY) XX SCH (06:00)
[2022-08-15] MEDS ORDERED: SODIUM CHLORIDE 0.9% 1000ML IV PRN (06:00)
[2022-08-15] MEDS ORDERED: HEPARIN 1,000UNITS/ML 10ML VIAL (FOR RADIOLOGY & DIALYSIS ONLY) IV PRN (06:00)
[2022-08-15] MEDS ORDERED: NORCO, ANEXSIA 5/325MG TABLET (HYDROcodone/ACETAMINOPHEN) PO SCH (06:00)
[2022-08-15] MEDS ORDERED: LIDOCAINE 1% SDV 5ML VIAL SC PRN (06:00)
[2022-08-15] MEDS: TIOTROPIUM INHALER/CAPSULE (SPIRIVA) INH SCH (07:37)
[2022-08-15] MEDS: FLUTICASONE HFA 110MCG 12GM INHALER (FLOVENT) INH SCH ×2 (07:37→20:00)
[2022-08-15] MEDS: COMBIVENT RESPIMAT 100-20MCG INHALER 4GM INH SCH ×3 (07:37→20:00)
[2022-08-15] MEDS: PANTOPRAZOLE 40MG TAB (PROTONIX) PO SCH (08:41)
[2022-08-15] MEDS: MULTIVITAMINS/MINERALS THERAP 1 TAB PO SCH (08:41)
[2022-08-15] MEDS: APIXABAN 2.5 MG TAB (ELIQUIS) PO SCH ×2 (08:41→20:19)
[2022-08-15] MEDS: METOPROLOL TART 12.5 MG PER 1/2 TAB PO SCH ×2 (08:41→20:20)
[2022-08-15] MEDS: CitaloPRAM (CeleXA) 20 MG TAB PO SCH (08:42)
[2022-08-15] MEDS: MIDODRINE 5 MG TAB PO SCH ×2 (08:42→12:36)
[2022-08-15] MEDS: DOCUSATE SODIUM 100MG CAPSULE PO SCH ×2 (08:42→20:19)
[2022-08-15] MEDS: REMEDY PHYTOPLEX Z-GUARD PASTE 113GM TUBE (FROM STOREROOM PRODUCT) TOP SCH ×3 (08:42→20:21)
[2022-08-15] MEDS: ASPIRIN 81MG ENTERIC TABLET PO SCH (08:42)
[2022-08-15] MEDS: VANICREAM MOISTURIZING SKIN CREAM 113GM TUBE TOP SCH ×2 (08:44→20:21)
[2022-08-15] MEDS: LIDOCAINE 5% (LIDODERM) PATCH TD SCH (09:00)
[2022-08-15 12:14] VITALS: BP 130/66
[2022-08-15] MEDS: NORCO, ANEXSIA 5/325MG TABLET (HYDROcodone/ACETAMINOPHEN) PO PRN ×2 (12:36→20:20)
[2022-08-15] MEDS: DARBEPOETIN 100MCG/0.5ML *DIALYSIS* SYRINGE IV SCH (13:22)
[2022-08-15 16:00] VITALS: BP 98/56
[2022-08-15] MEDS: CALCITRIOL 0.25 MCG CAP (S0169) PO SCH (16:26)
[2022-08-15 19:25] VITALS: BP 108/55
[2022-08-15] MEDS: MONTELUKAST 10 MG TAB PO SCH (20:19)
[2022-08-15] MEDS: SENNA 8.6 MG TAB (SENOKOT) PO SCH (20:19)
[2022-08-15] MEDS: traZODone 100 MG TAB PO SCH (20:19)
[2022-08-16] MEDS: NORCO, ANEXSIA 5/325MG TABLET (HYDROcodone/ACETAMINOPHEN) PO SCH ×2 (06:16→12:22)
[2022-08-16 06:18] VITALS: BP 120/58
[2022-08-16] MEDS: FLUTICASONE HFA 110MCG 12GM INHALER (FLOVENT) INH SCH ×2 (06:57→20:09)
[2022-08-16] MEDS: COMBIVENT RESPIMAT 100-20MCG INHALER 4GM INH SCH ×3 (06:57→20:09)
[2022-08-16] MEDS: TIOTROPIUM INHALER/CAPSULE (SPIRIVA) INH SCH (06:57)
[2022-08-16 07:03] LABS: BASO # 0.1 10^3/uL (0.0-0.2); BASO % 1.1 % (0.0-1.0); EOS # 0.1 10^3/uL (0.0-0.5); EOS % 1.5 % (0.0-3.0); HEMATOCRIT 27.9 % (36.0-47.0); HEMOGLOBIN 9.1 g/dl (12.0-15.5); LYMPH # 0.8 10^3/uL (1.5-5.0); LYMPH % 8.1 % (24.0-44.0); MEAN CORPUSCULAR HGB CONC 32.6 g/dl (32.0-36.5); MEAN CORPUSCULAR VOLUME 104.1 fl (80.0-96.0); MONO # 1.3 10^3/uL (0.0-0.8); MONO % 13.4 % (2.0-8.0); NEUTROPHILS % 74.7 % (36.0-66.0); PLATELET COUNT, AUTOMATED 211 10^3/uL (150-450); RED BLOOD COUNT 2.68 10^6/uL (4.00-5.40); WHITE BLOOD COUNT 9.4 10^3/uL (4.0-10.0)
[2022-08-16 07:26] LABS: CALCIUM LEVEL 8.6 MG/DL (8.3-10.6); CREATININE FOR GFR 1.92 MG/DL (0.55-1.30); GLOMERULAR FILTRATION RATE 26.9 (>39)
[2022-08-16 08:30] VITALS: BP 118/59
[2022-08-16] MEDS: PANTOPRAZOLE 40MG TAB (PROTONIX) PO SCH (09:22)
[2022-08-16] MEDS: DOCUSATE SODIUM 100MG CAPSULE PO SCH ×2 (09:22→21:00)
[2022-08-16] MEDS: CitaloPRAM (CeleXA) 20 MG TAB PO SCH (09:23)
[2022-08-16] MEDS: MULTIVITAMINS/MINERALS THERAP 1 TAB PO SCH (09:23)
[2022-08-16] MEDS: MIDODRINE 5 MG TAB PO SCH ×2 (09:23→12:22)
[2022-08-16] MEDS: APIXABAN 2.5 MG TAB (ELIQUIS) PO SCH ×2 (09:23→21:32)
[2022-08-16] MEDS: ASPIRIN 81MG ENTERIC TABLET PO SCH (09:23)
[2022-08-16] MEDS: LIDOCAINE 5% (LIDODERM) PATCH TD SCH (09:24)
[2022-08-16] MEDS: REMEDY PHYTOPLEX Z-GUARD PASTE 113GM TUBE (FROM STOREROOM PRODUCT) TOP SCH ×3 (09:24→21:42)
[2022-08-16] MEDS: METOPROLOL TART 12.5 MG PER 1/2 TAB PO SCH ×2 (09:24→21:31)
[2022-08-16] MEDS: VANICREAM MOISTURIZING SKIN CREAM 113GM TUBE TOP SCH ×2 (09:25→21:34)
[2022-08-16 12:10] VITALS: BP 111/56
[2022-08-16 14:00] VITALS: BP 100/57
[2022-08-16 20:00] VITALS: BP 110/53
[2022-08-16] MEDS: SENNA 8.6 MG TAB (SENOKOT) PO SCH (21:32)
[2022-08-16] MEDS: traZODone 100 MG TAB PO SCH (21:32)
[2022-08-16] MEDS: NORCO, ANEXSIA 5/325MG TABLET (HYDROcodone/ACETAMINOPHEN) PO PRN (21:33)
[2022-08-16] MEDS: MONTELUKAST 10 MG TAB PO SCH (21:34)
[2022-08-17] MEDS ORDERED: SODIUM CHLORIDE 0.9% 1000ML IV PRN (06:00)
[2022-08-17] MEDS ORDERED: HEPARIN 1,000UNITS/ML 10ML VIAL (FOR RADIOLOGY & DIALYSIS ONLY) IV PRN (06:00)
[2022-08-17] MEDS ORDERED: HEPARIN 1,000UNITS/ML 10ML VIAL (FOR RADIOLOGY & DIALYSIS ONLY) XX SCH (06:00)
[2022-08-17] MEDS: NORCO, ANEXSIA 5/325MG TABLET (HYDROcodone/ACETAMINOPHEN) PO SCH ×2 (06:10→12:17)
[2022-08-17] MEDS: TIOTROPIUM INHALER/CAPSULE (SPIRIVA) INH SCH (08:23)
[2022-08-17] MEDS: FLUTICASONE HFA 110MCG 12GM INHALER (FLOVENT) INH SCH ×2 (08:23→19:57)
[2022-08-17] MEDS: COMBIVENT RESPIMAT 100-20MCG INHALER 4GM INH SCH ×3 (08:23→19:57)
[2022-08-17] MEDS: CitaloPRAM (CeleXA) 20 MG TAB PO SCH (09:03)
[2022-08-17] MEDS: PANTOPRAZOLE 40MG TAB (PROTONIX) PO SCH (09:04)
[2022-08-17] MEDS: ASPIRIN 81MG ENTERIC TABLET PO SCH (09:04)
[2022-08-17] MEDS: DOCUSATE SODIUM 100MG CAPSULE PO SCH ×2 (09:04→21:06)
[2022-08-17] MEDS: MIDODRINE 5 MG TAB PO SCH ×2 (09:04→12:16)
[2022-08-17] MEDS: APIXABAN 2.5 MG TAB (ELIQUIS) PO SCH ×2 (09:04→21:06)
[2022-08-17] MEDS: MULTIVITAMINS/MINERALS THERAP 1 TAB PO SCH (09:04)
[2022-08-17] MEDS: METOPROLOL TART 12.5 MG PER 1/2 TAB PO SCH ×2 (09:04→21:06)
[2022-08-17] MEDS: LIDOCAINE 5% (LIDODERM) PATCH TD SCH (09:05)
[2022-08-17] MEDS: NORCO, ANEXSIA 5/325MG TABLET (HYDROcodone/ACETAMINOPHEN) PO PRN ×2 (09:11→17:48)
[2022-08-17] MEDS: VANICREAM MOISTURIZING SKIN CREAM 113GM TUBE TOP SCH ×2 (09:17→21:08)
[2022-08-17] MEDS: REMEDY PHYTOPLEX Z-GUARD PASTE 113GM TUBE (FROM STOREROOM PRODUCT) TOP SCH ×3 (09:17→21:07)
[2022-08-17] MEDS: guaiFENesin 200 MG TAB PO SCH ×2 (16:00→21:06)
[2022-08-17] MEDS: CALCITRIOL 0.25 MCG CAP (S0169) PO SCH (17:47)
[2022-08-17 21:04] VITALS: BP 112/57
[2022-08-17] MEDS: SENNA 8.6 MG TAB (SENOKOT) PO SCH (21:06)
[2022-08-17] MEDS: MONTELUKAST 10 MG TAB PO SCH (21:06)
[2022-08-17] MEDS: traZODone 100 MG TAB PO SCH (21:06)
[2022-08-18] MEDS: NORCO, ANEXSIA 5/325MG TABLET (HYDROcodone/ACETAMINOPHEN) PO PRN (02:28)
[2022-08-18 05:47] VITALS: BP 102/56
[2022-08-18] MEDS: NORCO, ANEXSIA 5/325MG TABLET (HYDROcodone/ACETAMINOPHEN) PO SCH ×2 (06:09→13:37)
[2022-08-18 07:28] LABS: BASO # 0.1 10^3/uL (0.0-0.2); BASO % 0.8 % (0.0-1.0); EOS # 0.2 10^3/uL (0.0-0.5); EOS % 1.8 % (0.0-3.0); HEMATOCRIT 30.2 % (36.0-47.0); HEMOGLOBIN 9.1 g/dl (12.0-15.5); LYMPH # 0.6 10^3/uL (1.5-5.0); LYMPH % 7.1 % (24.0-44.0); MEAN CORPUSCULAR HEMOGLOBIN 31.5 pg (27.0-33.0); MEAN CORPUSCULAR HGB CONC 30.1 g/dl (32.0-36.5); MEAN CORPUSCULAR VOLUME 104.5 fl (80.0-96.0); MONO # 1.2 10^3/uL (0.0-0.8); MONO % 12.8 % (2.0-8.0); NEUTROPHILS # 6.9 10^3/uL (1.5-8.5); NEUTROPHILS % 76.7 % (36.0-66.0); PLATELET COUNT, AUTOMATED 212 10^3/uL (150-450); RED BLOOD COUNT 2.89 10^6/uL (4.00-5.40)
[2022-08-18 07:37] LABS: CALCIUM LEVEL 8.6 MG/DL (8.3-10.6); CREATININE FOR GFR 1.79 MG/DL (0.55-1.30); GLOMERULAR FILTRATION RATE 29.2 (>39); POTASSIUM SERUM 3.7 MMOL/L (3.5-5.1)
[2022-08-18] MEDS: guaiFENesin 200 MG TAB PO SCH ×3 (07:42→20:17)
[2022-08-18] MEDS: DOCUSATE SODIUM 100MG CAPSULE PO SCH ×2 (07:43→20:17)
[2022-08-18] MEDS: APIXABAN 2.5 MG TAB (ELIQUIS) PO SCH ×2 (07:43→20:17)
[2022-08-18] MEDS: PANTOPRAZOLE 40MG TAB (PROTONIX) PO SCH (07:43)
[2022-08-18] MEDS: CitaloPRAM (CeleXA) 20 MG TAB PO SCH (07:43)
[2022-08-18] MEDS: ASPIRIN 81MG ENTERIC TABLET PO SCH (07:43)
[2022-08-18] MEDS: MULTIVITAMINS/MINERALS THERAP 1 TAB PO SCH (07:43)
[2022-08-18] MEDS: LIDOCAINE 5% (LIDODERM) PATCH TD SCH (07:44)
[2022-08-18] MEDS: MIDODRINE 5 MG TAB PO SCH ×2 (07:48→13:38)
[2022-08-18] MEDS: METOPROLOL TART 12.5 MG PER 1/2 TAB PO SCH ×2 (07:48→20:18)
[2022-08-18] MEDS: COMBIVENT RESPIMAT 100-20MCG INHALER 4GM INH SCH ×3 (08:00→20:28)
[2022-08-18] MEDS: FLUTICASONE HFA 110MCG 12GM INHALER (FLOVENT) INH SCH ×2 (08:00→20:28)
[2022-08-18] MEDS: REMEDY PHYTOPLEX Z-GUARD PASTE 113GM TUBE (FROM STOREROOM PRODUCT) TOP SCH ×3 (09:00→20:18)
[2022-08-18] MEDS: VANICREAM MOISTURIZING SKIN CREAM 113GM TUBE TOP SCH ×2 (09:00→20:19)
[2022-08-18 12:50] VITALS: BP 113/60
[2022-08-18] MEDS: TIOTROPIUM INHALER/CAPSULE (SPIRIVA) INH SCH (13:21)
[2022-08-18 14:00] VITALS: BP 117/58
[2022-08-18 20:00] VITALS: BP 115/59
[2022-08-18] MEDS: MONTELUKAST 10 MG TAB PO SCH (20:17)
[2022-08-18] MEDS: SENNA 8.6 MG TAB (SENOKOT) PO SCH (20:17)
[2022-08-18] MEDS: traZODone 100 MG TAB PO SCH (20:17)
[2022-08-19] MEDS: diphenhydrAMINE CREAM 30GM TOP PRN ×3 (01:35→22:33)
[2022-08-19] MEDS: NORCO, ANEXSIA 5/325MG TABLET (HYDROcodone/ACETAMINOPHEN) PO PRN ×3 (01:35→22:34)
[2022-08-19 06:00] VITALS: BP 115/55
[2022-08-19] MEDS: NORCO, ANEXSIA 5/325MG TABLET (HYDROcodone/ACETAMINOPHEN) PO SCH ×2 (06:20→11:45)
[2022-08-19] MEDS ORDERED: SODIUM CHLORIDE 0.9% 1000ML IV PRN (07:00)
[2022-08-19] MEDS ORDERED: HEPARIN 1,000UNITS/ML 10ML VIAL (FOR RADIOLOGY & DIALYSIS ONLY) XX SCH (07:00)
[2022-08-19] MEDS ORDERED: HEPARIN 1,000UNITS/ML 10ML VIAL (FOR RADIOLOGY & DIALYSIS ONLY) IV PRN (07:00)
[2022-08-19] MEDS: TIOTROPIUM INHALER/CAPSULE (SPIRIVA) INH SCH (07:26)
[2022-08-19] MEDS: COMBIVENT RESPIMAT 100-20MCG INHALER 4GM INH SCH ×3 (07:27→21:14)
[2022-08-19] MEDS: FLUTICASONE HFA 110MCG 12GM INHALER (FLOVENT) INH SCH ×2 (07:27→21:09)
[2022-08-19] MEDS: APIXABAN 2.5 MG TAB (ELIQUIS) PO SCH ×2 (08:06→20:14)
[2022-08-19] MEDS: METOPROLOL TART 12.5 MG PER 1/2 TAB PO SCH ×2 (08:06→20:15)
[2022-08-19] MEDS: MIDODRINE 5 MG TAB PO SCH ×2 (08:07→11:45)
[2022-08-19] MEDS: DOCUSATE SODIUM 100MG CAPSULE PO SCH ×2 (08:07→20:14)
[2022-08-19] MEDS: guaiFENesin 200 MG TAB PO SCH ×3 (08:07→20:14)
[2022-08-19] MEDS: MULTIVITAMINS/MINERALS THERAP 1 TAB PO SCH (08:07)
[2022-08-19] MEDS: ASPIRIN 81MG ENTERIC TABLET PO SCH (08:07)
[2022-08-19] MEDS: PANTOPRAZOLE 40MG TAB (PROTONIX) PO SCH (08:07)
[2022-08-19] MEDS: CitaloPRAM (CeleXA) 20 MG TAB PO SCH (08:07)
[2022-08-19] MEDS: VANICREAM MOISTURIZING SKIN CREAM 113GM TUBE TOP SCH ×2 (08:08→20:15)
[2022-08-19] MEDS: REMEDY PHYTOPLEX Z-GUARD PASTE 113GM TUBE (FROM STOREROOM PRODUCT) TOP SCH ×3 (08:09→20:15)
[2022-08-19] MEDS: LIDOCAINE 5% (LIDODERM) PATCH TD SCH (08:09)
[2022-08-19 11:43] VITALS: BP 123/69
[2022-08-19 14:00] VITALS: BP 118/58
[2022-08-19] MEDS: CALCITRIOL 0.25 MCG CAP (S0169) PO SCH (16:20)
[2022-08-19 20:00] VITALS: BP 108/55
[2022-08-19] MEDS: traZODone 100 MG TAB PO SCH (20:14)
[2022-08-19] MEDS: SENNA 8.6 MG TAB (SENOKOT) PO SCH (20:14)
[2022-08-19] MEDS: MONTELUKAST 10 MG TAB PO SCH (20:14)
[2022-08-20 06:00] VITALS: BP 119/55
[2022-08-20] MEDS: NORCO, ANEXSIA 5/325MG TABLET (HYDROcodone/ACETAMINOPHEN) PO SCH ×2 (06:05→12:12)
[2022-08-20] MEDS: FLUTICASONE HFA 110MCG 12GM INHALER (FLOVENT) INH SCH ×2 (08:48→22:25)
[2022-08-20] MEDS: COMBIVENT RESPIMAT 100-20MCG INHALER 4GM INH SCH ×3 (08:48→22:25)
[2022-08-20] MEDS: TIOTROPIUM INHALER/CAPSULE (SPIRIVA) INH SCH (08:48)
[2022-08-20] MEDS: CitaloPRAM (CeleXA) 20 MG TAB PO SCH (08:54)
[2022-08-20] MEDS: MULTIVITAMINS/MINERALS THERAP 1 TAB PO SCH (08:54)
[2022-08-20] MEDS: guaiFENesin 200 MG TAB PO SCH ×3 (08:54→21:12)
[2022-08-20] MEDS: PANTOPRAZOLE 40MG TAB (PROTONIX) PO SCH (08:54)
[2022-08-20] MEDS: ASPIRIN 81MG ENTERIC TABLET PO SCH (08:54)
[2022-08-20] MEDS: APIXABAN 2.5 MG TAB (ELIQUIS) PO SCH ×2 (08:55→21:13)
[2022-08-20] MEDS: LIDOCAINE 5% (LIDODERM) PATCH TD SCH (08:55)
[2022-08-20] MEDS: MIDODRINE 5 MG TAB PO SCH ×2 (08:55→12:11)
[2022-08-20] MEDS: REMEDY PHYTOPLEX Z-GUARD PASTE 113GM TUBE (FROM STOREROOM PRODUCT) TOP SCH ×3 (08:55→21:14)
[2022-08-20] MEDS: VANICREAM MOISTURIZING SKIN CREAM 113GM TUBE TOP SCH ×2 (08:55→21:14)
[2022-08-20] MEDS: DOCUSATE SODIUM 100MG CAPSULE PO SCH ×2 (08:55→21:12)
[2022-08-20] MEDS: METOPROLOL TART 12.5 MG PER 1/2 TAB PO SCH ×2 (08:55→21:12)
[2022-08-20 14:00] VITALS: BP 115/57
[2022-08-20 19:44] VITALS: BP 111/55
[2022-08-20] MEDS: traZODone 100 MG TAB PO SCH (21:13)
[2022-08-20] MEDS: MONTELUKAST 10 MG TAB PO SCH (21:13)
[2022-08-20] MEDS: NORCO, ANEXSIA 5/325MG TABLET (HYDROcodone/ACETAMINOPHEN) PO PRN (21:13)
[2022-08-20] MEDS: SENNA 8.6 MG TAB (SENOKOT) PO SCH (21:13)
[2022-08-21 05:19] VITALS: BP 107/58
[2022-08-21] MEDS: NORCO, ANEXSIA 5/325MG TABLET (HYDROcodone/ACETAMINOPHEN) PO SCH ×2 (06:09→11:58)
[2022-08-21 06:53] LABS: BASO # 0.1 10^3/uL (0.0-0.2); BASO % 0.7 % (0.0-1.0); EOS # 0.1 10^3/uL (0.0-0.5); EOS % 1.6 % (0.0-3.0); HEMATOCRIT 30.4 % (36.0-47.0); HEMOGLOBIN 9.2 g/dl (12.0-15.5); LYMPH # 0.7 10^3/uL (1.5-5.0); MEAN CORPUSCULAR HEMOGLOBIN 32.1 pg (27.0-33.0); MEAN CORPUSCULAR HGB CONC 30.3 g/dl (32.0-36.5); MEAN CORPUSCULAR VOLUME 105.9 fl (80.0-96.0); MONO # 0.8 10^3/uL (0.0-0.8); MONO % 10.1 % (2.0-8.0); NEUTROPHILS # 6.3 10^3/uL (1.5-8.5); NEUTROPHILS % 77.9 % (36.0-66.0); PLATELET COUNT, AUTOMATED 205 10^3/uL (150-450); RED BLOOD COUNT 2.87 10^6/uL (4.00-5.40); WHITE BLOOD COUNT 8.1 10^3/uL (4.0-10.0)
[2022-08-21 07:19] LABS: BLOOD UREA NITROGEN 21 MG/DL (9-23); CALCIUM LEVEL 9.1 MG/DL (8.3-10.6); CARBON DIOXIDE LEVEL 23 MMOL/L (20-31); CHLORIDE LEVEL 103 MMOL/L (98-107); CREATININE FOR GFR 2.14 MG/DL (0.55-1.30); GLOMERULAR FILTRATION RATE 23.7 (>39); GLUCOSE, FASTING 92 MG/DL (74-106); POTASSIUM SERUM 4.4 MMOL/L (3.5-5.1); SODIUM LEVEL 135 MMOL/L (136-145)
[2022-08-21 07:38] LABS: HEPATITIS B SURFACE ANTIGEN NEGATIVE (NEGATIVE)
[2022-08-21] MEDS: TIOTROPIUM INHALER/CAPSULE (SPIRIVA) INH SCH (07:56)
[2022-08-21] MEDS: FLUTICASONE HFA 110MCG 12GM INHALER (FLOVENT) INH SCH ×2 (07:56→20:06)
[2022-08-21] MEDS: COMBIVENT RESPIMAT 100-20MCG INHALER 4GM INH SCH ×3 (07:56→20:06)
[2022-08-21] MEDS: DOCUSATE SODIUM 100MG CAPSULE PO SCH ×2 (09:09→21:28)
[2022-08-21] MEDS: NORCO, ANEXSIA 5/325MG TABLET (HYDROcodone/ACETAMINOPHEN) PO PRN (09:10)
[2022-08-21] MEDS: guaiFENesin 200 MG TAB PO SCH ×3 (09:10→21:00)
[2022-08-21] MEDS: METOPROLOL TART 12.5 MG PER 1/2 TAB PO SCH ×2 (09:11→21:28)
[2022-08-21] MEDS: ASPIRIN 81MG ENTERIC TABLET PO SCH (09:11)
[2022-08-21] MEDS: CitaloPRAM (CeleXA) 20 MG TAB PO SCH (09:11)
[2022-08-21] MEDS: MULTIVITAMINS/MINERALS THERAP 1 TAB PO SCH (09:11)
[2022-08-21] MEDS: LIDOCAINE 5% (LIDODERM) PATCH TD SCH (09:12)
[2022-08-21] MEDS: MIDODRINE 5 MG TAB PO SCH ×2 (09:12→11:56)
[2022-08-21] MEDS: APIXABAN 2.5 MG TAB (ELIQUIS) PO SCH ×2 (09:12→21:28)
[2022-08-21] MEDS: PANTOPRAZOLE 40MG TAB (PROTONIX) PO SCH (09:12)
[2022-08-21] MEDS: VANICREAM MOISTURIZING SKIN CREAM 113GM TUBE TOP SCH ×2 (09:13→21:29)
[2022-08-21] MEDS: REMEDY PHYTOPLEX Z-GUARD PASTE 113GM TUBE (FROM STOREROOM PRODUCT) TOP SCH ×3 (09:14→21:00)
[2022-08-21 14:00] VITALS: BP 115/57
[2022-08-21 20:00] VITALS: BP 122/60
[2022-08-21] MEDS: traZODone 100 MG TAB PO SCH (21:28)
[2022-08-21] MEDS: SENNA 8.6 MG TAB (SENOKOT) PO SCH (21:28)
[2022-08-21] MEDS: MONTELUKAST 10 MG TAB PO SCH (21:28)
[2022-08-22] MEDS: NORCO, ANEXSIA 5/325MG TABLET (HYDROcodone/ACETAMINOPHEN) PO SCH ×2 (05:38→12:01)
[2022-08-22 06:00] VITALS: BP 121/56
[2022-08-22] MEDS ORDERED: HEPARIN 1,000UNITS/ML 10ML VIAL (FOR RADIOLOGY & DIALYSIS ONLY) XX SCH (07:05)
[2022-08-22] MEDS ORDERED: HEPARIN 1,000UNITS/ML 10ML VIAL (FOR RADIOLOGY & DIALYSIS ONLY) IV PRN (07:05)
[2022-08-22] MEDS ORDERED: SODIUM CHLORIDE 0.9% 1000ML IV PRN (07:05)
[2022-08-22] MEDS: FLUTICASONE HFA 110MCG 12GM INHALER (FLOVENT) INH SCH ×2 (07:37→20:46)
[2022-08-22] MEDS: TIOTROPIUM INHALER/CAPSULE (SPIRIVA) INH SCH (07:37)
[2022-08-22] MEDS: COMBIVENT RESPIMAT 100-20MCG INHALER 4GM INH SCH ×3 (07:37→20:46)
[2022-08-22] MEDS: REMEDY PHYTOPLEX Z-GUARD PASTE 113GM TUBE (FROM STOREROOM PRODUCT) TOP SCH ×3 (09:00→20:34)
[2022-08-22] MEDS: MIDODRINE 5 MG TAB PO SCH ×2 (10:01→12:00)
[2022-08-22] MEDS: MULTIVITAMINS/MINERALS THERAP 1 TAB PO SCH (10:02)
[2022-08-22] MEDS: LIDOCAINE 5% (LIDODERM) PATCH TD SCH (10:02)
[2022-08-22] MEDS: METOPROLOL TART 12.5 MG PER 1/2 TAB PO SCH ×2 (10:02→20:33)
[2022-08-22] MEDS: PANTOPRAZOLE 40MG TAB (PROTONIX) PO SCH (10:02)
[2022-08-22] MEDS: ASPIRIN 81MG ENTERIC TABLET PO SCH (10:02)
[2022-08-22] MEDS: DOCUSATE SODIUM 100MG CAPSULE PO SCH ×2 (10:02→21:00)
[2022-08-22] MEDS: APIXABAN 2.5 MG TAB (ELIQUIS) PO SCH ×2 (10:02→20:33)
[2022-08-22] MEDS: VANICREAM MOISTURIZING SKIN CREAM 113GM TUBE TOP SCH ×2 (10:03→20:35)
[2022-08-22] MEDS: guaiFENesin 200 MG TAB PO SCH ×3 (10:03→20:31)
[2022-08-22] MEDS: CitaloPRAM (CeleXA) 20 MG TAB PO SCH (10:03)
[2022-08-22] MEDS: DARBEPOETIN 100MCG/0.5ML *DIALYSIS* SYRINGE IV SCH (13:19)
[2022-08-22 16:00] VITALS: BP 130/71
[2022-08-22] MEDS: CALCITRIOL 0.25 MCG CAP (S0169) PO SCH (16:15)
[2022-08-22 20:00] VITALS: BP 113/55
[2022-08-22] MEDS: traZODone 100 MG TAB PO SCH (20:31)
[2022-08-22] MEDS: MONTELUKAST 10 MG TAB PO SCH (20:31)
[2022-08-22] MEDS: NORCO, ANEXSIA 5/325MG TABLET (HYDROcodone/ACETAMINOPHEN) PO PRN (20:32)
[2022-08-22] MEDS: SENNA 8.6 MG TAB (SENOKOT) PO SCH (21:00)
[2022-08-23] MEDS: NORCO, ANEXSIA 5/325MG TABLET (HYDROcodone/ACETAMINOPHEN) PO SCH ×2 (06:34→12:09)
[2022-08-23 06:49] VITALS: BP 116/57
[2022-08-23 07:23] LABS: BASO # 0.1 10^3/uL (0.0-0.2); EOS # 0.1 10^3/uL (0.0-0.5); EOS % 1.6 % (0.0-3.0); HEMATOCRIT 32.5 % (36.0-47.0); HEMOGLOBIN 9.8 g/dl (12.0-15.5); LYMPH # 0.6 10^3/uL (1.5-5.0); LYMPH % 8.3 % (24.0-44.0); MEAN CORPUSCULAR HEMOGLOBIN 31.5 pg (27.0-33.0); MEAN CORPUSCULAR HGB CONC 30.2 g/dl (32.0-36.5); MEAN CORPUSCULAR VOLUME 104.5 fl (80.0-96.0); MONO # 0.9 10^3/uL (0.0-0.8); MONO % 12.6 % (2.0-8.0); NEUTROPHILS # 5.1 10^3/uL (1.5-8.5); NEUTROPHILS % 76.1 % (36.0-66.0); PLATELET COUNT, AUTOMATED 205 10^3/uL (150-450); RED BLOOD COUNT 3.11 10^6/uL (4.00-5.40); WHITE BLOOD COUNT 6.7 10^3/uL (4.0-10.0)
[2022-08-23] MEDS: FLUTICASONE HFA 110MCG 12GM INHALER (FLOVENT) INH SCH ×2 (07:36→20:10)
[2022-08-23] MEDS: TIOTROPIUM INHALER/CAPSULE (SPIRIVA) INH SCH (07:36)
[2022-08-23] MEDS: COMBIVENT RESPIMAT 100-20MCG INHALER 4GM INH SCH ×3 (07:36→20:10)
[2022-08-23 07:48] LABS: CALCIUM LEVEL 9.2 MG/DL (8.3-10.6); CREATININE FOR GFR 1.59 MG/DL (0.55-1.30); GLOMERULAR FILTRATION RATE 33.4 (>39); POTASSIUM SERUM 4.5 MMOL/L (3.5-5.1)
[2022-08-23] MEDS: guaiFENesin 200 MG TAB PO SCH ×4 (08:19→22:38)
[2022-08-23] MEDS: DOCUSATE SODIUM 100MG CAPSULE PO SCH ×3 (08:19→21:00)
[2022-08-23] MEDS: LIDOCAINE 5% (LIDODERM) PATCH TD SCH (08:19)
[2022-08-23] MEDS: PANTOPRAZOLE 40MG TAB (PROTONIX) PO SCH ×2 (08:19→09:23)
[2022-08-23] MEDS: MULTIVITAMINS/MINERALS THERAP 1 TAB PO SCH ×2 (08:19→08:50)
[2022-08-23] MEDS: ASPIRIN 81MG ENTERIC TABLET PO SCH ×2 (08:19→09:00)
[2022-08-23] MEDS: APIXABAN 2.5 MG TAB (ELIQUIS) PO SCH ×3 (08:19→22:39)
[2022-08-23] MEDS: METOPROLOL TART 12.5 MG PER 1/2 TAB PO SCH ×3 (08:20→22:40)
[2022-08-23] MEDS: CitaloPRAM (CeleXA) 20 MG TAB PO SCH ×2 (08:20→09:23)
[2022-08-23] MEDS: MIDODRINE 5 MG TAB PO SCH ×3 (08:20→12:09)
[2022-08-23] MEDS: diphenhydrAMINE CREAM 30GM TOP PRN (08:21)
[2022-08-23] MEDS: VANICREAM MOISTURIZING SKIN CREAM 113GM TUBE TOP SCH ×2 (08:22→21:00)
[2022-08-23] MEDS: REMEDY PHYTOPLEX Z-GUARD PASTE 113GM TUBE (FROM STOREROOM PRODUCT) TOP SCH ×3 (08:23→21:00)
[2022-08-23] MEDS ORDERED: E-Z-PAQUE 96% w/w SUSP 176GM BTL As Ordered ONE (09:54)
[2022-08-23] MEDS ORDERED: E-Z-HD 98% w/w 340GM SUSP BTL As Ordered ONE (09:55)
[2022-08-23 14:00] VITALS: BP 117/57
[2022-08-23 20:00] VITALS: BP 132/61
[2022-08-23] MEDS: SENNA 8.6 MG TAB (SENOKOT) PO SCH (21:00)
[2022-08-23] MEDS: NORCO, ANEXSIA 5/325MG TABLET (HYDROcodone/ACETAMINOPHEN) PO PRN (22:39)
[2022-08-23] MEDS: MONTELUKAST 10 MG TAB PO SCH (22:39)
[2022-08-23 22:40] VITALS: BP 132/61
[2022-08-23] MEDS: traZODone 100 MG TAB PO SCH (22:40)
[2022-08-24] MEDS: NORCO, ANEXSIA 5/325MG TABLET (HYDROcodone/ACETAMINOPHEN) PO SCH ×2 (05:48→11:24)
[2022-08-24 05:54] VITALS: BP 113/60
[2022-08-24] MEDS ORDERED: HYOSCYAMINE SULFATE 0.125 MG SUBL TABLET PO PRN (06:55)
[2022-08-24] MEDS ORDERED: HEPARIN 1,000UNITS/ML 10ML VIAL (FOR RADIOLOGY & DIALYSIS ONLY) XX SCH (07:10)
[2022-08-24] MEDS ORDERED: SODIUM CHLORIDE 0.9% 1000ML IV PRN (07:10)
[2022-08-24] MEDS ORDERED: HEPARIN 1,000UNITS/ML 10ML VIAL (FOR RADIOLOGY & DIALYSIS ONLY) IV PRN (07:10)
[2022-08-24] MEDS: DOCUSATE SODIUM 100MG CAPSULE PO SCH (07:25)
[2022-08-24] MEDS: REMEDY PHYTOPLEX Z-GUARD PASTE 113GM TUBE (FROM STOREROOM PRODUCT) TOP SCH (07:25)
[2022-08-24] MEDS: ASPIRIN 81MG ENTERIC TABLET PO SCH (07:37)
[2022-08-24] MEDS: CitaloPRAM (CeleXA) 20 MG TAB PO SCH (07:37)
[2022-08-24] MEDS: MULTIVITAMINS/MINERALS THERAP 1 TAB PO SCH (07:38)
[2022-08-24] MEDS: APIXABAN 2.5 MG TAB (ELIQUIS) PO SCH (07:38)
[2022-08-24] MEDS: MIDODRINE 5 MG TAB PO SCH ×2 (07:38→11:23)
[2022-08-24] MEDS: PANTOPRAZOLE 40MG TAB (PROTONIX) PO SCH (07:38)
[2022-08-24] MEDS: LIDOCAINE 5% (LIDODERM) PATCH TD SCH (07:38)
[2022-08-24] MEDS: VANICREAM MOISTURIZING SKIN CREAM 113GM TUBE TOP SCH (07:43)
[2022-08-24] MEDS: METOPROLOL TART 12.5 MG PER 1/2 TAB PO SCH (07:48)
[2022-08-24] MEDS: guaiFENesin 200 MG TAB PO SCH (07:49)
[2022-08-24] MEDS: COMBIVENT RESPIMAT 100-20MCG INHALER 4GM INH SCH ×2 (08:00→14:00)
[2022-08-24] MEDS: TIOTROPIUM INHALER/CAPSULE (SPIRIVA) INH SCH (08:00)
[2022-08-24] MEDS: FLUTICASONE HFA 110MCG 12GM INHALER (FLOVENT) INH SCH (08:00)
[2022-08-24] MEDS ORDERED: GUAI20TA PO (14:09)
[2022-08-24] MEDS ORDERED: MIDO10TA PO (14:09)
[2022-08-24] MEDS ORDERED: HYDR-643 PO ×2 (14:09)
[2022-08-24] MEDS ORDERED: MONT10TA97 PO (14:09)
[2022-08-24] MEDS ORDERED: LIDO5TD TD (14:09)
[2022-08-24] MEDS ORDERED: ASPI81TAEC PO (14:09)
[2022-08-24] MEDS ORDERED: ELIQ2.5T PO (14:09)
[2022-08-24] MEDS ORDERED: HYDR-3715 PO (14:09)
[2022-08-24] MEDS ORDERED: HYOS125TA PO (14:09)
[2022-08-24] MEDS ORDERED: CALC1CAP31 PO (14:09)
[2022-08-24] MEDS: CALCITRIOL 0.25 MCG CAP (S0169) PO SCH (14:59)
== END 2022-08-24 15:00 | DRG 559 ==
LOC: M PM&R 15:34
PROVIDERS: ADMIT Physical Medicine & Rehabilitation; ATTEND Physical Medicine & Rehabilitation
PROC: 5A1D70Z Performance of Urinary Filtration, Intermittent, Less than 6 Hours Per Day (ICD-10-PCS; principal; 2022-08-10)
DX: S72.002D Fracture of unspecified part of neck of left femur, subsequent encounter for closed fracture with routine healing (principal); N18.6 End stage renal disease; E87.1 Hypo-osmolality and hyponatremia; I50.32 Chronic diastolic (congestive) heart failure; I13.2 Hypertensive heart and chronic kidney disease with heart failure and with stage 5 chronic kidney disease, or end stage renal disease; I48.20 Chronic atrial fibrillation, unspecified; S42.202D Unspecified fracture of upper end of left humerus, subsequent encounter for fracture with routine healing; I95.0 Idiopathic hypotension; R26.89 Other abnormalities of gait and mobility; R42 Dizziness and giddiness; I67.2 Cerebral atherosclerosis; N32.9 Bladder disorder, unspecified; D63.1 Anemia in chronic kidney disease; J44.9 Chronic obstructive pulmonary disease, unspecified; R32 Unspecified urinary incontinence; E11.22 Type 2 diabetes mellitus with diabetic chronic kidney disease; K21.9 Gastro-esophageal reflux disease without esophagitis; M79.81 Nontraumatic hematoma of soft tissue; F41.9 Anxiety disorder, unspecified; I45.9 Conduction disorder, unspecified; F32.A Depression, unspecified; K59.00 Constipation, unspecified; L29.9 Pruritus, unspecified; I27.20 Pulmonary hypertension, unspecified; R13.10 Dysphagia, unspecified; G47.00 Insomnia, unspecified; I71.20 Thoracic aortic aneurysm, without rupture, unspecified; Z74.09 Other reduced mobility; Z99.2 Dependence on renal dialysis; Z74.1 Need for assistance with personal care; Z87.891 Personal history of nicotine dependence; Z79.82 Long term (current) use of aspirin; Z79.899 Other long term (current) drug therapy; Z95.0 Presence of cardiac pacemaker; Z88.8 Allergy status to other drugs, medicaments and biological substances; Z90.49 Acquired absence of other specified parts of digestive tract

== ENCOUNTER 2022-08-29 18:36 | Emergency (ER) | payer MEDICARE, OTHER ==
[~2022-08-29 18:36] MED LIST changes: +ACET1TAB55 PO; +ASPI81TA26 PO; +ASPI81TAEC PO; +BISA10SU4 PR; +CALC1CAP31 PO; +CALC500T52 PO; +CHRO1000 PO; +GUAI20TA PO; +HEPARIN SC; +HYDR-643 PO; +HYOS125TA PO; +LIDO5TD TD; +LORA-674 PO; +MELA3TAB30 PO; +METO25TA4 PO; +METO37.5 PO; +MIDO10TA PO; +MIRA3350 PO; +MONT10TA97 PO; +ONDA-83 PO; +OXYC-517 PO; +PANT-23 PO; +POTA1TAB24 PO; +SENN-85 PO; +SYMB80INH INH; +TIOT18INH INH; +TRAZ-257 PO; +[UNRECOGNIZED DRUG - CODE] SC
[2022-08-29] MEDS ORDERED: NORCO, ANEXSIA 5/325MG TABLET (HYDROcodone/ACETAMINOPHEN) PO ONE (19:35)
[2022-08-29 20:34] LABS: BASO # 0.1 10^3/uL (0.0-0.2); EOS # 0.1 10^3/uL (0.0-0.5); EOS % 1.3 % (0.0-3.0); HEMATOCRIT 33.1 % (36.0-47.0); HEMOGLOBIN 10.3 g/dl (12.0-15.5); LYMPH # 0.6 10^3/uL (1.5-5.0); LYMPH % 8.9 % (24.0-44.0); MEAN CORPUSCULAR HEMOGLOBIN 32.3 pg (27.0-33.0); MEAN CORPUSCULAR HGB CONC 31.1 g/dl (32.0-36.5); MEAN CORPUSCULAR VOLUME 103.8 fl (80.0-96.0); MONO # 0.8 10^3/uL (0.0-0.8); MONO % 12.1 % (2.0-8.0); NEUTROPHILS # 5.1 10^3/uL (1.5-8.5); NEUTROPHILS % 76.1 % (36.0-66.0); PLATELET COUNT, AUTOMATED 251 10^3/uL (150-450); RED BLOOD COUNT 3.19 10^6/uL (4.00-5.40); WHITE BLOOD COUNT 6.7 10^3/uL (4.0-10.0)
[2022-08-29 20:54] LABS: CREATININE FOR GFR 0.97 MG/DL (0.55-1.30); GLOMERULAR FILTRATION RATE 59.1 (>39); POTASSIUM SERUM 4.1 MMOL/L (3.5-5.1)
[2022-08-29] MEDS ORDERED: IPRATROPIUM 0.5MG/ALBUTEROL 2.5MG INH SOL UD 3ML (DUONEB) NEB ONE (21:15)
[2022-08-29 23:39] VITALS: BP 106/68
== END 2022-08-29 23:40 | disposition home or self-care (01) ==
LOC: M ED 18:36
DX: M25.552 Pain in left hip (principal); M25.512 Pain in left shoulder; J44.9 Chronic obstructive pulmonary disease, unspecified; K21.9 Gastro-esophageal reflux disease without esophagitis; J45.909 Unspecified asthma, uncomplicated; I10 Essential (primary) hypertension; N18.9 Chronic kidney disease, unspecified; Z88.8 Allergy status to other drugs, medicaments and biological substances; Z95.0 Presence of cardiac pacemaker; Z79.01 Long term (current) use of anticoagulants; Z79.811 Long term (current) use of aromatase inhibitors; Z79.899 Other long term (current) drug therapy; Z79.82 Long term (current) use of aspirin

== ENCOUNTER 2022-11-24 12:27 | Observation (INO) | payer OTHER, MEDICARE ==
[~2022-11-24] VITALS: Ht 157.5 cm; Wt 55.7 kg
[2022-11-24 14:14] LABS: BASO # 0.1 10^3/uL (0.0-0.2); BASO % 1.2 % (0.0-1.0); EOS # 0.1 10^3/uL (0.0-0.5); EOS % 2.6 % (0.0-3.0); HEMATOCRIT 42.2 % (36.0-47.0); HEMOGLOBIN 13.2 g/dl (12.0-15.5); LYMPH # 0.5 10^3/uL (1.5-5.0); LYMPH % 10.6 % (24.0-44.0); MEAN CORPUSCULAR HEMOGLOBIN 30.5 pg (27.0-33.0); MEAN CORPUSCULAR HGB CONC 31.3 g/dl (32.0-36.5); MEAN CORPUSCULAR VOLUME 97.5 fl (80.0-96.0); MONO # 0.6 10^3/uL (0.0-0.8); MONO % 12.4 % (2.0-8.0); NEUTROPHILS # 3.7 10^3/uL (1.5-8.5); NEUTROPHILS % 72.8 % (36.0-66.0); PLATELET COUNT, AUTOMATED 208 10^3/uL (150-450); RED BLOOD COUNT 4.33 10^6/uL (4.00-5.40)
[2022-11-24 14:37] LABS: ALBUMIN 3.3 G/DL (3.2-5.2); ALKALINE PHOSPHATASE 163 U/L (46-116); ALT/SGPT < 9 U/L (7.0-40); AST/SGOT 21 U/L (<34); BILIRUBIN,DIRECT 0.5 MG/DL (<0.4); BILIRUBIN,TOTAL 1.1 MG/DL (0.3-1.2); BLOOD UREA NITROGEN 6 MG/DL (9-23); CALCIUM LEVEL 9.6 MG/DL (8.3-10.6); CARBON DIOXIDE LEVEL 29 MMOL/L (20-31); CHLORIDE LEVEL 101 MMOL/L (98-107); CK-MB VALUE MASS < 1.0 NG/ML (<3.6); CREATININE FOR GFR 1.64 MG/DL (0.55-1.30); GLOMERULAR FILTRATION RATE 32.3 (>39); GLUCOSE, FASTING 84 MG/DL (74-106); POTASSIUM SERUM 3.9 MMOL/L (3.5-5.1); SODIUM LEVEL 137 MMOL/L (136-145); TOTAL PROTEIN 6.6 G/DL (5.7-8.2)
[2022-11-24 14:53] LABS: RSV AMPLIFICATION NEGATIVE (NEGATIVE)
[2022-11-24 14:54] LABS: CPK CREATINE PHOSPHOKINASE 21 U/L (34-145); MB/CK RELATIVE INDEX 4.76 (< OR =4)
[2022-11-24] MEDS ORDERED: BISA5TAB73 PO (17:54)
[2022-11-24] MEDS ORDERED: ALBU2.5V10 NEB (17:54)
[2022-11-24] MEDS ORDERED: GABA-1171 PO (17:54)
[2022-11-24] MEDS ORDERED: MIDO10TA PO (17:54)
[2022-11-24] MEDS ORDERED: TRAM50TA2 PO (17:54)
[2022-11-24] MEDS ORDERED: ELIQ2.5T PO (17:54)
[2022-11-24] MEDS ORDERED: TRAZ-252 PO (17:54)
[2022-11-24] MEDS ORDERED: TUMS500C PO (17:56)
[2022-11-24] MEDS ORDERED: HOME MED LIST COMPLETE! XX SCH (18:00)
[2022-11-24] MEDS ORDERED: MIDODRINE 5 MG TAB PO SCH (21:00)
[2022-11-24] MEDS: GABAPENTIN 100 MG CAP PO SCH (21:47)
[2022-11-24] MEDS: APIXABAN 2.5 MG TAB (ELIQUIS) PO SCH (21:47)
[2022-11-24] MEDS: traZODone 50 MG TAB PO SCH (21:47)
[2022-11-24 22:20] VITALS: BP 142/60
[2022-11-24] MEDS ORDERED: ALBUTEROL SULFATE 2.5MG/0.5ML INH NEB SOLN NEB PRN (22:25)
[2022-11-24] MEDS ORDERED: traMADol 50 MG TAB PO PRN (23:40)
[2022-11-25 05:20] VITALS: BP 127/64
[2022-11-25 05:53] LABS: BASO # 0.1 10^3/uL (0.0-0.2); BASO % 1.5 % (0.0-1.0); EOS # 0.2 10^3/uL (0.0-0.5); EOS % 4.3 % (0.0-3.0); HEMATOCRIT 38.3 % (36.0-47.0); LYMPH # 0.6 10^3/uL (1.5-5.0); LYMPH % 13.7 % (24.0-44.0); MEAN CORPUSCULAR HEMOGLOBIN 30.2 pg (27.0-33.0); MEAN CORPUSCULAR HGB CONC 31.3 g/dl (32.0-36.5); MEAN CORPUSCULAR VOLUME 96.5 fl (80.0-96.0); MONO # 0.7 10^3/uL (0.0-0.8); MONO % 13.9 % (2.0-8.0); NEUTROPHILS # 3.1 10^3/uL (1.5-8.5); NEUTROPHILS % 66.2 % (36.0-66.0); PLATELET COUNT, AUTOMATED 197 10^3/uL (150-450); RED BLOOD COUNT 3.97 10^6/uL (4.00-5.40); WHITE BLOOD COUNT 4.7 10^3/uL (4.0-10.0)
[2022-11-25 06:27] LABS: BLOOD UREA NITROGEN < 5 MG/DL (9-23); CALCIUM LEVEL 8.8 MG/DL (8.3-10.6); CARBON DIOXIDE LEVEL 27 MMOL/L (20-31); CHLORIDE LEVEL 105 MMOL/L (98-107); CREATININE FOR GFR 1.86 MG/DL (0.55-1.30); GLOMERULAR FILTRATION RATE 27.9 (>39); GLUCOSE, FASTING 71 MG/DL (74-106); POTASSIUM SERUM 3.7 MMOL/L (3.5-5.1); SODIUM LEVEL 137 MMOL/L (136-145)
[2022-11-25] MEDS: GABAPENTIN 100 MG CAP PO SCH ×3 (06:43→20:08)
[2022-11-25] MEDS: APIXABAN 2.5 MG TAB (ELIQUIS) PO SCH ×2 (06:43→20:09)
[2022-11-25 07:30] VITALS: BP 138/72
[2022-11-25] MEDS ORDERED: MIDODRINE 5 MG TAB PO SCH (09:00)
[2022-11-25 13:30] VITALS: BP 121/64
[2022-11-25] MEDS: traZODone 50 MG TAB PO SCH (20:08)
[2022-11-25 20:30] VITALS: BP 122/63
[2022-11-26 04:40] VITALS: BP 107/54
[2022-11-26] MEDS ORDERED: TRAZ-252 PO (08:28)
[2022-11-26 08:49] LABS: BASO # 0.1 10^3/uL (0.0-0.2); BASO % 1.2 % (0.0-1.0); EOS # 0.2 10^3/uL (0.0-0.5); EOS % 4.2 % (0.0-3.0); HEMATOCRIT 39.6 % (36.0-47.0); HEMOGLOBIN 12.2 g/dl (12.0-15.5); LYMPH # 0.7 10^3/uL (1.5-5.0); MEAN CORPUSCULAR HEMOGLOBIN 29.8 pg (27.0-33.0); MEAN CORPUSCULAR HGB CONC 30.8 g/dl (32.0-36.5); MEAN CORPUSCULAR VOLUME 96.8 fl (80.0-96.0); MONO # 0.7 10^3/uL (0.0-0.8); MONO % 15.3 % (2.0-8.0); NEUTROPHILS # 2.6 10^3/uL (1.5-8.5); NEUTROPHILS % 61.8 % (36.0-66.0); PLATELET COUNT, AUTOMATED 195 10^3/uL (150-450); RED BLOOD COUNT 4.09 10^6/uL (4.00-5.40); WHITE BLOOD COUNT 4.2 10^3/uL (4.0-10.0)
[2022-11-26] MEDS: GABAPENTIN 100 MG CAP PO SCH (09:08)
[2022-11-26] MEDS: APIXABAN 2.5 MG TAB (ELIQUIS) PO SCH (09:08)
[2022-11-26 09:12] VITALS: BP 124/58
[2022-11-26 09:19] LABS: CALCIUM LEVEL 8.6 MG/DL (8.3-10.6); CREATININE FOR GFR 2.21 MG/DL (0.55-1.30); GLOMERULAR FILTRATION RATE 22.9 (>39); POTASSIUM SERUM 3.8 MMOL/L (3.5-5.1)
== END 2022-11-26 14:11 | disposition home or self-care (01) ==
LOC: M ED 12:27 → M ED INP 12:28 → ENRESERV 20:25 → M MSPAV 21:23
PROVIDERS: ADMIT Internal Medicine Nephrology; ATTEND Internal Medicine Nephrology
DX: M62.81 Muscle weakness (generalized) (principal); N18.6 End stage renal disease; E11.9 Type 2 diabetes mellitus without complications; I50.30 Unspecified diastolic (congestive) heart failure; J44.9 Chronic obstructive pulmonary disease, unspecified; I95.9 Hypotension, unspecified; I48.91 Unspecified atrial fibrillation; I27.20 Pulmonary hypertension, unspecified; I49.5 Sick sinus syndrome; F32.A Depression, unspecified; G90.09 Other idiopathic peripheral autonomic neuropathy; I65.02 Occlusion and stenosis of left vertebral artery; N21.9 Calculus of lower urinary tract, unspecified; Z95.0 Presence of cardiac pacemaker; Z79.01 Long term (current) use of anticoagulants; Z79.899 Other long term (current) drug therapy; Z88.8 Allergy status to other drugs, medicaments and biological substances

== ENCOUNTER 2022-12-24 05:30 | Emergency (ER) | payer MEDICARE, OTHER ==
[~2022-12-24] VITALS: Ht 157.5 cm; Wt 61.4 kg
[~2022-12-24 05:30] MED LIST changes: +ALBU2.5V10 NEB; +BISA5TAB73 PO; +TUMS500C PO
[2022-12-24] MEDS ORDERED: ACETAMINOPHEN TAB 650MG DOSE (2X325MG) PO ONE (06:25)
[2022-12-24 08:26] VITALS: BP 170/70
== END 2022-12-24 11:15 | disposition home or self-care (01) ==
LOC: M ED 05:30
DX: S22.080A Wedge compression fracture of T11-T12 vertebra, initial encounter for closed fracture (principal); S32.038A Other fracture of third lumbar vertebra, initial encounter for closed fracture; W07.XXXA Fall from chair, initial encounter; Y92.009 Unspecified place in unspecified non-institutional (private) residence as the place of occurrence of the external cause; N28.1 Cyst of kidney, acquired; M85.88 Other specified disorders of bone density and structure, other site; I48.91 Unspecified atrial fibrillation; I50.9 Heart failure, unspecified; E11.9 Type 2 diabetes mellitus without complications; I10 Essential (primary) hypertension; J44.9 Chronic obstructive pulmonary disease, unspecified; J45.909 Unspecified asthma, uncomplicated; K21.9 Gastro-esophageal reflux disease without esophagitis; E78.00 Pure hypercholesterolemia, unspecified; N18.6 End stage renal disease; K57.92 Diverticulitis of intestine, part unspecified, without perforation or abscess without bleeding; Z79.01 Long term (current) use of anticoagulants; Z79.899 Other long term (current) drug therapy; Z88.8 Allergy status to other drugs, medicaments and biological substances

== ENCOUNTER 2023-03-26 12:00 | Inpatient (IN) | payer MEDICARE, OTHER ==
[2023-03-26] VITALS (7 sets, daily range): BP systolic 116–145; BP diastolic 57–66; TEMP 97.1–98.8; O2SAT 87–97
[~2023-03-26] VITALS: Ht 157.5 cm; Wt 53.5 kg
[~2023-03-26 12:00] MED LIST changes: +CITA20TA7 PO; +TREL1AER IN; +ceFAZolin SOD 2 GM in IV 1 EA IV ONE
[2023-03-26 12:53] LABS: INR 1.02; PROTHROMBIN TIME 13.6 SECONDS (12.5-14.5)
[2023-03-26 12:54] LABS: PARTIAL THROMBOPLASTIN TIME 27.5 SECONDS (24.8-34.2)
[2023-03-26 13:09] LABS: CALCIUM LEVEL 9.4 MG/DL (8.3-10.6); CREATININE FOR GFR 3.43 MG/DL (0.55-1.30); GLOMERULAR FILTRATION RATE 13.7 (>39); POTASSIUM SERUM 4.8 MMOL/L (3.5-5.1)
[2023-03-26] MEDS ORDERED: LIDOCAINE 1% SDV 30ML VIAL As Ordered ONE (14:22)
[2023-03-26] MEDS ORDERED: MIDAZOLAM INJ 2MG/2ML VIAL As Ordered ONE (14:26)
[2023-03-26] MEDS ORDERED: fentaNYL 100 MCG/2 ML INJECTION As Ordered ONE (14:27)
[2023-03-26] MEDS ORDERED: PAPAVERINE HCL 60MG 2ML VIAL (30MG/ML) As Ordered ONE (14:28)
[2023-03-26 15:01] LABS: HEMATOCRIT 35.8 % (36.0-47.0); HEMOGLOBIN 11.2 g/dl (12.0-15.5); MEAN CORPUSCULAR HEMOGLOBIN 32.1 pg (27.0-33.0); MEAN CORPUSCULAR HGB CONC 31.3 g/dl (32.0-36.5); MEAN CORPUSCULAR VOLUME 102.6 fl (80.0-96.0); PLATELET COUNT, AUTOMATED 265 10^3/uL (150-450); RED BLOOD COUNT 3.49 10^6/uL (4.00-5.40); WHITE BLOOD COUNT 5.3 10^3/uL (4.0-10.0)
[2023-03-26] MEDS ORDERED: propofoL 200 MG/20 ML VIAL As Ordered ONE (15:30)
[2023-03-26] MEDS ORDERED: THROMBIN 5,000 UNITS VIAL As Ordered ONE (15:57)
[2023-03-26] MEDS ORDERED: ONDANSETRON 4MG 2ML VIAL As Ordered ONE (16:22)
[2023-03-26] MEDS ORDERED: ONDANSETRON 4MG 2ML VIAL IV PRN ×2 (17:40→18:50)
[2023-03-26] MEDS ORDERED: HYDROMORPHONE HCL 0.5 MG/ 0.5 ML SYRINGE IV PRN ×3 (17:40→18:50)
[2023-03-26] MEDS ORDERED: oxyCODONE 5MG TAB PO PRN (17:40)
[2023-03-26] MEDS ORDERED: fentaNYL 100 MCG/2 ML INJECTION IV PRN (17:40)
[2023-03-26] MEDS: DOCUSATE SODIUM 100MG CAPSULE PO SCH (20:53)
[2023-03-26] MEDS: MIDODRINE 5 MG TAB PO SCH (22:00)
[2023-03-27] MEDS ORDERED: ALBUTEROL 90 MCG/ACT 8GM HFA INHALER INH PRN (00:20)
[2023-03-27] MEDS ORDERED: ALBUTEROL SULFATE 2.5MG/0.5ML INH NEB SOLN NEB PRN (00:20)
[2023-03-27 00:22] VITALS: BP 124/60; TEMP 97.6; O2SAT 99
[2023-03-27] MEDS: MIDODRINE 5 MG TAB PO SCH ×4 (00:22→22:22)
[2023-03-27] MEDS: traZODone 50 MG TAB PO SCH ×2 (00:39→22:22)
[2023-03-27 00:50] VITALS: O2SAT 98
[2023-03-27 04:46] VITALS: BP 127/62; TEMP 97.7; O2SAT 99
[2023-03-27] MEDS ORDERED: HEPARIN 1,000UNITS/ML 10ML VIAL (FOR RADIOLOGY & DIALYSIS ONLY) XX SCH (06:00)
[2023-03-27] MEDS ORDERED: HEPARIN 1,000UNITS/ML 10ML VIAL (FOR RADIOLOGY & DIALYSIS ONLY) IV PRN (06:00)
[2023-03-27] MEDS ORDERED: SODIUM CHLORIDE 0.9% 1000ML IV PRN (06:00)
[2023-03-27 06:33] LABS: HEMATOCRIT 38.7 % (36.0-47.0); HEMOGLOBIN 11.5 g/dl (12.0-15.5); MEAN CORPUSCULAR HEMOGLOBIN 31.4 pg (27.0-33.0); MEAN CORPUSCULAR HGB CONC 29.7 g/dl (32.0-36.5); MEAN CORPUSCULAR VOLUME 105.7 fl (80.0-96.0); PLATELET COUNT, AUTOMATED 205 10^3/uL (150-450); RED BLOOD COUNT 3.66 10^6/uL (4.00-5.40); WHITE BLOOD COUNT 7.3 10^3/uL (4.0-10.0)
[2023-03-27] MEDS: DOCUSATE SODIUM 100MG CAPSULE PO SCH ×2 (06:54→22:27)
[2023-03-27 06:55] VITALS: BP 120/60; O2SAT 94
[2023-03-27 06:56] LABS: CALCIUM LEVEL 9.2 MG/DL (8.3-10.6); CREATININE FOR GFR 3.73 MG/DL (0.55-1.30); GLOMERULAR FILTRATION RATE 12.5 (>39); MAGNESIUM LEVEL 1.8 MG/DL (1.8-2.4); POTASSIUM SERUM 6.1 MMOL/L (3.5-5.1)
[2023-03-27] MEDS ORDERED: DEXTROSE 50% 50ML SYRINGE IV STA (07:29)
[2023-03-27] MEDS ORDERED: HumuLIN R (REGULAR) INSULIN (NovoLIN R) **100U/ML** PER UNIT IV STA (07:29)
[2023-03-27] MEDS: ACETAMINOPHEN TAB 650MG DOSE (2X325MG) PO PRN (07:35)
[2023-03-27 12:00] VITALS: BP 136/81; TEMP 97.2; O2SAT 97
[2023-03-27] MEDS: oxyCODONE 5MG TAB PO PRN ×2 (14:06→22:27)
[2023-03-27] MEDS: CitaloPRAM (CeleXA) 20 MG TAB PO SCH (14:18)
[2023-03-27 20:00] VITALS: BP 132/60; TEMP 97.6; O2SAT 94
[2023-03-28] VITALS (7 sets, daily range): BP systolic 94–146; BP diastolic 52–65; TEMP 97.2–98.6; O2SAT 93–96
[2023-03-28] MEDS: MIDODRINE 5 MG TAB PO SCH ×3 (05:46→21:44)
[2023-03-28] MEDS: ACETAMINOPHEN TAB 650MG DOSE (2X325MG) PO PRN ×2 (05:47→20:56)
[2023-03-28 05:51] LABS: BASO # 0.1 10^3/uL (0.0-0.2); BASO % 1.1 % (0.0-1.0); EOS # 0.1 10^3/uL (0.0-0.5); EOS % 1.4 % (0.0-3.0); HEMOGLOBIN 10.3 g/dl (12.0-15.5); LYMPH # 0.8 10^3/uL (1.5-5.0); LYMPH % 15.1 % (24.0-44.0); MEAN CORPUSCULAR HEMOGLOBIN 32.4 pg (27.0-33.0); MEAN CORPUSCULAR HGB CONC 31.2 g/dl (32.0-36.5); MEAN CORPUSCULAR VOLUME 103.8 fl (80.0-96.0); NEUTROPHILS # 3.6 10^3/uL (1.5-8.5); PLATELET COUNT, AUTOMATED 173 10^3/uL (150-450); RED BLOOD COUNT 3.18 10^6/uL (4.00-5.40); WHITE BLOOD COUNT 5.6 10^3/uL (4.0-10.0)
[2023-03-28 06:11] LABS: CALCIUM LEVEL 8.5 MG/DL (8.3-10.6); CREATININE FOR GFR 2.7 MG/DL (0.55-1.30); GLOMERULAR FILTRATION RATE 18.1 (>39); MAGNESIUM LEVEL 1.6 MG/DL (1.8-2.4); POTASSIUM SERUM 4.4 MMOL/L (3.5-5.1)
[2023-03-28] MEDS ORDERED: MAGNESIUM OXIDE 400MG TAB (MAG-OX) PO ONE (07:20)
[2023-03-28] MEDS: CitaloPRAM (CeleXA) 20 MG TAB PO SCH (07:51)
[2023-03-28] MEDS: DOCUSATE SODIUM 100MG CAPSULE PO SCH ×2 (07:57→20:56)
[2023-03-28] MEDS ORDERED: LIDOCAINE 1% MDV 20ML VIAL As Ordered ONE (16:41)
[2023-03-28] MEDS ORDERED: THROMBIN 5,000 UNITS VIAL As Ordered ONE (16:41)
[2023-03-28] MEDS ORDERED: HEPARIN SOD (PORCINE) 5000UNITS/ML 1ML VIAL/SYRINGE As Ordered ONE ×3 (16:41→18:18)
[2023-03-28] MEDS ORDERED: PAPAVERINE HCL 60MG 2ML VIAL (30MG/ML) As Ordered ONE (16:44)
[2023-03-28] MEDS ORDERED: ceFAZolin 2 GM/D5W 50 ML IV BAG As Ordered ONE (17:26)
[2023-03-28] MEDS ORDERED: fentaNYL 100 MCG/2 ML INJECTION As Ordered ONE (17:39)
[2023-03-28] MEDS ORDERED: ONDANSETRON 4MG 2ML VIAL As Ordered ONE (17:39)
[2023-03-28] MEDS ORDERED: LIDOCAINE 2% 100MG/5ML SDV (FOR ANES.) As Ordered ONE (17:39)
[2023-03-28] MEDS ORDERED: propofoL 200 MG/20 ML VIAL As Ordered ONE (17:39)
[2023-03-28] MEDS ORDERED: ACETAMINOPHEN 1000MG 100ML IV BAG As Ordered ONE (17:54)
[2023-03-28] MEDS: traZODone 50 MG TAB PO SCH (20:56)
[2023-03-28] MEDS: ceFAZolin SOD 1 GM in D5W MINI-BAG PLUS 50 ML IV SCH (23:25)
[2023-03-29 00:50] VITALS: BP 104/55; TEMP 97.6; O2SAT 93
[2023-03-29 01:50] VITALS: BP 107/55; TEMP 97.7; O2SAT 94
[2023-03-29] MEDS: oxyCODONE 5MG TAB PO PRN (04:57)
[2023-03-29] MEDS: MIDODRINE 5 MG TAB PO SCH ×3 (04:57→20:01)
[2023-03-29 05:50] VITALS: BP 125/58; TEMP 97.7; O2SAT 95
[2023-03-29] MEDS: ceFAZolin SOD 1 GM in D5W MINI-BAG PLUS 50 ML IV SCH ×2 (05:58→15:55)
[2023-03-29] MEDS ORDERED: SODIUM CHLORIDE 0.9% 1000ML IV PRN (06:00)
[2023-03-29] MEDS ORDERED: HEPARIN 1,000UNITS/ML 10ML VIAL (FOR RADIOLOGY & DIALYSIS ONLY) IV PRN (06:00)
[2023-03-29] MEDS ORDERED: HEPARIN 1,000UNITS/ML 10ML VIAL (FOR RADIOLOGY & DIALYSIS ONLY) XX SCH (06:00)
[2023-03-29 06:24] LABS: BASO % 0.2 % (0.0-1.0); HEMATOCRIT 33.7 % (36.0-47.0); HEMOGLOBIN 10.7 g/dl (12.0-15.5); LYMPH # 0.5 10^3/uL (1.5-5.0); LYMPH % 7.7 % (24.0-44.0); MEAN CORPUSCULAR HEMOGLOBIN 32.8 pg (27.0-33.0); MEAN CORPUSCULAR HGB CONC 31.8 g/dl (32.0-36.5); MEAN CORPUSCULAR VOLUME 103.4 fl (80.0-96.0); MONO # 0.6 10^3/uL (0.0-0.8); MONO % 9.9 % (2.0-8.0); NEUTROPHILS # 5.2 10^3/uL (1.5-8.5); NEUTROPHILS % 81.7 % (36.0-66.0); PLATELET COUNT, AUTOMATED 202 10^3/uL (150-450); RED BLOOD COUNT 3.26 10^6/uL (4.00-5.40); WHITE BLOOD COUNT 6.4 10^3/uL (4.0-10.0)
[2023-03-29 06:31] LABS: CALCIUM LEVEL 8.6 MG/DL (8.3-10.6); CREATININE FOR GFR 3.41 MG/DL (0.55-1.30); GLOMERULAR FILTRATION RATE 13.8 (>39); MAGNESIUM LEVEL 1.9 MG/DL (1.8-2.4); POTASSIUM SERUM 5.1 MMOL/L (3.5-5.1)
[2023-03-29] MEDS: DOCUSATE SODIUM 100MG CAPSULE PO SCH ×2 (07:41→20:01)
[2023-03-29] MEDS: CitaloPRAM (CeleXA) 20 MG TAB PO SCH (07:41)
[2023-03-29] MEDS: GABAPENTIN 100 MG CAP PO SCH ×2 (13:00→20:02)
[2023-03-29 14:00] VITALS: BP 120/70; TEMP 98.9; O2SAT 97
[2023-03-29 20:00] VITALS: BP 108/55; TEMP 97.4; O2SAT 93
[2023-03-29] MEDS: traZODone 50 MG TAB PO SCH (20:01)
[2023-03-30] MEDS: MIDODRINE 5 MG TAB PO SCH ×3 (05:32→20:54)
[2023-03-30 05:50] LABS: BASO # 0.1 10^3/uL (0.0-0.2); BASO % 0.9 % (0.0-1.0); EOS # 0.1 10^3/uL (0.0-0.5); EOS % 1.6 % (0.0-3.0); HEMATOCRIT 32.3 % (36.0-47.0); HEMOGLOBIN 10.2 g/dl (12.0-15.5); LYMPH % 17.5 % (24.0-44.0); MEAN CORPUSCULAR HGB CONC 31.6 g/dl (32.0-36.5); MEAN CORPUSCULAR VOLUME 101.3 fl (80.0-96.0); MONO # 0.9 10^3/uL (0.0-0.8); NEUTROPHILS # 3.6 10^3/uL (1.5-8.5); NEUTROPHILS % 63.5 % (36.0-66.0); PLATELET COUNT, AUTOMATED 176 10^3/uL (150-450); RED BLOOD COUNT 3.19 10^6/uL (4.00-5.40); WHITE BLOOD COUNT 5.7 10^3/uL (4.0-10.0)
[2023-03-30 06:00] VITALS: BP 110/56; TEMP 98.3; O2SAT 93
[2023-03-30 06:27] LABS: CALCIUM LEVEL 8.4 MG/DL (8.3-10.6); CREATININE FOR GFR 2.4 MG/DL (0.55-1.30); GLOMERULAR FILTRATION RATE 20.7 (>39); MAGNESIUM LEVEL 1.8 MG/DL (1.8-2.4); POTASSIUM SERUM 3.7 MMOL/L (3.5-5.1)
[2023-03-30] MEDS: GABAPENTIN 100 MG CAP PO SCH ×2 (09:17→20:54)
[2023-03-30] MEDS: CitaloPRAM (CeleXA) 20 MG TAB PO SCH (09:17)
[2023-03-30] MEDS: DOCUSATE SODIUM 100MG CAPSULE PO SCH ×2 (09:17→20:54)
[2023-03-30 14:00] VITALS: BP 117/57; TEMP 97.7; O2SAT 97
[2023-03-30] MEDS: ceFAZolin SOD 1 GM in D5W MINI-BAG PLUS 50 ML IV SCH (16:50)
[2023-03-30 19:40] VITALS: BP 107/54; TEMP 98.2; O2SAT 96
[2023-03-30] MEDS: traZODone 50 MG TAB PO SCH (20:54)
[2023-03-31 05:56] VITALS: BP 127/59; TEMP 96.9; O2SAT 95
[2023-03-31] MEDS ORDERED: SODIUM CHLORIDE 0.9% 1000ML IV PRN (06:05)
[2023-03-31] MEDS ORDERED: HEPARIN 1,000UNITS/ML 10ML VIAL (FOR RADIOLOGY & DIALYSIS ONLY) XX SCH (06:05)
[2023-03-31] MEDS ORDERED: HEPARIN 1,000UNITS/ML 10ML VIAL (FOR RADIOLOGY & DIALYSIS ONLY) IV PRN (06:05)
[2023-03-31] MEDS: MIDODRINE 5 MG TAB PO SCH ×3 (06:10→20:20)
[2023-03-31] MEDS: CitaloPRAM (CeleXA) 20 MG TAB PO SCH (06:10)
[2023-03-31] MEDS: GABAPENTIN 100 MG CAP PO SCH ×2 (06:10→20:16)
[2023-03-31] MEDS: DOCUSATE SODIUM 100MG CAPSULE PO SCH ×2 (06:10→20:15)
[2023-03-31 06:43] LABS: BASO # 0.1 10^3/uL (0.0-0.2); BASO % 0.9 % (0.0-1.0); EOS # 0.2 10^3/uL (0.0-0.5); EOS % 3.1 % (0.0-3.0); HEMOGLOBIN 10.3 g/dl (12.0-15.5); LYMPH # 0.8 10^3/uL (1.5-5.0); LYMPH % 13.9 % (24.0-44.0); MEAN CORPUSCULAR HEMOGLOBIN 32.2 pg (27.0-33.0); MEAN CORPUSCULAR HGB CONC 31.2 g/dl (32.0-36.5); MEAN CORPUSCULAR VOLUME 103.1 fl (80.0-96.0); MONO # 0.8 10^3/uL (0.0-0.8); MONO % 15.6 % (2.0-8.0); NEUTROPHILS # 3.6 10^3/uL (1.5-8.5); NEUTROPHILS % 65.9 % (36.0-66.0); PLATELET COUNT, AUTOMATED 188 10^3/uL (150-450); WHITE BLOOD COUNT 5.4 10^3/uL (4.0-10.0)
[2023-03-31 07:13] LABS: CALCIUM LEVEL 8.6 MG/DL (8.3-10.6); CREATININE FOR GFR 3.18 MG/DL (0.55-1.30); MAGNESIUM LEVEL 1.8 MG/DL (1.8-2.4); POTASSIUM SERUM 3.6 MMOL/L (3.5-5.1)
[2023-03-31 14:00] VITALS: BP 124/58; TEMP 97.4; O2SAT 97
[2023-03-31] MEDS: ceFAZolin SOD 1 GM in D5W MINI-BAG PLUS 50 ML IV SCH (16:19)
[2023-03-31 20:00] VITALS: BP 118/54; TEMP 98.2; O2SAT 95
[2023-03-31] MEDS: traZODone 50 MG TAB PO SCH (20:15)
[2023-03-31] MEDS: ACETAMINOPHEN TAB 650MG DOSE (2X325MG) PO PRN (20:16)
[2023-04-01] MEDS: MIDODRINE 5 MG TAB PO SCH ×3 (05:55→20:52)
[2023-04-01 06:00] VITALS: BP 119/56; TEMP 98.2; O2SAT 95
[2023-04-01 07:24] LABS: BASO # 0.1 10^3/uL (0.0-0.2); BASO % 1.1 % (0.0-1.0); EOS # 0.2 10^3/uL (0.0-0.5); EOS % 3.3 % (0.0-3.0); HEMATOCRIT 36.1 % (36.0-47.0); HEMOGLOBIN 11.4 g/dl (12.0-15.5); LYMPH # 0.7 10^3/uL (1.5-5.0); MEAN CORPUSCULAR HEMOGLOBIN 32.3 pg (27.0-33.0); MEAN CORPUSCULAR HGB CONC 31.6 g/dl (32.0-36.5); MEAN CORPUSCULAR VOLUME 102.3 fl (80.0-96.0); MONO # 0.8 10^3/uL (0.0-0.8); MONO % 13.7 % (2.0-8.0); NEUTROPHILS # 3.7 10^3/uL (1.5-8.5); NEUTROPHILS % 68.2 % (36.0-66.0); PLATELET COUNT, AUTOMATED 220 10^3/uL (150-450); RED BLOOD COUNT 3.53 10^6/uL (4.00-5.40); WHITE BLOOD COUNT 5.5 10^3/uL (4.0-10.0)
[2023-04-01 07:49] LABS: CALCIUM LEVEL 9.2 MG/DL (8.3-10.6); CREATININE FOR GFR 2.17 MG/DL (0.55-1.30); GLOMERULAR FILTRATION RATE 23.3 (>39); MAGNESIUM LEVEL 1.8 MG/DL (1.8-2.4); POTASSIUM SERUM 3.8 MMOL/L (3.5-5.1)
[2023-04-01] MEDS: DOCUSATE SODIUM 100MG CAPSULE PO SCH ×2 (09:07→20:52)
[2023-04-01] MEDS: GABAPENTIN 100 MG CAP PO SCH ×2 (09:08→20:53)
[2023-04-01] MEDS: CitaloPRAM (CeleXA) 20 MG TAB PO SCH (09:08)
[2023-04-01 14:00] VITALS: BP 125/74; TEMP 97.5; O2SAT 98
[2023-04-01] MEDS: ceFAZolin SOD 1 GM in D5W MINI-BAG PLUS 50 ML IV SCH (16:12)
[2023-04-01 20:00] VITALS: BP 124/56; TEMP 98; O2SAT 94
[2023-04-01] MEDS: traZODone 50 MG TAB PO SCH (20:52)
[2023-04-02] MEDS: MIDODRINE 5 MG TAB PO SCH (05:28)
[2023-04-02 06:00] VITALS: BP 116/58; TEMP 98.1; O2SAT 94
[2023-04-02] MEDS: GABAPENTIN 100 MG CAP PO SCH (08:15)
[2023-04-02] MEDS: DOCUSATE SODIUM 100MG CAPSULE PO SCH (08:15)
[2023-04-02] MEDS: CitaloPRAM (CeleXA) 20 MG TAB PO SCH (08:15)
[2023-04-02] MEDS ORDERED: APIXABAN 2.5 MG TAB (ELIQUIS) PO SCH (09:00)
[2023-04-02] MEDS ORDERED: MIDO5TA PO (09:55)
== END 2023-04-02 12:45 | DRG 252 ==
LOC: M SDC 12:00 → M RR INP 12:01 → M MS4PR 19:55 → OBSVTOIN 03-30 13:50
PROVIDERS: ADMIT Internal Medicine Nephrology; ATTEND Family Medicine
PROC: 03180JD Bypass Left Brachial Artery to Upper Arm Vein with Synthetic Substitute, Open Approach (ICD-10-PCS; 2023-03-26)
PROC: 05C90ZZ Extirpation of Matter from Right Brachial Vein, Open Approach (ICD-10-PCS; 2023-03-28)
PROC: 03W Upper Arteries, Revision (ICD-10-PCS; 2023-03-28)
PROC: 03C70ZZ Extirpation of Matter from Right Brachial Artery, Open Approach (ICD-10-PCS; principal; 2023-03-28 17:00)
PROC: 5A1D70Z Performance of Urinary Filtration, Intermittent, Less than 6 Hours Per Day (ICD-10-PCS; 2023-03-29)
DX: T82.868A Thrombosis due to vascular prosthetic devices, implants and grafts, initial encounter (principal); N18.6 End stage renal disease; T82.858A Stenosis of other vascular prosthetic devices, implants and grafts, initial encounter; E11.22 Type 2 diabetes mellitus with diabetic chronic kidney disease; I95.9 Hypotension, unspecified; J44.9 Chronic obstructive pulmonary disease, unspecified; I27.20 Pulmonary hypertension, unspecified; I48.91 Unspecified atrial fibrillation; E87.5 Hyperkalemia; I49.5 Sick sinus syndrome; F32.A Depression, unspecified; F41.9 Anxiety disorder, unspecified; D63.1 Anemia in chronic kidney disease; E11.42 Type 2 diabetes mellitus with diabetic polyneuropathy; I67.2 Cerebral atherosclerosis; N32.9 Bladder disorder, unspecified; R42 Dizziness and giddiness; Z99.2 Dependence on renal dialysis; Z90.49 Acquired absence of other specified parts of digestive tract; Z87.81 Personal history of (healed) traumatic fracture; Z87.891 Personal history of nicotine dependence; Y83.1 Surgical operation with implant of artificial internal device as the cause of abnormal reaction of the patient, or of later complication, without mention of misadventure at the time of the procedure; Z79.01 Long term (current) use of anticoagulants; Z79.899 Other long term (current) drug therapy; Z88.8 Allergy status to other drugs, medicaments and biological substances

== ENCOUNTER 2023-04-02 09:32 | Inpatient (IN) | payer MEDICARE, OTHER ==
[~2023-04-02] VITALS: Ht 157.5 cm; Wt 56.5 kg
[~2023-04-02 09:32] MED LIST changes: -ceFAZolin SOD 2 GM in IV 1 EA IV ONE
[2023-04-02] MEDS ORDERED: MIDO5TA PO (09:55)
[2023-04-02 12:50] VITALS: BP 143/67; TEMP 97.8; O2SAT 96
[2023-04-02 14:00] VITALS: BP 121/59; TEMP 97.5; O2SAT 99
[2023-04-02] MEDS: REMEDY PHYTOPLEX Z-GUARD PASTE 113GM TUBE (FROM STOREROOM PRODUCT) TOP SCH ×2 (16:00→21:00)
[2023-04-02] MEDS ORDERED: ACETAMINOPHEN TAB 650MG DOSE (2X325MG) PO PRN (16:10)
[2023-04-02] MEDS ORDERED: oxyCODONE 5MG TAB PO PRN (16:10)
[2023-04-02] MEDS ORDERED: BISACODYL 10MG SUPP PR PRN (16:10)
[2023-04-02] MEDS: MIDODRINE 5 MG TAB PO SCH ×2 (16:23→21:37)
[2023-04-02] MEDS: ceFAZolin SOD 1 GM in D5W MINI-BAG PLUS 50 ML IV SCH (16:49)
[2023-04-02] MEDS: PANTOPRAZOLE 40MG TAB (PROTONIX) PO SCH (16:49)
[2023-04-02] MEDS: LACTOBACILLUS ACIDOPHILUS CAP (BACID) PO SCH (18:16)
[2023-04-02 20:00] VITALS: BP 119/73; TEMP 97.9; O2SAT 99
[2023-04-02] MEDS: COMBIVENT RESPIMAT 100-20MCG INHALER 4GM INH SCH (20:27)
[2023-04-02] MEDS: APIXABAN 2.5 MG TAB (ELIQUIS) PO SCH (21:36)
[2023-04-02] MEDS: traZODone 50 MG TAB PO SCH (21:37)
[2023-04-02] MEDS: DOCUSATE SODIUM 100MG CAPSULE PO SCH (21:37)
[2023-04-02] MEDS: SENNA 8.6 MG TAB (SENOKOT) PO SCH (21:38)
[2023-04-02] MEDS: GABAPENTIN 100 MG CAP PO SCH (21:46)
[2023-04-03] MEDS ORDERED: HEPARIN 1,000UNITS/ML 10ML VIAL (FOR RADIOLOGY & DIALYSIS ONLY) IV PRN (00:40)
[2023-04-03] MEDS ORDERED: HEPARIN 1,000UNITS/ML 10ML VIAL (FOR RADIOLOGY & DIALYSIS ONLY) XX SCH (00:40)
[2023-04-03] MEDS: MIDODRINE 5 MG TAB PO SCH ×3 (05:38→21:15)
[2023-04-03 06:00] VITALS: BP 130/63; TEMP 97; O2SAT 99
[2023-04-03 06:09] LABS: BASO # 0.1 10^3/uL (0.0-0.2); EOS # 0.2 10^3/uL (0.0-0.5); HEMATOCRIT 32.1 % (36.0-47.0); HEMOGLOBIN 10.1 g/dl (12.0-15.5); LYMPH # 0.7 10^3/uL (1.5-5.0); LYMPH % 13.6 % (24.0-44.0); MEAN CORPUSCULAR HEMOGLOBIN 32.3 pg (27.0-33.0); MEAN CORPUSCULAR HGB CONC 31.5 g/dl (32.0-36.5); MEAN CORPUSCULAR VOLUME 102.6 fl (80.0-96.0); MONO # 0.7 10^3/uL (0.0-0.8); MONO % 15.5 % (2.0-8.0); NEUTROPHILS % 63.6 % (36.0-66.0); PLATELET COUNT, AUTOMATED 179 10^3/uL (150-450); RED BLOOD COUNT 3.13 10^6/uL (4.00-5.40); WHITE BLOOD COUNT 4.8 10^3/uL (4.0-10.0)
[2023-04-03 06:38] LABS: ALBUMIN 2.6 G/DL (3.2-5.2); ALKALINE PHOSPHATASE 136 U/L (46-116); ALT/SGPT < 9 U/L (7.0-40); AST/SGOT 13 U/L (<34); BILIRUBIN,TOTAL 0.4 MG/DL (0.3-1.2); BLOOD UREA NITROGEN 27 MG/DL (9-23); CALCIUM LEVEL 8.6 MG/DL (8.3-10.6); CARBON DIOXIDE LEVEL 25 MMOL/L (20-31); CHLORIDE LEVEL 104 MMOL/L (98-107); CREATININE FOR GFR 3.58 MG/DL (0.55-1.30); GLOMERULAR FILTRATION RATE 13.1 (>39); GLUCOSE, FASTING 91 MG/DL (74-106); POTASSIUM SERUM 3.8 MMOL/L (3.5-5.1); SODIUM LEVEL 138 MMOL/L (136-145); TOTAL PROTEIN 5.3 G/DL (5.7-8.2)
[2023-04-03] MEDS: COMBIVENT RESPIMAT 100-20MCG INHALER 4GM INH SCH ×3 (07:35→20:10)
[2023-04-03] MEDS: LACTOBACILLUS ACIDOPHILUS CAP (BACID) PO SCH ×2 (07:45→21:14)
[2023-04-03] MEDS ORDERED: HOME MED LIST COMPLETE! XX SCH (07:45)
[2023-04-03] MEDS: APIXABAN 2.5 MG TAB (ELIQUIS) PO SCH ×2 (07:45→21:14)
[2023-04-03] MEDS: PANTOPRAZOLE 40MG TAB (PROTONIX) PO SCH (07:45)
[2023-04-03] MEDS: DOCUSATE SODIUM 100MG CAPSULE PO SCH ×2 (07:45→21:50)
[2023-04-03] MEDS: REMEDY PHYTOPLEX Z-GUARD PASTE 113GM TUBE (FROM STOREROOM PRODUCT) TOP SCH ×3 (07:46→21:00)
[2023-04-03] MEDS: GABAPENTIN 100 MG CAP PO SCH ×2 (09:20→21:14)
[2023-04-03 14:00] VITALS: BP 125/58; TEMP 96.8; O2SAT 100
[2023-04-03 20:10] VITALS: BP 113/56; TEMP 98; O2SAT 98
[2023-04-03] MEDS: ceFAZolin SOD 1 GM in D5W MINI-BAG PLUS 50 ML IV SCH (21:14)
[2023-04-03] MEDS: traZODone 50 MG TAB PO SCH (21:14)
[2023-04-03] MEDS: SENNA 8.6 MG TAB (SENOKOT) PO SCH (21:50)
[2023-04-04 05:19] VITALS: BP 137/63; TEMP 98.3; O2SAT 98
[2023-04-04] MEDS: MIDODRINE 5 MG TAB PO SCH ×3 (05:44→20:58)
[2023-04-04] MEDS: COMBIVENT RESPIMAT 100-20MCG INHALER 4GM INH SCH ×3 (07:40→19:26)
[2023-04-04] MEDS: DOCUSATE SODIUM 100MG CAPSULE PO SCH ×2 (07:43→20:58)
[2023-04-04] MEDS: GABAPENTIN 100 MG CAP PO SCH ×2 (07:43→20:58)
[2023-04-04] MEDS: APIXABAN 2.5 MG TAB (ELIQUIS) PO SCH ×2 (07:43→20:58)
[2023-04-04] MEDS: PANTOPRAZOLE 40MG TAB (PROTONIX) PO SCH (07:44)
[2023-04-04] MEDS: REMEDY PHYTOPLEX Z-GUARD PASTE 113GM TUBE (FROM STOREROOM PRODUCT) TOP SCH ×3 (07:44→20:09)
[2023-04-04] MEDS: LACTOBACILLUS ACIDOPHILUS CAP (BACID) PO SCH ×2 (07:44→17:27)
[2023-04-04 14:00] VITALS: BP 134/63; TEMP 97.3; O2SAT 100
[2023-04-04] MEDS: ceFAZolin SOD 1 GM in D5W MINI-BAG PLUS 50 ML IV SCH (14:57)
[2023-04-04 20:00] VITALS: BP 133/60; TEMP 97.1; O2SAT 74
[2023-04-04] MEDS: traZODone 50 MG TAB PO SCH (20:58)
[2023-04-04] MEDS: SENNA 8.6 MG TAB (SENOKOT) PO SCH (20:58)
[2023-04-05] MEDS: MIDODRINE 5 MG TAB PO SCH ×3 (05:19→20:15)
[2023-04-05 06:00] VITALS: BP 132/62; TEMP 97.8; O2SAT 98
[2023-04-05] MEDS ORDERED: SODIUM CHLORIDE 0.9% 1000ML IV PRN (07:30)
[2023-04-05] MEDS ORDERED: HEPARIN 1,000UNITS/ML 10ML VIAL (FOR RADIOLOGY & DIALYSIS ONLY) IV PRN (07:30)
[2023-04-05] MEDS ORDERED: HEPARIN 1,000UNITS/ML 10ML VIAL (FOR RADIOLOGY & DIALYSIS ONLY) XX SCH (07:30)
[2023-04-05] MEDS: PANTOPRAZOLE 40MG TAB (PROTONIX) PO SCH (07:38)
[2023-04-05] MEDS: LACTOBACILLUS ACIDOPHILUS CAP (BACID) PO SCH ×2 (07:38→17:49)
[2023-04-05] MEDS: REMEDY PHYTOPLEX Z-GUARD PASTE 113GM TUBE (FROM STOREROOM PRODUCT) TOP SCH ×3 (07:38→20:13)
[2023-04-05] MEDS: GABAPENTIN 100 MG CAP PO SCH ×2 (07:38→20:12)
[2023-04-05] MEDS: APIXABAN 2.5 MG TAB (ELIQUIS) PO SCH ×2 (07:38→20:12)
[2023-04-05] MEDS: DOCUSATE SODIUM 100MG CAPSULE PO SCH ×2 (07:38→20:12)
[2023-04-05] MEDS: COMBIVENT RESPIMAT 100-20MCG INHALER 4GM INH SCH ×3 (08:00→19:36)
[2023-04-05 20:00] VITALS: BP 116/56; TEMP 97.5; O2SAT 98
[2023-04-05] MEDS: traZODone 50 MG TAB PO SCH (20:12)
[2023-04-05] MEDS: SENNA 8.6 MG TAB (SENOKOT) PO SCH (20:13)
[2023-04-06] MEDS: MIDODRINE 5 MG TAB PO SCH ×3 (05:41→21:24)
[2023-04-06 06:00] VITALS: BP 118/61; TEMP 97.7; O2SAT 97
[2023-04-06 06:07] LABS: BASO # 0.1 10^3/uL (0.0-0.2); BASO % 1.4 % (0.0-1.0); EOS # 0.2 10^3/uL (0.0-0.5); EOS % 3.4 % (0.0-3.0); HEMATOCRIT 33.2 % (36.0-47.0); HEMOGLOBIN 10.3 g/dl (12.0-15.5); LYMPH # 0.9 10^3/uL (1.5-5.0); LYMPH % 15.3 % (24.0-44.0); MEAN CORPUSCULAR VOLUME 103.1 fl (80.0-96.0); MONO # 0.7 10^3/uL (0.0-0.8); MONO % 12.7 % (2.0-8.0); NEUTROPHILS # 3.9 10^3/uL (1.5-8.5); NEUTROPHILS % 66.7 % (36.0-66.0); PLATELET COUNT, AUTOMATED 213 10^3/uL (150-450); RED BLOOD COUNT 3.22 10^6/uL (4.00-5.40); WHITE BLOOD COUNT 5.8 10^3/uL (4.0-10.0)
[2023-04-06 06:19] LABS: CALCIUM LEVEL 9.2 MG/DL (8.3-10.6); CREATININE FOR GFR 2.51 MG/DL (0.55-1.30); GLOMERULAR FILTRATION RATE 19.7 (>39); POTASSIUM SERUM 4.2 MMOL/L (3.5-5.1)
[2023-04-06] MEDS: REMEDY PHYTOPLEX Z-GUARD PASTE 113GM TUBE (FROM STOREROOM PRODUCT) TOP SCH ×3 (09:00→20:44)
[2023-04-06] MEDS: COMBIVENT RESPIMAT 100-20MCG INHALER 4GM INH SCH ×3 (09:24→20:28)
[2023-04-06] MEDS: LACTOBACILLUS ACIDOPHILUS CAP (BACID) PO SCH ×2 (09:56→17:52)
[2023-04-06] MEDS: PANTOPRAZOLE 40MG TAB (PROTONIX) PO SCH (09:56)
[2023-04-06] MEDS: DOCUSATE SODIUM 100MG CAPSULE PO SCH ×2 (09:56→20:50)
[2023-04-06] MEDS: APIXABAN 2.5 MG TAB (ELIQUIS) PO SCH ×2 (09:56→20:50)
[2023-04-06] MEDS: GABAPENTIN 100 MG CAP PO SCH ×2 (09:56→20:51)
[2023-04-06 20:00] VITALS: BP 129/59; TEMP 97.9; O2SAT 96
[2023-04-06] MEDS: traZODone 50 MG TAB PO SCH (20:50)
[2023-04-06] MEDS: SENNA 8.6 MG TAB (SENOKOT) PO SCH (20:50)
[2023-04-06 21:24] VITALS: BP 109/51
[2023-04-07] MEDS: MIDODRINE 5 MG TAB PO SCH ×3 (05:26→20:28)
[2023-04-07 06:00] VITALS: BP 137/64; TEMP 97.4; O2SAT 97
[2023-04-07] MEDS: REMEDY PHYTOPLEX Z-GUARD PASTE 113GM TUBE (FROM STOREROOM PRODUCT) TOP SCH ×3 (07:21→20:24)
[2023-04-07] MEDS: DOCUSATE SODIUM 100MG CAPSULE PO SCH ×2 (07:41→20:24)
[2023-04-07] MEDS: PANTOPRAZOLE 40MG TAB (PROTONIX) PO SCH (07:41)
[2023-04-07] MEDS: GABAPENTIN 100 MG CAP PO SCH ×2 (07:41→20:24)
[2023-04-07] MEDS: APIXABAN 2.5 MG TAB (ELIQUIS) PO SCH ×2 (07:41→20:24)
[2023-04-07] MEDS: LACTOBACILLUS ACIDOPHILUS CAP (BACID) PO SCH ×2 (07:41→17:18)
[2023-04-07] MEDS ORDERED: SODIUM CHLORIDE 0.9% 1000ML IV PRN (07:45)
[2023-04-07] MEDS ORDERED: HEPARIN 1,000UNITS/ML 10ML VIAL (FOR RADIOLOGY & DIALYSIS ONLY) XX SCH (07:45)
[2023-04-07] MEDS ORDERED: HEPARIN 1,000UNITS/ML 10ML VIAL (FOR RADIOLOGY & DIALYSIS ONLY) IV PRN (07:45)
[2023-04-07] MEDS: COMBIVENT RESPIMAT 100-20MCG INHALER 4GM INH SCH ×3 (08:00→21:06)
[2023-04-07 14:00] VITALS: BP 117/57; TEMP 98.1; O2SAT 97
[2023-04-07 20:00] VITALS: BP 108/55; TEMP 97.8; O2SAT 98
[2023-04-07] MEDS: traZODone 50 MG TAB PO SCH (20:24)
[2023-04-07] MEDS: SENNA 8.6 MG TAB (SENOKOT) PO SCH (20:24)
[2023-04-08 06:00] VITALS: BP 145/63; TEMP 97.9; O2SAT 95
[2023-04-08] MEDS: MIDODRINE 5 MG TAB PO SCH ×3 (06:00→20:33)
[2023-04-08] MEDS: COMBIVENT RESPIMAT 100-20MCG INHALER 4GM INH SCH ×3 (08:52→19:38)
[2023-04-08] MEDS: REMEDY PHYTOPLEX Z-GUARD PASTE 113GM TUBE (FROM STOREROOM PRODUCT) TOP SCH ×3 (09:00→20:33)
[2023-04-08] MEDS: APIXABAN 2.5 MG TAB (ELIQUIS) PO SCH ×2 (10:41→20:28)
[2023-04-08] MEDS: DOCUSATE SODIUM 100MG CAPSULE PO SCH ×2 (10:41→20:32)
[2023-04-08] MEDS: LACTOBACILLUS ACIDOPHILUS CAP (BACID) PO SCH ×2 (10:41→17:25)
[2023-04-08] MEDS: GABAPENTIN 100 MG CAP PO SCH ×2 (10:41→20:28)
[2023-04-08] MEDS: PANTOPRAZOLE 40MG TAB (PROTONIX) PO SCH (10:42)
[2023-04-08] MEDS ORDERED: VENTAER INH (10:48)
[2023-04-08] MEDS ORDERED: MYRB50TA PO (10:48)
[2023-04-08] MEDS ORDERED: GABA-1171 PO ×2 (10:48)
[2023-04-08] MEDS ORDERED: CITA20TA7 PO (10:48)
[2023-04-08] MEDS ORDERED: ELIQ2.5T PO (10:48)
[2023-04-08] MEDS ORDERED: TREL1AER IN (10:48)
[2023-04-08] MEDS ORDERED: MIDO5TA PO (10:48)
[2023-04-08] MEDS ORDERED: TRAZ-252 PO (10:48)
[2023-04-08 14:00] VITALS: BP 121/62; TEMP 98; O2SAT 100
[2023-04-08 20:00] VITALS: BP 128/60; TEMP 98.1; O2SAT 99
[2023-04-08] MEDS: traZODone 50 MG TAB PO SCH (20:28)
[2023-04-08] MEDS: SENNA 8.6 MG TAB (SENOKOT) PO SCH (20:33)
[2023-04-09] MEDS: MIDODRINE 5 MG TAB PO SCH (05:54)
[2023-04-09 06:00] VITALS: BP 124/58; TEMP 98.2; O2SAT 96
[2023-04-09] MEDS: COMBIVENT RESPIMAT 100-20MCG INHALER 4GM INH SCH (07:59)
[2023-04-09] MEDS: PANTOPRAZOLE 40MG TAB (PROTONIX) PO SCH (08:45)
[2023-04-09] MEDS: LACTOBACILLUS ACIDOPHILUS CAP (BACID) PO SCH (08:45)
[2023-04-09] MEDS: DOCUSATE SODIUM 100MG CAPSULE PO SCH ×2 (08:45→08:48)
[2023-04-09] MEDS: APIXABAN 2.5 MG TAB (ELIQUIS) PO SCH (08:45)
[2023-04-09] MEDS: REMEDY PHYTOPLEX Z-GUARD PASTE 113GM TUBE (FROM STOREROOM PRODUCT) TOP SCH (08:46)
[2023-04-09] MEDS: GABAPENTIN 100 MG CAP PO SCH (08:46)
== END 2023-04-09 11:20 | disposition home or self-care (01) | DRG 683 ==
LOC: M PM&R 12:45
PROVIDERS: ADMIT Physical Medicine & Rehabilitation; ATTEND Physical Medicine & Rehabilitation
DX: N18.6 End stage renal disease (principal); I50.32 Chronic diastolic (congestive) heart failure; R60.0 Localized edema; I48.91 Unspecified atrial fibrillation; I95.9 Hypotension, unspecified; Z99.2 Dependence on renal dialysis; J44.9 Chronic obstructive pulmonary disease, unspecified; I27.20 Pulmonary hypertension, unspecified; I49.5 Sick sinus syndrome; Z95.0 Presence of cardiac pacemaker; F41.9 Anxiety disorder, unspecified; F32.A Depression, unspecified; R53.1 Weakness; Z98.41 Cataract extraction status, right eye; Z98.42 Cataract extraction status, left eye; Z79.01 Long term (current) use of anticoagulants; Z79.899 Other long term (current) drug therapy; Z88.8 Allergy status to other drugs, medicaments and biological substances; I77.0 Arteriovenous fistula, acquired; G89.29 Other chronic pain; D64.9 Anemia, unspecified

== ENCOUNTER → 2023-06-06 | Outpatient (CLI) | payer MEDICARE, OTHER ==
[~2023-06-06] MED LIST changes: +LIDOCAINE W/EPINEPHRINE 1% 20ML VIAL As Ordered ONE; +LORA-1041 PO; -LORA-674 PO
[2023-06-06 07:25] VITALS: TEMP 97.3
[2023-06-06 09:00] VITALS: BP 123/60; O2SAT 100
== END ==
LOC: M IRPRO 07:13
PROVIDERS: ATTEND Surgery Vascular Surgery
DX: N18.6 End stage renal disease (principal); Z99.2 Dependence on renal dialysis

== ENCOUNTER 2023-07-21 16:00 | Emergency (ER) | payer MEDICARE, OTHER ==
[~2023-07-21] VITALS: Ht 157.5 cm; Wt 59.1 kg
[~2023-07-21 16:00] MED LIST changes: -LIDOCAINE W/EPINEPHRINE 1% 20ML VIAL As Ordered ONE
[2023-07-21 16:12] VITALS: TEMP 98.3
[2023-07-21] MEDS ORDERED: ACETAMINOPHEN TAB 650MG DOSE (2X325MG) PO ONE (18:10)
[2023-07-21 20:15] VITALS: BP 94/51; O2SAT 95
[2023-07-21] MEDS ORDERED: ACET-910 PO (20:22)
== END 2023-07-21 20:47 | disposition home or self-care (01) ==
LOC: M ED 16:00
DX: M25.552 Pain in left hip (principal); I48.91 Unspecified atrial fibrillation; E11.9 Type 2 diabetes mellitus without complications; N18.6 End stage renal disease; J44.9 Chronic obstructive pulmonary disease, unspecified; H81.4 Vertigo of central origin; Z88.8 Allergy status to other drugs, medicaments and biological substances; Z79.01 Long term (current) use of anticoagulants; Z79.51 Long term (current) use of inhaled steroids; Z79.899 Other long term (current) drug therapy

== ENCOUNTER 2023-10-30 17:56 | Inpatient (IN) | payer MEDICARE, OTHER ==
[~2023-10-30] VITALS: Ht 157.5 cm; Wt 63.0 kg
[~2023-10-30 17:56] MED LIST changes: +ACET-910 PO
[2023-10-30 18:42] LABS: BASO % 0.3 % (0.0-1.0); EOS % 0.3 % (0.0-3.0); HEMATOCRIT 35.9 % (36.0-47.0); HEMOGLOBIN 11.3 g/dl (12.0-15.5); LYMPH # 0.4 10^3/uL (1.5-5.0); LYMPH % 4.3 % (24.0-44.0); MEAN CORPUSCULAR HEMOGLOBIN 32.8 pg (27.0-33.0); MEAN CORPUSCULAR HGB CONC 31.5 g/dl (32.0-36.5); MEAN CORPUSCULAR VOLUME 104.4 fl (80.0-96.0); MONO # 1.1 10^3/uL (0.0-0.8); MONO % 12.2 % (2.0-8.0); NEUTROPHILS # 7.6 10^3/uL (1.5-8.5); NEUTROPHILS % 82.5 % (36.0-66.0); PLATELET COUNT, AUTOMATED 137 10^3/uL (150-450); RED BLOOD COUNT 3.44 10^6/uL (4.00-5.40); WHITE BLOOD COUNT 9.2 10^3/uL (4.0-10.0)
[2023-10-30 19:07] LABS: THYROID STIMULATING HORMONE 2.826 uIU/ML (0.55-4.78)
[2023-10-30 19:11] LABS: ALBUMIN 3.1 G/DL (3.2-5.2); ALKALINE PHOSPHATASE 146 U/L (46-116); ALT/SGPT 15 U/L (7.0-40); AST/SGOT 35 U/L (<34); BILIRUBIN,DIRECT 0.4 MG/DL (<0.4); BILIRUBIN,TOTAL 0.9 MG/DL (0.3-1.2); BLOOD UREA NITROGEN 9 MG/DL (9-23); CALCIUM LEVEL 8.5 MG/DL (8.3-10.6); CARBON DIOXIDE LEVEL 30 MMOL/L (20-31); CHLORIDE LEVEL 100 MMOL/L (98-107); CK-MB VALUE MASS < 1.0 NG/ML (<3.6); CPK CREATINE PHOSPHOKINASE 26 U/L (34-145); GLOMERULAR FILTRATION RATE 22.9 (>39); GLUCOSE, FASTING 99 MG/DL (74-106); MB/CK RELATIVE INDEX 3.84 (< OR =4); POTASSIUM SERUM 4.6 MMOL/L (3.5-5.1); SODIUM LEVEL 134 MMOL/L (136-145); TOTAL PROTEIN 6.4 G/DL (5.7-8.2)
[2023-10-30] MEDS: IPRATROPIUM 0.5MG/ALBUTEROL 2.5MG INH SOL UD 3ML (DUONEB) NEB ONE (21:34)
[2023-10-30] MEDS: methylPREDNISolone 125MG 2ML VIAL IV ONE (21:36)
[2023-10-30 23:29] LABS: PROCALCITONIN 0.19 ng/ml
[2023-10-30] MEDS: cefTRIAXone SOD 1 GM in D5W MINI-BAG PLUS 50 ML IV ONE (23:36)
[2023-10-30] MEDS: NS 500 ML IV ONE (23:37)
[2023-10-31] MEDS ORDERED: HYDROMORPHONE HCL 0.5 MG/ 0.5 ML SYRINGE IV PRN (01:45)
[2023-10-31] MEDS ORDERED: ALBUTEROL SULFATE 2.5MG/0.5ML INH NEB SOLN NEB PRN (01:45)
[2023-10-31] MEDS ORDERED: ACETAMINOPHEN TAB 650MG DOSE (2X325MG) PO PRN (01:45)
[2023-10-31] MEDS ORDERED: ALBU8.5H INH (02:10)
[2023-10-31] MEDS ORDERED: VITA-199 PO (02:10)
[2023-10-31] MEDS: ALBUTEROL SULFATE 2.5MG/0.5ML INH NEB SOLN INH SCH (02:12)
[2023-10-31] MEDS ORDERED: GABA-1171 PO ×2 (02:25)
[2023-10-31] MEDS ORDERED: MULT-40 PO (02:37)
[2023-10-31] MEDS ORDERED: SEVE800T3 PO (02:37)
[2023-10-31] MEDS ORDERED: TRAM50TA2 PO (02:37)
[2023-10-31] MEDS ORDERED: C 50TAB PO (02:37)
[2023-10-31] MEDS ORDERED: [UNRECOGNIZED DRUG - CODE] EXT (02:37)
[2023-10-31] MEDS ORDERED: HOME MED LIST COMPLETE! XX SCH (02:40)
[2023-10-31] MEDS: AZITHROMYCIN INJ 500 MG, VIAL MATE ADAPTER 1 EACH in NS 250 ML IV SCH (04:57)
[2023-10-31] MEDS: methylPREDNISolone 40MG 1ML VIAL IV SCH ×2 (05:51→17:34)
[2023-10-31] MEDS: SYMBICORT 160/4.5MCG INHALER 6GM INH SCH (08:00)
[2023-10-31] MEDS: TIOTROPIUM INHALER/CAPSULE (SPIRIVA) INH SCH (08:00)
[2023-10-31] MEDS: IPRATROPIUM 0.5MG/ALBUTEROL 2.5MG INH SOL UD 3ML (DUONEB) NEB SCH (08:00)
[2023-10-31 08:27] LABS: BASO % 0.1 % (0.0-1.0); HEMATOCRIT 33.3 % (36.0-47.0); HEMOGLOBIN 10.7 g/dl (12.0-15.5); LYMPH # 0.2 10^3/uL (1.5-5.0); LYMPH % 2.2 % (24.0-44.0); MEAN CORPUSCULAR HEMOGLOBIN 33.3 pg (27.0-33.0); MEAN CORPUSCULAR HGB CONC 32.1 g/dl (32.0-36.5); MEAN CORPUSCULAR VOLUME 103.7 fl (80.0-96.0); MONO # 0.2 10^3/uL (0.0-0.8); MONO % 2.2 % (2.0-8.0); PLATELET COUNT, AUTOMATED 127 10^3/uL (150-450); RED BLOOD COUNT 3.21 10^6/uL (4.00-5.40); WHITE BLOOD COUNT 7.3 10^3/uL (4.0-10.0)
[2023-10-31] MEDS ORDERED: ALBUTEROL 90 MCG/ACT 8GM HFA INHALER INH PRN (09:25)
[2023-10-31 09:29] LABS: CALCIUM LEVEL 8.5 MG/DL (8.3-10.6); CREATININE FOR GFR 3.03 MG/DL (0.55-1.30); GLOMERULAR FILTRATION RATE 15.8 (>39); POTASSIUM SERUM 4.3 MMOL/L (3.5-5.1)
[2023-10-31] MEDS ORDERED: traMADol 50 MG TAB PO PRN (09:33)
[2023-10-31] MEDS: CitaloPRAM (CeleXA) 20 MG TAB PO SCH (09:57)
[2023-10-31] MEDS: ASCORBIC ACID 500 MG TAB PO SCH (09:57)
[2023-10-31] MEDS: GABAPENTIN 100 MG CAP PO SCH ×2 (09:57→20:58)
[2023-10-31 12:45] VITALS: BP 106/63; TEMP 97.9; O2SAT 93
[2023-10-31] MEDS: LACTOBACILLUS ACIDOPHILUS CAP (BACID) PO SCH (12:53)
[2023-10-31] MEDS: (RENVELA) SEVELAMER **CARBONate** 800 MG TAB PO SCH (17:34)
[2023-10-31 20:00] VITALS: BP 110/62; TEMP 98.1; O2SAT 93
[2023-10-31] MEDS ORDERED: FIDAXOMICIN 200 MG TAB (DIFICID) PO SCH (21:00)
[2023-10-31] MEDS: cefTRIAXone SOD 1 GM in D5W MINI-BAG PLUS 50 ML IV SCH (21:00)
[2023-10-31] MEDS: traZODone 50 MG TAB PO PRN (22:27)
[2023-11-01] MEDS: AZITHROMYCIN 250MG TABLET PO SCH (05:38)
[2023-11-01 05:53] LABS: BASO % 0.1 % (0.0-1.0); HEMATOCRIT 32.6 % (36.0-47.0); HEMOGLOBIN 10.4 g/dl (12.0-15.5); LYMPH # 0.3 10^3/uL (1.5-5.0); LYMPH % 3.1 % (24.0-44.0); MEAN CORPUSCULAR HEMOGLOBIN 32.9 pg (27.0-33.0); MEAN CORPUSCULAR HGB CONC 31.9 g/dl (32.0-36.5); MEAN CORPUSCULAR VOLUME 103.2 fl (80.0-96.0); MONO # 0.8 10^3/uL (0.0-0.8); MONO % 7.6 % (2.0-8.0); NEUTROPHILS # 9.3 10^3/uL (1.5-8.5); NEUTROPHILS % 88.5 % (36.0-66.0); PLATELET COUNT, AUTOMATED 146 10^3/uL (150-450); RED BLOOD COUNT 3.16 10^6/uL (4.00-5.40); WHITE BLOOD COUNT 10.6 10^3/uL (4.0-10.0)
[2023-11-01 06:00] VITALS: BP 113/62; TEMP 97.9; O2SAT 94
[2023-11-01] MEDS ORDERED: LIDOCAINE 1% SDV 5ML VIAL SC PRN (06:00)
[2023-11-01] MEDS ORDERED: SODIUM CHLORIDE 0.9% 1000ML IV PRN (06:00)
[2023-11-01 06:11] LABS: CALCIUM LEVEL 8.7 MG/DL (8.3-10.6); CREATININE FOR GFR 4.34 MG/DL (0.55-1.30); GLOMERULAR FILTRATION RATE 10.5 (>39); MAGNESIUM LEVEL 2.1 MG/DL (1.8-2.4); POTASSIUM SERUM 4.3 MMOL/L (3.5-5.1)
[2023-11-01] MEDS: MIDODRINE 5 MG TAB PO SCH (07:30)
[2023-11-01 14:00] VITALS: BP 113/59; TEMP 97.9; O2SAT 95
[2023-11-01 20:00] VITALS: BP 128/64; TEMP 98.1; O2SAT 96
[2023-11-02 06:00] VITALS: BP 106/51; TEMP 97.9; O2SAT 90
[2023-11-02 06:14] LABS: BASO % 0.2 % (0.0-1.0); HEMATOCRIT 31.4 % (36.0-47.0); HEMOGLOBIN 9.9 g/dl (12.0-15.5); LYMPH # 0.3 10^3/uL (1.5-5.0); LYMPH % 3.6 % (24.0-44.0); MEAN CORPUSCULAR HEMOGLOBIN 33.1 pg (27.0-33.0); MEAN CORPUSCULAR HGB CONC 31.5 g/dl (32.0-36.5); MONO # 0.8 10^3/uL (0.0-0.8); MONO % 8.4 % (2.0-8.0); NEUTROPHILS # 7.8 10^3/uL (1.5-8.5); NEUTROPHILS % 86.5 % (36.0-66.0); PLATELET COUNT, AUTOMATED 146 10^3/uL (150-450); RED BLOOD COUNT 2.99 10^6/uL (4.00-5.40)
[2023-11-02 06:46] LABS: CALCIUM LEVEL 8.9 MG/DL (8.3-10.6); CREATININE FOR GFR 2.87 MG/DL (0.55-1.30); GLOMERULAR FILTRATION RATE 16.9 (>39); MAGNESIUM LEVEL 1.9 MG/DL (1.8-2.4); POTASSIUM SERUM 3.6 MMOL/L (3.5-5.1)
[2023-11-02 20:11] VITALS: BP 128/64; TEMP 98.1; O2SAT 96
[2023-11-03 05:24] VITALS: BP 124/62; TEMP 97.7; O2SAT 95
[2023-11-03 06:13] LABS: BASO # 0.1 10^3/uL (0.0-0.2); BASO % 0.6 % (0.0-1.0); EOS % 0.1 % (0.0-3.0); HEMOGLOBIN 10.5 g/dl (12.0-15.5); LYMPH # 0.8 10^3/uL (1.5-5.0); LYMPH % 7.2 % (24.0-44.0); MEAN CORPUSCULAR HEMOGLOBIN 31.9 pg (27.0-33.0); MEAN CORPUSCULAR HGB CONC 30.9 g/dl (32.0-36.5); MEAN CORPUSCULAR VOLUME 103.3 fl (80.0-96.0); MONO # 1.2 10^3/uL (0.0-0.8); MONO % 10.7 % (2.0-8.0); NEUTROPHILS # 8.4 10^3/uL (1.5-8.5); NEUTROPHILS % 77.8 % (36.0-66.0); PLATELET COUNT, AUTOMATED 144 10^3/uL (150-450); RED BLOOD COUNT 3.29 10^6/uL (4.00-5.40); WHITE BLOOD COUNT 10.8 10^3/uL (4.0-10.0)
[2023-11-03 06:21] LABS: CALCIUM LEVEL 9.1 MG/DL (8.3-10.6); CREATININE FOR GFR 3.91 MG/DL (0.55-1.30); GLOMERULAR FILTRATION RATE 11.8 (>39); MAGNESIUM LEVEL 1.9 MG/DL (1.8-2.4); POTASSIUM SERUM 3.3 MMOL/L (3.5-5.1)
[2023-11-03] MEDS ORDERED: HEPARIN 1,000UNITS/ML 10ML VIAL (FOR RADIOLOGY & DIALYSIS ONLY) IV PRN (06:35)
[2023-11-03] MEDS ORDERED: SODIUM CHLORIDE 0.9% 1000ML IV PRN (06:35)
[2023-11-03] MEDS ORDERED: HEPARIN 1,000UNITS/ML 10ML VIAL (FOR RADIOLOGY & DIALYSIS ONLY) XX SCH (06:35)
[2023-11-03] MEDS: predniSONE 20 MG TAB PO SCH (07:30)
[2023-11-03] MEDS: DARBEPOETIN 100MCG/0.5ML *DIALYSIS* SYRINGE IV SCH (09:15)
[2023-11-03 14:00] VITALS: BP 105/52; TEMP 98.1; O2SAT 97
[2023-11-03] MEDS: HEPARIN SOD (PORCINE) 5000UNITS/ML 1ML VIAL/SYRINGE SQ SCH (20:17)
[2023-11-03] MEDS: AUGMENTIN 500MG TAB PO SCH (20:19)
[2023-11-03 22:00] VITALS: BP 112/54; TEMP 97.3; O2SAT 95
[2023-11-04 05:20] VITALS: BP 113/56; TEMP 97.7; O2SAT 92
[2023-11-04 05:52] LABS: HEMATOCRIT 34.8 % (36.0-47.0); HEMOGLOBIN 10.5 g/dl (12.0-15.5); MEAN CORPUSCULAR HEMOGLOBIN 32.2 pg (27.0-33.0); MEAN CORPUSCULAR HGB CONC 30.2 g/dl (32.0-36.5); MEAN CORPUSCULAR VOLUME 106.7 fl (80.0-96.0); PLATELET COUNT, AUTOMATED 143 10^3/uL (150-450); RED BLOOD COUNT 3.26 10^6/uL (4.00-5.40); WHITE BLOOD COUNT 12.2 10^3/uL (4.0-10.0)
[2023-11-04 06:16] LABS: CALCIUM LEVEL 8.4 MG/DL (8.3-10.6); CREATININE FOR GFR 2.96 MG/DL (0.55-1.30); GLOMERULAR FILTRATION RATE 16.3 (>39); MAGNESIUM LEVEL 1.8 MG/DL (1.8-2.4); POTASSIUM SERUM 3.7 MMOL/L (3.5-5.1)
[2023-11-04 06:30] LABS: ATYPICAL LYMPH 5 % (0-5); LYMPHOCYTES 9 % (16-44); MONOCYTES 9 % (0-5); NEUTROPHILS 77 % (28-66); NUCLEATED RED BLOOD CELL 1 % (0-0); PLATELET ESTIMATE NORMAL (NORMAL)
[2023-11-04 06:31] LABS: ANISOCYTOSIS 1+; POIKILOCYTOSIS 1+; POLYCHROMASIA 1+
[2023-11-04] MEDS ORDERED: AMOX500T2 PO (09:30)
[2023-11-04] MEDS ORDERED: ELIQ2.5T PO (09:30)
[2023-11-04] MEDS ORDERED: MUCI600T31 PO (09:31)
[2023-11-04] MEDS ORDERED: PROB250C PO (09:38)
[2023-11-04] MEDS: ONDANSETRON 4MG ORAL DISINTEGRATING TAB SL PRN (11:33)
== END 2023-11-04 14:05 | disposition home health service (06) | DRG 193 ==
LOC: M ED 17:56 → EDBD 17:56 → M ED INP 10-31 00:27 → ENRESERV 10-31 11:50 → M MSPAV 10-31 12:40
PROVIDERS: ADMIT Internal Medicine; ATTEND Internal Medicine
PROC: 5A1D70Z Performance of Urinary Filtration, Intermittent, Less than 6 Hours Per Day (ICD-10-PCS; principal; 2023-11-03)
DX: J18.9 Pneumonia, unspecified organism (principal); N18.6 End stage renal disease; J44.1 Chronic obstructive pulmonary disease with (acute) exacerbation; J44.0 Chronic obstructive pulmonary disease with (acute) lower respiratory infection; E87.1 Hypo-osmolality and hyponatremia; I12.0 Hypertensive chronic kidney disease with stage 5 chronic kidney disease or end stage renal disease; A04.72 Enterocolitis due to Clostridium difficile, not specified as recurrent; Z66 Do not resuscitate; I95.89 Other hypotension; E11.22 Type 2 diabetes mellitus with diabetic chronic kidney disease; D69.6 Thrombocytopenia, unspecified; I48.91 Unspecified atrial fibrillation; D63.8 Anemia in other chronic diseases classified elsewhere; N20.0 Calculus of kidney; R19.7 Diarrhea, unspecified; K76.1 Chronic passive congestion of liver; E11.42 Type 2 diabetes mellitus with diabetic polyneuropathy; F39 Unspecified mood [affective] disorder; Z90.79 Acquired absence of other genital organ(s); I27.20 Pulmonary hypertension, unspecified; Z87.891 Personal history of nicotine dependence; Z95.0 Presence of cardiac pacemaker; Z99.2 Dependence on renal dialysis; S70.12XA Contusion of left thigh, initial encounter; W01.0XXA Fall on same level from slipping, tripping and stumbling without subsequent striking against object, initial encounter; Y92.009 Unspecified place in unspecified non-institutional (private) residence as the place of occurrence of the external cause; Y93.9 Activity, unspecified

== ENCOUNTER 2023-11-29 08:28 | Observation (INO) | payer MEDICARE, OTHER ==
[~2023-11-29] VITALS: Ht 157.5 cm; Wt 58.8 kg
[~2023-11-29 08:28] MED LIST changes: +ALBU8.5H INH; +AMOX500T2 PO; +C 50TAB PO; +MUCI600T31 PO; +MULT-40 PO; +PROB250C PO; +SEVE800T3 PO; +VITA-199 PO; +[UNRECOGNIZED DRUG - CODE] EXT
[2023-11-29 09:30] LABS: BASO % 0.6 % (0.0-1.0); EOS # 0.1 10^3/uL (0.0-0.5); EOS % 1.9 % (0.0-3.0); HEMATOCRIT 28.6 % (36.0-47.0); HEMOGLOBIN 8.7 g/dl (12.0-15.5); LYMPH # 0.3 10^3/uL (1.5-5.0); LYMPH % 6.4 % (24.0-44.0); MEAN CORPUSCULAR HEMOGLOBIN 33.9 pg (27.0-33.0); MEAN CORPUSCULAR HGB CONC 30.4 g/dl (32.0-36.5); MEAN CORPUSCULAR VOLUME 111.3 fl (80.0-96.0); MONO # 0.6 10^3/uL (0.0-0.8); NEUTROPHILS # 4.2 10^3/uL (1.5-8.5); PLATELET COUNT, AUTOMATED 128 10^3/uL (150-450); RED BLOOD COUNT 2.57 10^6/uL (4.00-5.40); WHITE BLOOD COUNT 5.3 10^3/uL (4.0-10.0)
[2023-11-29 09:55] LABS: ABG BASE EXCESS -0.8 (-2.0-2.0); ABG HCO3 25.3 MMOL/L (22.0-26.0); ABG O2 SATURATION 90.9 % (95.0-99.0); ABG PARTIAL PRESSURE CO2 48.9 mmHg (35.0-45.0); ABG PARTIAL PRESSURE O2 61.5 mmHg (75.0-100.0); ABG STANDARD HCO3 23.7 MMOL/L. (22.0-26.0); ABG TOTAL CO2 26.8 MMOL/L (23.0-31.0); ABG pH (ARTERIAL) 7.332 UNITS (7.350-7.450)
[2023-11-29 10:03] LABS: RSV AMPLIFICATION POSITIVE (NEGATIVE)
[2023-11-29 10:03] LABS: ALBUMIN 3.2 G/DL (3.2-5.2); BILIRUBIN,DIRECT 0.5 MG/DL (<0.4); BILIRUBIN,TOTAL 0.9 MG/DL (0.3-1.2); CALCIUM LEVEL 8.6 MG/DL (8.3-10.6); CREATININE FOR GFR 4.32 MG/DL (0.55-1.30); GLOMERULAR FILTRATION RATE 10.5 (>39); POTASSIUM SERUM 3.9 MMOL/L (3.5-5.1); TOTAL PROTEIN 5.7 G/DL (5.7-8.2)
[2023-11-29] MEDS ORDERED: IPRA0.00 INH (10:21)
[2023-11-29] MEDS ORDERED: D 1010004 PO (10:21)
[2023-11-29] MEDS ORDERED: HOME MED LIST COMPLETE! XX SCH (10:25)
[2023-11-29 12:05] LABS: C REACTIVE PROTEIN QUANTITATIV 0.7 MG/DL (<1.0)
[2023-11-29 12:13] LABS: PROCALCITONIN 0.13 ng/ml
[2023-11-29] MEDS ORDERED: SODIUM CHLORIDE 0.9% 1000ML IV PRN (12:45)
[2023-11-29] MEDS ORDERED: HEPARIN 1,000UNITS/ML 10ML VIAL (FOR RADIOLOGY & DIALYSIS ONLY) IV PRN (12:45)
[2023-11-29] MEDS ORDERED: HEPARIN 1,000UNITS/ML 10ML VIAL (FOR RADIOLOGY & DIALYSIS ONLY) XX SCH (12:45)
[2023-11-29] MEDS: MIDODRINE 5 MG TAB PO SCH (13:21)
[2023-11-29] MEDS: IPRATROPIUM 0.5MG/ALBUTEROL 2.5MG INH SOL UD 3ML (DUONEB) NEB SCH (14:00)
[2023-11-29] MEDS: DARBEPOETIN 100MCG/0.5ML *DIALYSIS* SYRINGE IV SCH (14:09)
[2023-11-29] MEDS: APIXABAN 2.5 MG TAB (ELIQUIS) PO SCH (16:47)
[2023-11-29 17:34] VITALS: BP 113/64; TEMP 97.3; O2SAT 95
[2023-11-29] MEDS: IPRATROPIUM 0.5MG/ALBUTEROL 2.5MG INH SOL UD 3ML (DUONEB) NEB PRN (17:48)
[2023-11-29] MEDS: ASCORBIC ACID 500 MG TAB PO SCH (17:53)
[2023-11-29] MEDS: predniSONE 20 MG TAB PO SCH (17:53)
[2023-11-29] MEDS: CitaloPRAM (CeleXA) 20 MG TAB PO SCH (17:53)
[2023-11-29] MEDS: (RENVELA) SEVELAMER **CARBONate** 800 MG TAB PO SCH (17:54)
[2023-11-29] MEDS: LACTOBACILLUS ACIDOPHILUS CAP (BACID) PO SCH (17:54)
[2023-11-29 18:33] LABS: INR 1.28; PARTIAL THROMBOPLASTIN TIME 30.3 SECONDS (24.8-34.2); PROTHROMBIN TIME 15.6 SECONDS (12.5-14.5)
[2023-11-29 18:38] LABS: PERCENT SATURATION 38.1 % (13.2-45.0)
[2023-11-29 18:42] LABS: FOLATE 12.78 NG/ML (>5.4)
[2023-11-29 18:43] LABS: FERRITIN 878.5 NG/ML (7.3-270.7)
[2023-11-29] MEDS: methylPREDNISolone 125MG 2ML VIAL IV ONE (19:06)
[2023-11-29 19:32] LABS: ABG BASE EXCESS -1.9 (-2.0-2.0); ABG O2 SATURATION 99.8 % (95.0-99.0); ABG PARTIAL PRESSURE CO2 53.5 mmHg (35.0-45.0); ABG PARTIAL PRESSURE O2 260.5 mmHg (75.0-100.0); ABG STANDARD HCO3 22.9 MMOL/L. (22.0-26.0); ABG TOTAL CO2 26.6 MMOL/L (23.0-31.0); ABG pH (ARTERIAL) 7.287 UNITS (7.350-7.450)
[2023-11-29] MEDS ORDERED: VANCOMYCIN HCL 1,250 MG in IV FLUID PLACE HOLDER 1 EA IV ONE (19:50)
[2023-11-29] MEDS ORDERED: ACETYLCYSTEINE 20% 4 ML VIAL (200MG/ML) INH SCH (20:00)
[2023-11-29] MEDS ORDERED: ISOVUE-370 76% 100ML VIAL As Ordered ONE (20:25)
[2023-11-29 20:28] VITALS: BP 105/51; TEMP 97.2; O2SAT 95
[2023-11-29] MEDS: DEXTROMETHORPHAN 60MG/10ML SUSP 90ML BTL(DELSYM) PO PRN (21:01)
[2023-11-29] MEDS: CEFEPIME HCL 1 GM in D5W MINI-BAG PLUS 50 ML IV SCH (21:02)
[2023-11-29] MEDS: GABAPENTIN 100 MG CAP PO SCH (21:02)
[2023-11-29] MEDS: VANCOMYCIN HCL 750 MG, VIAL MATE ADAPTER 1 EACH in D5W 250 ML IV ONE (21:41)
[2023-11-29] MEDS: VANCOMYCIN HCL 500 MG in D5W MINI-BAG PLUS 100 ML IV ONE (22:51)
[2023-11-29] MEDS ORDERED: PILL CUTTER 1 EACH XX PRN (23:45)
[2023-11-30] MEDS: METOCLOPRAMIDE 5 MG TAB PO ONE (00:02)
[2023-11-30] MEDS: FAMOTIDINE IV BAG 20 MG in IV 1 EA IV ONE (00:03)
[2023-11-30 00:10] LABS: VENOUS BASE EXCESS -3.9 (-2.0-2.0); VENOUS HCO3 22.4 MMOL/L (23.0-27.0); VENOUS O2 SATURATION 98.8 % (60.0-80.0); VENOUS PARTIAL PRESSURE CO2 46.7 mmHg (38.0-50.0); VENOUS PARTIAL PRESSURE O2 137.8 mmHg (30.0-50.0); VENOUS PH 7.299 UNITS (7.330-7.430); VENOUS STANDARD HCO3 21.2 MMOL/L; VENOUS TOTAL CO2 23.8 MMOL/L (24.0-28.0)
[2023-11-30] MEDS: methylPREDNISolone 125MG 2ML VIAL IV SCH (03:00)
[2023-11-30 05:12] LABS: VENOUS BASE EXCESS -6.1 (-2.0-2.0); VENOUS HCO3 19.7 MMOL/L (23.0-27.0); VENOUS O2 SATURATION 98.8 % (60.0-80.0); VENOUS PARTIAL PRESSURE CO2 40.3 mmHg (38.0-50.0); VENOUS PARTIAL PRESSURE O2 125.3 mmHg (30.0-50.0); VENOUS PH 7.307 UNITS (7.330-7.430); VENOUS STANDARD HCO3 19.4 MMOL/L; VENOUS TOTAL CO2 20.9 MMOL/L (24.0-28.0)
[2023-11-30 05:24] LABS: HEMOGLOBIN 8.7 g/dl (12.0-15.5); MEAN CORPUSCULAR HEMOGLOBIN 34.4 pg (27.0-33.0); MEAN CORPUSCULAR HGB CONC 31.1 g/dl (32.0-36.5); MEAN CORPUSCULAR VOLUME 110.7 fl (80.0-96.0); PLATELET COUNT, AUTOMATED 132 10^3/uL (150-450); RED BLOOD COUNT 2.53 10^6/uL (4.00-5.40); WHITE BLOOD COUNT 4.7 10^3/uL (4.0-10.0)
[2023-11-30 05:58] LABS: CALCIUM LEVEL 8.7 MG/DL (8.3-10.6); CREATININE FOR GFR 2.44 MG/DL (0.55-1.30); GLOMERULAR FILTRATION RATE 20.3 (>39); MAGNESIUM LEVEL 1.8 MG/DL (1.8-2.4); POTASSIUM SERUM 4.4 MMOL/L (3.5-5.1)
[2023-11-30 06:00] VITALS: BP 106/50; TEMP 97.5; O2SAT 93
[2023-11-30] MEDS: MIDODRINE 5 MG TAB PO SCH (06:00)
[2023-11-30] MEDS ORDERED: HEPARIN 1,000UNITS/ML 10ML VIAL (FOR RADIOLOGY & DIALYSIS ONLY) IV PRN (06:20)
[2023-11-30] MEDS ORDERED: SODIUM CHLORIDE 0.9% 1000ML IV PRN (06:20)
[2023-11-30] MEDS ORDERED: LIDOCAINE 1% SDV 5ML VIAL SC PRN (06:20)
[2023-11-30] MEDS ORDERED: HEPARIN 1,000UNITS/ML 10ML VIAL (FOR RADIOLOGY & DIALYSIS ONLY) XX SCH (06:20)
[2023-11-30 07:44] LABS: VANCOMYCIN RANDOM 13.5 UG/ML
[2023-11-30] MEDS: PANTOPRAZOLE 20 MG TAB PO SCH (07:52)
[2023-11-30] MEDS: GABAPENTIN 100 MG CAP PO SCH (07:52)
[2023-11-30] MEDS: SENOKOT S TAB PO SCH (07:52)
[2023-11-30] MEDS: TIOTROPIUM INHALER/CAPSULE (SPIRIVA) INH SCH (08:00)
[2023-11-30] MEDS ORDERED: ENTER DRUG NAME HERE (PATIENT'S OWN MED) INH SCH (09:00)
[2023-11-30] MEDS ORDERED: FAMOTIDINE 20 MG TAB PO SCH (09:00)
[2023-11-30] MEDS ORDERED: ENOXAPARIN 40MG/0.4ML SYRINGE (J1650 PER 10MG) SC SCH (09:00)
[2023-11-30] MEDS: ADVAIR HFA 115/21MCG INHALER INH SCH (11:27)
[2023-11-30 16:00] VITALS: BP 125/61; TEMP 97.5; O2SAT 94
[2023-11-30] MEDS ORDERED: VANCOMYCIN HCL 1,000 MG, VIAL MATE ADAPTER 1 EACH in D5W 250 ML IV SCH (16:00)
[2023-11-30 18:02] LABS: VENOUS BASE EXCESS -2.4 (-2.0-2.0); VENOUS HCO3 25.6 MMOL/L (23.0-27.0); VENOUS PARTIAL PRESSURE CO2 60.6 mmHg (38.0-50.0); VENOUS PARTIAL PRESSURE O2 59.5 mmHg (30.0-50.0); VENOUS PH 7.243 UNITS (7.330-7.430); VENOUS STANDARD HCO3 22.3 MMOL/L; VENOUS TOTAL CO2 27.4 MMOL/L (24.0-28.0)
[2023-11-30] MEDS: LORazepam 0.5 MG TAB PO PRN (18:57)
[2023-11-30 19:22] VITALS: O2SAT 100
[2023-11-30 20:10] VITALS: BP 124/58; TEMP 97.9; O2SAT 93
[2023-12-01] VITALS (24 sets, daily range): BP systolic 127–133; BP diastolic 58–76; TEMP 97.2–97.7; O2SAT 78–97
[2023-12-01 05:17] LABS: VENOUS BASE EXCESS -4.8 (-2.0-2.0); VENOUS PARTIAL PRESSURE CO2 41.7 mmHg (38.0-50.0); VENOUS PARTIAL PRESSURE O2 74.4 mmHg (30.0-50.0); VENOUS STANDARD HCO3 20.5 MMOL/L; VENOUS TOTAL CO2 22.3 MMOL/L (24.0-28.0)
[2023-12-01 05:22] LABS: HEMOGLOBIN 9.1 g/dl (12.0-15.5); RED BLOOD COUNT 2.62 10^6/uL (4.00-5.40); WHITE BLOOD COUNT 15.7 10^3/uL (4.0-10.0)
[2023-12-01 05:23] LABS: BASO % 0.2 % (0.0-1.0); HEMATOCRIT 29.9 % (36.0-47.0); LYMPH # 0.3 10^3/uL (1.5-5.0); MEAN CORPUSCULAR HEMOGLOBIN 34.7 pg (27.0-33.0); MEAN CORPUSCULAR HGB CONC 30.4 g/dl (32.0-36.5); MEAN CORPUSCULAR VOLUME 114.1 fl (80.0-96.0); MONO # 0.7 10^3/uL (0.0-0.8); MONO % 4.6 % (2.0-8.0); NEUTROPHILS # 14.5 10^3/uL (1.5-8.5); NEUTROPHILS % 92.1 % (36.0-66.0); PLATELET COUNT, AUTOMATED 198 10^3/uL (150-450)
[2023-12-01 05:46] LABS: ALBUMIN 3.2 G/DL (3.2-5.2); CALCIUM LEVEL 9.7 MG/DL (8.3-10.6); CREATININE FOR GFR 1.82 MG/DL (0.55-1.30); GLOMERULAR FILTRATION RATE 28.5 (>39); MAGNESIUM LEVEL 1.9 MG/DL (1.8-2.4); PHOSPHORUS LEVEL 2.9 MG/DL (2.4-5.1); PLATELET ESTIMATE NORMAL (NORMAL); POTASSIUM SERUM 4.1 MMOL/L (3.5-5.1)
[2023-12-01 05:47] LABS: ANISOCYTOSIS 2+; PLATELET CLUMPS SMALL AMT; POLYCHROMASIA 1+
[2023-12-01] MEDS ORDERED: SODIUM CHLORIDE 0.9% 1000ML IV PRN (06:00)
[2023-12-01] MEDS ORDERED: HEPARIN 1,000UNITS/ML 10ML VIAL (FOR RADIOLOGY & DIALYSIS ONLY) IV PRN (06:00)
[2023-12-01] MEDS ORDERED: HEPARIN 1,000UNITS/ML 10ML VIAL (FOR RADIOLOGY & DIALYSIS ONLY) XX SCH (06:00)
[2023-12-01] MEDS ORDERED: LIDOCAINE 1% SDV 5ML VIAL SC PRN (06:00)
[2023-12-01 06:18] LABS: PROCALCITONIN 0.58 ng/ml
[2023-12-01] MEDS: IPRATROPIUM 0.5MG/ALBUTEROL 2.5MG INH SOL UD 3ML (DUONEB) NEB ONE (08:09)
[2023-12-01] MEDS: ALPRAZolam 0.25 MG TAB PO PRN (08:36)
[2023-12-01] MEDS ORDERED: VANCOMYCIN HCL IV SCH (09:00)
[2023-12-01] MEDS ORDERED: FLUID PLACE HOLDER IV SCH (09:00)
[2023-12-01] MEDS: FORMOTEROL FUMARATE 20 MCG/2 ML INHALATION SOLUTION (PERFOROMIST) INH SCH (09:01)
[2023-12-01] MEDS: GLYCOPYRROLATE INJ 0.2 MG/ML 2 ML VIAL NEB SCH (09:01)
[2023-12-01 10:33] LABS: ABG BASE EXCESS -5.2 (-2.0-2.0); ABG HCO3 22.4 MMOL/L (22.0-26.0); ABG O2 SATURATION 87.9 % (95.0-99.0); ABG PARTIAL PRESSURE CO2 53.9 mmHg (35.0-45.0); ABG PARTIAL PRESSURE O2 55.5 mmHg (75.0-100.0); ABG TOTAL CO2 24.1 MMOL/L (23.0-31.0)
[2023-12-01 10:39] LABS: ABG pH (ARTERIAL) 7.237 UNITS (7.350-7.450)
[2023-12-01] MEDS: methylPREDNISolone 40MG 1ML VIAL IV SCH (14:24)
[2023-12-01] MEDS ORDERED: PIPERACILLIN/TAZOBACTAM SOD 2.25 GM in D5W MINI-BAG PLUS 50 ML IV SCH (15:55)
[2023-12-01 16:36] LABS: C REACTIVE PROTEIN QUANTITATIV 1.1 MG/DL (<1.0)
[2023-12-01] MEDS: PIPERACILLIN/TAZOBACTAM SOD 4.5 GM in D5W MINI-BAG PLUS 50 ML IV SCH (17:13)
[2023-12-01] MEDS ORDERED: IPRATROPIUM 0.5MG/ALBUTEROL 2.5MG INH SOL UD 3ML (DUONEB) NEB ONE (18:00)
[2023-12-01 18:07] LABS: ABG BASE EXCESS -2.5 (-2.0-2.0); ABG HCO3 24.2 MMOL/L (22.0-26.0); ABG O2 SATURATION 89.2 % (95.0-99.0); ABG PARTIAL PRESSURE CO2 51.2 mmHg (35.0-45.0); ABG PARTIAL PRESSURE O2 55.5 mmHg (75.0-100.0); ABG STANDARD HCO3 22.3 MMOL/L. (22.0-26.0); ABG TOTAL CO2 25.7 MMOL/L (23.0-31.0); ABG pH (ARTERIAL) 7.292 UNITS (7.350-7.450)
[2023-12-02 02:21] VITALS: O2SAT 95
[2023-12-02 05:14] VITALS: BP 140/72; TEMP 97.3; O2SAT 93
[2023-12-02 05:52] LABS: VENOUS BASE EXCESS -1.2 (-2.0-2.0); VENOUS PARTIAL PRESSURE CO2 63.6 mmHg (38.0-50.0); VENOUS PH 7.245 UNITS (7.330-7.430); VENOUS STANDARD HCO3 23.4 MMOL/L; VENOUS TOTAL CO2 28.9 MMOL/L (24.0-28.0)
[2023-12-02 06:17] LABS: HEMATOCRIT 31.2 % (36.0-47.0); HEMOGLOBIN 9.1 g/dl (12.0-15.5); MEAN CORPUSCULAR HEMOGLOBIN 33.7 pg (27.0-33.0); MEAN CORPUSCULAR HGB CONC 29.2 g/dl (32.0-36.5); MEAN CORPUSCULAR VOLUME 115.6 fl (80.0-96.0); PLATELET COUNT, AUTOMATED 178 10^3/uL (150-450); WHITE BLOOD COUNT 14.2 10^3/uL (4.0-10.0)
[2023-12-02 06:21] LABS: ALBUMIN 3.3 G/DL (3.2-5.2); CALCIUM LEVEL 9.1 MG/DL (8.3-10.6); CREATININE FOR GFR 1.83 MG/DL (0.55-1.30); GLOMERULAR FILTRATION RATE 28.3 (>39); MAGNESIUM LEVEL 1.9 MG/DL (1.8-2.4); PHOSPHORUS LEVEL 3.5 MG/DL (2.4-5.1); POTASSIUM SERUM 3.8 MMOL/L (3.5-5.1)
[2023-12-02 06:47] VITALS: BP 130/64; TEMP 97.6; O2SAT 100
[2023-12-02 08:00] VITALS: BP 137/63; O2SAT 99
[2023-12-02] MEDS ORDERED: FLUTICASONE HFA 110MCG 12GM INHALER (FLOVENT) INH SCH (08:00)
[2023-12-02] MEDS: ADVAIR HFA 115/21MCG INHALER INH SCH (08:00)
[2023-12-02] MEDS: NS 250 ML IV ONE (08:45)
[2023-12-02 09:00] VITALS: O2SAT 99
[2023-12-02 10:00] VITALS: O2SAT 98
[2023-12-02] MEDS ORDERED: ONDANSETRON 4MG 2ML VIAL IV PRN (10:10)
[2023-12-02] MEDS ORDERED: SCOPOLAMINE 1MG TRANSDERMAL PATCH TOP PRN (10:10)
[2023-12-02] MEDS: MORPHINE 2 MG/ML 1ML VIAL IV PRN (10:28)
[2023-12-02] MEDS: LORazepam 2 MG/ML 1ML VIAL IV PRN (10:28)
== END 2023-12-02 12:27 | disposition expired ==
LOC: M ED 08:28 → EDBD 08:28 → M ED INP 11:20 → EEVIPCON 11:20 → M MSPAV 17:24 → M ICU 12-02 06:43
PROVIDERS: ADMIT Internal Medicine; ATTEND General Practice
DX: J96.12 Chronic respiratory failure with hypercapnia (principal); N18.6 End stage renal disease; J96.01 Acute respiratory failure with hypoxia; J44.1 Chronic obstructive pulmonary disease with (acute) exacerbation; I27.20 Pulmonary hypertension, unspecified; D50.9 Iron deficiency anemia, unspecified; D69.6 Thrombocytopenia, unspecified; E87.21 Acute metabolic acidosis; G93.41 Metabolic encephalopathy; E87.1 Hypo-osmolality and hyponatremia; E87.70 Fluid overload, unspecified; I48.91 Unspecified atrial fibrillation; Z79.01 Long term (current) use of anticoagulants; F41.9 Anxiety disorder, unspecified; F32.A Depression, unspecified; R29.6 Repeated falls; Z79.899 Other long term (current) drug therapy
CPT/HCPCS: 36415; 36600; 71045; 71046; 71275; 74018; 80048; 80069; 80076; 80202; 82607; 82728; 82746; 82803; 83550; 83605; 83735; 83880; 84145; 85025; 85027; 85610; 85652; 85730; 86140; 87040; 87486; 87581; 87631; 87633; 87641; 87798; 92610; 93005; 93041; 94640; 94760; 96365; 96366; 96367; 96375; 96376; 97165; 97535; 99285; G0257; G0378; J0692; J0882; J2060; J2543; J2920; J2930; J3370; J7512; J7606; Q9967